=== PATIENT | female | born 1990 ===

== ENCOUNTER 2020-07-23 07:00 | Outpatient (RCR) | payer BC, MEDICAID, SELFPAY ==
--- NOTE | 2020-06-26 11:40 | MHC.PT.EP ---
[facility] [place] Office [place] Office [place] Office [address] Ramses Bowers [address] [phone] F: [phone] F: [phone] F: [phone] F: [phone] Physical Therapy Plan of Care Date of Evaluation: 06/26/20 Date of Surgery: Diagnosis: Lumbar degenerative disc disease and right hip pain Assessment: This is a 30 y/o female referred to skilled PT for lumbar degenerative disc disease and right hip pain. Examination reveals sacroiliac joint asymmetries, pain, tenderness to palpation along the right QL, TFL, piriformis, and glut complex, (+) squish and JENNA on right, painful and decreased lumbar AROM and right hip ROM, impaired muscle length (right hamstrings), decreased hip and knee strength (right side), RLE paresthesias, postural deficits, and gait deviations. A directional preference was not established today. However, she may prefer lumbar extension. This will be assessed in future visits depending on how the patient responds to treatment. Pt is a good candidate for skilled PT 2x/week for 5 weeks in order to reduce impairments and improve functional limitations. Today, I performed MET for: right on left backward sacral torsion and right posterior innominate rotation. *Pt was diagnosed with cervical cancer 3 months ago and will begin treatment this month* Frequency and Duration: The patient will be seen 2x/week for 5 weeks, minimum of 38 minutes Short Term Goals: -In 2 weeks, Pt will report less than 8/10 pain. - In 3 weeks, Pt to improve right hip rotator ROM by at least 10 degrees. -In 3 weeks, Pt to improve right HS length by at least 10 degrees. [facility] Goals: -In 5 weeks, Pt to demonstrate the ability to perform sit<>stand transitions w/o pain or altered body positioning. 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 In 5 weeks, Pt to improve LEFI by at least 9 points. Treatment Plan: Modalities to reduce pain, spasms and effusion. Manual therapy to restore motion and function. Therapeutic exercise to improve strength and flexibility. Neuromuscular re-education for posture and balance. Therapeutic activities to return to functional activities of daily living. Please sign and return to therapist. Thank you for your referral.
--- NOTE | 2020-08-18 11:37 | MHC.PT.DC ---
[facility] [place] Office [place] Office [place] Office [address] [phone] F: [phone] F: [phone] F: [phone] F: [phone] Physical Therapy Discharge Report Diagnosis: back pain Date of Surgery: Date of Evaluation: 06/26/20 Date of Discharge: 08/18/20 Treatments to Date: 5 Cancellations to Date: 0 No Shows to Date: 0 Discharge Status: Patient Elected to Stop Discharge Summary: Pt has not been seen since 07/23/20. She has not followed up to schedule additional visits. She will be discharged at this time. Assessment from last visit: REIL continues to make her feel better ( more central pain) The patient went through low to moderate intensity core training without exacerbation of her pain. When she left she felt more right knee pain in the knee joint. However I believe this is radicular pain rather than actual joint pain. Pt asked to continue with pain reducing exercises at home. Despite education she has continued to do child's pose which gives her tempoary relief. Electronically signed by: Hui Durham PT, DPT Please sign and return to therapist. Thank you for your referral.
== END 2020-08-18 11:39 | disposition other institution (70) ==
LOC: HO.PT 07:00
PROVIDERS: PCP Internal Medicine; Visit Provider Internal Medicine
DX: M51.36 Other intervertebral disc degeneration, lumbar region (principal); M25.551 Pain in right hip
CPT/HCPCS: 97110; 97112; 97140; 97162

== ENCOUNTER 2020-12-08 09:50 | Outpatient (REF) | payer BC, MEDICAID, SELFPAY ==
--- NOTE | ~2020-12-08 | XR_ITS ---
EXAMINATION: XR BILATERAL HIP EXAM CLINICAL INFORMATION: Osteomyelitis. COMPARISON: None. TECHNIQUE: 2 views of each hip. FINDINGS: Left hip: There is mild loss of left hip joint space. No bony erosive changes. No loose bodies. There is no joint effusion. No acute fracture or dislocation. Right hip: The right hip joint space is maintained normal. No visible acute fracture or dislocation. No bony erosive changes. The soft tissues are normal. There are Essure devices seen in the right and left adnexa. XR/XR hip RT w PEL1V IMPRESSION: Mild degenerative changes left hip joint. The right hip joint space is unremarkable. No visible acute fracture or dislocation in either hip.
--- NOTE | ~2020-12-08 | XR_ITS ---
EXAMINATION: XR BILATERAL HIP EXAM CLINICAL INFORMATION: Osteomyelitis. COMPARISON: None. TECHNIQUE: 2 views of each hip. FINDINGS: Left hip: There is mild loss of left hip joint space. No bony erosive changes. No loose bodies. There is no joint effusion. No acute fracture or dislocation. Right hip: The right hip joint space is maintained normal. No visible acute fracture or dislocation. No bony erosive changes. The soft tissues are normal. There are Essure devices seen in the right and left adnexa. XR/XR hip LT w PEL1V IMPRESSION: Mild degenerative changes left hip joint. The right hip joint space is unremarkable. No visible acute fracture or dislocation in either hip.
== END 2020-12-08 09:51 | disposition home or self-care (01) ==
LOC: HO.XRAY 09:50
PROVIDERS: PCP Internal Medicine; Visit Provider Anesthesiology
DX: M25.551 Pain in right hip (principal); M86.9 Osteomyelitis, unspecified; M46.1 Sacroiliitis, not elsewhere classified
CPT/HCPCS: 73502; 99212

== ENCOUNTER → 2021-01-29 16:20 | Outpatient (BNVA) | payer BC, MEDICAID, SELFPAY | PROVIDERS: PCP Internal Medicine; Visit Provider Anesthesiology ==

== ENCOUNTER → 2021-03-09 08:19 | Outpatient (BNVA) | payer BC, MEDICAID, SELFPAY | PROVIDERS: PCP Internal Medicine; Referring Provider Internal Medicine; Visit Provider Nurse Practitioner Family ==

== ENCOUNTER 2021-04-14 08:14 | Outpatient (REF) | payer MEDICAID, SELFPAY ==
[2021-04-14 11:28] LABS: Hematocrit 37.3 % (37-47); Hemoglobin 12.3 g/dl (12.0-16.0); Platelet Count 305 X10*3/uL (160-400); Red Blood Count 3.97 X10*6/uL (4.20-5.50); Red Cell Distribution Width 11.7 % (11.0-16.0); White Blood Count 6.6 X10*3/uL (4.8-10.8)
[2021-04-14 11:30] LABS: Alanine Aminotransferase 13 U/L (0-31); Albumin Level 4.3 g/dL (3.5-5.0); Alkaline Phosphatase 45 U/L (39-117); Anion Gap 10 (12-20); Aspartate Amino Transferase 14 U/L (5-31); Bilirubin Total 0.2 mg/dL (0.0-1.0); Blood Urea Nitrogen 9 mg/dL (9-16); Calcium 9.5 mg/dL (8.4-10.2); Carbon Dioxide 27 mmol/L (22-29); Chloride 106 mmol/L (96-108); Estimated Glomerular Filt Rate > 60; Glucose Random 89 mg/dL (60-115); Potassium 4.8 mmol/L (3.3-5.1); Sodium 138 mmol/L (135-145); Total Protein 7.6 g/dL (6.5-8.0)
[2021-04-14 11:54] LABS: TSH reflex Free T4 1.09 uIU/mL (0.32-4.0)
[2021-04-15 15:16] LABS: H Pylori Breath Test NOT DETECTED (NOT DETECTED)
[2021-04-17 20:21] LABS: Transglutaminase Ab IgG 5 U/mL; Transglutaminase IgA 1 U/mL
== END 2021-04-14 08:15 | disposition home or self-care (01) ==
LOC: HO.LAB 08:14
PROVIDERS: PCP Internal Medicine; Referring Provider Internal Medicine; Visit Provider Nurse Practitioner Family
DX: R10.9 Unspecified abdominal pain (principal); K59.04 Chronic idiopathic constipation; K21.9 Gastro-esophageal reflux disease without esophagitis; R14.0 Abdominal distension (gaseous)
CPT/HCPCS: 36415; 80053; 83013; 83516; 84443; 85027; 86140

== ENCOUNTER → 2021-05-19 08:03 | Outpatient (BNVA) | payer MEDICAID, SELFPAY | PROVIDERS: PCP Internal Medicine; Visit Provider Nurse Practitioner Family ==

== ENCOUNTER → 2021-06-19 08:24 | Outpatient (BNVA) | payer OTHER, SELFPAY | PROVIDERS: Visit Provider Nurse Practitioner Family ==

== ENCOUNTER 2021-07-01 09:38 | Outpatient (REF) | payer OTHER, SELFPAY ==
[2021-07-01 12:06] LABS: Rheumatoid Factor < 15.0 IU/mL (<15.0)
[2021-07-01 12:48] LABS: Erythrocyte Sedimentation Rate 25 MM/HR (0-20)
[2021-07-02 22:06] LABS: Cyclic Citrullinated Peptide <16 UNITS
[2021-07-02 22:52] LABS: Anti Nuclear Antibody Screen POSITIVE (NEGATIVE); Anti Nuclear Antibody Titer 1:40 titer
== END 2021-07-01 09:39 | disposition home or self-care (01) ==
LOC: HO.LAB 09:38
PROVIDERS: Absent Provider Internal Medicine; PCP Internal Medicine; Visit Provider Anesthesiology
DX: M47.816 Spondylosis without myelopathy or radiculopathy, lumbar region (principal); M51.36 Other intervertebral disc degeneration, lumbar region; M06.9 Rheumatoid arthritis, unspecified
CPT/HCPCS: 36415; 85652; 86038; 86039; 86200; 86431; 99212

== ENCOUNTER 2021-07-27 07:17 | Outpatient (REF) | payer OTHER, SELFPAY ==
--- NOTE | ~2021-07-27 | MR_ITS ---
EXAMINATION: MR LUMBAR SPINE WITHOUT CONTRAST CLINICAL INFORMATION: Right leg pain and low back pain. COMPARISON: None TECHNIQUE: MRI of the lumbar spine was obtained using routine sequences without contrast. FINDINGS: There is a mbkr-yk-[id number] loss of disc height with loss of normal intradiscal signal and chronic degenerative endplate changes at the L5-S1 level. Shallow, broad-based central disc protrusion evident at L5-S1 with compression of the right S1 nerve root. No central canal stenosis evident. Bulging disc and osseous spurring results in significant bilateral foraminal encroachment with mild distortion of the exiting L5 nerve roots. The remaining imaged lower thoracic and lumbar discs are well hydrated and normal in appearance. The distal cord, conus tip, and cauda equina nerve roots are normal. There are no compression fractures or subluxations. No marrow or soft tissue edema is seen. The visualized bony pelvis is normal. MR/MR lumbar spine wo con IMPRESSION: Disc degeneration and chronic endplate changes at the L5-S1 level with a central disc protrusion compressing the right S1 nerve root. Rysjxxlz-tv-ozjcay foraminal narrowing with mild distortion of the exiting L5 nerve roots. No central canal stenosis.
== END 2021-07-27 07:18 | disposition home or self-care (01) ==
LOC: HO.MRI 07:17
PROVIDERS: Visit Provider Anesthesiology
DX: M47.816 Spondylosis without myelopathy or radiculopathy, lumbar region (principal); M51.36 Other intervertebral disc degeneration, lumbar region
CPT/HCPCS: 72148

== ENCOUNTER → 2021-07-29 11:12 | Outpatient (BNVA) | payer OTHER, SELFPAY | PROVIDERS: PCP Internal Medicine; Visit Provider Anesthesiology | DX: M47.816 Spondylosis without myelopathy or radiculopathy, lumbar region (principal); M51.36 Other intervertebral disc degeneration, lumbar region; M47.27 Other spondylosis with radiculopathy, lumbosacral region; Z88.4 Allergy status to anesthetic agent; J30.2 Other seasonal allergic rhinitis; Z79.899 Other long term (current) drug therapy | CPT/HCPCS: 99212 ==

== ENCOUNTER 2021-08-11 06:33 | Outpatient (REF) | payer OTHER, SELFPAY ==
--- NOTE | ~2021-08-11 | FL_ITS ---
EXAMINATION: XR FLUOROSCOPY WITH IMAGES CLINICAL INFORMATION: M47.27 - Other spondylosis with radiculopathy, lumbosacral COMPARISON: MR lumbar spine 07/27/2021 TECHNIQUE: Fluoroscopy performed by pain management physician. Fluoroscopy time: 0.2 minutes DAP: 1.48 Gycm2 Images: 3 FINDINGS: There are spinal needles overlying the outer right L5 neural foramen. There is contrast seen in the respective nerve sheath. Some early transforaminal epidural extension is suggested. No visible vascular communication. FL/FL guidance in treatment room IMPRESSION: Fluoroscopy for pain management procedures.
== END 2021-08-11 06:34 | disposition home or self-care (01) ==
LOC: HO.RADIR 06:33
PROVIDERS: Visit Provider Anesthesiology
DX: M47.27 Other spondylosis with radiculopathy, lumbosacral region (principal); M47.816 Spondylosis without myelopathy or radiculopathy, lumbar region; M51.36 Other intervertebral disc degeneration, lumbar region
CPT/HCPCS: J3300; Q9967

== ENCOUNTER → 2021-09-09 13:27 | Outpatient (BNVA) | payer OTHER, SELFPAY | PROVIDERS: PCP Internal Medicine; Visit Provider Anesthesiology ==

== ENCOUNTER 2021-10-08 13:55 | Outpatient (REF) | payer OTHER, SELFPAY ==
[2021-10-08 15:29] LABS: Hematocrit 36.9 % (37.0-47.0); Mean Corpuscular HGB Conc 32.5 g/dl (31.0-35.0); Mean Corpuscular Volume 95.3 fL (80.0-98.0); Platelet Count 312 X10*3/uL (160-400); Red Blood Count 3.87 X10*6/uL (4.20-5.50); Red Cell Distribution Width 11.9 % (11.0-16.0); White Blood Count 8.5 X10*3/uL (4.8-10.8)
[2021-10-08 16:17] LABS: TSH reflex Free T4 1.05 uIU/mL (0.32-4.0)
[2021-10-08 16:28] LABS: Folate 14.9 ng/mL (> or = 4.0); Vitamin B12 773 pg/mL (200-900)
[2021-10-13 12:32] LABS: Vitamin D 25-OH, D2 <4 ng/mL; Vitamin D 25-OH, D3 25 ng/mL; Vitamin D 25-OH, Total 25 ng/mL (30-100)
== END 2021-10-08 13:56 | disposition home or self-care (01) ==
LOC: HO.LAB 13:55
PROVIDERS: PCP Internal Medicine; Referring Provider Internal Medicine; Visit Provider Nurse Practitioner Family
DX: R53.83 Other fatigue (principal); K59.01 Slow transit constipation; K59.04 Chronic idiopathic constipation; K21.9 Gastro-esophageal reflux disease without esophagitis; R19.7 Diarrhea, unspecified; E55.9 Vitamin D deficiency, unspecified; J30.2 Other seasonal allergic rhinitis
CPT/HCPCS: 36415; 82306; 82607; 82746; 84443; 85027; 99212

== ENCOUNTER 2021-11-13 09:29 | Day surgery (SDC) | payer OTHER, SELFPAY ==
--- NOTE | 2021-11-12 09:34 | P.CONAN_ITS ---
Documented by User: Mariah Gastelum NP 11/12/21 09:38 HPI - Anesthesia Eval Consult details Narrative: 31yo F for Right Sacroiliac Joint Innervation Injection PMFSH Active Problems Active Problems: All Active Problems (Updated 10/14/21 @ 20:15 by Mer Vincent, [facility]) Shoulder pain, left (Acute) Spondylosis of lumbosacral spine with radiculopathy (Acute) Disc degeneration, lumbar (Acute) Spondylosis of lumbar spine (Acute) Gastroesophageal reflux disease (Acute) Mild persistent asthma (Acute) Constipation by delayed colonic transit (Acute) Arthralgia (Acute) Rheumatoid arthritis (Acute) Traumatic ecchymosis of hip (Acute) Rash and nonspecific skin eruption (Acute) Sacroiliitis (Acute) Hip osteomyelitis, right (Acute) Sinusitis chronic, ethmoidal (Acute) Past Medical History Medical History Arthralgia Constipation by delayed colonic transit Disc degeneration, lumbar Gastroesophageal reflux disease Hip osteomyelitis, right Insertion of implantable subdermal contraceptive Mild persistent asthma Rheumatoid arthritis Sacroiliitis Spondylosis of lumbar spine Spondylosis of lumbosacral spine with radiculopathy Family History Family History Mother HTN (hypertension) Diabetes Arthritis Constipation Surgical History Surgical History (Updated 11/13/21 @ 10:21 by Leti Mcnair MD) History of (~2005) Social History Social History Household Members: None Housing: Apartment Alcohol intake: never Patient Tobacco Use Status: Never used Tobacco e-Cigarette/Vaping Use: Never Used Second Hand Smoke Exposure: No Use of substances other than those prescribed or required for medical reasons: No Are you DNR?: No Advance Directives: No Advance Directives Information Provided: Yes Recently lost weight without trying: No service: No Current occupational status: unemployed Meds Allergies Allergy/AdvReac Type Severity Reaction Status Date / Time seasonal Allergy Unknown unknown Uncoded 10/08/21 13:58 Home Medications Medication Instructions Recorded Confirmed Last Taken Type bupropion HCl 100 mg tablet 150 mg PO DAILY tab 08/06/20 07/29/21 Unknown History epinephrine 0.3 mg/0.3 mL 0.3 mg IM ONCE PRN ea 08/06/20 07/29/21 Unknown History injection, auto-injector hydroxyzine HCl 25 mg tablet 25 mg PO Q8H PRN tab 08/06/20 07/29/21 Unknown History ibuprofen 800 mg tablet 800 mg PO Q8H 08/06/20 07/29/21 Unknown History ondansetron HCl 4 mg tablet 4 mg PO BID PRN tab 08/06/20 07/29/21 Unknown History (Zokimberly) Exam Exam Date and Time: November 12, [id number] Pertinent Lab Results Pertinent Lab Results: Laboratory Tests 04/14/21 10/08/21 10:00 15:03 WBC 8.5 Hgb 12.0 Hct 36.9 L Plt Count 312 Sodium 138 Potassium 4.8 Chloride 106 Carbon Dioxide 27 BUN 9 Creatinine 0.79 Assessment and Plan Assessment Anesthesia Assessment: Chart Reviewed Documented by User: Leti Mcnair MD 11/13/21 11:07 [facility] Active Problems Active Problems: All Active Problems (Updated 10/14/21 @ 20:15 by Mer Vincent, [facility]) Shoulder pain, left (Acute) Spondylosis of lumbosacral spine with radiculopathy (Acute) Disc degeneration, lumbar (Acute) Spondylosis of lumbar spine (Acute) Gastroesophageal reflux disease (Acute) Mild persistent asthma (Acute)- Asthma well controlled. No inhaler for 8 months Constipation by delayed colonic transit (Acute) Arthralgia (Acute) Rheumatoid arthritis (Acute) Traumatic ecchymosis of hip (Acute) Rash and nonspecific skin eruption (Acute) Sacroiliitis (Acute) Hip osteomyelitis, right (Acute) Sinusitis chronic, ethmoidal (Acute) Epi-pen for seasonal allergies. Never needed. Was getting injections for allergies. Depression Past Medical History Medical History Arthralgia Constipation by delayed colonic transit Disc degeneration, lumbar Gastroesophageal reflux disease Hip osteomyelitis, right Insertion of implantable subdermal contraceptive Mild persistent asthma Rheumatoid arthritis Sacroiliitis Spondylosis of lumbar spine Spondylosis of lumbosacral spine with radiculopathy Family History Family History Mother HTN (hypertension) Diabetes Arthritis Constipation Family history of problems with anesthesia: No Surgical History Surgical History (Updated 11/13/21 @ 10:21 by Leti Mcnair MD) History of (~2005) History of Problems with Anesthesia: No Social History Social History Household Members: None Housing: Apartment Alcohol intake: never Patient Tobacco Use Status: Never used Tobacco e-Cigarette/Vaping Use: Never Used Second Hand Smoke Exposure: No Use of substances other than those prescribed or required for medical reasons: No Are you DNR?: No Advance Directives: No Advance Directives Information Provided: Yes Recently lost weight without trying: No service: No Current occupational status: unemployed Meds Allergies Allergy/AdvReac Type Severity Reaction Status Date / Time seasonal Allergy Unknown unknown Uncoded 10/08/21 13:58 Home Medications Medication Instructions Recorded Confirmed Last Taken Type bupropion HCl 100 mg tablet 150 mg PO DAILY tab 08/06/20 07/29/21 Unknown History epinephrine 0.3 mg/0.3 mL 0.3 mg IM ONCE PRN ea 08/06/20 07/29/21 Unknown History injection, auto-injector hydroxyzine HCl 25 mg tablet 25 mg PO Q8H PRN tab 08/06/20 07/29/21 Unknown History ibuprofen 800 mg tablet 800 mg PO Q8H 08/06/20 07/29/21 Unknown History ondansetron HCl 4 mg tablet 4 mg PO BID PRN tab 08/06/20 07/29/21 Unknown History (Zofran) Exam Height,Weight and Vital Signs: Height 5 ft 6 in Weight 74.843 kg Vital Signs Temp Pulse Resp BP Pulse Ox 11/13/21 09:44 99.3 F 80 18 138/61 97 Pertinent Lab Results Pertinent Lab Results: Laboratory Tests 04/14/21 10/08/21 10:00 15:03 WBC 8.5 Hgb 12.0 Hct 36.9 L Plt Count 312 Sodium 138 Potassium 4.8 Chloride 106 Carbon Dioxide 27 BUN 9 Creatinine 0.79 Lab Results 11/13/21 Range/Units 09:35 Urine Test NEGATIVE (NEGATIVE) Airway Mallampati Class: II (Tongue stud) TM Dist: >3cm Neck ROM: Full Loose/Missing/Broken Teeth: No Heart: RRR Lungs: CTAB Assessment and Plan Assessment Anesthesia Assessment: Anesthesia Plan Discussed Final Anesthetic Review Family History of Problems with Anesthesia: No History of Problems with Anesthesia: No NPO: Yes ASA Class: II Final Preanesthetic Review: No Changes in Pt Med Stat, Meds/Allgs Chart Reviewed, Consent Obtained/Reviewed and Anes Risks/Benef Reviewed Patient Risk: Low Procedure Risk: Low Assessment/Block/Sedation in SS: Assess/Block/Sedation-SS Anesthetic Plan Anesthetic Plan: MAC: Disposition: Standard PACU
--- NOTE | ~2021-11-13 | FL_ITS ---
EXAMINATION: XR FLUOROSCOPY WITH IMAGES CLINICAL INFORMATION: SI joint pain. COMPARISON: None. TECHNIQUE: Fluoroscopy performed by Dr. Franko Grider. Fluoroscopy time: 0.3 minutes DAP: 1.49 Gy-cm2 Images: 5 FINDINGS: There are several needles positioned along the right aspect of the L5 pedicle and facet joint and right SI joint with contrast opacifying the soft tissues. FL/FL guidance in OR IMPRESSION: Fluoroscopy was provided to the referring physician for right SI joint pain management.
[2021-11-13 09:44] VITALS: BP 138/61; PULSE 80; RESP 18; TEMP 37.4; O2SAT 97; BMI 26.6
[2021-11-13 09:45] LABS: UPreg QC Valid YES; Urine Pregnancy NEGATIVE (NEGATIVE)
[2021-11-13] MEDS: Lactated Ringers 1,000 ML 100 ML IVCONT (10:04)
[2021-11-13 10:12] VITALS: TEMP 36.7
[2021-11-13 11:22] VITALS: BP 114/68; PULSE 73; RESP 16; TEMP 36.2; O2SAT 100
--- NOTE | 2021-11-13 11:22 | W.PM.OPN ---
Operative Note Operative Note Date of Service: 11/13/21 Narrative: Olga is very pleasant 31 years old female who is suffering from lower back pain etiology of which could be right sacroiliitis. she went to the operating room to perform diagnostic right-sided sacroiliac joint innervation injection with bupivacaine. Informed consent was explained to the patient. The patient was taken to the operating room and she was positioned prone on the operating table. Time out was performed. , Name of the patient and nature/laterality of the procedure were explained on the timeout. The lower back and buttocks of the patient were prepped with chloroprep and draped with sterile utility towels. C arm was brought over the patients right side of the pelvis and the picture of the right SI joint was demonstrated on the screen. The poins of interest were determined as: #1: the connection of the superior articular process of S1 with sacral ala, #2 medial (sacral) side of the lowest point of the sacroiliac joint and also all points 6-7 mm apart in linear fashion between the point number one and point number two. The projection of the points of the interests to the skin was injected with mixture of lidocaine 2% and bupivacaim 0.5% 1:1. The 22g 3 and 1/2 inch spinal needle were driven to the points of the interests in tunnel vision fashion. When the needles gently contacted the bone injection of the contrast was performed delineating no intravascular and no intrathecal/foraminal/ epidural spread of the contrast. after that small amount of the bupivacain 0.5% was injected into each needle position. After that the needles were removed bandaid was applied, The patient was taken outside of the operating room to the recovery room where she recovered uneventfully. She was instructed to continue with pain diary postoperatively.
--- NOTE | 2021-11-13 11:23 | MHC.SHP ---
Pre-Procedural Eval Section A Date of Service: 11/13/21 The patient is an INPATIENT: No Changes since office visit: Yes Patient answered all questions The History & Physical has been completed within 30 days and I have reviewed it.: No Section B Chief Complaint: Sacroiliitis, Details of Present Illness: As above Relevant Family History (Specify if Yes): No Relevant Social History: None Present Medications: see Short Stay Collaborative assessment Medical History: No relevant PMH History of Previous Operations: No relevant previous surgery Allergies: Allergies Allergy/AdvReac Type Severity Reaction Status Date / Time seasonal Allergy Unknown unknown Uncoded 10/08/21 13:58 Review of Systems Sugical H&P ROS: Negative: Constitution, Cardiovascular, Respiratory, Neurological, Psychiatric, Hem-Onc, Allergic/Immunologic, Gastrointestinal, Genitourinary, Musculoskeletal, Integumentary, Endocrine and Eyes/Ears/Nose/Throat Exam Surgical H&P Exam: Normal: HEENT, Normal: Heart, Normal: Lungs, Normal: Extremities, Normal: Abdomen, Normal: Skin and Normal: Neurological Plan Diagnosis/Plan: Unchanged I have reviewed the history and physical and performed a pertinent physical examination on my patient. No changes have occurred unless specified.
--- NOTE | 2021-11-13 11:24 | PM.OP ---
Brief Operative Note Date of Service: 11/13/21 Pre-op diagnosis: sacroiliitis Post-op diagnosis: same Procedure: diagnostic right sacroiliac joint innervation injection with Marcaine Surgeon: Franko Grider MD Anesthesia: MAC Was an City Supervisor used for this Procedure?: No Estimated blood loss (mL): 1 Pathology: none sent Condition: stable Disposition: PACU
[2021-11-13 11:36] VITALS: BP 109/74; PULSE 64; RESP 16; O2SAT 100
[2021-11-13 12:10] VITALS: BP 116/77; PULSE 72; RESP 16; TEMP 36.2; O2SAT 98
[2021-11-13 12:45] VITALS: BP 125/70; PULSE 74; RESP 16; TEMP 36.2; O2SAT 98
== END 2021-11-13 13:20 | disposition home or self-care (01) ==
PROVIDERS: Nurse Practitioner; PCP Internal Medicine; Visit Provider Anesthesiology
PROC: (CPT 64451; principal; 2021-11-13 11:10)
DX: M86.9 Osteomyelitis, unspecified (principal); M46.1 Sacroiliitis, not elsewhere classified; M51.36 Other intervertebral disc degeneration, lumbar region; M47.816 Spondylosis without myelopathy or radiculopathy, lumbar region; M54.50 Low back pain, unspecified; M16.12 Unilateral primary osteoarthritis, left hip; M25.551 Pain in right hip; M25.561 Pain in right knee; M79.661 Pain in right lower leg; J45.30 Mild persistent asthma, uncomplicated; M06.9 Rheumatoid arthritis, unspecified; Z79.899 Other long term (current) drug therapy
CPT/HCPCS: 64451; 81025; J2250; Q9967

== ENCOUNTER → 2021-11-18 11:39 | Outpatient (BNVA) | payer OTHER, SELFPAY | PROVIDERS: PCP Internal Medicine; Visit Provider Anesthesiology ==

== ENCOUNTER 2021-12-18 12:47 | Day surgery (SDC) | payer OTHER, SELFPAY ==
--- NOTE | 2021-12-17 12:30 | P.CONAN_ITS ---
Documented by User: Mariah Gastelum NP 12/17/21 12:32 HPI - Anesthesia Eval Consult details Narrative: 31yo F for Right S.I. Joint Fusion s/p SI Joint Injection 10/2021 with TIVA PMFSH Active Problems Active Problems: All Active Problems (Updated 11/23/21 @ 09:48 by Ceci Bowen MD) Mild recurrent major depression (Acute) Sacroiliac joint dysfunction of right side (Acute) Shoulder pain, left (Acute) Spondylosis of lumbosacral spine with radiculopathy (Acute) Disc degeneration, lumbar (Acute) Spondylosis of lumbar spine (Acute) Gastroesophageal reflux disease (Acute) Mild persistent asthma (Acute) Constipation by delayed colonic transit (Acute) Arthralgia (Acute) Rheumatoid arthritis (Acute) Traumatic ecchymosis of hip (Acute) Rash and nonspecific skin eruption (Acute) Sacroiliitis (Acute) Hip osteomyelitis, right (Acute) Sinusitis chronic, ethmoidal (Acute) Past Medical History Medical History Arthralgia Constipation by delayed colonic transit Disc degeneration, lumbar Gastroesophageal reflux disease Hip osteomyelitis, right Insertion of implantable subdermal contraceptive Mild persistent asthma Mild recurrent major depression Rheumatoid arthritis Sacroiliac joint dysfunction of right side Sacroiliitis Spondylosis of lumbar spine Spondylosis of lumbosacral spine with radiculopathy Family History Family History Mother HTN (hypertension) Diabetes Arthritis Constipation Family history of problems with anesthesia: No Surgical History Surgical History History of (~2005) History of Problems with Anesthesia: No Social History Social History Household Members: None Housing: Homeless (living with friends) Alcohol intake: never Patient Tobacco Use Status: Never used Tobacco Smoked in Last 30 Days: No e-Cigarette/Vaping Use: Never Used Second Hand Smoke Exposure: No Use of substances other than those prescribed or required for medical reasons: No Are you DNR?: No Advance Directives: No Advance Directives Information Provided: Yes service: No Current occupational status: unemployed Meds Allergies Allergy/AdvReac Type Severity Reaction Status Date / Time seasonal Allergy Unknown unknown Uncoded 12/18/21 13:11 Home Medications Medication Instructions Recorded Confirmed Last Taken Type ibuprofen 800 mg tablet 800 mg PO Q8H 08/06/20 11/23/21 Unknown History ondansetron HCl 4 mg tablet 4 mg PO BID PRN tab 08/06/20 11/23/21 Unknown History (Burak) Exam Exam Date and Time: December 17, 2021 1230 Assessment and Plan Assessment Anesthesia Assessment: Chart Reviewed Final Anesthetic Review Family History of Problems with Anesthesia: No History of Problems with Anesthesia: No Documented by User: Sophie Montes MD 12/18/21 14:16 [facility] Past Medical History Medical History Arthralgia Constipation by delayed colonic transit Disc degeneration, lumbar Gastroesophageal reflux disease Hip osteomyelitis, right Insertion of implantable subdermal contraceptive Mild persistent asthma Mild recurrent major depression Rheumatoid arthritis Sacroiliac joint dysfunction of right side Sacroiliitis Spondylosis of lumbar spine Spondylosis of lumbosacral spine with radiculopathy Family History Family History Mother HTN (hypertension) Diabetes Arthritis Constipation Surgical History Surgical History History of (~2005) Social History Social History Household Members: None Housing: Homeless (living with friends) Alcohol intake: never Patient Tobacco Use Status: Never used Tobacco Smoked in Last 30 Days: No e-Cigarette/Vaping Use: Never Used Second Hand Smoke Exposure: No Use of substances other than those prescribed or required for medical reasons: No Are you DNR?: No Advance Directives: No Advance Directives Information Provided: Yes service: No Current occupational status: unemployed Meds Allergies Allergy/AdvReac Type Severity Reaction Status Date / Time seasonal Allergy Unknown unknown Uncoded 12/18/21 13:11 Home Medications Medication Instructions Recorded Confirmed Last Taken Type ibuprofen 800 mg tablet 800 mg PO Q8H 08/06/20 11/23/21 Unknown History ondansetron HCl 4 mg tablet 4 mg PO BID PRN tab 08/06/20 11/23/21 Unknown History (Burak) Assessment and Plan Assessment Anesthesia Assessment: Anesthesia Plan Discussed Final Anesthetic Review NPO: Yes ASA Class: II Final Preanesthetic Review: Meds/Allgs Chart Reviewed, Consent Obtained/Reviewed and Anes Risks/Benef Reviewed Patient Risk: Low Procedure Risk: Low Anesthetic Plan Anesthetic Plan: GA Disposition: Standard PACU
[2021-12-18] VITALS (16 sets, daily range): BP systolic 107–131; BP diastolic 60–83; PULSE 64–78; RESP 16–18; TEMP 36.2–36.5; O2SAT 98–100; BMI 31.9
--- NOTE | ~2021-12-18 | FL_ITS ---
EXAMINATION: XR FLUOROSCOPY WITH IMAGES CLINICAL INFORMATION: SI joint fusion, right COMPARISON: None. TECHNIQUE: Fluoroscopy performed by Dr. Franko Grider. Fluoroscopy time: 0.5 minutes DAP: 10.3 mGycm2 Images: 8 FINDINGS: Provided images show intervention at the right sacroiliac joint. FL/FL guidance in OR IMPRESSION: Fluoroscopic guidance for intervention at the right sacroiliac joint. Please refer to the procedural report for further information.
[2021-12-18 13:13] LABS: UPreg QC Valid YES; Urine Pregnancy NEGATIVE (NEGATIVE)
[2021-12-18] MEDS: Lactated Ringers 1,000 ML 100 ML IVCONT (13:37)
--- NOTE | 2021-12-18 16:17 | W.PM.OPN ---
Operative Note Operative Note Date of Service: 12/18/21 Narrative: ?Sacroiliac joint stabilisation procedure. posterior sacroiliac joint fusion using LINQ SI joint stabilization system with C-arm fluoroscopy for guidance.? Ms Jessika Schultz is very pleasant 31 years old female who is suffering right sacroiliac joint insufficiency and sacroiliitis on the right.??She failed conservative management of sacroiliitis.??She came today to receive the procedures as above.??The risks and benefits including bleeding, infection, peripheral nerve damage, failure to reduce the pain were explained to the patient.?The patient came to the operating room, she was positioned on the stretcher supine, [place] [employer] monitors were applied and patient was administered with general endotracheal anesthesia.??After that the patient was transferred on operating table and positioned prone with all pressure points protected. The patient was administered 2 grams cefazolin IV approximately 25 minutes before the start of the procedure.? Time-out was performed delineating correct site, side, and nature of the procedure, name and date of of the patient, risk of fire, need for DVT prophylaxis, need for antibiotics.? The patient was transferred?on?radiolucent table. All pressure points were protected again. Lower back and bilateral buttocks were prepped with ChloraPrep and draped with full body drape. 3. 5 cm posterior midline incision over the projection of the right S1 foramina was performed.? Soft tissue dissection done to sacroiliac joint and thorough blind dissection was made in the direction of the?sacroiliac joint.? K-wire pin was inserted into the sacroiliac joint and guiding instrument was inserted into the joint using the pin as a guide and advanced into the joint on the intermittent anterior posterior and lateral views.??? After that pin was removed and rasping device was inserted to broach and rasp sacroiliac joint.? Once joint was prepared and inserted the structural allograft implant was hammered into the joint . It was packed with ortho biologics in and around the implant to provide better opportunity? for bones fusion.? The position of the allograft was confirmed radiographically.? The wound was irrigated hemostasis was achieved wound was closed in 2 layers.? Surgery was concluded by performing standard suture closing technique:? 0 Polysorb suture was used to close the wound and Polisorb 2-0 suture was used to approximate the levels of the skin.Jeff were applied to the skin level..? Sterile?dressing was applied with bacitracin ointment .? The patient tolerated procedure well she was awaken and taken outside of the operating room to PACU where she recovered uneventfully. She went home without immediate complications. She will be wearing an SI joint fixation belt for the 8 weeks after the procedure.
--- NOTE | 2021-12-18 16:21 | P.BOP_ITS ---
Brief Operative Note Date of Service: 12/18/21 Pre-op diagnosis: sacroiliitis Post-op diagnosis: same Procedure: sacroiliac joint fusion Implants: lyophilized cadaver bone with biologics Surgeon: Franko Grider MD Anesthesia: GETA Was an Compliance Professional used for this Procedure?: No Estimated blood loss (mL): 15 Pathology: none sent Condition: stable Disposition: PACU
[2021-12-18] MEDS: oxyCODONE HCl Immed Release 5 MG TABLET 10 MG PO (17:00)
[2021-12-18] MEDS: Acetaminophen 325 MG TABLET 650 MG PO (17:01)
[2021-12-18] MEDS: fentaNYL citrate/PF 100 MCG/2 ML VIAL 50 MCG IVPUSH (17:03)
[2021-12-18] MEDS: fentaNYL citrate/PF 100 MCG/2 ML VIAL 25 MCG IVPUSH (17:50)
== END 2021-12-18 19:17 | disposition home health service (06) ==
LOC: HO.SSS 12:48
PROVIDERS: Nurse Practitioner; PCP Internal Medicine; Visit Provider Anesthesiology
PROC: (CPT 27279; principal; 2021-12-18 14:20)
DX: M53.3 Sacrococcygeal disorders, not elsewhere classified (principal); M46.1 Sacroiliitis, not elsewhere classified; M86.9 Osteomyelitis, unspecified; M51.36 Other intervertebral disc degeneration, lumbar region; M47.27 Other spondylosis with radiculopathy, lumbosacral region; J45.30 Mild persistent asthma, uncomplicated
CPT/HCPCS: 27279; 81025; C1713; J0690; J1100; J2250; J2370; J2405; J3010; J3370

== ENCOUNTER → 2021-12-28 10:33 | Outpatient (BNVA) | payer OTHER, SELFPAY | PROVIDERS: PCP Internal Medicine; Visit Provider Anesthesiology | DX: M86.9 Osteomyelitis, unspecified (principal); M46.1 Sacroiliitis, not elsewhere classified; M51.36 Other intervertebral disc degeneration, lumbar region; M47.816 Spondylosis without myelopathy or radiculopathy, lumbar region; M53.3 Sacrococcygeal disorders, not elsewhere classified | CPT/HCPCS: 99212 ==

== ENCOUNTER → 2022-01-07 09:05 | Outpatient (BNVA) | payer OTHER, SELFPAY | PROVIDERS: PCP Internal Medicine; Visit Provider Anesthesiology | DX: Z48.89 Encounter for other specified surgical aftercare (principal); Z48.02 Encounter for removal of sutures; M47.816 Spondylosis without myelopathy or radiculopathy, lumbar region; M53.3 Sacrococcygeal disorders, not elsewhere classified; M51.36 Other intervertebral disc degeneration, lumbar region; M46.1 Sacroiliitis, not elsewhere classified; M86.9 Osteomyelitis, unspecified | CPT/HCPCS: 99212 ==

== ENCOUNTER → 2022-01-11 13:04 | Outpatient (BNVA) | payer OTHER, SELFPAY | PROVIDERS: PCP Internal Medicine; Referring Provider Internal Medicine; Visit Provider Nurse Practitioner Family | DX: K59.01 Slow transit constipation (principal); K21.9 Gastro-esophageal reflux disease without esophagitis; K58.1 Irritable bowel syndrome with constipation; K64.9 Unspecified hemorrhoids | CPT/HCPCS: 99212 ==

== ENCOUNTER 2022-02-25 10:05 | Outpatient (REF) | payer OTHER, SELFPAY ==
--- NOTE | ~2022-02-25 | XR_ITS ---
EXAMINATION: XR KNEE, RIGHT CLINICAL INFORMATION: Pain in the right knee. COMPARISON: None TECHNIQUE: Four views of the right knee. FINDINGS: Bones and soft tissues are normal. No fracture or joint effusion. Alignment is anatomic. Joint spaces are well maintained. No abnormal soft tissue calcification. XR/XR knee RT 3V IMPRESSION: Normal right knee.
== END 2022-02-25 10:06 | disposition home or self-care (01) ==
LOC: HO.XRAY 10:05
PROVIDERS: PCP Internal Medicine; Visit Provider Internal Medicine
DX: M53.3 Sacrococcygeal disorders, not elsewhere classified (principal); M25.561 Pain in right knee
CPT/HCPCS: 73562; 99212

== ENCOUNTER 2022-04-12 09:39 | Outpatient (REF) | payer OTHER, SELFPAY ==
[2022-04-15 14:07] LABS: TS Negative Control Passed; TS Panel A 0; TS Panel B 2; TS Positive Control Passed; TSpotTB Negative (Negative)
== END 2022-04-12 09:40 | disposition home or self-care (01) ==
LOC: HO.LAB 09:39
PROVIDERS: PCP Internal Medicine; Visit Provider Internal Medicine
DX: Z11.1 Encounter for screening for respiratory tuberculosis (principal)
CPT/HCPCS: 36415; 86481

== ENCOUNTER → 2022-04-28 08:19 | Outpatient (BNVA) | payer OTHER, SELFPAY | PROVIDERS: PCP Internal Medicine; Visit Provider Anesthesiology | DX: M25.561 Pain in right knee (principal); M53.3 Sacrococcygeal disorders, not elsewhere classified | CPT/HCPCS: 20610; 99212 ==

== ENCOUNTER 2022-05-05 11:55 | Emergency (ER) | payer OTHER, SELFPAY ==
--- NOTE | ~2022-05-05 | CT_ITS ---
EXAMINATION: CT ABDOMEN AND PELVIS WITHOUT CONTRAST CLINICAL INFORMATION: Right lower quadrant pain, nausea and vomiting COMPARISON: None TECHNIQUE: Multidetector volumetric imaging was performed from the superior aspect of the liver through the pubic symphysis. Sagittal and coronal reformatted images were obtained on the technologist's workstation. This CT examination was performed using dose optimization techniques as appropriate, variously including the following: *Automated exposure control *Adjustment of mA and/or kV according to patient size (this includes techniques or standardized protocols for targeted exams where dose is matched to indication/reason for exam; i.e. extremities or head) *Use of iterative reconstruction technique DLP: 670 mGy-cm FINDINGS: LUNG BASES: The visualized lung bases are unremarkable. LIVER, GALLBLADDER, AND BILIARY TREE: The liver is normal in size, shape, and attenuation. No focal hepatic lesion or biliary ductal dilatation is present. The gallbladder is unremarkable with no evidence of radiopaque gallstones, gallbladder wall thickening, or obvious pericholecystic inflammatory changes. PANCREAS: Unremarkable. SPLEEN: Unremarkable. ADRENAL GLANDS: Unremarkable. KIDNEYS AND URETERS: The kidneys are normal in size, shape, and attenuation. No hydronephrosis, hydroureter, or calculi seen. No perinephric stranding. BLADDER: Unremarkable. GASTROINTESTINAL TRACT: The small and large bowel are unremarkable. The appendix is unremarkable. ABDOMINAL WALL: No significant hernia is appreciated. LYMPH NODES: Normal. VASCULAR: Unremarkable. PELVIC VISCERA: There is a small to moderate amount of free pelvic fluid. The left ovary is enlarged, measuring 5.3 x 2.9 cm, with underlying cystic lesion, perhaps physiologic. The uterus is somewhat lobulated and enlarged. There are radiopaque devices along the expected course of both fallopian tubes. OSSEOUS STRUCTURES: Unremarkable. CT/CT abdomen pelvis wo con IMPRESSION: 1. Enlarged left ovary with questionable cystic lesion, perhaps physiologic, but better assessed by pelvic ultrasound. 2. Heterogeneous, somewhat enlarged uterus, perhaps on the basis of fibroids. 3. Moderate amount of free pelvic fluid, somewhat greater than expected for physiologic. The uterus, free fluid, and prominent left ovary would better be better assessed by pelvic ultrasound as clinically warranted. Fleischner guidelines were followed.
--- NOTE | ~2022-05-05 | US_ITS ---
EXAMINATION: US PELVIS CLINICAL INFORMATION: Right lower quadrant pain COMPARISON: CT abdomen pelvis earlier today TECHNIQUE: Ultrasound of the pelvis is performed using both transabdominal and transvaginal transducers along with Doppler. Transvaginal imaging is performed due to inadequate visualization transabdominally. FINDINGS: Uterus: The uterus is retroverted and retroflexed and measures 7.3 x 5.9 x 6.9 cm. 2 fibroids are seen, one at the fundus on the right measuring 2.2 x 1.7 x 1.7 cm and another smaller fibroid which is submucosal just beneath this measuring 0.8 x 0.9 x 1.1 cm. The double wall endometrial thickness is 1.6 mm. Adnexa: Both ovaries are visualized. There is normal color flow to the adnexa. There is no ovarian torsion. There is moderate free fluid present in the cul-de-sac which is complex with some debris. Right ovary measures 2.6 x 0.9 x 1.1 cm. For a volume of 1.3 mL Left ovary measures 3.4 x 3.1 x 2.4 cm for a volume of 13.7 mL which includes a 1.7 x 1.8 x 1.7 cm hemorrhagic probable corpus luteum cyst. US/US pelvic ovarian doppler IMPRESSION: 1. A worrisome finding is not seen. 2. Fibroids are present in the uterus. 3. Complex small left ovarian cyst, probably a corpus luteal cyst, with moderate complex free fluid, similar to CT scan.
--- NOTE | ~2022-05-05 | US_ITS ---
EXAMINATION: US PELVIS CLINICAL INFORMATION: Right lower quadrant pain COMPARISON: CT abdomen pelvis earlier today TECHNIQUE: Ultrasound of the pelvis is performed using both transabdominal and transvaginal transducers along with Doppler. Transvaginal imaging is performed due to inadequate visualization transabdominally. FINDINGS: Uterus: The uterus is retroverted and retroflexed and measures 7.3 x 5.9 x 6.9 cm. 2 fibroids are seen, one at the fundus on the right measuring 2.2 x 1.7 x 1.7 cm and another smaller fibroid which is submucosal just beneath this measuring 0.8 x 0.9 x 1.1 cm. The double wall endometrial thickness is 1.6 mm. Adnexa: Both ovaries are visualized. There is normal color flow to the adnexa. There is no ovarian torsion. There is moderate free fluid present in the cul-de-sac which is complex with some debris. Right ovary measures 2.6 x 0.9 x 1.1 cm. For a volume of 1.3 mL Left ovary measures 3.4 x 3.1 x 2.4 cm for a volume of 13.7 mL which includes a 1.7 x 1.8 x 1.7 cm hemorrhagic probable corpus luteum cyst. US/US pelvic and transvaginal IMPRESSION: 1. A worrisome finding is not seen. 2. Fibroids are present in the uterus. 3. Complex small left ovarian cyst, probably a corpus luteal cyst, with moderate complex free fluid, similar to CT scan.
[2022-05-05 12:11] VITALS: BP 128/73; PULSE 90; RESP 16; TEMP 37.6; O2SAT 99; BMI 31.9
[2022-05-05 12:35] LABS: MANUAL DIFF FLAG NO
[2022-05-05 12:38] LABS: Appearance Urine Clear; Color Urine Yellow; Glucose Urine UA Negative (Negative); Leukocyte Esterase Urine Small (1+) (Negative); Nitrite Urine Negative (Negative); PH 5.5 (5.0-8.0); Specific Gravity - Urine >= 1.030 (1.005-1.025); Urine Blood Large (3+) (Negative); Urine Ketones Negative (Negative); Urine Protein Negative (Neg-Trace)
[2022-05-05 12:39] LABS: UPreg QC Valid YES; Urine Pregnancy NEGATIVE (NEGATIVE)
[2022-05-05 12:50] LABS: RBC Urine 0-2 /HPF (0-2); UACC Culture Trigger YES; WBC Urine 0-5 /HPF (0-5)
[2022-05-05 12:51] LABS: Bacteria Urine 1+ (None Seen); Hyaline Casts Urine 0-2 /LPF (0-2)
[2022-05-05 12:53] LABS: Basophils Absolute Auto 0.1 X10*3/uL (0.0-0.2); Basophils Percent Auto 0.4 % (0-2); Eosinophils Absolute Auto 0.1 X10*3/uL (0.0-0.4); Eosinophils Percent Auto 0.3 % (0-4); Hematocrit 34.7 % (37.0-47.0); Hemoglobin 11.5 g/dl (12.0-16.0); Imm Gran Abs Auto 0.07 X10*3/uL (0.00-0.03); Imm Gran Pct Auto 0.4 % (0.0-0.4); Lymphocytes Absolute Auto 2.6 X10*3/uL (1.2-4.9); Lymphocytes Percent Auto 15.5 % (20-40); Mean Corpuscular HGB Conc 33.1 g/dl (31.0-35.0); Mean Corpuscular Volume 90.6 fL (80.0-98.0); Mean Platelet Volume 9.6 fL (9.4-12.3); Monocytes Absolute Auto 1.2 X10*3/uL (0.1-1.2); Monocytes Percent Auto 7.4 % (2-11); Neutrophils Absolute Auto 12.6 x10*3/uL (2.0-8.3); Platelet Count 302 X10*3/uL (160-400); Red Blood Count 3.83 X10*6/uL (4.20-5.50); Red Cell Distribution Width 12.3 % (11.0-16.0); White Blood Count 16.6 X10*3/uL (4.8-10.8)
[2022-05-05 12:55] LABS: Anion Gap 12 (12-20); Blood Urea Nitrogen 12 mg/dL (9-16); Calcium 8.8 mg/dL (8.4-10.2); Carbon Dioxide 22 mmol/L (22-29); Chloride 107 mmol/L (96-108); Creatinine Clr Calc Pharmacy 117.7; Estimated Glomerular Filt Rate > 60; Glucose Random 110 mg/dL (60-115); Potassium 3.9 mmol/L (3.3-5.1); Sodium 137 mmol/L (135-145)
[2022-05-05] MEDS: Acetaminophen 325 MG TABLET 650 MG PO (15:24)
[2022-05-05] MEDS: Ondansetron ODT 4 MG TAB.RAPDIS TRANSLINGU (15:24)
[2022-05-05 18:14] VITALS: BP 125/72; PULSE 66; RESP 16; O2SAT 100
--- NOTE | 2022-05-05 18:19 | ED.ABDPAIN ---
HPI - Abdominal Pain General Chief Complaint: Abdominal Pain Stated Complaint: Pain in lower R side stomach,sob Time Seen by Provider: 05/05/22 17:57 Source: patient Mode of arrival: ambulatory Limitations: no limitations History of Present Illness HPI narrative: This is a 32-year-old female past medical history significant for rheumatoid arthritis, depression, degenerative disc disease, GERD, asthma presenting to the emergency department with sudden-onset right lower quadrant pain w/o radiation this afternoon that has been at 10/10 constant in nature. Patient tells me that this pain awoke her from her sleep, after she woke up she had an episode of diarrhea, has vomited twice his remain nauseous ever since the pain began. She tells me she has never had pain like this before. She tells me that the only thing that makes the pain better is lying in the position. Has vague complaints of anorexia. She reports her only abdominal surgery has been hysterectomy other than that no other abdominal surgeries. She reports slight relief after Tylenol which was given triage in after Zofran. Denies fevers, chills, chest pain, shortness of breath, pain with intercourse, vaginal bleeding, vaginal discharge, headache, dizziness. Denies concerns for STDs/STIs MD elicited complaint: abdominal pain Pertinent past history: none Onset (ago): hour(s) (6) Pain Consistency: constant Location: RLQ Severity: severe Pain scale (0-10): 10 Quality: stabbing and sharp Radiation: none Migration to: no migration Exacerbating factors: movement Relieving factors: other ( position) Associated symptoms: nausea, vomiting and diarrhea Related Data Home Medications Medication Instructions Recorded Confirmed ibuprofen 800 mg tablet 800 mg PO Q8H 08/06/20 01/08/22 ondansetron HCl 4 mg tablet 4 mg PO BID PRN nausea and vomiting 08/06/20 01/08/22 (Zofran) Previous Rx's Medication Instructions Recorded lidocaine 5 % topical ointment 1 appl topical QID PRN pain/itch 12/16/20 #50 grams tizanidine 4 mg tablet 4 mg PO TID PRN muscle spasticity 03/11/21 #90 tabs methylcellulose (laxative) 500 mg 500 mg PO DAILY #30 tabs 05/19/21 tablet (Citrucel) magnesium citrate (Citrate of 150 ml PO DAILY PRN constipation 10/08/21 Magnesia oral) #296 mL bupropion HCl 100 mg tablet 150 mg PO DAILY 90 days #135 tabs 11/23/21 cholecalciferol (vitamin D3) 25 25 mcg PO DAILY #90 tabs 11/23/21 mcg (1,000 unit) tablet epinephrine 0.3 mg/0.3 mL 0.3 mg (0.3 mL) IM ONCE PRN 11/23/21 injection, auto-injector anaphylaxis 30 days #2 ea sennosides 8.6 mg tablet (senna) 8.6 mg PO BEDTIME PRN constipation 12/23/21 30 days #30 tabs hydrocortisone 2.5 % topical cream 1 appl MT BID-QID PRN hemorrhoids 01/11/22 with perineal applicator #30 grams (Proctosol HC) lubiprostone 24 mcg capsule 24 mcg PO BID #60 caps 01/11/22 amoxicillin 500 mg tablet 500 mg PO BID 7 days #14 tabs 01/13/22 omeprazole 20 mg capsule,delayed 20 mg PO DAILY 30 days #30 caps 02/09/22 release albuterol sulfate 90 mcg/actuation 2 puff inhalation Q6H PRN 04/14/22 aerosol inhaler shortness of breath or wheezing 30 days #8.5 grams gabapentin 300 mg capsule 300 mg PO Q8H 30 days #90 caps 04/14/22 loratadine 10 mg tablet 10 mg PO DAILY PRN allergy 04/14/22 symptoms #30 tabs hydroxyzine HCl 25 mg tablet 25 mg PO Q8H PRN Rash/Itching 30 04/15/22 days #90 tabs morphine 15 mg immediate release 15 mg PO BID PRN pain #6 tabs 05/06/22 tablet ondansetron 4 mg disintegrating 4 mg PO Q6H PRN nausea and 05/06/22 tablet vomiting #14 tabs Allergies Allergy/AdvReac Type Severity Reaction Status Date / Time No Known Drug Allergies Allergy Unknown Unknown Verified 04/28/22 08:34 Review of Systems Review of Systems Constitutional : No Weight loss, No Fever, No Chills, No Fatigue, No Malaise ENT/Mouth : No sore throat, No Rhinorrhea Eyes: No Eye Pain, No Swelling, No Redness Cardiovascular : No Chest Pain, No SOB, No Dyspnea on Exertion, No Orthopnea, No Edema, No Palpitations Respiratory : No Cough, No Sputum, No Wheezing Gastrointestinal : + Nausea, + Vomiting, No Diarrhea, No Constipation, + abdominal Pain, No Hematochezia, No Melena Genitourinary : No Dysuria, No Urinary Frequency, No Hematuria, Musculoskeletal : No joint pain, No Myalgias, No Joint Swelling Skin : No Skin Lesions, No rash Neuro : No Weakness, No Numbness, No Dizziness, No Headache All other systems reviewed and are negative Yes all other systems are reviewed and are negative [facility] Past Medical History Attestation statement: The following information was validated with the patient. 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 Surgical History History of (~2005) History of hip surgery Family History Family History Mother HTN (hypertension) Diabetes Arthritis Constipation Social History Social History Household Members: None Housing: Homeless Alcohol intake: never Patient Tobacco Use Status: Never used Tobacco e-Cigarette/Vaping Use: Never Used Second Hand Smoke Exposure: No Advance Directives: No Advance Directives Information Provided: No service: No Current occupational status: unemployed Cognitive needs: No Hearing needs: No Vision needs: No Physical Exam ED Vital Signs: Vital Signs - 24 hr 05/05/22 12:11 05/05/22 18:14 05/05/22 20:10 Temperature 99.6 F Pulse Rate 90 66 71 Respiratory Rate 16 16 16 Blood Pressure 128/73 125/72 102/56 L Pulse Oximetry 99 100 100 Oxygen Delivery Method Room Air Room Air Room Air 05/05/22 20:31 05/05/22 22:36 05/05/22 23:21 Temperature Pulse Rate 72 Respiratory Rate 14 17 14 Blood Pressure 114/54 L Pulse Oximetry 100 Oxygen Delivery Method Room Air BMI result Body Mass Index 31.9 Vital signs stable, Appearance: Alert.? Oriented X3.? No acute distress.? Patient appears uncomfortable. Head: Normocephalic, atraumatic, no step-offs or deformities Eyes: Pupils equal, round and reactive to light.? CVS: Normal heart rate and rhythm.? Pulses normal.? Respiratory: No respiratory distress.? Breath sounds normal.? Abdomen: Soft and significant tenderness to the right lower quadrant and left lower quadrant, worse on the right lower quadrant. Positive McBurney's point and Rovsing. Negative Singer sign..? Skin: Skin warm and dry.? Normal skin color.? Normal skin turgor.? Extremities: No lower extremity edema.? No calf ttp. 5/5 strength to bilateral upper and lower extremities Neuro: Oriented X 3.? No motor deficit.? No sensory deficit. CN 2-12 intact Course Reevaluation(s) Reevaluation #1: Patient with leukocytosis likely secondary to nausea, vomiting and diarrhea. Chemistry with no acute electrolyte abnormalities requiring intervention. Lactic acid is negative. Lipase within normal limits. UA without infection. CT of the abdomen and pelvis with an enlarged left ovary with questionable cystic lesion, enlarged uterus is noted in a moderate amount of free pelvic fluid, recommend pelvic ultrasound. Pelvic ultrasound with fibroids within the uterus, a complex small left ovarian cyst probably a corpus luteal cyst with moderate complex free fluid noted. Patient is still very tender to palpation of abdomen, particularly with rebound tenderness, will give more morphine. No signs of torsion. Will reach out to surgery for imput Time: 23:03 Reevaluation #2: Spoke to surgery who tells me this is more likely a ruptured cyst, unlikely appendicitis based off of history and physical exam. She recommends that this patient be admitted for observation, repeat CBC, she does not recommend antibiotics at this time, tells me surgery can be consulted if necessary. She recommends that I reach out to OBGYN to also discuss this case with them. Time: 23:19 Reevaluation #3: Spoke to Dr. Mata likely ruptured ovarian cyst. If stable patient will likely require pain management. Time: 23:37 Additional Reevaluation(s): 0016 Dr. Mata evaluated patient at the bedside, normal pelvic exam, likely ruptured ovarian cyst. Recommends make a patient here until the morning for pain control, observation, also recommends 1 more H&H before patient be discharged. He recommends outpatient follow-up. If pain does not improve or gets much worse consider admission for pain control. 0159 Sign out will be given to Dr. Cueva pending repeat H&H and improvement. If patient doesn't improve may require admission for pain managment MDM - Abdominal Pain MDM Narrative Medical decision making narrative: 1800 32-year-old female presents with sudden onset right lower quadrant pain, nausea, vomiting and 1 episode of diarrhea. Physical examination with significant tenderness to the bilateral lower quadrants, worse on the right. Regular rate and rhythm. Lungs clear. Abdomen soft, nondistended with normoactive bowel sounds. Neuro exam nonfocal. Patient appears uncomfortable. Physical examination concerning for possible appendicitis, diverticulitis or ovarian torsion. Will obtain CT of the abdomen and pelvis, ultrasound, basic labs, blood cultures, lactic acid. Medical Records Attestation: I reviewed the patient's medical records. Lab Data Attestation: I reviewed the patient's lab results. Result diagrams: 05/05/22 23:38 05/05/22 12:25 Labs: Lab Results 05/05/22 05/05/22 05/05/22 Range/Units 12:25 12:25 12:25 WBC 16.6 H (4.8-10.8) X10*3/uL RBC 3.83 L (4.20-5.50) X10*6/uL Hgb 11.5 L (12.0-16.0) g/dl Hct 34.7 L (37.0-47.0) % MCV 90.6 (80.0-98.0) fL MCH 30.0 (27.0-33.0) pg MCHC 33.1 (31.0-35.0) g/dl RDW 12.3 (11.0-16.0) % Plt Count 302 (160-400) X10*3/uL MPV 9.6 (9.4-12.3) fL Immature Gran % (Auto) 0.4 (0.0-0.4) % Neut % (Auto) 76.0 H (45-73) % Lymph % (Auto) 15.5 L (20-40) % [place] % (Auto) 7.4 (2-11) % Eos % (Auto) 0.3 (0-4) % Baso % (Auto) 0.4 (0-2) % Lymph # (Auto) 2.6 (1.2-4.9) X10*3/uL [place] # (Auto) 1.2 (0.1-1.2) X10*3/uL Eos # (Auto) 0.1 (0.0-0.4) X10*3/uL Baso # (Auto) 0.1 (0.0-0.2) X10*3/uL Abs Immat Gran (auto) 0.07 H (0.00-0.03) X10*3/uL Absolute Neuts (auto) 12.6 H (2.0-8.3) x10*3/uL Absolute Nucleated RBC 0.000 (0.0-0.012) X10*3/uL Nucleated RBC % (auto) 0.0 (0.0-0.2) /100WBC ESR (0-20) MM/HR Sodium 137 (135-145) mmol/L Potassium 3.9 (3.3-5.1) mmol/L Chloride 107 (96-108) mmol/L Carbon Dioxide 22 (22-29) mmol/L Anion Gap 12 (12-20) BUN 12 (9-16) mg/dL Creatinine 0.76 (0.5-1.4) mg/dL Estim Creat Clear Calc 117.7 Estimated GFR > 60 Random Glucose 110 (60-115) mg/dL Lactic Acid (0.5-2.0) mmol/L Calcium 8.8 D (8.4-10.2) mg/dL Total Bilirubin 0.2 (0.0-1.0) mg/dL Direct Bilirubin < 0.2 (0.0-0.5) mg/dL AST 12 (5-31) U/L ALT 9 (0-31) U/L Alkaline Phosphatase 51 (39-117) U/L C-Reactive Protein 0.82 H (< or = 0.50) mg/dL Total Protein 7.2 (6.5-8.0) g/dL Albumin 4.0 (3.5-5.0) g/dL Lipase 80 H (8-78) U/L Beta HCG, Quant < 2 mIU/mL Urine Color Yellow Urine Appearance Clear Urine pH 5.5 (5.0-8.0) Ur Specific [place] >= 1.030 H (1.005-1.025) Urine Protein Negative (Neg-Trace) mg/dL Urine Glucose (UA) Negative (Negative) mg/dL Urine Ketones Negative (Negative) mg/dL Urine Blood Large (3+) H (Negative) Urine Nitrite Negative (Negative) Ur Leukocyte Esterase Small (1+) H (Negative) Urine RBC 0-2 (0-2) /HPF Urine WBC 0-5 (0-5) /HPF Ur Squamous Epith Cells 3-5 (0-2) /HPF Urine Bacteria 1+ (None Seen) Hyaline Casts 0-2 (0-2) /LPF Urine Test (NEGATIVE) 05/05/22 05/05/22 05/05/22 Range/Units 12:25 18:45 23:38 WBC 10.2 (4.8-10.8) X10*3/uL RBC 3.73 L (4.20-5.50) X10*6/uL Hgb 11.4 L (12.0-16.0) g/dl Hct 33.8 L (37.0-47.0) % MCV 90.6 (80.0-98.0) fL MCH 30.6 (27.0-33.0) pg MCHC 33.7 (31.0-35.0) g/dl RDW 12.2 (11.0-16.0) % Plt Count 277 (160-400) X10*3/uL MPV 9.6 (9.4-12.3) fL Immature Gran % (Auto) 0.3 (0.0-0.4) % Neut % (Auto) 57.1 (45-73) % Lymph % (Auto) 35.3 (20-40) % [place] % (Auto) 6.2 (2-11) % Eos % (Auto) 0.5 (0-4) % Baso % (Auto) 0.6 (0-2) % Lymph # (Auto) 3.6 (1.2-4.9) X10*3/uL [place] # (Auto) 0.6 (0.1-1.2) X10*3/uL Eos # (Auto) 0.1 (0.0-0.4) X10*3/uL Baso # (Auto) 0.1 (0.0-0.2) X10*3/uL Abs Immat Gran (auto) 0.03 (0.00-0.03) X10*3/uL Absolute Neuts (auto) 5.8 (2.0-8.3) x10*3/uL Absolute Nucleated RBC 0.000 (0.0-0.012) X10*3/uL Nucleated RBC % (auto) 0.0 (0.0-0.2) /100WBC ESR (0-20) MM/HR Sodium (135-145) mmol/L Potassium (3.3-5.1) mmol/L Chloride (96-108) mmol/L Carbon Dioxide (22-29) mmol/L Anion Gap (12-20) BUN (9-16) mg/dL Creatinine (0.5-1.4) mg/dL Estim Creat Clear Calc Estimated GFR Random Glucose (60-115) mg/dL Lactic Acid 0.7 (0.5-2.0) mmol/L Calcium (8.4-10.2) mg/dL Total Bilirubin (0.0-1.0) mg/dL Direct Bilirubin (0.0-0.5) mg/dL AST (5-31) U/L ALT (0-31) U/L Alkaline Phosphatase (39-117) U/L C-Reactive Protein (< or = 0.50) mg/dL Total Protein (6.5-8.0) g/dL Albumin (3.5-5.0) g/dL Lipase (8-78) U/L Beta HCG, Quant mIU/mL Urine Color Urine Appearance Urine pH (5.0-8.0) Ur Specific [place] (1.005-1.025) Urine Protein (Neg-Trace) mg/dL Urine Glucose (UA) (Negative) mg/dL Urine Ketones (Negative) mg/dL Urine Blood (Negative) Urine Nitrite (Negative) Ur Leukocyte Esterase (Negative) Urine RBC (0-2) /HPF Urine WBC (0-5) /HPF Ur Squamous Epith Cells (0-2) /HPF Urine Bacteria (None Seen) Hyaline Casts (0-2) /LPF Urine Test NEGATIVE (NEGATIVE) 08/17/22 Range/Units 23:38 WBC (4.8-10.8) X10*3/uL RBC (4.20-5.50) X10*6/uL Hgb (12.0-16.0) g/dl Hct (37.0-47.0) % MCV (80.0-98.0) fL MCH (27.0-33.0) pg MCHC (31.0-35.0) g/dl RDW (11.0-16.0) % Plt Count (160-400) X10*3/uL MPV (9.4-12.3) fL Immature Gran % (Auto) (0.0-0.4) % Neut % (Auto) (45-73) % Lymph % (Auto) (20-40) % [place] % (Auto) (2-11) % Eos % (Auto) (0-4) % Baso % (Auto) (0-2) % Lymph # (Auto) (1.2-4.9) X10*3/uL [place] # (Auto) (0.1-1.2) X10*3/uL Eos # (Auto) (0.0-0.4) X10*3/uL Baso # (Auto) (0.0-0.2) X10*3/uL Abs Immat Gran (auto) (0.00-0.03) X10*3/uL Absolute Neuts (auto) (2.0-8.3) x10*3/uL Absolute Nucleated RBC (0.0-0.012) X10*3/uL Nucleated RBC % (auto) (0.0-0.2) /100WBC ESR 25 H (0-20) MM/HR Sodium (135-145) mmol/L Potassium (3.3-5.1) mmol/L Chloride (96-108) mmol/L Carbon Dioxide (22-29) mmol/L Anion Gap (12-20) BUN (9-16) mg/dL Creatinine (0.5-1.4) mg/dL Estim Creat Clear Calc Estimated GFR Random Glucose (60-115) mg/dL Lactic Acid (0.5-2.0) mmol/L Calcium (8.4-10.2) mg/dL Total Bilirubin (0.0-1.0) mg/dL Direct Bilirubin (0.0-0.5) mg/dL AST (5-31) U/L ALT (0-31) U/L Alkaline Phosphatase (39-117) U/L C-Reactive Protein (< or = 0.50) mg/dL Total Protein (6.5-8.0) g/dL Albumin (3.5-5.0) g/dL Lipase (8-78) U/L Beta HCG, Quant mIU/mL Urine Color Urine Appearance Urine pH (5.0-8.0) Ur Specific [place] (1.005-1.025) Urine Protein (Neg-Trace) mg/dL Urine Glucose (UA) (Negative) mg/dL Urine Ketones (Negative) mg/dL Urine Blood (Negative) Urine Nitrite (Negative) Ur Leukocyte Esterase (Negative) Urine RBC (0-2) /HPF Urine WBC (0-5) /HPF Ur Squamous Epith Cells (0-2) /HPF Urine Bacteria (None Seen) Hyaline Casts (0-2) /LPF Urine Test (NEGATIVE) Critical Care Time Critical Care Time Critical Care Time: Yes Total Critical Care Time: 60 Attestation: I attest to this time spent taking care of the patient, obtaining history, physical, reviewing labs, imaging, speaking to my attending, speaking to specialist. Discharge Plan Discharge Clinical Impression: Ovarian cyst rupture, Abdominal pain, Nausea & vomiting Patient Disposition: Home, Self-Care Instructions: Ovarian Cyst (ED) Additional Instructions: Take your medications as prescribed. If you were prescribed antibiotics today, it is important that you take your medication to their entirety, do not skip any doses, do not finish them early. Follow-up with your primary care provider this week. Follow-up with OBGYN this week Return to the emergency department with new or worsening symptoms. Such as fevers, chills, chest pain, shortness of breath, nausea, vomiting, dizziness, headache, vision changes, lethargy In case of emergency call 911 Prescriptions: New morphine 15 mg tablet 15 mg PO BID PRN (Reason: pain) Qty: 6 0RF Rx Instructions: Partial Fill upon patient request. ondansetron 4 mg tablet,disintegrating 4 mg PO Q6H PRN (Reason: nausea and vomiting) Qty: 14 0RF No Action ibuprofen 800 mg tablet 800 mg PO Q8H ondansetron HCl [Zofran] 4 mg tablet 4 mg PO BID PRN (Reason: nausea and vomiting) tizanidine 4 mg tablet 4 mg PO TID PRN (Reason: muscle spasticity) Qty: 90 2RF sennosides [senna] 8.6 mg tablet 8.6 mg PO BEDTIME PRN (Reason: constipation) 30 Days Qty: 30 0RF amoxicillin 500 mg tablet 500 mg PO BID 7 Days Qty: 14 0RF omeprazole 20 mg capsule,delayed release(DR/EC) 20 mg PO DAILY 30 Days Qty: 30 3RF albuterol sulfate 90 mcg/actuation HFA aerosol inhaler 2 puff inhalation Q6H PRN (Reason: shortness of breath or wheezing) 30 Days Qty: 8.5 0RF loratadine 10 mg tablet 10 mg PO DAILY PRN (Reason: allergy symptoms) Qty: 30 1RF gabapentin 300 mg capsule 300 mg PO Q8H 30 Days Qty: 90 1RF hydroxyzine HCl 25 mg tablet 25 mg PO Q8H PRN (Reason: Rash/Itching) 30 Days Qty: 90 0RF lidocaine 5 % ointment 1 appl topical QID PRN (Reason: pain/itch) Qty: 50 0RF bupropion HCl 100 mg tablet 150 mg PO DAILY 90 Days Qty: 135 1RF cholecalciferol (vitamin D3) 25 mcg (1,000 unit) tablet 25 mcg PO DAILY Qty: 90 2RF epinephrine 0.3 mg/0.3 mL auto-injector 0.3 mg IM ONCE PRN (Reason: anaphylaxis) 30 Days Qty: 2 0RF Rx Instructions: do not exceed 12 doses per 24 hrs Citrucel 500 mg tablet 500 mg PO DAILY Qty: 30 2RF Rx Instructions: take it with full glass of water lubiprostone 24 mcg capsule 24 mcg PO BID Qty: 60 4RF hydrocortisone [Proctosol HC] 2.5 % cream with perineal applicator 1 appl MT BID-QID PRN (Reason: hemorrhoids) Qty: 30 2RF magnesium citrate [Citrate of Magnesia] Solution 150 ml PO DAILY PRN (Reason: constipation) Qty: 296 5RF Referrals: Ceci Christian MD [Primary Care Provider] - 2 days Dorian Mata MD [Physician] - 1 week Stand Alone Forms: Work/School Release
[2022-05-05 18:20] LABS: Alanine Aminotransferase 9 U/L (0-31); Alkaline Phosphatase 51 U/L (39-117); Aspartate Amino Transferase 12 U/L (5-31); Bilirubin Direct < 0.2 mg/dL (0.0-0.5); Bilirubin Total 0.2 mg/dL (0.0-1.0); Lipase 80 U/L (8-78); Total Protein 7.2 g/dL (6.5-8.0)
[2022-05-05] MEDS: 0.9 % Sodium Chloride 1,000 ML 999 ML IV (18:43)
[2022-05-05 19:02] LABS: Lactic Acid 0.7 mmol/L (0.5-2.0)
[2022-05-05 20:10] VITALS: BP 102/56; PULSE 71; RESP 16; O2SAT 100
[2022-05-05 20:31] VITALS: RESP 14
[2022-05-05] MEDS: Morphine Sulfate 4 MG/ML CARTRIDGE IVPUSH (20:31)
[2022-05-05 22:36] VITALS: BP 114/54; PULSE 72; RESP 17; O2SAT 100
[2022-05-05 23:21] VITALS: RESP 14
[2022-05-05] MEDS: Morphine Sulfate 2 MG/ML CARTRIDGE IVPUSH (23:21)
[2022-05-05 23:22] LABS: C Reactive Protein 0.82 mg/dL (< or = 0.50)
--- NOTE | 2022-05-05 23:39 | PM.GYNCN ---
PHARMACEUTICAL SCIENTIST - CN: HPI Data of Consult Consult date: 05/05/22 Primary Care Provider: Ceci Bowen MD Consult Narrative Narrative: I was consulted on Olga Schultz who is a 32 year old female?who presented to the emergency room with history of sudden-onset right lower quadrant pain?that started an hour prior to presentation, associated with nausea and vomiting no fever or chills, vaginal bleeding or vaginal discharge. In the emergency room the following workup was done: Urine test was negative, hCG less than 2. H&H at 12:25, on arrival was 11.5/34.7 , repeat H&H at 23:38 was 11.4/33.8. UA showed microscopic hematuria, urine culture sent. CT scan and pelvic ultrasound were done, see reports cc:: CC: [facility] Past Medical History Medical History Arthralgia Constipation by delayed colonic transit Disc degeneration, lumbar Gastroesophageal reflux disease Hip osteomyelitis, right Insertion of implantable subdermal contraceptive Mild persistent asthma Mild recurrent major depression Rheumatoid arthritis Rheumatoid arthritis Sacroiliac joint dysfunction of right side Sacroiliitis Spondylosis of lumbar spine Spondylosis of lumbosacral spine with radiculopathy Family History Family History Mother HTN (hypertension) Diabetes Arthritis Constipation Surgical History Surgical History History of (~2005) History of hip surgery Social History Social History Household Members: None Housing: Homeless Alcohol intake: never Patient Tobacco Use Status: Never used Tobacco e-Cigarette/Vaping Use: Never Used Second Hand Smoke Exposure: No Advance Directives: No Advance Directives Information Provided: No service: No Current occupational status: unemployed Cognitive needs: No Hearing needs: No Vision needs: No Meds Allergies Allergy/AdvReac Type Severity Reaction Status Date / Time No Known Drug Allergies Allergy Unknown Unknown Verified 04/28/22 08:34 Home Medications Medication Instructions Recorded Confirmed Last Taken Type ibuprofen 800 mg tablet 800 mg PO Q8H 08/06/20 01/08/22 Unknown History ondansetron HCl 4 mg tablet 4 mg PO BID PRN nausea and vomiting 08/06/20 01/08/22 Unknown History (Zofran) PHARMACEUTICAL SCIENTIST Physical Exam Vitals Vital signs: Temp Pulse Resp BP Pulse Ox O2 Del Method 99.6 F 72 14 114/54 L 100 05/05/22 12:11 05/05/22 22:36 05/05/22 23:21 05/05/22 22:36 05/05/22 22:36 05/05/22 22:36 BMI result Body Mass Index 31.9 Abdomen Auscultation/Inspection/Palpation: Soft, Non-distended and No tenderness Female Genitalia (Pelvic) Bladder/Urethra: Normal meatus Vulva: No lesions Vagina: Nontender Cervix: Grossly normal and No cervical motion tenderness Uterus: Normal size and Nontender Adnexa/Parametria: Adnexal Tenderness: None, Adnexal Mass: None, Parametrial Tenderness: None and Parametrial Mass: None PHARMACEUTICAL SCIENTIST - Results Labs CBC & Chem 7: 05/05/22 12:25 05/05/22 12:25 Labs: Short CBC 05/05/22 Range/Units 12:25 WBC 16.6 H (4.8-10.8) X10*3/uL Hgb 11.5 L (12.0-16.0) g/dl Hct 34.7 L (37.0-47.0) % Plt Count 302 (160-400) X10*3/uL BMP 05/05/22 12:25 Sodium 137 Potassium 3.9 Chloride 107 Carbon Dioxide 22 BUN 12 Creatinine 0.76 Calcium 8.8 D Liver Function 05/05/22 Range/Units 12:25 Total Bilirubin 0.2 (0.0-1.0) mg/dL Direct Bilirubin < 0.2 (0.0-0.5) mg/dL AST 12 (5-31) U/L ALT 9 (0-31) U/L Alkaline Phosphatase 51 (39-117) U/L Albumin 4.0 (3.5-5.0) g/dL Urine 05/05/22 05/05/22 Range/Units 12:25 12:25 Urine Color Yellow Urine Appearance Clear Urine pH 5.5 (5.0-8.0) Ur Specific [place] >= 1.030 H (1.005-1.025) Urine Protein Negative (Neg-Trace) mg/dL Urine Glucose (UA) Negative (Negative) mg/dL Urine Test NEGATIVE (NEGATIVE) Imaging CT scan - pelvis: Radiologist's impression: ITS Impressions Abdomen/Pelvis CT 05/05/22 18:13 IMPRESSION: 1. Enlarged left ovary with questionable cystic lesion, perhaps physiologic, but better assessed by pelvic ultrasound. 2. Heterogeneous, somewhat enlarged uterus, perhaps on the basis of fibroids. 3. Moderate amount of free pelvic fluid, somewhat greater than expected for physiologic. The uterus, free fluid, and prominent left ovary would better be better assessed by pelvic ultrasound as clinically warranted. Fleischner guidelines were followed. Doppler Study Ultrasound 05/05/22 19:22 IMPRESSION: 1. A worrisome finding is not seen. 2. Fibroids are present in the uterus. 3. Complex small left ovarian cyst, probably a corpus luteal cyst, with moderate complex free fluid, similar to CT scan. Pelvic/Transvag US 05/05/22 19:22 IMPRESSION: 1. A worrisome finding is not seen. 2. Fibroids are present in the uterus. 3. Complex small left ovarian cyst, probably a corpus luteal cyst, with moderate complex free fluid, similar to CT scan. US - abdomen: Radiologist's impression: ITS Impressions Abdomen/Pelvis CT 05/05/22 18:13 IMPRESSION: 1. Enlarged left ovary with questionable cystic lesion, perhaps physiologic, but better assessed by pelvic ultrasound. 2. Heterogeneous, somewhat enlarged uterus, perhaps on the basis of fibroids. 3. Moderate amount of free pelvic fluid, somewhat greater than expected for physiologic. The uterus, free fluid, and prominent left ovary would better be better assessed by pelvic ultrasound as clinically warranted. Fleischner guidelines were followed. Doppler Study Ultrasound 05/05/22 19:22 IMPRESSION: 1. A worrisome finding is not seen. 2. Fibroids are present in the uterus. 3. Complex small left ovarian cyst, probably a corpus luteal cyst, with moderate complex free fluid, similar to CT scan. Pelvic/Transvag US 05/05/22 19:22 IMPRESSION: 1. A worrisome finding is not seen. 2. Fibroids are present in the uterus. 3. Complex small left ovarian cyst, probably a corpus luteal cyst, with moderate complex free fluid, similar to CT scan. Assessment and Plan (1) Ruptured cyst of ovary: Status: Acute Plan GC and chlamydia with BV panel taken. Discussed with the patient the finding on CT scan and pelvic ultrasound pointing to hours diagnosis of ruptured ovarian cyst with moderate amount of complex fluid in the pelvis. Since over last 12 hours the patient vital signs been stable, H&H is stable and most recent abdominal/pelvic exam are benign, the patient clinical situation is reassuring. Recommended to BEATRIS White in the emergency room the following: Keep the patient in the emergency room for observation for 6 hours and pain management and repeat H&H, if pain resolves by then and H&H is stable, the patient is to be discharged home with close outpatient followup in the office . Instructions to be given to patient to call or come back to emergency room in case of recurrence of abdominal pain, nausea and vomiting, fever above 100.4 or heavy vaginal bleeding. This note was generated with a voice recognition program. Some errors may have been overlooked during the review of this note. Sometimes these errors may affect the content or meaning of a given sentence.
[2022-05-05 23:43] LABS: MANUAL DIFF FLAG NO
[2022-05-05 23:44] LABS: Basophils Absolute Auto 0.1 X10*3/uL (0.0-0.2); Basophils Percent Auto 0.6 % (0-2); Eosinophils Absolute Auto 0.1 X10*3/uL (0.0-0.4); Eosinophils Percent Auto 0.5 % (0-4); Hematocrit 33.8 % (37.0-47.0); Hemoglobin 11.4 g/dl (12.0-16.0); Imm Gran Abs Auto 0.03 X10*3/uL (0.00-0.03); Imm Gran Pct Auto 0.3 % (0.0-0.4); Lymphocytes Absolute Auto 3.6 X10*3/uL (1.2-4.9); Lymphocytes Percent Auto 35.3 % (20-40); Mean Corpuscular HGB Conc 33.7 g/dl (31.0-35.0); Mean Corpuscular Hemoglobin 30.6 pg (27.0-33.0); Mean Corpuscular Volume 90.6 fL (80.0-98.0); Mean Platelet Volume 9.6 fL (9.4-12.3); Monocytes Absolute Auto 0.6 X10*3/uL (0.1-1.2); Monocytes Percent Auto 6.2 % (2-11); Neutrophils Absolute Auto 5.8 x10*3/uL (2.0-8.3); Neutrophils Percent Auto 57.1 % (45-73); Platelet Count 277 X10*3/uL (160-400); Red Blood Count 3.73 X10*6/uL (4.20-5.50); Red Cell Distribution Width 12.2 % (11.0-16.0); White Blood Count 10.2 X10*3/uL (4.8-10.8)
[2022-05-05 23:54] LABS: HCG Quantitative < 2 mIU/mL
[2022-05-05] MEDS: HYDROmorphone HCl 0.5 MG/0.5 ML SYRINGE IVPUSH (23:55)
[2022-05-06 00:20] LABS: Erythrocyte Sedimentation Rate 25 MM/HR (0-20)
[2022-05-06 06:41] LABS: CT PCR NOT DETECTED (Not Detect.); NG PCR NOT DETECTED (Not Detect.)
[2022-05-06 08:19] LABS: MANUAL DIFF FLAG NO
[2022-05-06 08:21] LABS: Basophils Absolute Auto 0.1 X10*3/uL (0.0-0.2); Basophils Percent Auto 0.7 % (0-2); Eosinophils Absolute Auto 0.1 X10*3/uL (0.0-0.4); Eosinophils Percent Auto 0.7 % (0-4); Hematocrit 35.1 % (37.0-47.0); Hemoglobin 11.5 g/dl (12.0-16.0); Imm Gran Abs Auto 0.02 X10*3/uL (0.00-0.03); Imm Gran Pct Auto 0.3 % (0.0-0.4); Lymphocytes Absolute Auto 2.9 X10*3/uL (1.2-4.9); Lymphocytes Percent Auto 37.8 % (20-40); Mean Corpuscular HGB Conc 32.8 g/dl (31.0-35.0); Mean Corpuscular Hemoglobin 30.1 pg (27.0-33.0); Mean Corpuscular Volume 91.9 fL (80.0-98.0); Mean Platelet Volume 9.8 fL (9.4-12.3); Monocytes Absolute Auto 0.6 X10*3/uL (0.1-1.2); Monocytes Percent Auto 7.2 % (2-11); Neutrophils Absolute Auto 4.1 x10*3/uL (2.0-8.3); Neutrophils Percent Auto 53.3 % (45-73); Platelet Count 273 X10*3/uL (160-400); Red Blood Count 3.82 X10*6/uL (4.20-5.50); Red Cell Distribution Width 12.3 % (11.0-16.0); White Blood Count 7.6 X10*3/uL (4.8-10.8)
[2022-05-06 09:43] LABS: BV Int Neg Control Negative (Negative); BV Int Pos Control Positive (Positive)
--- NOTE | 2022-05-06 09:48 | PC.NURSE ---
Pt A&Ox4, no complaints of pain at this time. Denies any vaginal bleeding, call best within reach, awaiting dispo, will continue to monitor.
== END 2022-05-06 09:50 | disposition home or self-care (01) ==
PROVIDERS: Emergency Medicine; Physician Assistant; Emergency Provider Emergency Medicine Emergency Medical Services; PCP Internal Medicine
DX: R10.31 Right lower quadrant pain (principal); N83.292 Other ovarian cyst, left side; K66.1 Hemoperitoneum; D25.0 Submucous leiomyoma of uterus; D25.9 Leiomyoma of uterus, unspecified
CPT/HCPCS: 36415; 74176; 76830; 76856; 80048; 80076; 81001; 81025; 83605; 83690; 84702; 85025; 85652; 86140; 87040; 87086; 87480; 87491; 87510; 87591; 87660; 93975; 96361; 96374; 96375; 96376; 99284; J1170; J2270

== ENCOUNTER 2022-06-10 10:35 | Outpatient (REF) | payer OTHER, SELFPAY ==
[2022-06-10 12:13] LABS: Alanine Aminotransferase 15 U/L (0-31); Albumin Level 4.2 g/dL (3.5-5.0); Alkaline Phosphatase 54 U/L (39-117); Anion Gap 13 (12-20); Aspartate Amino Transferase 14 U/L (5-31); Bilirubin Total 0.3 mg/dL (0.0-1.0); Blood Urea Nitrogen 12 mg/dL (9-16); Calcium 9.5 mg/dL (8.4-10.2); Carbon Dioxide 25 mmol/L (22-29); Chloride 103 mmol/L (96-108); Cholesterol 176 mg/dL; Estimated Glomerular Filt Rate > 60; Glucose Fasting 94 mg/dL (60-99); HDL Cholesterol 39 mg/dL; LDL Cholesterol Calculated 116 mg/dl; Potassium 4.4 mmol/L (3.3-5.1); Sodium 137 mmol/L (135-145); Total Protein 7.5 g/dL (6.5-8.0); Triglycerides 106 mg/dL
[2022-06-10 12:37] LABS: Vitamin D 25-OH Total 28.4 ng/mL (>30)
[2022-06-11 22:03] LABS: Rubella IgG Antibody 4.66 Index
[2022-06-14 23:41] LABS: TS Negative Control Passed; TS Panel A 0; TS Panel B 0; TS Positive Control Passed; TSpotTB Negative (Negative)
== END 2022-06-10 10:36 | disposition home or self-care (01) ==
LOC: HO.LAB 10:35
PROVIDERS: PCP Internal Medicine; Visit Provider Internal Medicine
DX: Z00.00 Encounter for general adult medical examination without abnormal findings (principal); Z11.1 Encounter for screening for respiratory tuberculosis; E78.5 Hyperlipidemia, unspecified; E55.9 Vitamin D deficiency, unspecified
CPT/HCPCS: 36415; 80053; 80061; 82306; 86481; 86735; 86762; 86765

== ENCOUNTER → 2022-07-16 08:50 | Outpatient (BNVA) | payer OTHER, SELFPAY | PROVIDERS: PCP Internal Medicine; Visit Provider Nurse Practitioner Family | DX: K59.01 Slow transit constipation (principal); K21.9 Gastro-esophageal reflux disease without esophagitis; R14.0 Abdominal distension (gaseous) | CPT/HCPCS: 99212 ==

== ENCOUNTER 2022-07-30 09:35 | Outpatient (REF) | payer OTHER, SELFPAY ==
--- NOTE | ~2022-07-30 | XR_ITS ---
EXAMINATION: XR HAND, BILATERAL XR WRIST, BILATERAL CLINICAL INFORMATION: Rheumatoid arthritis. COMPARISON: None TECHNIQUE: 4 views each hand and wrist. FINDINGS: No bone, joint or soft tissue abnormality is seen. XR/XR hand wrist LT IMPRESSION: Normal hands and wrists.
--- NOTE | ~2022-07-30 | XR_ITS ---
EXAMINATION: XR HAND, BILATERAL XR WRIST, BILATERAL CLINICAL INFORMATION: Rheumatoid arthritis. COMPARISON: None TECHNIQUE: 4 views each hand and wrist. FINDINGS: No bone, joint or soft tissue abnormality is seen. XR/XR hand wrist RT IMPRESSION: Normal hands and wrists.
--- NOTE | ~2022-07-30 | XR_ITS ---
EXAMINATION: XR SACROILIAC JOINTS CLINICAL INFORMATION: Sacroiliitis. COMPARISON: Multiple prior SI joint injections and pelvic radiographs. TECHNIQUE: 3 views of the sacroiliac joints. FINDINGS: Bones and soft tissues are unremarkable aside from some equivocal minimal sclerotic change at the SI joints. No fracture. Alignment is anatomic. Fallopian tube occlusion devices are present. XR/XR sacroiliac joint min 3V IMPRESSION: Equivocal minimal sclerotic change at the SI joints.
[2022-07-30 09:52] LABS: MANUAL DIFF FLAG NO
[2022-07-30 10:30] LABS: Basophils Absolute Auto 0.1 X10*3/uL (0.0-0.2); Basophils Percent Auto 0.8 % (0-2); Eosinophils Absolute Auto 0.2 X10*3/uL (0.0-0.4); Eosinophils Percent Auto 2.6 % (0-4); Hematocrit 36.6 % (37.0-47.0); Hemoglobin 12.1 g/dl (12.0-16.0); Imm Gran Abs Auto 0.02 X10*3/uL (0.00-0.03); Imm Gran Pct Auto 0.3 % (0.0-0.4); Lymphocytes Absolute Auto 2.1 X10*3/uL (1.2-4.9); Lymphocytes Percent Auto 34.4 % (20-40); Mean Corpuscular HGB Conc 33.1 g/dl (31.0-35.0); Mean Corpuscular Hemoglobin 30.7 pg (27.0-33.0); Mean Corpuscular Volume 92.9 fL (80.0-98.0); Monocytes Absolute Auto 0.4 X10*3/uL (0.1-1.2); Monocytes Percent Auto 6.1 % (2-11); Neutrophils Absolute Auto 3.5 x10*3/uL (2.0-8.3); Neutrophils Percent Auto 55.8 % (45-73); Platelet Count 290 X10*3/uL (160-400); Red Blood Count 3.94 X10*6/uL (4.20-5.50); Red Cell Distribution Width 12.1 % (11.0-16.0); White Blood Count 6.2 X10*3/uL (4.8-10.8)
[2022-07-30 10:58] LABS: Appearance Urine Cloudy; Color Urine Yellow; Glucose Urine UA Negative (Negative); Leukocyte Esterase Urine Moderate (2+) (Negative); Nitrite Urine Negative (Negative); PH 5.5 (5.0-9.0); Specific Gravity - Urine >= 1.030 (1.005-1.025); UMIC TRIGGER UA YES; Urine Blood Moderate (2+) (Negative); Urine Ketones Negative (Negative); Urine Protein Negative (Neg-Trace)
[2022-07-30 11:11] LABS: HBS Num1 10.05 mIU/mL (0-7.99); HBc Num1 0.07 S/CO (0.00-0.79); HBsAGNum1 0.16 S/CO (0.00-0.99); Hepatitis A Antibody IgM 0.25 Index (0-0.79); Hepatitis B Core Antibody Nonreactive (Nonreactive); Hepatitis B Surface Antigen Negative (Negative); TSH reflex Free T4 0.87 uIU/mL (0.32-4.0); ~HepC Num1 0.12 S/CO (0.00-0.79); ~Hepatitis A Antibody IgM Nonreactive (Nonreactive); ~Hepatitis C Antibody Nonreactive (Nonreactive)
[2022-07-30 11:12] LABS: Creatinine Urine 260.18 mg/dL; Protein/Creatinine Ratio, Ur 0.06 (<0.2); Total Protein Urine Random 15 mg/dL (<12)
[2022-07-30 11:12] LABS: Alanine Aminotransferase 12 U/L (0-31); Albumin Level 4.2 g/dL (3.5-5.0); Alkaline Phosphatase 54 U/L (39-117); Anion Gap 13 (12-20); Aspartate Amino Transferase 14 U/L (5-31); Bilirubin Total 0.4 mg/dL (0.0-1.0); Blood Urea Nitrogen 13 mg/dL (9-16); C Reactive Protein 1.03 mg/dL (< or = 0.50); Calcium 9.2 mg/dL (8.4-10.2); Carbon Dioxide 25 mmol/L (22-29); Chloride 104 mmol/L (96-108); Estimated Glomerular Filt Rate > 60; Glucose Random 95 mg/dL (60-115); Potassium 4.2 mmol/L (3.3-5.1); Rheumatoid Factor < 15.0 IU/mL (<15.0); Sodium 138 mmol/L (135-145); Total Protein 7.4 g/dL (6.5-8.0)
[2022-07-30 11:21] LABS: Bacteria Urine 4+ (None Seen); Hyaline Casts Urine 0-2 /LPF (0-2); Squamous Epithelial Cell Urine >20 /HPF (0-2); WBC Urine 0-5 /HPF (0-5)
[2022-07-30 11:33] LABS: Erythrocyte Sedimentation Rate 23 MM/HR (0-20)
[2022-07-30 14:44] LABS: HBS Num3 8.89 mIU/mL (0-7.99); ~Hepatitis B Surface Antibody GRAYZONE (Nonreactive)
[2022-08-02 11:02] LABS: Complement C3 135 mg/dL (83-193)
[2022-08-03 14:32] LABS: Cyclic Citrullinated Peptide <16 UNITS
[2022-08-04 13:45] LABS: Anti Nuclear Antibody Pattern Nuclear, Speckled; Anti Nuclear Antibody Screen POSITIVE (NEGATIVE); Anti Nuclear Antibody Titer 1:40 titer
[2022-08-05 13:21] LABS: Anti DNA DS Antibody 2 IU/mL; Antibody to SS-A Antigen <1.0 NEG AI (<1.0 NEG); Antibody to SS-B Antigen 1.4 POS AI (<1.0 NEG); SM/Ribonucleoprotein Ab <1.0 NEG AI (<1.0 NEG); Smith Protein <1.0 NEG AI (<1.0 NEG)
[2022-08-05 20:56] LABS: HLA B27 Negative (Negative)
== END 2022-07-30 09:36 | disposition home or self-care (01) ==
LOC: HO.LAB 09:35
PROVIDERS: Visit Provider Student in an Organized Health Care Education/Training Program
DX: M06.9 Rheumatoid arthritis, unspecified (principal); M46.1 Sacroiliitis, not elsewhere classified; M25.551 Pain in right hip; G89.29 Other chronic pain; Z79.899 Other long term (current) drug therapy; Z11.3 Encounter for screening for infections with a predominantly sexual mode of transmission
CPT/HCPCS: 36415; 72202; 73110; 73130; 80053; 81001; 84156; 84443; 85025; 85652; 86038; 86039; 86140; 86160; 86200; 86225; 86235; 86431; 86704; 86706; 86709; 86803; 86812; 87340; 99202

== ENCOUNTER 2022-08-20 13:03 | Outpatient (REF) | payer OTHER, SELFPAY ==
--- NOTE | ~2022-08-20 | MR_ITS ---
EXAMINATION: MR HIP WITHOUT CONTRAST, RIGHT CLINICAL INFORMATION: Right hip pain COMPARISON: Radiographs 12/08/2020 TECHNIQUE: MRI of the right hip was obtained using routine sequences on a high-field strength magnet. FINDINGS: Focal near full-thickness cartilage loss of the superolateral acetabular rim with adjacent osteophyte. There is also cartilage thinning and irregularity with delamination of the anterior superior acetabulum with degenerative cysts and irregular degenerative tearing of the anterior superior labrum. There is cartilage thinning of the posterior femoral head. No significant joint effusion. No stress reaction, fracture, or evidence of avascular necrosis. No acute muscle strain or tear. No adenopathy. MR/MR hip RT wo con IMPRESSION: [id number] right hip osteoarthritis with degenerative tearing of the anterior superior labrum. No significant joint effusion. No acute osseous abnormality.
== END 2022-08-20 13:04 | disposition home or self-care (01) ==
LOC: HO.MRI 13:03
PROVIDERS: Visit Provider Student in an Organized Health Care Education/Training Program
DX: M25.551 Pain in right hip (principal); G89.29 Other chronic pain
CPT/HCPCS: 73721

== ENCOUNTER → 2022-09-29 08:49 | Outpatient (BNVA) | payer OTHER, SELFPAY | PROVIDERS: PCP Internal Medicine; Visit Provider Student in an Organized Health Care Education/Training Program | DX: M79.7 Fibromyalgia (principal); R76.8 Other specified abnormal immunological findings in serum; S73.191A Other sprain of right hip, initial encounter | CPT/HCPCS: 99212 ==

== ENCOUNTER → 2022-10-01 08:24 | Outpatient (BNVA) | payer OTHER, SELFPAY | PROVIDERS: PCP Internal Medicine; Visit Provider Nurse Practitioner Family | DX: K21.9 Gastro-esophageal reflux disease without esophagitis (principal); K59.01 Slow transit constipation; Z79.899 Other long term (current) drug therapy | CPT/HCPCS: 99212 ==

== ENCOUNTER 2022-10-11 11:58 | Outpatient (REF) | payer OTHER, SELFPAY ==
[2022-10-12 01:41] LABS: CT PCR NOT DETECTED (Not Detect.); NG PCR NOT DETECTED (Not Detect.)
== END 2022-10-11 11:59 | disposition home or self-care (01) ==
LOC: HO.LNP 11:58
PROVIDERS: PCP Internal Medicine; Visit Provider Obstetrics & Gynecology
DX: N83.209 Unspecified ovarian cyst, unspecified side (principal); R10.32 Left lower quadrant pain; R10.2 Pelvic and perineal pain; R31.29 Other microscopic hematuria; Z32.02 Encounter for pregnancy test, result negative
CPT/HCPCS: 0353U; 81025; 87086; 99212

== ENCOUNTER → 2022-10-12 08:14 | Outpatient (REF) | payer OTHER, SELFPAY ==
--- NOTE | ~2022-10-12 | NM_ITS ---
EXAMINATION: NM RADIONUCLIDE SOLID FOOD GASTRIC EMPTYING 4-HOUR STUDY CLINICAL INFORMATION: Epigastric pain. GERD. COMPARISON: None TECHNIQUE: A standard meal consisting of 4 oz of Egg Beaters brand tagged with 1000 microcuries Tc-99m Sulfur Colloid, 8 oz water and 2 slices of toast with jelly was administered orally to the patient. Images were obtained using a dual head gamma camera in the anterior and posterior projections over of the stomach immediately post ingestion and at hourly intervals up to 4 hours post ingestion. The anterior and posterior counts at each time interval were averaged using the geometric mean and expressed as percentage of the immediate post ingestion counts. FINDINGS: There is good visualization of activity in the stomach immediately post ingestion. As the study progresses, there is good clearance of activity from the stomach and visualization of progressively increasing small bowel activity. By the end of the study, there is almost no retention noted in the stomach. Retention in the stomach at each time interval was: 1 hour 76% (normal 37%-90%) 2 hours 8% (normal 30%-60%) 3 hours 1% 4 hours not performed since only one percent retention was noted at 3 hours. NM/[place] gastric emptying study IMPRESSION: Normal 4-hour solid food gastric emptying study. (For solid meal, rapid gastric emptying is less than 30% at 60 minutes. Delayed gastric emptying criteria is more than 60% remaining at 120 minutes or more than 10% at 240 minutes. The 4-hour value is the best discriminator of a normal or abnormal result).
--- NOTE | ~2022-10-12 | US_ITS ---
EXAMINATION: US PELVIS CLINICAL INFORMATION: Pelvic and perineal pain. COMPARISON: CT abdomen/pelvis 05/05/2022 and ultrasound pelvis 05/05/2022. TECHNIQUE: Ultrasound of the pelvis is performed using both transabdominal and transvaginal transducers along with Doppler. Transvaginal imaging is performed due to inadequate visualization transabdominally. FINDINGS: UTERUS: The uterus is retroverted and measures 7.1 x 5.3 x 5.6 cm for a volume of 112 mL. The double wall endometrial thickness is 7 mm. The uterus is smooth in contour and has normal myometrial echogenicity. Two uterine fibroids are seen on the right, one at the fundus measuring 1.9 x 1.8 x 1.8 cm (previously 2.2 x 1.7 x 1.7 cm) and another smaller just below this measuring 0.8 x 0.9 x 1.1 cm (previously 0.8 x 0.9 x 1.1 cm). ADNEXA: Both ovaries are visualized. There is normal color flow to the adnexa. There is no ovarian torsion. Small amount of free fluid is present in the cul-de-sac. Right ovary measures 1.6 x 1.0 x 1.0 cm. An Essure device is seen in the right fallopian tube Left ovary measures 3.5 x 2.7 x 3.0 cm which includes a 1.5 x 1.4 x 1.6 cm cyst. US/US pelvic and transvaginal IMPRESSION: 1. Two small uterine fibroids. 2. Small left ovarian cyst needs no follow-up. 3. Small amount of free fluid in the cul-de-sac. 4. An Essure device is seen in the right Fallopian tube.
== END ==
LOC: HO.NUCMED 08:14
PROVIDERS: PCP Internal Medicine; Visit Provider Nurse Practitioner Family
DX: R10.13 Epigastric pain (principal); R10.2 Pelvic and perineal pain
CPT/HCPCS: 76830; 76856; 78264; A9541

== ENCOUNTER → 2022-10-26 09:48 | Outpatient (BNVA) | payer OTHER, SELFPAY | PROVIDERS: PCP Internal Medicine; Visit Provider Obstetrics & Gynecology | DX: R31.29 Other microscopic hematuria (principal); D21.9 Benign neoplasm of connective and other soft tissue, unspecified; R10.2 Pelvic and perineal pain | CPT/HCPCS: 81003; 99212 ==

== ENCOUNTER 2022-10-29 08:08 | Outpatient (REF) | payer OTHER, SELFPAY ==
--- NOTE | ~2022-10-29 | XR_ITS ---
EXAMINATION: XR HIP, RIGHT CLINICAL INFORMATION: Pain COMPARISON: Radiographs of pelvis from 07/30/2022. Right hip MRI from 08/20/2022. TECHNIQUE: Two views of the right hip. FINDINGS: The femoral head is well-positioned within the intact acetabulum. No fracture or subluxation. Although there was articular cartilage loss of the superolateral acetabulum on MRI of 08/30/2022, the articular cartilage space of the hip is well-preserved on these radiographs. These radiographs show no significant degenerative changes at the hip. However, prior MRI was more sensitive for articular pathology. The visualized pelvic bones are intact and have normal alignment. Incidentally noted are metallic coils of the fallopian tubes. XR/XR hip RT w [id number] IMPRESSION: Note that there were joint degenerative changes as well as tear of the anterosuperior labrum on a prior MRI from 08/20/2022. The MRI findings of articular cartilage pathology and small subchondral cysts are not visible on these radiographs. There are no radiographic findings of any significant degenerative arthropathy.
== END 2022-10-29 08:09 | disposition home or self-care (01) ==
LOC: HO.HOSX 08:08
PROVIDERS: Visit Provider Physician Assistant
DX: M16.11 Unilateral primary osteoarthritis, right hip (principal); M76.891 Other specified enthesopathies of right lower limb, excluding foot; M25.851 Other specified joint disorders, right hip
CPT/HCPCS: 73502; 99202

== ENCOUNTER 2022-11-01 10:57 | Outpatient (REF) | payer OTHER, SELFPAY ==
[2022-11-01 16:02] LABS: Urine Cytology See Pathology rpt
== END 2022-11-01 10:58 | disposition home or self-care (01) ==
LOC: HO.LAB 10:57
PROVIDERS: PCP Internal Medicine; Visit Provider Urology
DX: R31.29 Other microscopic hematuria (principal); R32 Unspecified urinary incontinence; R39.15 Urgency of urination; N39.8 Other specified disorders of urinary system; M79.7 Fibromyalgia; K59.00 Constipation, unspecified; Z79.899 Other long term (current) drug therapy
CPT/HCPCS: 51798; 88112; 99202

== ENCOUNTER 2022-11-02 08:13 | Day surgery (SDC) | payer OTHER, SELFPAY ==
--- NOTE | 2022-11-01 18:27 | HO.ANESPROP2 ---
HPI - Anesthesia Eval Consult details Narrative: Cysto, stent PMFSH Active Problems Active Problems: All Active Problems (Updated 11/01/22 @ 12:13 by Niurka Torres MD) Voiding dysfunction (Acute) Urinary incontinence (Acute) Urinary urgency (Acute) Right hip impingement syndrome (Acute) Tendonitis of right hip flexor (Acute) Myoma (Acute) Chronic GERD (Acute) Fibromyalgia (Acute) Microscopic hematuria (Acute) Pelvic pain (Acute) Fibromyalgia, primary (Acute) ART positive (Acute) Labral tear of right hip joint (Acute) Chronic right hip pain (Acute) Immunization due (Acute) Physical exam (Acute) Ruptured cyst of ovary (Acute) Right knee pain (Acute) Rash (Acute) Rheumatoid arthritis (Acute) Mild recurrent major depression (Acute) Sacroiliac joint dysfunction of right side (Acute) Shoulder pain, left (Acute) Spondylosis of lumbosacral spine with radiculopathy (Acute) Disc degeneration, lumbar (Acute) Spondylosis of lumbar spine (Acute) Gastroesophageal reflux disease (Acute) Mild persistent asthma (Acute) Constipation by delayed colonic transit (Acute) Arthralgia (Acute) Traumatic ecchymosis of hip (Acute) Rash and nonspecific skin eruption (Acute) Sacroiliitis (Acute) Hip osteomyelitis, right (Acute) Sinusitis chronic, ethmoidal (Acute) Past Medical History Medical History Arthralgia Constipation by delayed colonic transit Disc degeneration, lumbar Gastroesophageal reflux disease Hip osteomyelitis, right Insertion of implantable subdermal contraceptive Mild persistent asthma Mild recurrent major depression Rheumatoid arthritis Sacroiliac joint dysfunction of right side Sacroiliitis Spondylosis of lumbar spine Spondylosis of lumbosacral spine with radiculopathy Family History Family History Mother HTN (hypertension) Diabetes Arthritis Constipation Father No problems noted. Family history of problems with anesthesia: No Surgical History Surgical History History of (~2005) History of hip surgery History of sacroiliac joint dysfunction History of Problems with Anesthesia: No Social History Social History Household Members: None Housing: Homeless Alcohol intake: never Patient Tobacco Use Status: Never used Tobacco e-Cigarette/Vaping Use: Never Used Second Hand Smoke Exposure: No service: No Current occupational status: unemployed Cognitive needs: No Hearing needs: No Vision needs: Yes Meds Allergies Allergy/AdvReac Type Severity Reaction Status Date / Time No Known Drug Allergies Allergy Unknown Unknown Verified 11/01/22 11:25 gabapentin AdvReac Intermediate constipatio Verified 11/01/22 11:25 n Home Medications Medication Instructions Recorded Confirmed Last Taken Type ibuprofen 800 mg tablet 800 mg PO Q8H 08/06/20 11/01/22 Unknown History bupropion HCl 100 mg tablet 150 mg PO DAILY 11/01/22 11/01/22 Unknown History magnesium oxide 400 mg (241.3 mg 400 mg PO DAILY 11/01/22 11/01/22 Unknown History magnesium) tablet Exam Exam Date and Time: November 01, 2022 182 Airway Mallampati Class: II TM Dist: >3cm Neck ROM: Full Heart: rrr Lungs: cta Assessment and Plan Final Anesthetic Review Family History of Problems with Anesthesia: No History of Problems with Anesthesia: No ASA Class: III Final Preanesthetic Review: No Changes in Pt Med Stat, Meds/Allgs Chart Reviewed, Consent Obtained/Reviewed and Anes Risks/Benef Reviewed Patient Risk: Intermediate Procedure Risk: Low Anesthetic Plan Anesthetic Plan: GA Disposition: Standard PACU
[2022-11-02 08:29] VITALS: BMI 34.8
[2022-11-02 08:37] VITALS: BP 139/76; PULSE 80; RESP 16; TEMP 36.6; O2SAT 99
[2022-11-02 08:47] LABS: UPreg QC Valid YES; Urine Pregnancy NEGATIVE (NEGATIVE)
[2022-11-02] MEDS: Lactated Ringers 1,000 ML 50 ML IVCONT (08:50)
--- NOTE | 2022-11-02 09:00 | MHC.SHP ---
Pre-Procedural Eval Section A Date of Service: 11/02/22 The History & Physical has been completed within 30 days and I have reviewed it.: No Section B Chief Complaint: Urgency of urination Allergies: Allergies Allergy/AdvReac Type Severity Reaction Status Date / Time No Known Drug Allergies Allergy Unknown Unknown Verified 11/01/22 11:25 gabapentin AdvReac Intermediate constipatio Verified 11/01/22 11:25 n Plan Diagnosis/Plan: Unchanged I have reviewed the history and physical and performed a pertinent physical examination on my patient. No changes have occurred unless specified. Cystoscopy Hydrodistension. Discussed risks to include but not limited to, blood in the urine, burning with urination, urgency. Time Spent With Patient Time: Total time managing care of this patient today ____ minutes.
--- NOTE | 2022-11-02 09:49 | W.PM.OPN ---
Operative Note Operative Note Date of Service: 11/02/22 Narrative: PREOP DIAGNOSIS: Urinary urgency, microscopic hematuria POSTOP DIAGNOSIS: Urinary urgency, microscopic hematuria, INTERSTITIAL CYSTITIS PROCEDURE: CYSTOSCOPY HYDRODISTENTION Anethesia: General Surgeon: Dr. Niurka Torres Indications: Olga is being evaluated for microscopic hematuria, LUTS urgency, incontinence. Details of procedure: The patient was brought into the operating room placed on the OR table in supine position. 2 g of Ancef IV. General anesthesia was administered. The patient was repositioned into lithotomy position, prepped and draped in the usual sterile fashion. Time-out was done per protocol. A 22 fr cystoscope was placed transurethrally into the bladder. Urine was drained from the bladder measuring 15 mL.The right and left ureteral orifices were visualized. The entire bladder was visualized. There were no suspicious bladder lesions seen. The bladder was filled with sterile water at 80 cm of water pressure under gravity. The bladder was distended for 2 minutes. Bladder capacity measured 550 mL. Revisualization of the bladder, noted mild glomerulations on several quadrants of the bladder. No Ricardo ulcerations. The bladder was refilled with sterile water again at 80 cm of water pressure under gravity. The bladder was distended for 3 minutes. The fluid was drained from the bladder and measured 650 mL. The cystoscope was removed. 2% lidocaine urojet was passed transurethrally, Solution of (1% lidocaine plain, 15 mL, 0.5 % Marcaine 15 mL mixed with 30, 000 units of heparin concentration 5000 units per mL total of 6 mL hepaine) instilled transurethrally into the bladder. The patient was brought out of anesthesia and taken to recovery in stable condition. Complications: None Drains: none
[2022-11-02 09:55] VITALS: BP 115/66; PULSE 77; RESP 16; TEMP 36.6; O2SAT 96
[2022-11-02 10:00] VITALS: BP 114/66; PULSE 72; RESP 16; O2SAT 99
[2022-11-02 10:05] VITALS: BP 112/72; PULSE 76; RESP 16; O2SAT 99
[2022-11-02 10:11] VITALS: BP 116/72; PULSE 82; RESP 16; O2SAT 99
[2022-11-02 10:26] VITALS: BP 119/83; PULSE 72; RESP 18; TEMP 36.6; O2SAT 99
== END 2022-11-02 11:36 ==
LOC: HO.SSS 08:14
PROVIDERS: Anesthesiology; PCP Internal Medicine; Visit Provider Urology
PROC: 0T7B7ZZ Dilation of Bladder, Via Natural or Artificial Opening (ICD-10-PCS; CPT 52260; principal; 2022-11-02 09:50)
DX: N30.11 Interstitial cystitis (chronic) with hematuria (principal); R31.29 Other microscopic hematuria; R39.15 Urgency of urination; R32 Unspecified urinary incontinence; M79.7 Fibromyalgia; M06.9 Rheumatoid arthritis, unspecified; J45.20 Mild intermittent asthma, uncomplicated; F33.0 Major depressive disorder, recurrent, mild; Z79.1 Long term (current) use of non-steroidal anti-inflammatories (NSAID); Z79.899 Other long term (current) drug therapy; Z88.8 Allergy status to other drugs, medicaments and biological substances; Z98.890 Other specified postprocedural states
CPT/HCPCS: 52260; 81025; J0690; J1100; J1643; J1885; J2405; J2795; J3010

== ENCOUNTER 2022-11-11 08:32 | Outpatient (REF) | payer OTHER, SELFPAY ==
--- NOTE | ~2022-11-11 | US_ITS ---
EXAMINATION: US RETROPERITONEAL LIMITED (RENAL ONLY) CLINICAL INFORMATION: Other microscopic hematuria. COMPARISON: CT abdomen and pelvis without contrast 05/05/2022. TECHNIQUE: Real-time imaging of the kidneys. FINDINGS: RIGHT KIDNEY: 10.8 x 4.6 x 6.1 cm (SAG x AP x TRV). The kidney is normal in size, contour, and echogenicity. Renal cortical thickness is normal. No calculi or focal parenchymal lesions. No hydronephrosis. LEFT KIDNEY: 10.9 x 5.8 x 4.5 cm (SAG x AP x TRV). The kidney is normal in size, contour, and echogenicity. Wedge-shaped hyperechoic area in the peripheral mid to lower pole suggestive of a junctional parenchymal defect. Renal cortical thickness is otherwise normal. No calculi or focal parenchymal lesions. No hydronephrosis. US/US renal BI IMPRESSION: No cause of hematuria seen.
== END 2022-11-11 08:33 | disposition home or self-care (01) ==
LOC: HO.HMGCX 08:32
PROVIDERS: PCP Internal Medicine; Visit Provider Urology
DX: R31.29 Other microscopic hematuria (principal)
CPT/HCPCS: 76775

== ENCOUNTER → 2022-11-12 11:23 | Outpatient (BNVA) | payer OTHER, SELFPAY | PROVIDERS: PCP Internal Medicine; Referring Provider Internal Medicine; Visit Provider Nurse Practitioner Family | DX: K59.01 Slow transit constipation (principal); K21.9 Gastro-esophageal reflux disease without esophagitis | CPT/HCPCS: 99212 ==

== ENCOUNTER 2022-11-16 07:45 | Outpatient (REF) | payer OTHER, SELFPAY ==
--- NOTE | ~2022-11-16 | CT_ITS ---
EXAMINATION: CT ABDOMEN AND PELVIS WITHOUT AND WITH CONTRAST CLINICAL INFORMATION: Pelvic and perineal pain. COMPARISON: CT of the abdomen and pelvis 05/05/2022. TECHNIQUE: Multidetector volumetric imaging was performed of the abdomen and pelvis before and after the IV administration of 85 mL of Omnipaque 350 intravenous contrast. Sagittal and coronal reformatted images were obtained on the technologist's workstation. This CT examination was performed using dose optimization techniques as appropriate, variously including the following: *Automated exposure control *Adjustment of mA and/or kV according to patient size (this includes techniques or standardized protocols for targeted exams where dose is matched to indication/reason for exam; i.e. extremities or head) *Use of iterative reconstruction technique DLP: 951.00 mGy-cm FINDINGS: LUNG BASES: The visualized lung bases are unremarkable. LIVER, GALLBLADDER, AND BILIARY TREE: The liver is normal in size, shape, and attenuation. No focal hepatic lesion or biliary ductal dilatation is present. The gallbladder is contracted but otherwise unremarkable with no evidence of radiopaque gallstones, gallbladder wall thickening, or obvious pericholecystic inflammatory changes. PANCREAS: Unremarkable. SPLEEN: Unremarkable. ADRENAL GLANDS: Unremarkable. KIDNEYS AND URETERS: The kidneys are normal in size, shape, and attenuation. No hydronephrosis, hydroureter, or calculi seen. No perinephric stranding. BLADDER: Unremarkable. GASTROINTESTINAL TRACT: The small and large bowel are unremarkable. The appendix is unremarkable. ABDOMINAL WALL: No significant hernia is appreciated. LYMPH NODES: No retroperitoneal lymphadenopathy. VASCULAR: Ovarian veins are mildly dilated at 0.9 cm on the left and 0.6 cm on the right. Some pelvic varices are present an unusual amount is not detected. PELVIC VISCERA: A retroverted uterus is present which appears unremarkable. Short tubal occlusion devices are again noted, Essure. A 2.8 cm simple right ovarian cyst is present. An abnormal adnexal mass is not seen. Previously noted left adnexal cyst has resolved and the free fluid that had been present is no longer seen. OSSEOUS STRUCTURES: Unremarkable. CT/CT abdomen pelvis wo/w IV con IMPRESSION: A cause for the patient's pelvic and perineal pain has not been found. Incidental note is made of a 2.8 cm simple right ovarian cyst. Fleischner guidelines were followed.
[2022-11-16] MEDS: iohexoL 350 MG/ML 100 ML INFUS..BTL IV (08:51)
== END 2022-11-16 07:46 | disposition home or self-care (01) ==
LOC: HO.CT 07:45
PROVIDERS: PCP Internal Medicine; Visit Provider Obstetrics & Gynecology
DX: R10.2 Pelvic and perineal pain (principal); R31.29 Other microscopic hematuria
CPT/HCPCS: 74178; Q9967

== ENCOUNTER 2022-11-22 13:29 | Outpatient (REF) | payer OTHER, SELFPAY ==
--- NOTE | ~2022-11-22 | FL_ITS ---
PROCEDURE: XR ARTHROGRAM HIP, RIGHT CLINICAL INFORMATION: Primary osteoarthritis right hip. COMPARISON: None TECHNIQUE: Following explaining fluoroscopy-guided right hip steroid injection procedure, benefits and risk, a written consent was obtained. Patient was placed supine on fluoroscopy table and anterior aspect of right hip joint space was cleaned and draped in usual sterile manner. 1% local Xylocaine was inserted at puncture site. A 20-gauge spinal needle was then inserted from the skin to the lateral border of femoral head and neck junction and 2 mL of nonionic contrast was injected and single image obtained. Subsequently 80 mg of Depo-Medrol and 1% lidocaine was injected and needle withdrawn. Complete hemostasis was achieved at puncture site. Patient tolerated procedure extremely well. FINDINGS: There are no fractures or dislocations. No joint effusion is identified. No bone, joint or soft tissue abnormality. FLUOROSCOPY TIME: 0.7 minutes DOSE AREA PRODUCT: 5.084 uGy-m2 (microgray-meter squared) FL/FL arthrogram hip RT IMPRESSION: Successful fluoroscopically-guided right hip steroid injection.
== END 2022-11-22 13:30 | disposition home or self-care (01) ==
LOC: HO.XRAY 13:29
PROVIDERS: Visit Provider Physician Assistant
DX: M16.11 Unilateral primary osteoarthritis, right hip (principal)
CPT/HCPCS: 27093; 73525

== ENCOUNTER → 2022-11-25 11:29 | Outpatient (BNVA) | payer OTHER, SELFPAY | PROVIDERS: PCP Internal Medicine; Visit Provider Urology | DX: R31.29 Other microscopic hematuria (principal); N30.10 Interstitial cystitis (chronic) without hematuria; R39.15 Urgency of urination; R32 Unspecified urinary incontinence | CPT/HCPCS: 51798; 99212 ==

== ENCOUNTER → 2022-12-01 09:07 | Outpatient (BNVA) | payer OTHER, SELFPAY | PROVIDERS: PCP Internal Medicine; Visit Provider Obstetrics & Gynecology | DX: N83.209 Unspecified ovarian cyst, unspecified side (principal); R31.29 Other microscopic hematuria | CPT/HCPCS: 99212 ==

== ENCOUNTER 2022-12-10 07:20 | Outpatient (REF) | payer OTHER, SELFPAY ==
[2022-12-10 07:59] LABS: Appearance Urine Clear; Color Urine Yellow; Glucose Urine UA Negative (Negative); Leukocyte Esterase Urine Negative (Negative); Nitrite Urine Negative (Negative); PH 6.5 (5.0-9.0); UMIC TRIGGER UACC YES; Urine Blood Moderate (2+) (Negative); Urine Ketones Negative (Negative); Urine Protein Negative (Neg-Trace)
[2022-12-10 08:05] LABS: Bacteria Urine None Seen (None Seen); Hyaline Casts Urine 0-2 /LPF (0-2); Squamous Epithelial Cell Urine 0-2 /HPF (0-2); WBC Urine 0-5 /HPF (0-5)
[2022-12-10 08:31] LABS: Alanine Aminotransferase 14 U/L (0-31); Alkaline Phosphatase 62 U/L (39-117); Anion Gap 10 (12-20); Aspartate Amino Transferase 14 U/L (5-31); Bilirubin Total 0.3 mg/dL (0.0-1.0); Blood Urea Nitrogen 14 mg/dL (9-16); Calcium 9.2 mg/dL (8.4-10.2); Carbon Dioxide 29 mmol/L (22-29); Chloride 105 mmol/L (96-108); Estimated Glomerular Filt Rate > 60; Glucose Fasting 101 mg/dL (60-99); Potassium 4.1 mmol/L (3.3-5.1); Sodium 140 mmol/L (135-145)
== END 2022-12-10 07:21 | disposition home or self-care (01) ==
LOC: HO.LAB 07:20
PROVIDERS: PCP Internal Medicine; Visit Provider Internal Medicine
DX: R32 Unspecified urinary incontinence (principal)
CPT/HCPCS: 36415; 80053; 81001; 81003

== ENCOUNTER 2022-12-27 11:00 | Outpatient (RCR) | payer OTHER, SELFPAY ==
--- NOTE | 2022-11-24 09:50 | MHC.PT.EP ---
[facility] [place] Office [place] Office [place] Office [address] Ramses Bowers [address] [phone] F: [phone] F: [phone] F: [phone] F: [phone] Physical Therapy Plan of Care Date of Evaluation: Date of Surgery: Diagnosis: RIGHT HIP IMPINGEMENT SYNDROME Assessment: 32 YO FEMALE REF TO PT FOR A RIGHT HIP IMPINGEMENT, (+) ANTEROSUP LABRAL TEAR(Pt NOT PURSUING SURG CORRECTION)- OF SIGNIFICANCE, Pt HAD A Rt HIP INJECTION 11/22/22, A RECENT CYSTOSCOPY TO ASSESS HER URINARY INCONTINENCE, AND H/O Rt SI Jt FUSION IN 12/2021. EVAL WAS INITIATED TODAY, BUT THERE WERE LIMITATIONS DUE TO ACUTE DISCOMFORT FROM RECENT HIP INJECTION PROCEDURE. OBJECTIVELY: DECR TRUNK AND Rt HIP ROM DEFICITS, DECR STRENGTH AND STAB IN LUMBOPELVIC AND Rt LE, (+) TTP Rt HIP GIRDLE-> ESPEC ANTERIORLY, (+) MELBA, (+) LUMBAR PS TISSUE TENSION, AND DECR POSTURAL AWARENESS. FUNCTIONALLY, Pt HAS DIFFIC SLEEPING, ALTERED GAIT MECHANICS, LIFTING (LAUNDRY), SHE AVOIDS USING HER Rt LE TO BEND/ TRANSFERS, AVOIDS ANY FORM OF SQUATTING, LIMITED AMB TO <15 MIN, AND CURRENTLY LEADING A MORE SEDENTARY LIFESTYLE POST-OP Rt SI Jt FUSION. Pt WOULD BENEFIT FROM PT TO CAUTIOUSLY ADDRESS THE ABOVE FINDINGS, DEV A HEP, PAIN MGMT, AND IMPROVE FUNCT MOB AYAAN. Frequency and Duration: The patient will be seen 2 x WK x 8 WKS Short Term Goals: *Pt INDEP SELF-CORRECT POSTURE *Pt'S Rt HIP COMPLEX PAIN DECR TO 4-5/10 *IMPROVE TRUNK AROM REDUCE TISSUE TENSION IN HER LS AND HIP GIRDLE Upper Cutter Out Goals: *Pt INDEP W HEP AND SELF-SX MGMT TECHN *Pt DEMON DECENT TECHN W A 1/4 RANGE SQUAT AND DISPLAYA MORE EFFICIENT GAIT AND MOB ON LEVEL AND STAIRS *IMPROVED LEFI SCORE (AT EVAL 11/24/22 27/80) *IMPROVED LUMBOPELVIC/ Rt LE STRENGTH BY 1/2 TO 1 GRADE Treatment Plan: Modalities to reduce pain, spasms and effusion. Manual therapy to restore motion and function. Therapeutic exercise to improve strength and flexibility. Neuromuscular re-education for posture and balance. Therapeutic activities to return to functional activities of daily living. Electronically signed by: DIANA SANTIAGO PT Please sign and return to therapist. Thank you for your referral.
--- NOTE | 2023-02-03 15:18 | MHC.PT.DC ---
[facility] [place] Office [place] Office [place] Office [address] Ramses Bowers 140 [facility] [phone] F: [phone] F: [phone] F: [phone] F: [phone] Physical Therapy Discharge Report Diagnosis: RIGHT HIP IMPINGEMENT SYNDROME Date of Surgery: Date of Evaluation: 11/24/22 Date of Discharge: 02/03/23 Treatments to Date: 6 Cancellations to Date: 2 No Shows to Date: 1 Discharge Status: Improved Function Independent with HEP Patient Elected to Stop Discharge Summary: Pt DEMON PROGRESS IN PT, ADDRESSING PAIN/SX MGMT TECHN, ROM, POSTURE, AND DEV OF A CUSTOM HEP TO ADDRESS STRENGTH AND LUMBOPELVIC STAB. THE Pt HAD IMPROVED FUNCT MOB AND REDUCED PAIN. THE Pt DID NOT SHOW FOR HER LAST FEW SCHED PT APPTS, AND , THEREFORE, A FORMAL REASSESSMENT WAS NOT PERFORMED. Electronically signed by: DIANA SANTIAGO,PT Please sign and return to therapist. Thank you for your referral.
== END 2023-02-03 15:19 | disposition home or self-care (01) ==
LOC: HO.PT 11:00
PROVIDERS: PCP Internal Medicine; Visit Provider Physician Assistant
DX: M76.891 Other specified enthesopathies of right lower limb, excluding foot (principal); M25.851 Other specified joint disorders, right hip
CPT/HCPCS: 97110; 97112; 97140; 97162; 97530

== ENCOUNTER → 2022-12-28 15:23 | Outpatient (BNVA) | payer OTHER, SELFPAY | PROVIDERS: PCP Internal Medicine; Visit Provider Nurse Practitioner Family | DX: K59.01 Slow transit constipation (principal); K21.9 Gastro-esophageal reflux disease without esophagitis | CPT/HCPCS: 99212 ==

== ENCOUNTER → 2023-02-28 09:04 | Outpatient (BNVA) | payer OTHER, SELFPAY | PROVIDERS: PCP Internal Medicine; Visit Provider Urology | DX: R31.29 Other microscopic hematuria (principal); R39.15 Urgency of urination; R32 Unspecified urinary incontinence; N30.10 Interstitial cystitis (chronic) without hematuria; N39.3 Stress incontinence (female) (male) | CPT/HCPCS: 51798; 99212 ==

== ENCOUNTER 2023-04-27 07:47 | Outpatient (AMB) | payer OTHER, SELFPAY ==
[2023-04-27 08:05] VITALS: BP 109/61; PULSE 81; BMI 32.4
--- NOTE | 2023-04-27 08:05 | MHC.OFFVIS ---
Intake Vital Signs 04/27/23 08:05 Height 5 ft 6 in Weight 200 lb 9.93 oz BMI 32.4 BP 109/61 Blood Pressure Location Lt brachial Position Sitting Pulse 81 Intake Visit Reasons: 2month f/u Intake Note: Olga presents in office as a est.patient for a 2month f/u for CIC. 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 Patient can occasionally take milk of magnesia if she will feel like she is unable to move her bowels. Patient was encouraged to increase fluid intake and activity to promote better bowel motility Gastroesophageal reflux disease Continue current treatment with pantoprazole. Discussed with patient the importance of avoiding dietary triggers in late night snacking. Staying upright for minimal 3 hours after meals discussed with patient. I will see her in 1 month, sooner on as needed basis. We will discuss possibly going for upper endoscopy. Patient is agreeable this plan and verbalizes understanding of instructions. She was given the opportunity to ask questions and all questions answered. ? Thank you for allowing me to participate in her care Plan Medications New magnesium hydroxide (Milk Of Magnesia Concentrated) 10 mL PO BEDTIME PRN 1,000 mL 2RF constipation TODAY'S VISIT Patient is here today for follow-up. Patient states that since she started Motegrity she has been moving her bowels better. There is time that she will have no bowel movement for day or 2, however she usually goes almost every day. Patient states that she also is able to pass gas which makes her feel better. Patient is taking magnesium and at bedtime. Patient is taking pantoprazole in the morning and her symptoms of acid reflux are suppressed. Patient also is trying to avoid dietary triggers. Patient is avoiding late at night. Denies any nausea or vomiting. Patient denies any other GI concerning symptoms. 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 Social History Household Members: None Housing: Homeless Alcohol intake: never Patient Tobacco Use Status: Never used Tobacco e-Cigarette/Vaping Use: Never Used Second Hand Smoke Exposure: No service: No Current occupational status: unemployed Cognitive needs: No Hearing needs: No Vision needs: Yes Female Reproductive History Menstrual Age of Menarche: 12 Review of Systems Const Denies weight gain and Denies weight loss ENT Reports no additional complaints, Denies dysphagia and Denies odynophagia Card Reports no additional complaints Resp Reports no additional complaints GI Denies abdominal pain, Denies belching, Denies melena, Reports bloating, Denies change in bowel habits, Reports constipation (Occasional), Denies dysphagia, Denies excessive flatus, Denies dyspepsia, Denies heartburn, Denies diarrhea, Denies loose stools, Denies nausea, Denies odynophagia and Denies vomiting Reports no additional complaints Musc Reports no additional complaints Neuro Reports no additional complaints Psych Reports no additional complaints Endo Reports no additional complaints Physical Exam Vital Signs: Last Vital Signs Pulse 81 04/27/23 08:05 BP 109/61 04/27/23 08:05 BMI result Body Mass Index 32.4 Const General: healthy appearing, no acute distress and well developed Nutritional Appearance: obese Orientation/consciousness: patient oriented x3 HEENT Head: Yes normal to inspection, Yes normocephalic and Yes atraumatic Face and sinus: Yes normal facial exam Mouth: Normal oral and palatal mucosa present Throat: Yes posterior oropharynx normal, Yes tonsils normal and Yes uvula midline Eyes General: appearance normal, both eyes and all related structures Neck Neck: Yes normal visual inspection, Yes full ROM and Yes trachea midline Thyroid: Thyroid normal Resp Effort & Inspection: normal respiratory effort, able to speak in complete sentences, no tracheal deviation and symmetric chest movement Auscultation: clear to auscultation bilaterally Cardio Rate: regular rate Heart sounds: S1 normal heart sound present and S2 normal heart sound present GI Inspection: Yes normal to inspection, No distended and Yes obesity Palpation (GI): Soft to palpation, not firm, nontender and No hepatosplenomegaly present Auscultation: normal bowel sounds General: Yes no CVA tenderness Back/Spine/Pelvis Back: no CVA tenderness Skin General skin exam: elasticity normal, turgor normal and dry skin Neuro General: patient oriented x3 Psych Appearance: grossly normal Mental Status: mental status grossly normal Speech and movement: Normal speech and movement present Affect: normal affect Assessment & Plan Assessment & Plan (1) Constipation by delayed colonic transit: Code(s): K59.01 - Slow transit constipation Plan: Patient can continue Motegrity and magnesium. Patient can use Dulcolax tablets on as needed basis in the evening if she will have no bowel movement for more than 2 days. If patient will continue to have constipation/diarrhea we will send patient for diagnostic colonoscopy. Patient however denies melena, unintentional weight loss or ribbon like stools. (2) Gastroesophageal reflux disease: Code(s): K21.9 - Gastro-esophageal reflux disease without esophagitis Qualifiers: Esophagitis presence: esophagitis presence not specified Qualified Code(s): K21.9 - Gastro-esophageal reflux disease without esophagitis Plan: Continue current treatment with pantoprazole. Patient was encouraged to avoid dietary triggers and late night snacking. Staying upright for minimum 3 hours after meals discussed with patient. Patient will be back in 4 months, sooner on as needed basis. Patient is agreeable to this plan and verbalizes understanding of instructions. She was given the opportunity to ask questions and all questions answered. Thank you for allowing me to participate in her care Medications: New magnesium oxide 400 mg PO DAILY 30 tabs 5RF Refilled bisacodyl (Dulcolax (bisacodyl)) 10 mg (2 x 5 mg) PO BEDTIME 180 tabs 1RF pantoprazole take one tablet half an hour before breakfast 40 mg PO DAILY 90 tabs 2RF K21.9 - Gastro-esophageal reflux disease without esophagitis Discontinued hydromorphone (Dilaudid) Partial Fill upon patient request. Discontinued Reason: Patient Completed Course 2 mg PO Q6H PRN 6 tabs 0RF pain phenazopyridine (Pyridium) Discontinued Reason: Patient Completed Course 200 mg PO TID 20 tabs 1RF Coding Level of Care Code Est Pt Level 4 (08722) Diagnoses Constipation by delayed colonic transit K59.01 Gastroesophageal reflux disease K21.9 Esophagitis presence: esophagitis presence not specified Time Spent (min) 35 Comment 20 minutes spent with patient and additional 15 minutes spent reviewing her records
== END 2023-04-27 08:27 | disposition home or self-care (01) ==
PROVIDERS: PCP Internal Medicine; Visit Provider Nurse Practitioner Family
DX: K59.01 Slow transit constipation (principal); K21.9 Gastro-esophageal reflux disease without esophagitis
CPT/HCPCS: 99214

== ENCOUNTER → 2023-04-27 07:47 | Outpatient (BNVA) | payer OTHER, SELFPAY | PROVIDERS: PCP Internal Medicine; Visit Provider Nurse Practitioner Family | DX: K59.01 Slow transit constipation (principal); K21.9 Gastro-esophageal reflux disease without esophagitis | CPT/HCPCS: 99212 ==

== ENCOUNTER 2023-05-06 12:54 | Outpatient (REF) | payer OTHER, SELFPAY ==
[2023-05-10 21:49] LABS: HPV mRNA E6/E7 rflx Not Detected (Not Detected)
== END 2023-05-06 12:55 | disposition home or self-care (01) ==
LOC: HO.LNP 12:54
PROVIDERS: PCP Internal Medicine; Visit Provider Advanced Practice Midwife
DX: Z01.419 Encounter for gynecological examination (general) (routine) without abnormal findings (principal); Z11.51 Encounter for screening for human papillomavirus (HPV); N93.9 Abnormal uterine and vaginal bleeding, unspecified; R10.2 Pelvic and perineal pain
CPT/HCPCS: 81002; 87624; 88142

== ENCOUNTER 2023-05-06 12:54 | Outpatient (AMB) | payer OTHER, SELFPAY ==
[2023-05-06 13:04] VITALS: BP 110/64; BMI 32.0
--- NOTE | 2023-05-06 13:04 | A.OFFVIS_ITS ---
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 The patient agreed to use of a medical detail representative during this encounter. Scribed for LUZ MARINA Boo by Vangie Mendez, medical detail representative, on 05/06/2023 at 1:18 pm EST. Marine Extension Agent Required: No Information Interpreted: non-clinical & clinical Poultryman: Poultryman Present (Aidyn) Allergies No Known Drug Allergies Allergy (Unknown, Verified 05/06/23 13:09) Unknown gabapentin Adverse Reaction (Intermediate, Verified 05/06/23 13:09) constipation Is last menstrual period known: Yes Last menstrual period: 04/27/23 Post menopausal: No HPI HPI Comments History of Present Illness Details She is a premenopausal woman presenting for annual exam. Complains of pelvic pain and is worried its due to H/O ruptured cysts. H/o [place] 06/2020-LGSIL Reports blood in urine when she sees Urologist and urine leakage when she sneezes; follow up in 3 months. She admits she tries to eat healthy but has GI issues to to a lot of Rx leading her to be constipated. Currently not sexually active. Essure for BC. Reports painful menses lasting 4 days that comes every 2 weeks. Denies vaginal itching and irritation. STD testing offered; she accepts. Denies family hx of breast, colon and ovarian cancer. Last pap smear 05/17/19. 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 Social History (Updated 05/06/23 @ 13:31 by Amaya Garay CNM) Household Members: Children Household Members Other:: lives with teenage son Housing: Apartment Alcohol intake: never Patient Tobacco Use Status: Never used Tobacco e-Cigarette/Vaping Use: Never Used Second Hand Smoke Exposure: No service: No Current occupational status: disabled Sexual orientation: Straight/Heterosexual Cognitive needs: No Hearing needs: No Vision needs: Yes Female Reproductive History Menstrual Age of Menarche: 12 Duration of menses: 3-5 days Date of last menstrual period: 04/27/23 control method: permanent sterilization Permanent Sterilization: Essure Total pregnancies: 2 Full term: 1 Number of Living Children: 1 Ab spontaneous: 1 Date of last pap smear: 05/17/19 (+HPV) History of abnormal pap smear: Yes Physical Exam Vital Signs: Last Vital Signs BP 110/64 05/06/23 13:04 BMI result Body Mass Index 32.0 Const General: cooperative, healthy appearing, no acute distress, well developed and alert Orientation/consciousness: patient oriented x3 HEENT Head: Yes normal to inspection Eyes General: appearance normal, both eyes and all related structures Neck Neck: Yes normal visual inspection Thyroid: Thyroid normal Chest Chest palpation & inspection: normal inspection of the chest Breast/axilla inspection: normal inspection of the breasts (no puckering, dimpling, peau de orange, retraction, discharge, masses) Breast/axilla palpation: normal palpation of the breasts Resp Effort & Inspection: normal respiratory effort GI Inspection: Yes normal to inspection Palpation (GI): Soft to palpation (to palpation) Rectal Exam - Female: deferred General: Yes bladder normal to inspection External Female Exam: normal external appearance and normal appearance of the urethra Speculum Exam - Vagina: normal appearance of the vagina, normal palpation and normal vaginal discharge Speculum Exam - Cervix: normal appearance of the cervix, normal palpation and Other cervical findings present (bled slightly with pap) Bimanual exam- vagina & uterus: normal palpation and normal palpation Bimanual Exam- Adnexa, other: normal adnexae and no masses Skin General skin exam: no rashes or lesions noted Neuro General: patient oriented x3 Cognition (Neuro): normal cognition Extrem General: Yes normal to inspection Psych Attitude: cooperative Thought process: Normal thought process present Results AMB Urinalysis Dipstick UR Leukocytes Negative Last Edit by Noemy Heard CMA on 05/06/23 13:53 UR Nitrite Negative Last Edit by Noemy Heard, RESTROOMS OR LOUNGES MAID on 05/06/23 13:53 UR Urobilinogen Normal Last Edit by Noemy Heard, RESTROOMS OR LOUNGES MAID on 05/06/23 13:53 UR Protein Negative Last Edit by Noemy Heard, RESTROOMS OR LOUNGES MAID on 05/06/23 13:53 UR Ph 6.0 Last Edit by Noemy Heard, RESTROOMS OR LOUNGES MAID on 05/06/23 13:53 UR Blood Moderate Last Edit by Noemy Heard, RESTROOMS OR LOUNGES MAID on 05/06/23 13:53 UR Specific [place] 1.020 Last Edit by Noemy Heard, CRAIG on 05/06/23 13:53 UR Ketone Negative Last Edit by Noemy Heard, CRAIG on 05/06/23 13:53 UR Bilirubin Negative Last Edit by Noemy Heard, CRAIG on 05/06/23 13:53 UR Glucose Negative Last Edit by Noemy Heard, RESTROOMS OR LOUNGES MAID on 05/06/23 13:53 Results Reviewed Results Reviewed: Laboratory Last Values Urine pH (Clinic) 6.0 05/06/23 13:51 Specific [place] (Clinic) 1.020 05/06/23 13:51 Ur Protein (Clinic) Negative 05/06/23 13:51 Ur Ketones (Clinic) Negative 05/06/23 13:51 Urine Blood (Clinic) Moderate 05/06/23 13:51 Urine Nitrite Negative 05/06/23 13:51 Urine Bilirubin (Clinic) Negative 05/06/23 13:51 Urobilinogen (Clinic) Normal 05/06/23 13:51 Leukocyte Esterase (Clinic) Negative 05/06/23 13:51 Urine Glucose (Clinic) Negative 05/06/23 13:51 Medical records from 10/18/22 from [facility]. Assessment & Plan Assessment & Plan (1) Encounter for well woman exam: Code(s): Z01.419 - Encounter for gynecological examination (general) (routine) without abnormal findings Plan: Discussed: Current recommendations for pap smears per ASCCP guidelines Breast awareness and periodic self breast exams. Maintaining a healthy lifestyle including a well balanced diet and routine exercise. All of her questions and concerns were addressed to the best of my ability. RTO in one year for AG. (2) Abnormal uterine bleeding (AUB): Code(s): N93.9 - Abnormal uterine and vaginal bleeding, unspecified Plan: Discussed work up including labs, pelvic US and possible EMB depending on US results. The EMB purpose was explained to rule out atypia, hyperplasia and uterine cancer. All of her questions and concerns were addressed to the best of my ability and shared decision making: for EMBx. She is agreeable to plan of care. (3) LGSIL on Pap smear of cervix: Comment: [id number] Code(s): R87.612 - Low grade squamous intraepithelial lesion on cytologic smear of cervix (LGSIL) (4) Pelvic pain: Comment: One Essure device seen by ultrasound Code(s): R10.2 - Pelvic and perineal pain Plan: BV testing and GC/CT panel done today. Await results and treat accordingly. If experience pelvic pain, report to ED. Recommend if pelvic pain is chronic, report to [facility] consult. Orders: Orders US pelvic and transvaginal Today N93.9 - Abnormal uterine and vaginal bleeding, unspecified, R10.2 - Pelvic and perineal pain Bacterial Vaginosis Panel Today R87.612 - Low grade squamous intraepithelial lesion on cytologic smear of cervix (LGSIL), Z01.419 - Encounter for gynecological examination (general) (routine) without abnormal findings CT NG by PCR Today R87.612 - Low grade squamous intraepithelial lesion on cytologic smear of cervix (LGSIL), Z01.419 - Encounter for gynecological examination (general) (routine) without abnormal findings Thyroid Stimulating Hormone Today N92.1 - Excessive and frequent menstruation with irregular cycle, N93.9 - Abnormal uterine and vaginal bleeding, unspecified Complete Blood Count no Diff Today N93.9 - Abnormal uterine and vaginal bleeding, unspecified Urine Culture Today R10.2 - Pelvic and perineal pain Pap Smear Today R87.612 - Low grade squamous intraepithelial lesion on cytologic smear of cervix (LGSIL), Z01.419 - Encounter for gynecological examination (general) (routine) without abnormal findings AMB Urinalysis Dipstick Today R39.15 - Urgency of urination Coding Level of Care Code Est Pt Prev Care 18-39y(88865) Diagnoses Encounter for well woman exam Z01.419 Abnormal uterine bleeding (AUB) N93.9 LGSIL on Pap smear of cervix R87.612 Pelvic pain R10.2
== END 2023-05-06 13:54 | disposition home or self-care (01) ==
LOC: HO.HWS 12:54
PROVIDERS: PCP Internal Medicine; Visit Provider Advanced Practice Midwife
DX: Z01.419 Encounter for gynecological examination (general) (routine) without abnormal findings (principal); N93.9 Abnormal uterine and vaginal bleeding, unspecified; R87.612 Low grade squamous intraepithelial lesion on cytologic smear of cervix (LGSIL); R10.2 Pelvic and perineal pain; R39.15 Urgency of urination
CPT/HCPCS: 99395

== ENCOUNTER 2023-05-06 14:02 | Outpatient (REF) | payer OTHER, SELFPAY ==
[2023-05-06 15:24] LABS: Hematocrit 38.1 % (37.0-47.0); Hemoglobin 12.6 g/dl (12.0-16.0); Mean Corpuscular HGB Conc 33.1 g/dl (31.0-35.0); Mean Corpuscular Volume 90.7 fL (80.0-98.0); Mean Platelet Volume 9.8 fL (9.4-12.3); Platelet Count 318 X10*3/uL (160-400); Red Cell Distribution Width 12.1 % (11.0-16.0); White Blood Count 6.9 X10*3/uL (4.8-10.8)
[2023-05-06 16:47] LABS: Thyroid Stimulating Hormone 0.72 uIU/mL (0.32-4.0)
[2023-05-07 04:03] LABS: CT PCR NOT DETECTED (Not Detect.); NG PCR NOT DETECTED (Not Detect.)
[2023-05-07 11:48] LABS: BV Int Neg Control Negative (Negative); BV Int Pos Control Positive (Positive)
== END 2023-05-06 14:03 | disposition home or self-care (01) ==
LOC: HO.LAB 14:02
PROVIDERS: PCP Internal Medicine; Visit Provider Advanced Practice Midwife
DX: Z11.3 Encounter for screening for infections with a predominantly sexual mode of transmission (principal); R10.2 Pelvic and perineal pain; R87.612 Low grade squamous intraepithelial lesion on cytologic smear of cervix (LGSIL); N92.1 Excessive and frequent menstruation with irregular cycle
CPT/HCPCS: 0353U; 84443; 85027; 87086; 87147; 87480; 87510; 87660

== ENCOUNTER 2023-05-09 09:34 | Outpatient (REF) | payer OTHER, SELFPAY ==
--- NOTE | ~2023-05-09 | US_ITS ---
EXAMINATION: US PELVIS CLINICAL INFORMATION: Abnormal uterine bleeding. Last menstrual period 04/27/2023. Essure device in place. COMPARISON: Pelvic ultrasound 10/12/2022. CT abdomen and pelvis 11/16/2022. TECHNIQUE: Ultrasound of the pelvis is performed using both transabdominal and transvaginal transducers along with Doppler. Transvaginal imaging is performed due to inadequate visualization transabdominally. FINDINGS: The uterus is heterogeneous, retroverted and measures 8.5 x 4.9 x 6.8 cm. A 2.1 x 2.0 x 2.2 cm fundal fibroid previously measured 1.9 x 1.8 x 1.8 cm. Adjacent 1.0 x 1.0 x 1.1 cm fibroid previously measured 0.8 x 0.9 x 1.1 cm. Endometrial thickness is 0.6 cm. Small amount of free fluid in the pelvis. Small amount of free fluid in the cervix. Echogenic foci characteristic of Essure devices are seen bilaterally. Right ovary measures 2.6 x 2.0 x 2.4 cm, volume 6.5 mL. Left ovary measures 3.5 x 2.4 x 3.8 cm. Volume 16.3 mL. Left ovarian 1.0 x 1.0 x 1.0 cm cyst with septation. Previous exam demonstrated a 1.5 x 1.4 x 1.6 cm left ovarian cyst. Right ovarian 1.9 x 1.3 x 1.7 cm cyst. US/US pelvic and transvaginal IMPRESSION: 1. Fibroid uterus. 2. Endometrial thickness is 0.6 cm. 3. Small amount of free fluid. 4. Bilateral Essure devices present. 5. Right ovarian 1.[address] scan of 11/16/2022 demonstrated a 2.8 cm simple right ovarian cyst. Left ovarian 1.0 cm cyst with thin septation versus 2 adjacent cysts. There is no indication for follow up imaging at this time.
== END 2023-05-09 09:35 | disposition home or self-care (01) ==
LOC: HO.HMGCX 09:34
PROVIDERS: PCP Internal Medicine; Visit Provider Advanced Practice Midwife
DX: R10.2 Pelvic and perineal pain (principal); N93.9 Abnormal uterine and vaginal bleeding, unspecified
CPT/HCPCS: 76830; 76856

== ENCOUNTER 2023-06-03 11:18 | Outpatient (AMB) | payer OTHER, SELFPAY ==
--- NOTE | 2023-06-03 11:18 | MHC.OFFVIS ---
Intake Intake Visit Reasons: Ultrasound Follow up/ call at 1pm Intake Note: The patient agreed to use of a medical physics professor during this encounter. Scribed for LUZ MARINA Boo by Adeline Mederos medical physics professor, on 06/03/2023 at 11:30 am EST Property Damage Claims Adjustor Required: No Information Interpreted: non-clinical & clinical Allergies No Known Drug Allergies Allergy (Unknown, Verified 06/03/23 11:19) Unknown gabapentin Adverse Reaction (Intermediate, Verified 06/03/23 11:19) constipation HPI HPI Comments History of Present Illness Details Doximity live video 11:35 -?11:47. Video was not utilized due to technical difficulties. She presents via phone/live video to discuss?test results secondary to pelvic pain and AUB. Reports light spotting in between menses with pain. She typically has light menses, the past couple menses she reports heavy bleeding with clots and pelvic pain. Hx of Essure for BC. [facility] Medical History Uterine fibroid (Unknown) LGSIL on Pap smear of cervix Abnormal uterine bleeding (AUB) Rheumatoid arthritis Mild recurrent major depression Sacroiliac joint dysfunction of right side Spondylosis of lumbosacral spine with radiculopathy Disc degeneration, lumbar Spondylosis of lumbar spine Gastroesophageal reflux disease Mild persistent asthma Constipation by delayed colonic transit Arthralgia Insertion of implantable subdermal contraceptive Sacroiliitis Hip osteomyelitis, right Surgical History History of sacroiliac joint dysfunction History of hip surgery History of (~2005) Family History Mother HTN (hypertension) Diabetes Arthritis Constipation Father No problems noted. Social History Household Members: Children Household Members Other:: lives with teenage son Housing: Apartment Alcohol intake: never Patient Tobacco Use Status: Never used Tobacco e-Cigarette/Vaping Use: Never Used Second Hand Smoke Exposure: No service: No Current occupational status: disabled Sexual orientation: Straight/Heterosexual Cognitive needs: No Hearing needs: No Vision needs: Yes Female Reproductive History Menstrual Age of Menarche: 12 Duration of menses: 3-5 days Date of last menstrual period: 05/21/23 Review of Systems Const All systems reviewed & are unremarkable except as noted in HPI and below Reports abnormal vaginal bleeding and Reports pelvic pain Results Reviewed Results Reviewed: 05/09/23 US FINDINGS: The uterus is heterogeneous, retroverted and measures 8.5 x 4.9 x 6.8 cm. A 2.1 x 2.0 x 2.2 cm fundal fibroid previously measured 1.9 x 1.8 x 1.8 cm. Adjacent 1.0 x 1.0 x 1.1 cm fibroid previously measured 0.8 x 0.9 x 1.1 cm. Endometrial thickness is 0.6 cm. Small amount of free fluid in the pelvis. Small amount of free fluid in the cervix. Echogenic foci characteristic of Essure devices are seen bilaterally. Right ovary measures 2.6 x 2.0 x 2.4 cm, volume 6.5 mL. Left ovary measures 3.5 x 2.4 x 3.8 cm. Volume 16.3 mL. Left ovarian 1.0 x 1.0 x 1.0 cm cyst with septation. Previous exam demonstrated a 1.5 x 1.4 x 1.6 cm left ovarian cyst. Right ovarian 1.9 x 1.3 x 1.7 cm cyst. IMPRESSION: 1. Fibroid uterus. 2. Endometrial thickness is 0.6 cm. 3. Small amount of free fluid. 4. Bilateral Essure devices present. 5. Right ovarian 1.[address] scan of 11/16/2022 demonstrated a 2.8 cm simple right ovarian cyst. Left ovarian 1.0 cm cyst with thin septation versus 2 adjacent cysts. There is no indication for follow up imaging at this time. Laboratory Tests 05/06/23 14:26 Hgb 12.6 Hct 38.1 TSH 0.72 Assessment & Plan Assessment & Plan (1) Encounter to discuss test results: Code(s): Z71.2 - Person consulting for explanation of examination or test findings Plan: Reviewed test results with patient. I spent 11 minutes speaking with the patient on the phone plus an additional 2 minutes reviewing and updating records for a total of 13 minutes ? (2) Abnormal uterine bleeding (AUB): Code(s): N93.9 - Abnormal uterine and vaginal bleeding, unspecified Plan: Recommended The EMBx purpose was explained to rule out atypia, hyperplasia and uterine cancer. Reviewed procedure and instructed to take ibuprofen with food 1 hour prior to procedure. Pending results, consider referral to [facility] for further evaluation and treatment including consult, options possible hysterectomy due to Essure-chronic pelvic pain and AUB. Offered referral today; she prefers to wait until after EMB results. RTO for EMB. (3) Pelvic pain: Comment: One Essure device seen by ultrasound Code(s): R10.2 - Pelvic and perineal pain Plan: Recommended taking ibuprofen with food when pain and bleeding first starts. (4) Uterine fibroid: Onset Date: Unknown Code(s): D25.9 - Leiomyoma of uterus, unspecified Plan: Counseled on fibroids. Leiomyoma: common pelvic neoplasm. Differential diagnosis-may include leiomyosarcoma which is a rare uterine sarcoma 3-7/100,000, difficult to distinguish from fibroids on ultrasound from uterine sarcoma's. Unlikely any single test will have a highly positive predictive value. Hysterectomy is not recommended for sole purpose of excluding malignant neoplasm. Report any PMB/AUB. Pelvic pressure, bloating, or pain. (5) Ovarian cyst: Code(s): N83.209 - Unspecified ovarian cyst, unspecified side Telehealth Telehealth Location of provider rendering services: practice address Location of patient: address on file Patient Identification confirmed using: Name, : Yes Telehealth method: video Patient verbally consented to treatment: Yes Patient verbally consented to billing insurance company: Yes Patient informed of any privacy concerns related to visit: Yes Coding Level of Care Code Tele Est Pt Level 3 (11735) Diagnoses Encounter to discuss test results Z71.2 Abnormal uterine bleeding (AUB) N93.9 Pelvic pain R10.2 Uterine fibroid D25.9 Ovarian cyst N83.209
== END 2023-06-03 14:39 | disposition home or self-care (01) ==
LOC: HO.HWS 11:18
PROVIDERS: PCP Internal Medicine; Visit Provider Advanced Practice Midwife
DX: Z71.2 Person consulting for explanation of examination or test findings (principal); N93.9 Abnormal uterine and vaginal bleeding, unspecified; R10.2 Pelvic and perineal pain; D25.9 Leiomyoma of uterus, unspecified; N83.209 Unspecified ovarian cyst, unspecified side
CPT/HCPCS: 99213

== ENCOUNTER → 2023-06-03 11:18 | Outpatient (BNVA) | payer OTHER, SELFPAY | PROVIDERS: PCP Internal Medicine; Visit Provider Advanced Practice Midwife ==

== ENCOUNTER 2023-06-14 12:29 | Outpatient (AMB) | payer OTHER, SELFPAY ==
--- NOTE | 2023-06-14 12:36 | MHC.PC.OV ---
Vital Signs 06/14/23 12:40 Height 5 ft 6 in Weight 203 lb BMI 32.8 BP 130/82 Blood Pressure Location Lt brachial Position Sitting Intake Visit Reasons: Annual Exam Intake Note: Patient here for an annual physical exam Activities Officer Required: No Accompanied by: Self / Same As Patient Allergies gabapentin Adverse Reaction (Intermediate, Verified 06/14/23 12:48) constipation Medication List - Last Reconciled 06/14/23 by Ceci Bowen MD albuterol sulfate 90 mcg/actuation 2 puffs inhalation Q6H PRN 30 days amoxicillin 500 mg PO Q8H bisacodyl (Dulcolax (bisacodyl)) 10 mg (2 x 5 mg) PO BEDTIME bupropion HCl 150 mg (1.5 x 100 mg) PO DAILY 90 days cholecalciferol (vitamin D3) 25 mcg PO DAILY docusate sodium 200 mg (2 x 100 mg) PO BEDTIME duloxetine 60 mg PO DAILY 30 days epinephrine 0.3 mg (0.3 mL) IM ONCE PRN 30 days hydrocortisone 2.5% (Proctosol HC) 1 appl MN BID-QID PRN ibuprofen 800 mg PO Q8H [incontinence liners As directed] lidocaine 5% 1 appl topical QID PRN loratadine 10 mg PO DAILY PRN magnesium hydroxide (Milk Of Magnesia Concentrated) 10 mL PO BEDTIME PRN magnesium oxide 400 mg PO DAILY nystatin 1 appl topical DAILY 30 days pantoprazole 40 mg PO DAILY [personal wipes As directed] prucalopride (Motegrity) 2 mg PO DAILY Shower Chair As directed underpads (Bed Underpads) As directed Tobacco use date assessed: 10/14/22 Dental Screening Dental Screen Date: 06/14/23 Did you have a dental visit in the last 12 months?: Yes Did you have a dental problem in the last 6 months where you did not have access to dental care?: No Was dental information given to patient?: Patient has dentist HPI HPI Comments History of Present Illness Details This is a 33-year-old female that comes for her physical exam. Last Pap smear was 2022 with HPV negative. No chest pain or shortness of breath. [facility] Medical History Uterine fibroid (Unknown) LGSIL on Pap smear of cervix Abnormal uterine bleeding (AUB) Rheumatoid arthritis Mild recurrent major depression Sacroiliac joint dysfunction of right side Spondylosis of lumbosacral spine with radiculopathy Disc degeneration, lumbar Spondylosis of lumbar spine Gastroesophageal reflux disease Mild persistent asthma Constipation by delayed colonic transit Arthralgia Insertion of implantable subdermal contraceptive Sacroiliitis Hip osteomyelitis, right Surgical History History of sacroiliac joint dysfunction History of hip surgery History of (~2005) Family History Mother HTN (hypertension) Diabetes Arthritis Constipation Father No problems noted. Social History Household Members: Children Household Members Other:: lives with teenage son Housing: Apartment Alcohol intake: never Patient Tobacco Use Status: Never used Tobacco e-Cigarette/Vaping Use: Never Used Second Hand Smoke Exposure: No service: No Current occupational status: disabled Sexual orientation: Straight/Heterosexual Cognitive needs: No Hearing needs: No Vision needs: Yes Female Reproductive History Menstrual Age of Menarche: 12 Questionnaire Thrive Questionnaire Date Thrive assessed: 10/14/22 MARY-7 AMB Questionnaire MARY-7 Date MARY - 7 assessed: 10/14/22 Source: Developed by Drs. Lencho Veliz, Lizbeth Ennis, Mike Lowe and colleagues, with an educational andrés from [employer]. Review of Systems Const All systems reviewed & are unremarkable except as noted in HPI and below Eyes Reports no additional complaints, Denies change in vision and Denies other visual disturbances Card Denies chest pain at rest, Denies chest pain with activity, Denies edema, Denies irregular heart rhythm, Denies claudication, Denies dyspnea, Denies dyspnea on exertion, Denies orthopnea, Denies paroxysmal nocturnal dyspnea and Denies slow heart rate Resp Denies cough, Denies dyspnea and Denies dyspnea on exertion GI Denies abdominal pain, Denies change in bowel habits, Denies excessive flatus, Denies nausea and Denies vomiting Denies urinary incontinence, Denies urinary hesitancy and Denies urinary urgency Musc Denies abnormal gait, Denies atrophy, Denies deformity and Denies limited range of motion Skin/Breast Denies bleeding lesions, Denies changing lesions and Denies rash Neuro Denies abnormal gait and Denies lack of coordination Physical exam (Primary Care) Vital Signs: Last Vital Signs BP 130/82 06/14/23 12:40 BMI result Body Mass Index 32.8 Tobacco/Smoking Status: Tobacco use Status Tobacco use date assessed 10/14/22 06/14/23 12:43 Patient Tobacco Use Status Never used Tobacco 06/14/23 12:43 e-Cigarette/Vaping Use Never Used 06/14/23 12:43 Thrive Assessment: Date of Thrive Assessment Date Thrive assessed 10/14/22 06/14/23 12:43 Const Orientation/consciousness: patient oriented x3 HENMT Head: Yes normal to inspection, Yes normocephalic and Yes atraumatic Ears: external ears normal Eyes General: appearance normal, both eyes and all related structures Eyelids: Yes eyelids normal Conjunctivae: conjunctivae normal Neck Neck: Yes normal visual inspection and Yes supple Resp Effort & Inspection: normal respiratory effort Auscultation: clear to auscultation bilaterally Cardio Jugular venous distension: no JVD Rate: regular rate Rhythm: regular rhythm Heart sounds: S1 normal heart sound present and S2 normal heart sound present GI Inspection: Yes normal to inspection Palpation (GI): Soft to palpation and nontender Auscultation: normal bowel sounds Skin General skin exam: no rashes or lesions noted Neuro General: patient oriented x3 and no focal motor deficits Extrem General: Yes full ROM Psych Appearance: grossly normal Assessment and Plan Assessment & Plan (1) Physical exam: Code(s): Z00.00 - Encounter for general adult medical examination without abnormal findings Plan: Repeat in a year Coding Level of Care Code Est Pt Prev Care 18-39y(73179) Diagnoses Physical exam Z00.00 Time Spent (min) 33
[2023-06-14 12:40] VITALS: BP 130/82; BMI 32.8
== END 2023-06-14 12:56 | disposition home or self-care (01) ==
PROVIDERS: Visit Provider Internal Medicine
DX: Z00.00 Encounter for general adult medical examination without abnormal findings (principal)
CPT/HCPCS: 99395

== ENCOUNTER 2023-06-15 11:00 | Outpatient (REF) | payer OTHER, SELFPAY ==
[2023-06-15 13:18] LABS: Alanine Aminotransferase 9 U/L (0-31); Albumin Level 4.1 g/dL (3.5-5.0); Alkaline Phosphatase 54 U/L (39-117); Anion Gap 12 (12-20); Aspartate Amino Transferase 12 U/L (5-31); Bilirubin Total 0.4 mg/dL (0.0-1.0); Blood Urea Nitrogen 13 mg/dL (9-16); Calcium 9.2 mg/dL (8.4-10.2); Carbon Dioxide 25 mmol/L (22-29); Chloride 107 mmol/L (96-108); Cholesterol 179 mg/dL (<200); Estimated Glomerular Filt Rate > 60; Glucose Fasting 92 mg/dL (60-99); HDL Cholesterol 47 mg/dL (>40); LDL Cholesterol Calculated 119 mg/dL (<100); Potassium 4.2 mmol/L (3.3-5.1); Sodium 140 mmol/L (135-145); Total Protein 7.6 g/dL (6.5-8.0); Triglycerides 68 mg/dL (<150)
== END 2023-06-15 11:01 | disposition home or self-care (01) ==
LOC: HO.LAB 11:00
PROVIDERS: PCP Internal Medicine; Visit Provider Internal Medicine
DX: Z00.00 Encounter for general adult medical examination without abnormal findings (principal)
CPT/HCPCS: 36415; 80053; 80061

== ENCOUNTER 2023-06-17 08:26 | Outpatient (AMB) | payer OTHER, SELFPAY ==
[2023-06-17 08:32] VITALS: BP 140/90; BMI 32.6
--- NOTE | 2023-06-17 08:32 | MHC.OFFVIS ---
Intake Vital Signs 06/17/23 08:32 Height 5 ft 6 in Weight 202 lb BMI 32.6 BP 140/90 H Intake Visit Reasons: EMB Intake Note: The patient agreed to use of a medical language specialist during this encounter. Scribed for LUZ MARINA Boo by Adeline Mederos medical language specialist, on 06/17/2023 at 9:15 am EST Sheriffs Officer Required: No Information Interpreted: non-clinical & clinical Corrections Sergeant: Corrections Sergeant Present (Noemy) Allergies gabapentin Adverse Reaction (Intermediate, Verified 06/17/23 08:35) constipation Is last menstrual period known: Yes Last menstrual period: 05/24/23 Post menopausal: No HPI HPI Comments History of Present Illness Details The patient is here today for an endometrial biopsy for AUB to rule out any pathology including atypical, hyperplasia or cancer cells of the uterus. She reports heavy bleeding with clots every 15 days for the past 2-3 months. Hx. of chronic pelvic pain. Hx of Essure for BC, in [place]. Has seen a provider at [facility] in the past for irregular bleeding. Reports pelvic cramping. Also reports occasional vaginal itching. Does not wear pads, uses a menstrual cup. She was consented for the procedure, and the consent forms were signed. She is agreeable to have the procedure today. All questions were answered. A urine test was obtained and was negative. She denies any risks to . Hx of frequent UTI, see urology. [facility] Medical History Uterine fibroid (Unknown) LGSIL on Pap smear of cervix Abnormal uterine bleeding (AUB) Rheumatoid arthritis Mild recurrent major depression Sacroiliac joint dysfunction of right side Spondylosis of lumbosacral spine with radiculopathy Disc degeneration, lumbar Spondylosis of lumbar spine Gastroesophageal reflux disease Mild persistent asthma Constipation by delayed colonic transit Arthralgia Insertion of implantable subdermal contraceptive Sacroiliitis Hip osteomyelitis, right Surgical History History of sacroiliac joint dysfunction History of hip surgery History of (~2005) Family History Mother HTN (hypertension) Diabetes Arthritis Constipation Father No problems noted. Social History Household Members: Children Household Members Other:: lives with teenage son Housing: Apartment Alcohol intake: never Patient Tobacco Use Status: Never used Tobacco e-Cigarette/Vaping Use: Never Used Second Hand Smoke Exposure: No service: No Current occupational status: disabled Sexual orientation: Straight/Heterosexual Cognitive needs: No Hearing needs: No Vision needs: Yes Female Reproductive History Menstrual Age of Menarche: 12 Duration of menses: 3-5 days Date of last menstrual period: 05/24/23 control method: permanent sterilization Permanent Sterilization: Essure Total pregnancies: 2 Full term: 1 Number of Living Children: 1 Ab spontaneous: 1 Date of last pap smear: 05/09/23 (negative) Review of Systems Const All systems reviewed & are unremarkable except as noted in HPI and below Reports abnormal vaginal bleeding Physical Exam Vital Signs: Last Vital Signs BP 140/90 H 06/17/23 08:32 BMI result Body Mass Index 32.6 External Female Exam: normal external appearance Speculum Exam - Vagina: normal appearance of the vagina and normal vaginal discharge Speculum Exam - Cervix: normal appearance of the cervix Bimanual exam- vagina & uterus: normal bimanual exam, uterine size normal, uterine shape normal and non-tender Bimanual Exam- Adnexa, other: normal adnexae, no masses and No adnexal tenderness Office Procedures Endometrial Biopsy Details: She was counseled regarding anticipatory guidance for the procedure including the risks for pain, infection, bleeding, perforation, potential injury to the tissues may include the cervix, uterus, tubes, bladder and bowels. These injuries may include further treatment and evaluation including surgery, blood transfusions, antibiotics, hospitalizations and anesthesia. Permanent injury and scarring can occur. The patient was placed in the dorsal lithotomy position and a sterile speculum inserted. Using aseptic technique for the procedure. The cervix was cleansed with Betadine x 3 swabs. A single toothed tenaculum was placed on the cervix for stabilization and the uterus was sounded to 9 cm with a 4mm pipelle for 3 passes. Minimal bleeding was observed. The patient tolerated the procedure well and was in good condition when leaving the department. The tissue sample was placed in formalin in a patient labeled container by staff assisting and sent to the pathology department for processing and interpretation. The patient tolerated the procedure well. Warnings reviewed with patient. Instructions given to call if temp >100.4, flu like sx, SOB, fatigue, lightheadedness/dizziness, abd pain (worse than cramping), bloating or abd distention, foul odor or abnormal discharge or heavy vaginal bleeding. [id number] Biopsy Results AMB Test Urine AMB Test Urine Negative Last Edit by TRACEY Matute on 06/17/23 08:42 Results Reviewed Results Reviewed: Laboratory Last Values [facility]st Clinic Negative 06/17/23 08:42 Assessment & Plan Assessment & Plan (1) Abnormal uterine bleeding (AUB): Code(s): N93.9 - Abnormal uterine and vaginal bleeding, unspecified Plan: EMBx done today, see procedure note. Instructed patient nothing in the vagina including: tampons, douching or sex for 3 days. She may take an over the counter mild analgesic such as Tylenol or Advil (if no allergies) per the advertising agent?s recommendation on dosing, frequency, and follow the directions completely. She will try to find her previous provider at [facility] for records for follow up, consider consult for management of bleeding/pain, possible hysterectomy, following biopsy results. RTO for test results. Orders: Orders AMB HCG Urine Test Today Z32.02 - Encounter for test, result negative Urine Culture Today R39.15 - Urgency of urination Coding Level of Care Code Procedure Only Diagnoses Abnormal uterine bleeding (AUB) N93.9 CPT Codes Endometrial Biopsy - CPT: 49474-[id number] Biopsy ([id number])
== END 2023-06-17 09:20 | disposition home or self-care (01) ==
PROVIDERS: PCP Internal Medicine; Visit Provider Advanced Practice Midwife
DX: N93.9 Abnormal uterine and vaginal bleeding, unspecified (principal); Z32.02 Encounter for pregnancy test, result negative
CPT/HCPCS: 58100

== ENCOUNTER 2023-06-17 08:26 | Outpatient (REF) | payer OTHER, SELFPAY | END 2023-06-17 08:27 | disposition home or self-care (01) | LOC: HO.LNP 08:26 | PROVIDERS: PCP Internal Medicine; Visit Provider Advanced Practice Midwife | DX: R39.15 Urgency of urination (principal); N93.9 Abnormal uterine and vaginal bleeding, unspecified | CPT/HCPCS: 58100; 81025; 87086; 88305 ==

== ENCOUNTER 2023-06-23 12:39 | Outpatient (REF) | payer OTHER, SELFPAY | END 2023-06-23 12:40 | disposition home or self-care (01) | LOC: HO.LNP 12:39 | PROVIDERS: PCP Internal Medicine; Visit Provider Advanced Practice Midwife | DX: N89.8 Other specified noninflammatory disorders of vagina (principal); N93.9 Abnormal uterine and vaginal bleeding, unspecified; N73.4 Female chronic pelvic peritonitis | CPT/HCPCS: 0353U; 81003; 87086; 87480; 87510; 87660; 99212 ==

== ENCOUNTER 2023-06-23 12:39 | Outpatient (AMB) | payer OTHER, SELFPAY ==
[2023-06-23 13:26] VITALS: BP 112/68; BMI 32.6
--- NOTE | 2023-06-23 13:26 | MHC.OFFVIS ---
Intake Vital Signs 06/23/23 13:26 Height 5 ft 6 in Weight 202 lb BMI 32.6 BP 112/68 Intake Visit Reasons: ? BV Intake Note: itching and smell when urinating Nutrition Professor Required: No Information Interpreted: non-clinical & clinical Filter Tank Tender: Filter Tank Tender Present (Aidyn) Allergies gabapentin Adverse Reaction (Intermediate, Verified 06/23/23 13:30) constipation Is last menstrual period known: Yes Last menstrual period: 06/18/23 Post menopausal: No HPI HPI Comments History of Present Illness Details She is here today to discuss EMB results and has complaints of fishy vaginal odor, itching and slight brown discharge. Reports she treated with OTC but still have symptoms. Hx of BV. [facility] Medical History Chronic pelvic peritonitis, female Uterine fibroid (Unknown) LGSIL on Pap smear of cervix Abnormal uterine bleeding (AUB) Rheumatoid arthritis Mild recurrent major depression Sacroiliac joint dysfunction of right side Spondylosis of lumbosacral spine with radiculopathy Disc degeneration, lumbar Spondylosis of lumbar spine Gastroesophageal reflux disease Mild persistent asthma Constipation by delayed colonic transit Arthralgia Insertion of implantable subdermal contraceptive Sacroiliitis Hip osteomyelitis, right Surgical History History of sacroiliac joint dysfunction History of hip surgery History of (~2005) Family History Mother HTN (hypertension) Diabetes Arthritis Constipation Father No problems noted. Social History Household Members: Children Household Members Other:: lives with teenage son Housing: Apartment Alcohol intake: never Patient Tobacco Use Status: Never used Tobacco e-Cigarette/Vaping Use: Never Used Second Hand Smoke Exposure: No service: No Current occupational status: disabled Sexual orientation: Straight/Heterosexual Cognitive needs: No Hearing needs: No Vision needs: Yes Female Reproductive History Menstrual Age of Menarche: 12 Date of last menstrual period: 06/18/23 Date of last pap smear: 05/09/23 (negative) Physical Exam Vital Signs: Last Vital Signs BP 112/68 06/23/23 13:26 BMI result Body Mass Index 32.6 Const General: cooperative, healthy appearing, comfortable, no acute distress, well developed, alert and awake Other: General: Yes bladder normal to palpation External Female Exam: normal external appearance and normal appearance of the urethra Speculum Exam - Vagina: normal appearance of the vagina, normal palpation, normal vaginal discharge and other (metro-gel present ) Speculum Exam - Cervix: normal appearance of the cervix and normal palpation Bimanual exam- vagina & uterus: normal bimanual exam, normal palpation, bladder normal to palpation and normal palpation Bimanual Exam- Adnexa, other: normal adnexae and no masses Results AMB Urinalysis, Automated UA Leukoctes 0 Cheyenne/uL Last Edit by TRACEY Matute on 06/23/23 14:08 UA Nitrite Negative Last Edit by TRACEY Matute on 06/23/23 14:08 UA Urobilinogen 0 mg/dL Last Edit by TRACEY Matute on 06/23/23 14:08 UA Protein 0.5 mg/dL Last Edit by TRACEY Matute on 06/23/23 14:08 UA pH 6 Last Edit by TRACEY Matute on 06/23/23 14:08 UA Blood 2 Carrillo/uL Last Edit by TRACEY Matute on 06/23/23 14:08 UA Specific Evans 1.015 Last Edit by TRACEY Matute on 06/23/23 14:08 UA Ketone Positive Last Edit by TRACEY Matute on 06/23/23 14:08 .5 Kris Arrington 06/23/23 14:08 UA Bilirubin 0 mg/dL Last Edit by TRACEY Matute on 06/23/23 14:08 UA Glucose 0 mg/dL Last Edit by TRACEY Matute on 06/23/23 14:08 Results Reviewed Results Reviewed: Laboratory Last Values Urine pH (Auto) 6 06/23/23 14:00 Specific Evans (Auto) 1.015 06/23/23 14:00 Urine Protein (Auto) 0.5 mg/dL 06/23/23 14:00 Glucose (UA)(Auto) 0 mg/dL 06/23/23 14:00 Urine Ketones (Auto) Positive 06/23/23 14:00 Urine Blood (Auto) 2 Carrillo/uL 06/23/23 14:00 Urine Nitrite (Auto) Negative 06/23/23 14:00 Urine Bilirubin (Auto) 0 mg/dL 06/23/23 14:00 Urine Urobilinogen (Auto) 0 mg/dL 06/23/23 14:00 Leukocyte Esterase (Auto) 0 Cheyenne/uL 06/23/23 14:00 Collected: 06/17/23 Location: [facility] Received: 06/20/23 Diagnosis Endometrium, biopsy: Mid-secretory endometrium with stromal breakdown; negative for atypia, hyperplasia or malignancy. Clinical History AUB Microscopic Description Microscopic sections reviewed. Material Received EMB Gross Description Received in formalin is a 2.5 x 2.0 x 0.4 cm aggregate of lagos-red soft tissue admixed with blood clot, totally submitted in A1. (KARL) Assessment & Plan Assessment & Plan (1) Vaginal odor: Code(s): N89.8 - Other specified noninflammatory disorders of vagina Plan: Discussed: BV testing and GC/CT panel done today. Await results and treat accordingly. All of her questions and concerns were addressed to the best of my ability and shared decision making. She is agreeable to plan of care. (2) Vaginal itching: Code(s): N89.8 - Other specified noninflammatory disorders of vagina (3) Vaginal discharge: Code(s): N89.8 - Other specified noninflammatory disorders of vagina (4) Encounter to discuss test results: Code(s): Z71.2 - Person consulting for explanation of examination or test findings Plan: Discussed: EMB results: Mid-secretory endometrium with stromal breakdown; negative for atypia, hyperplasia or malignancy. All of her questions and concerns were addressed to the best of my ability and shared decision making. She is agreeable to plan of care. (5) Abnormal uterine bleeding (AUB): Code(s): N93.9 - Abnormal uterine and vaginal bleeding, unspecified Plan: Referral for consult for plan of care to [facility] due to chronic pain and bleeding with Essure coils. (6) Chronic pelvic peritonitis, female: Code(s): N73.4 - Female chronic pelvic peritonitis Orders: Orders Bacterial Vaginosis Panel Today N89.8 - Other specified noninflammatory disorders of vagina Urine Culture Today N89.8 - Other specified noninflammatory disorders of vagina AMB Urinalysis Automated Today N89.8 - Other specified noninflammatory disorders of vagina CT NG by PCR Today N89.8 - Other specified noninflammatory disorders of vagina Referrals PILOT CONTROL OPERATOR HELPER Referral D25.9 - Leiomyoma of uterus, unspecified, G89.29 - Other chronic pain, N93.9 - Abnormal uterine and vaginal bleeding, unspecified, R10.2 - Pelvic and perineal pain Coding Level of Care Code Est Pt Level 3 (83759) Diagnoses Vaginal odor N89.8 Vaginal itching N89.8 Vaginal discharge N89.8 Encounter to discuss test results Z71.2 Abnormal uterine bleeding (AUB) N93.9 Chronic pelvic peritonitis, female N73.4
== END 2023-06-23 13:48 | disposition home or self-care (01) ==
PROVIDERS: PCP Internal Medicine; Visit Provider Advanced Practice Midwife
DX: N89.8 Other specified noninflammatory disorders of vagina (principal); Z71.2 Person consulting for explanation of examination or test findings; N93.9 Abnormal uterine and vaginal bleeding, unspecified; N73.4 Female chronic pelvic peritonitis
CPT/HCPCS: 99213

== ENCOUNTER 2023-09-28 10:35 | Outpatient (AMB) | payer OTHER, SELFPAY ==
--- NOTE | 2023-09-28 10:46 | A.OFFVIS_ITS ---
Intake Vital Signs 09/28/23 10:49 Height 5 ft 6 in Weight 205 lb 0.478 oz BMI 33.1 BP 134/77 Blood Pressure Location Lt brachial Position Sitting Pulse 80 Intake Visit Reasons: follow up Intake Note: Olga presents in the office as a follow up. CC: She states that she is not having any concerns at this time. Allergies gabapentin Adverse Reaction (Intermediate, Verified 09/28/23 10:49) constipation HPI follow up HPI Details LAST VISIT Constipation by delayed colonic transit Patient can continue Motegrity and magnesium. Patient can use Dulcolax tablets on as needed basis in the evening if she will have no bowel movement for more than 2 days. If patient will continue to have constipation/diarrhea we will send patient for diagnostic colonoscopy. Patient however denies melena, unintentional weight loss or ribbon like stools. Gastroesophageal reflux disease Continue current treatment with pantoprazole. Patient was encouraged to avoid dietary triggers and late night snacking. Staying upright for minimum 3 hours after meals discussed with patient. Patient will be back in 4 months, sooner on as needed basis. Patient is agreeable to this plan and verbalizes understanding of instructions. She was given the opportunity to ask questions and all questions answered. ? Thank you for allowing me to participate in her care Plan Medications New magnesium oxide 400 mg PO DAILY 30 tabs 5RF Refilled bisacodyl (Dulcolax (bisacodyl)) 10 mg (2 x 5 mg) PO BEDTIME 180 tabs 1RF pantoprazole take one tablet half an hour before breakfast 40 mg PO DAILY 90 tabs 2RF K21.9 - Gastro-esophageal reflux disease without esophagitis Discontinued hydromorphone (Dilaudid) Partial Fill upon patient request. Discontinued Reason: Patient Completed Course 2 mg PO Q6H PRN 6 tabs 0RF pain phenazopyridine (Pyridium) Discontinued Reason: Patient Completed Course 200 mg PO TID 20 tabs 1RF TODAY'S VISIT: Patient is here today for follow-up. Patient reports that she has been doing better. Is able to move her bowels well on Motegrity. Patient also is taking Colace at night time. Patient was hoping that she was going to start losing weight when she is moving her bowels better. Patient feels frustrated. Tried so many different diets, patient even goes to the gym to try to lose weight. Patient is starting to feel very discouraged. Would like to be referred to a italian teacher to help her with losing weight. Patient reports that pantoprazole has been working for her and she no longer has experiencing acid reflux. Patient denies dyspepsia, dysphagia or odynophagia. Patient denies any melena, hematochezia. Patient denies any GI concerning symptoms. [facility] Medical History Chronic pelvic peritonitis, female Uterine fibroid (Unknown) LGSIL on Pap smear of cervix Abnormal uterine bleeding (AUB) Rheumatoid arthritis Mild recurrent major depression Sacroiliac joint dysfunction of right side Spondylosis of lumbosacral spine with radiculopathy Disc degeneration, lumbar Spondylosis of lumbar spine Gastroesophageal reflux disease Mild persistent asthma Constipation by delayed colonic transit Arthralgia Insertion of implantable subdermal contraceptive Sacroiliitis Hip osteomyelitis, right Surgical History History of sacroiliac joint dysfunction History of hip surgery History of (~2005) Family History Mother HTN (hypertension) Diabetes Arthritis Constipation Father No problems noted. Social History Household Members: Children Household Members Other:: lives with teenage son Housing: Apartment Alcohol intake: never Patient Tobacco Use Status: Never used Tobacco e-Cigarette/Vaping Use: Never Used Second Hand Smoke Exposure: No service: No Current occupational status: disabled Sexual orientation: Straight/Heterosexual Cognitive needs: No Hearing needs: No Vision needs: Yes Female Reproductive History Menstrual Age of Menarche: 12 Review of Systems Const Denies weight gain and Denies weight loss ENT Reports no additional complaints, Denies dysphagia and Denies odynophagia Card Reports no additional complaints Resp Reports no additional complaints GI Denies abdominal pain, Denies belching, Denies melena, Denies bloating, Denies change in bowel habits, Denies dysphagia, Denies excessive flatus, Denies dyspepsia, Denies heartburn, Denies diarrhea, Denies loose stools, Denies maya sea, Denies odynophagia and Denies vomiting Musc Reports no additional complaints Neuro Reports no additional complaints Psych Reports no additional complaints Endo Reports no additional complaints Physical Exam Vital Signs: Last Vital Signs Pulse 80 09/28/23 10:49 BP 134/77 09/28/23 10:49 BMI result Body Mass Index 33.1 Const General: healthy appearing, no acute distress and well developed Nutritional Appearance: well nourished Orientation/consciousness: patient oriented x3 Resp Effort & Inspection: normal respiratory effort, able to speak in complete sentences, no tracheal deviation and symmetric chest movement Auscultation: clear to auscultation bilaterally Cardio Rate: regular rate GI Inspection: Yes normal to inspection and No distended Palpation (GI): Soft to palpation, not firm, nontender and No hepatosplenomegaly present Auscultation: normal bowel sounds General: Yes no CVA tenderness Back/Spine/Pelvis Back: no CVA tenderness Skin General skin exam: elasticity normal, turgor normal and dry skin Neuro General: patient oriented x3 Psych Appearance: grossly normal Mental Status: mental status grossly normal Assessment & Plan Assessment & Plan (1) Constipation by delayed colonic transit: Code(s): K59.01 - Slow transit constipation (2) Gastroesophageal reflux disease: Code(s): K21.9 - Gastro-esophageal reflux disease without esophagitis Qualifiers: Esophagitis presence: esophagitis presence not specified Qualified Code(s): K21.9 - Gastro-esophageal reflux disease without esophagitis Plan Patient will continue Motegrity. Increase fluid intake and activity to promote better bowel motility. Patient will try to avoid carbs. Eat more vegetables, low fat diet. Calorie count. Patient will be sent to italian teacher to help with weight loss. Continue taking pantoprazole. Avoid dietary triggers and late night snacking. Staying upright for minimum 3 hours after meals discussed with patient. Patient will return to the office in 6 months, sooner on as needed basis. Patient is agreeable to this plan and verbalizes understanding of instructions. She was given the opportunity to ask questions and all questions answered. Thank you for allowing me to participate in her care Orders: Referrals Automotive Technician Instructor Nutrition Referral E66.9 - Obesity, unspecified Medications: Refilled prucalopride (Motegrity) 2 mg PO DAILY 90 tabs 2RF K59.04 - Chronic idiopathic constipation Coding Level of Care Code Est Pt Level 3 (47628) Diagnoses Constipation by delayed colonic transit K59.01 Gastroesophageal reflux disease, unspecified whether esophagitis present K21.9 Esophagitis presence: esophagitis presence not specified Time Spent (min) 30 Comment 20 minutes spent with patient and additional 10 minutes spent reviewing her records
[2023-09-28 10:49] VITALS: BP 134/77; PULSE 80; BMI 33.1
== END 2023-09-28 11:46 | disposition home or self-care (01) ==
PROVIDERS: PCP Internal Medicine; Visit Provider Nurse Practitioner Family
DX: K59.01 Slow transit constipation (principal); K21.9 Gastro-esophageal reflux disease without esophagitis
CPT/HCPCS: 99213

== ENCOUNTER → 2023-09-28 10:35 | Outpatient (BNVA) | payer OTHER, SELFPAY | PROVIDERS: PCP Internal Medicine; Visit Provider Nurse Practitioner Family | DX: K59.01 Slow transit constipation (principal); K21.9 Gastro-esophageal reflux disease without esophagitis | CPT/HCPCS: 99212 ==

== ENCOUNTER 2023-09-29 07:44 | Outpatient (AMB) | payer OTHER, SELFPAY ==
--- NOTE | 2023-09-29 07:45 | MHC.OFFVIS ---
Intake Vital Signs 09/29/23 07:46 Height 5 ft 6 in Weight 205 lb BMI 33.1 BP 111/79 Blood Pressure Location Rt brachial Position Sitting Pulse 76 Pulse Source Palpation Temp 97.6 F Intake Visit Reasons: FMS Allergies gabapentin Adverse Reaction (Intermediate, Verified 09/28/23 10:49) constipation Medication List - Last Reconciled 09/29/23 by Veronica Rangel MD albuterol sulfate 90 mcg/actuation 2 puffs inhalation Q6H PRN 30 days bisacodyl (Dulcolax (bisacodyl)) 10 mg (2 x 5 mg) PO BEDTIME bupropion HCl 150 mg (1.5 x 100 mg) PO DAILY 90 days cholecalciferol (vitamin D3) (Vitamin D3) 25 mcg PO DAILY docusate sodium 200 mg (2 x 100 mg) PO BEDTIME duloxetine 60 mg PO DAILY 30 days epinephrine 0.3 mg (0.3 mL) IM ONCE PRN 30 days hydrocortisone 2.5% (Proctosol HC) 1 appl ME BID-QID PRN ibuprofen 800 mg PO Q8H [incontinence liners As directed] ketoconazole 2% 1 appl topical 2XW loratadine 10 mg PO DAILY PRN magnesium hydroxide (Milk Of Magnesia Concentrated) 10 mL PO BEDTIME PRN magnesium oxide 400 mg PO DAILY pantoprazole 40 mg PO DAILY [personal wipes As directed] prucalopride (Motegrity) 2 mg PO DAILY Shower Chair As directed underpads (Bed Underpads) As directed HPI HPI Comments History of Present Illness Details 33-year-old female with fibromyalgia and positive ART returns for follow-up. She was referred for right hip steroid injection by Orthopedics 11/2022, patient does not recall the procedure and does not recall whether it was helpful. She states that she continues to have diffuse body pain. She was started on duloxetine by her PCP which was increased to 60 mg, she does not feel any improvement. She tries to exercise every day. She does yoga and stretches and has a stationary bike. Over the last 8 months or so she has been having rashes on her back, abdomen, the external aspect of her thighs, they are not itchy, burning or painful. She use nystatin powder and it was not helpful. So she stopped. 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 Patient has been having right-sided lower back and hip pain for about 3 years. She had right SI joint fusion by pain management earlier this year with significant improvement of her symptoms. Over the last year she has been having multiple joint pains including her hands, shoulders and knees. She states that the pain in her hands is worse when she tries to open jars. She has morning stiffness lasting about 40 minutes. Heat and using is quite small helps. Tylenol and ibuprofen also provide some relief. She was evaluated by pain management for her knee pain and she received an anesthetic injection trial which only helped a few hours. She was on gabapentin for diffuse joint pain but she stopped it as it made her constipation worse. She has been having skin rashes, was diagnosed with rosacea and eczema. She is on topical steroid creams for those. There is no history suggestive of uveitis or inflammatory bowel disease. Denies any blood or froth in urine. No history of DVT/PE [facility] Medical History Chronic pelvic peritonitis, female Uterine fibroid (Unknown) LGSIL on Pap smear of cervix Abnormal uterine bleeding (AUB) Rheumatoid arthritis Mild recurrent major depression Sacroiliac joint dysfunction of right side Spondylosis of lumbosacral spine with radiculopathy Disc degeneration, lumbar Spondylosis of lumbar spine Gastroesophageal reflux disease Mild persistent asthma Constipation by delayed colonic transit Arthralgia Insertion of implantable subdermal contraceptive Sacroiliitis Hip osteomyelitis, right Surgical History History of sacroiliac joint dysfunction History of hip surgery History of (~2005) Family History Mother HTN (hypertension) Diabetes Arthritis Constipation Father No problems noted. Social History Household Members: Children Household Members Other:: lives with teenage son Housing: Apartment Alcohol intake: never Patient Tobacco Use Status: Never used Tobacco e-Cigarette/Vaping Use: Never Used Second Hand Smoke Exposure: No service: No Current occupational status: disabled Sexual orientation: Straight/Heterosexual Cognitive needs: No Hearing needs: No Vision needs: Yes Female Reproductive History Menstrual Age of Menarche: 12 Review of Systems Const Reports fatigue Musc Reports myalgias and Reports arthralgias Skin/Breast Denies pruritus and Reports rash Endo Reports fatigue Physical Exam Const General: cooperative, healthy appearing, comfortable and no acute distress Nutritional Appearance: obese Orientation/consciousness: patient oriented x3 Limitations: no limitations HEENT Head: Yes normocephalic and Yes atraumatic Mouth: Normal oral and palatal mucosa present Resp Effort & Inspection: normal respiratory effort and able to speak in complete sentences Auscultation: clear to auscultation bilaterally Cardio Rate: regular rate Rhythm: regular rhythm Heart sounds: S1 normal heart sound present and S2 normal heart sound present GI Inspection: No distended Palpation (GI): Soft to palpation and nontender Skin Other: Few circular minimally hyperpigmented and mildly dry/scaly rashes on abdomen, back and lateral aspect of thighs Neuro General: patient oriented x3 Extrem Other: Multiple fibromyalgia tender points Assessment & Plan Assessment & Plan (1) ART positive: Code(s): R76.8 - Other specified abnormal immunological findings in serum Plan: This is a 33-year-old female presented for evaluation of diffuse pain. Labs showed a positive ART 1-40. Borderline positive anti SSb. Unclear significance. Upon evaluation she has diffuse widespread pains with no inflammatory arthritis. Advised patient to call the clinic if she develops any new or worsening symptoms. Follow-up as needed (2) Fibromyalgia, primary: Code(s): M79.7 - Fibromyalgia Plan: Discuss fibromyalgia with patient I suggested a referral for a sleep study by her PCP. Continue exercise routine (3) Rash: Code(s): R21 - Rash and other nonspecific skin eruption Plan: Rash did not respond to nystatin powder. Topical triamcinolone cream prescribed Plan I spent 22 minutes reviewing patient's chart, evaluating patient, placing orders, counseling patient and documenting in the chart Medications: New triamcinolone acetonide 0.1% apply on affected skin areas, do not use on face or intertriginous areas 1 appl topical BID 30 grams 0RF Coding Level of Care Code Est Pt Level 4 (20175) Diagnoses ART positive R76.8 Fibromyalgia, primary M79.7 Rash R21
[2023-09-29 07:46] VITALS: BP 111/79; PULSE 76; TEMP 36.4; BMI 33.1
== END 2023-09-29 08:03 | disposition home or self-care (01) ==
PROVIDERS: PCP Internal Medicine; Visit Provider Student in an Organized Health Care Education/Training Program
DX: R76.8 Other specified abnormal immunological findings in serum (principal); M79.7 Fibromyalgia; R21 Rash and other nonspecific skin eruption
CPT/HCPCS: 99214

== ENCOUNTER → 2023-09-29 07:44 | Outpatient (BNVA) | payer OTHER, SELFPAY | PROVIDERS: Visit Provider Student in an Organized Health Care Education/Training Program | DX: M79.7 Fibromyalgia (principal); R76.8 Other specified abnormal immunological findings in serum; R21 Rash and other nonspecific skin eruption | CPT/HCPCS: 99212 ==

== ENCOUNTER 2023-10-25 13:06 | Outpatient (REF) | payer OTHER, SELFPAY ==
[2023-10-25 14:02] LABS: Influenza A PCR NEGATIVE (Negative); Influenza B PCR NEGATIVE (Negative); Resp Syncy Virus RNA Qual PCR NEGATIVE (Negative); SARS COV2 PCR INHOUSE POSITIVE (Negative)
== END 2023-10-25 13:07 | disposition home or self-care (01) ==
LOC: HO.LAB 13:06
PROVIDERS: PCP Internal Medicine; Visit Provider Internal Medicine
DX: R09.89 Other specified symptoms and signs involving the circulatory and respiratory systems (principal); Z11.52 Encounter for screening for COVID-19; Z20.828 Contact with and (suspected) exposure to other viral communicable diseases
CPT/HCPCS: 0241U

== ENCOUNTER 2023-11-16 09:31 | Outpatient (AMB) | payer OTHER, SELFPAY ==
--- NOTE | 2023-11-16 09:55 | MHC.OFFVIS ---
Intake Vital Signs 11/16/23 09:57 Height 5 ft 6 in Weight 203 lb BMI 32.8 BP 110/74 Intake Visit Reasons: discuss pcos labs Intake Note: pt c/o pelvic pain like when ovarian cyst ruptured GI doctor suggested patient talk to OB about PCOS labs Allergies gabapentin Adverse Reaction (Intermediate, Verified 11/16/23 09:56) constipation Is last menstrual period known: Yes Last menstrual period: 11/11/23 HPI HPI Comments History of Present Illness Details History of AUB, with negative EMB last May. Had a referral to [facility] to see the specialist and discuss her Essure removal and surgical approach to treatment for her persistent AUB, pelvic pain over the last 6 years. She was not able to make a connection and get an appointment yet. She reports pelvic pressure occasionally no significant pain presently. AUB persist with cycling every 15 days, last CBC was April 2023 which was stable. [facility] Medical History Chronic pelvic peritonitis, female Uterine fibroid (Unknown) LGSIL on Pap smear of cervix Abnormal uterine bleeding (AUB) Rheumatoid arthritis Mild recurrent major depression Sacroiliac joint dysfunction of right side Spondylosis of lumbosacral spine with radiculopathy Disc degeneration, lumbar Spondylosis of lumbar spine Gastroesophageal reflux disease Mild persistent asthma Constipation by delayed colonic transit Arthralgia Insertion of implantable subdermal contraceptive Sacroiliitis Hip osteomyelitis, right Surgical History History of sacroiliac joint dysfunction History of hip surgery History of (~2005) Family History Mother HTN (hypertension) Diabetes Arthritis Constipation Father No problems noted. Social History Household Members: Children Household Members Other:: lives with teenage son Housing: Apartment Alcohol intake: never Patient Tobacco Use Status: Never used Tobacco e-Cigarette/Vaping Use: Never Used Second Hand Smoke Exposure: No service: No Current occupational status: disabled Sexual orientation: Straight/Heterosexual Cognitive needs: No Hearing needs: No Vision needs: Yes Female Reproductive History Menstrual Age of Menarche: 12 Date of last menstrual period: 11/11/23 Review of Systems Const All systems reviewed & are unremarkable except as noted in HPI and below Physical Exam Vital Signs: Last Vital Signs BP 110/74 11/16/23 09:57 BMI result Body Mass Index 32.8 Const General: cooperative, healthy appearing and no acute distress Orientation/consciousness: patient oriented x3 GI Inspection: Yes normal to inspection Palpation (GI): Soft to palpation and Other GI palpation findings present (Nontender) Rectal Exam - Female: visual inspection normal General: Yes bladder normal to palpation External Female Exam: normal appearance of the urethra Speculum Exam - Vagina: normal appearance of the vagina, normal palpation and normal vaginal discharge Speculum Exam - Cervix: normal appearance of the cervix and normal palpation Bimanual exam- vagina & uterus: normal bimanual exam, normal palpation, uterine size normal, bladder normal to palpation, normal palpation, uterine shape normal and non-tender Bimanual Exam- Adnexa, other: normal adnexae Neuro General: patient oriented x3 Results AMB Urinalysis, Automated UA Leukoctes 0 [place]/uL Last Edit by TRACEY Oh on 11/16/23 10:05 UA Nitrite Negative Last Edit by TRACEY Oh on 11/16/23 10:05 UA Urobilinogen 0 mg/dL Last Edit by TRACEY Oh on 11/16/23 10:05 UA Protein 1 mg/dL Last Edit by TRACEY Oh on 11/16/23 10:05 UA pH 8.0 Last Edit by TRACEY Oh on 11/16/23 10:05 UA Blood 0.5 Carrillo/uL Last Edit by TRACEY Oh on 11/16/23 10:05 UA Specific [place] 1.010 Last Edit by TRACEY Oh on 11/16/23 10:05 UA Ketone Negative Last Edit by TRACEY Oh on 11/16/23 10:05 UA Bilirubin 0 mg/dL Last Edit by TRACEY Oh on 11/16/23 10:05 UA Glucose 0 mg/dL Last Edit by TRACEY Oh on 11/16/23 10:05 AMB Test Urine AMB Test Urine Negative Last Edit by TRACEY Oh on 11/16/23 10:05 Results Reviewed Results Reviewed: Laboratory Last Values Urine pH (Auto) 8.0 11/16/23 10:01 Specific [place] (Auto) 1.010 11/16/23 10:01 Urine Protein (Auto) 1 mg/dL 11/16/23 10:01 Glucose (UA)(Auto) 0 mg/dL 11/16/23 10:01 Urine Ketones (Auto) Negative 11/16/23 10:01 Urine Blood (Auto) 0.5 [place]/uL 11/16/23 10:01 Urine Nitrite (Auto) Negative 11/16/23 10:01 Urine Bilirubin (Auto) 0 mg/dL 11/16/23 10:01 Urine Urobilinogen (Auto) 0 mg/dL 11/16/23 10:01 Leukocyte Esterase (Auto) 0 [place]/uL 11/16/23 10:01 Tst Clinic Negative 11/16/23 10:01 Assessment & Plan Assessment & Plan (1) Abnormal uterine bleeding (AUB): Code(s): N93.9 - Abnormal uterine and vaginal bleeding, unspecified (2) Chronic pelvic pain in female: Code(s): R10.2 - Pelvic and perineal pain; G89.29 - Other chronic pain Plan Discussed: The plan of care is to see [facility] provider for consult due to the persistent pelvic pain and abnormal uterine bleeding secondary to Essure coils in place. Staff will again assist her to get her referral completed. Patient had not responded previously to [facility] out reach for an appointment and was told to reach out to them herself after multiple attempts of [facility] trying to reach her per notes reviewed today. Repeat CBC today. Ultrasound ordered to assess pelvic pain. Patient advised to return to the office in person per results. And to reach out to the office at any time for assistance or concerns. All of her questions and concerns were addressed to the best of my ability and shared decision making. She is agreeable to the plan of care. This note is constructed using voice recognition software. While every effort has been made to ensure accuracy, deck engineer errors may have been included. Orders: Orders AMB Urinalysis Automated Today R10.2 - Pelvic and perineal pain US pelvic and transvaginal Today R10.2 - Pelvic and perineal pain AMB HCG Urine Test Today R10.2 - Pelvic and perineal pain Bacterial Vaginosis Panel Today R10.2 - Pelvic and perineal pain CT NG by PCR Today R10.2 - Pelvic and perineal pain Complete Blood Count no Diff Today N93.9 - Abnormal uterine and vaginal bleeding, unspecified Coding Level of Care Code Est Pt Level 3 (17579) Diagnoses Abnormal uterine bleeding (AUB) N93.9 Chronic pelvic pain in female R10.2; G89.29
[2023-11-16 09:57] VITALS: BP 110/74; BMI 32.8
== END 2023-11-16 10:49 | disposition home or self-care (01) ==
PROVIDERS: PCP Internal Medicine; Visit Provider Advanced Practice Midwife
DX: N93.9 Abnormal uterine and vaginal bleeding, unspecified (principal); R10.2 Pelvic and perineal pain; G89.29 Other chronic pain
CPT/HCPCS: 99213

== ENCOUNTER 2023-11-16 09:31 | Outpatient (REF) | payer OTHER, SELFPAY ==
[2023-11-16 17:52] LABS: CT PCR NOT DETECTED (Not Detect.); NG PCR NOT DETECTED (Not Detect.)
[2023-11-17 15:42] LABS: BV Int Neg Control Negative (Negative); BV Int Pos Control Positive (Positive)
== END 2023-11-16 09:32 | disposition home or self-care (01) ==
LOC: HO.LAB 09:31
PROVIDERS: PCP Internal Medicine; Visit Provider Advanced Practice Midwife
DX: R10.2 Pelvic and perineal pain (principal); N93.9 Abnormal uterine and vaginal bleeding, unspecified; G89.29 Other chronic pain; Z71.2 Person consulting for explanation of examination or test findings
CPT/HCPCS: 0353U; 81003; 81025; 87480; 87510; 87660; 99212

== ENCOUNTER 2023-11-16 10:36 | Outpatient (REF) | payer OTHER, SELFPAY | END 2023-11-16 10:37 | disposition home or self-care (01) | LOC: HO.LNP 10:36 | PROVIDERS: Visit Provider Advanced Practice Midwife | DX: Z13.89 Encounter for screening for other disorder (principal) ==

== ENCOUNTER 2023-11-18 08:54 | Outpatient (REF) | payer OTHER, SELFPAY ==
[2023-11-18 09:27] LABS: Hematocrit 36.8 % (37.0-47.0); Hemoglobin 12.3 g/dl (12.0-16.0); Mean Corpuscular HGB Conc 33.4 g/dl (31.0-35.0); Mean Corpuscular Hemoglobin 30.2 pg (27.0-33.0); Mean Corpuscular Volume 90.4 fL (80.0-98.0); Mean Platelet Volume 9.4 fL (9.4-12.3); Platelet Count 284 X10*3/uL (160-400); Red Blood Count 4.07 X10*6/uL (4.20-5.50); Red Cell Distribution Width 12.3 % (11.0-16.0); White Blood Count 7.4 X10*3/uL (4.8-10.8)
== END 2023-11-18 08:55 | disposition home or self-care (01) ==
LOC: HO.LAB 08:54
PROVIDERS: PCP Internal Medicine; Visit Provider Advanced Practice Midwife
DX: N93.9 Abnormal uterine and vaginal bleeding, unspecified (principal)
CPT/HCPCS: 36415; 85027

== ENCOUNTER 2023-11-28 08:55 | Outpatient (AMB) | payer OTHER, SELFPAY ==
--- NOTE | 2023-11-28 09:03 | A.OFFVIS_ITS ---
Intake Intake Visit Reasons: 9m/I.C./AYANNA mild Intake Note: Patient presents today for a follow-up on I.C. 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 Accompanied by: Self / Same As Patient Allergies gabapentin Adverse Reaction (Intermediate, Verified 11/28/23 09:07) constipation Medication List - Last Reconciled 11/28/23 by Niurka Torres MD albuterol sulfate 90 mcg/actuation 2 puffs inhalation Q6H PRN 30 days bisacodyl (Dulcolax (bisacodyl)) 10 mg (2 x 5 mg) PO BEDTIME cholecalciferol (vitamin D3) (Vitamin D3) 25 mcg PO DAILY docusate sodium 200 mg (2 x 100 mg) PO BEDTIME duloxetine 60 mg PO DAILY 30 days epinephrine 0.3 mg (0.3 mL) IM ONCE PRN 30 days hydrocortisone 2.5% (Proctosol HC) 1 appl AL BID-QID PRN ibuprofen 800 mg PO Q8H [incontinence liners As directed] ketoconazole 2% 1 appl topical 2XW loratadine 10 mg PO DAILY PRN magnesium hydroxide (Milk Of Magnesia Concentrated) 10 mL PO BEDTIME PRN magnesium oxide 400 mg PO DAILY pantoprazole 40 mg PO DAILY [personal wipes As directed] prucalopride (Motegrity) 2 mg PO DAILY Shower Chair As directed solifenacin (Vesicare) 10 mg PO DAILY triamcinolone acetonide 0.1% 1 appl topical BID underpads (Bed Underpads) As directed HPI HPI Comments History of Present Illness Details 11/28/2023--Olga is followed for diagn osis of interstitial cystitis. Past medical history--fibromyalgia, arthritis constipation and mild depression. 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 She states that recently she had severe right lower quadrant pain. She states she was told there was an ovarian cyst. I have reviewed chart--she had a pelvic ultrasound April 2023 noting bilateral ovarian simple cysts R>L. CT imaging -11/16/22--KIDNEYS AND URETERS: The kidneys are normal in size, shape, and attenuation. No hydronephrosis, hydroureter, or calculi seen. The patient states that she goes frequently to the bathroom. She states she does drink a lot of water. She will occasionally have urine leakage with coughing or sneezing. Evaluation: Urinalysis--2+ blood, leukocytes negative, bladder scan PVR 0 mL I have discussed a trial of an anticholinergic, VESIcare 10 mg daily. Will have her follow-up in 3 months to review symptoms. She is to call regarding any issues she has with either obtaining the medication or side effects. Review of chart: 02/28/23--Olga is a 33-year-old female who presents to the office for 3 month follow-up of interstitial cystitis. The patient was last seen in the office on 11/25/22. She was initially evaluated for microscopic hematuria and pelvic pain The patient mentions improvement in pain due to IC. The patient states having urinary leakage with sneezing. The patient is following-up with her HRIS ANALYST for fibroids. Evaluation today-- Blood: 200, leukocytes: negative. Bladder scan PVR: 0 mL. Discussed that bladder inflammation may cause blood in the urine. Follow-up in 9 months. 11/25/22--FU-Cystoscpy hydrodistention on 11/02/2022-- findings positive kevin merulations, moderate, bladder capacity post distention 650 mL. I have discussed IC dxn-pamphlet given, treatment options to include IC diet, pamphlet given, antihistamines and bladder installations. Imaging--CT KUB--05/08/2022-kidneys no stones, no hydronephrosis, Pelvic ultrasound ? 10/11/22. The patient states that urinary symptoms and pelvic pain has improved during her last visit. The plan was behavioral modifications and focus on IC diet. She has complained LUTS symptoms including stress urinary incontinence and states wearing pads daily. She is being followed by HRIS ANALYST for fibroids. Past medical history--fibromyalgia, arthritis constipation and mild depression. 11/28/2023--PLAN: VESIcare 10 mg daily. Follow-up in 3 months [facility] Medical History Chronic pelvic peritonitis, female Uterine fibroid (Unknown) LGSIL on Pap smear of cervix Abnormal uterine bleeding (AUB) Rheumatoid arthritis Mild recurrent major depression Sacroiliac joint dysfunction of right side Spondylosis of lumbosacral spine with radiculopathy Disc degeneration, lumbar Spondylosis of lumbar spine Gastroesophageal reflux disease Mild persistent asthma Constipation by delayed colonic transit Arthralgia Insertion of implantable subdermal contraceptive Sacroiliitis Hip osteomyelitis, right Surgical History History of sacroiliac joint dysfunction History of hip surgery History of (~2005) Family History Mother HTN (hypertension) Diabetes Arthritis Constipation Father No problems noted. Social History Household Members: Children Household Members Other:: lives with teenage son Housing: Apartment Alcohol intake: never Patient Tobacco Use Status: Never used Tobacco e-Cigarette/Vaping Use: Never Used Second Hand Smoke Exposure: No service: No Current occupational status: disabled Sexual orientation: Straight/Heterosexual Cognitive needs: No Hearing needs: No Vision needs: Yes Female Reproductive History Menstrual Age of Menarche: 12 Review of Systems Const All systems reviewed & are unremarkable except as noted in HPI and below Reports no additional complaints Eyes Reports no additional complaints ENT Reports no additional complaints Card Denies dyspnea Resp Denies cough and Denies dyspnea GI Reports no additional complaints Reports no additional complaints Musc Reports no additional complaints Skin/Breast Denies rash and Denies unusual bruising Neuro Reports no additional complaints Psych Reports no additional complaints Endo Reports no additional complaints Markos/Lymph Reports no additional complaints Aller/Immun Reports no additional complaints Office Procedures Post Void Residual Post Residual Void Post Void Residual (PVR): 0 [id number] Void Residual by ultrasound Results AMB Urinalysis, Automated UA Leukoctes 0 [place]/uL Last Edit by Megan Dee CMA on 11/28/23 09 :17 UA Nitrite Negative Last Edit by Megan Dee CMA on 11/28/23 09: 17 UA Urobilinogen 0.2 mg/dL Last Edit by Megan Dee CMA on 4 09:17 UA Protein 0 mg/dL Last Edit by Megan Dee CMA on 11/28/23 09:17 UA pH 6.0 Last Edit by Megan Dee [facility] on 11/28/23 09:17 UA Blood 80 Carrillo/uL Last Edit by Megan Dee [facility] on 11/28/23 09:17 UA Specific [place] 1.020 Last Edit by Megan Dee, [facility] on 09:17 UA Ketone Negative Last Edit by Megan Dee [facility] on 11/28/23 09:1 7 UA Bilirubin 0 mg/dL Last Edit by Megan Dee [facility] on 11/28/23 09: 17 UA Glucose 0 mg/dL Last Edit by Megan Dee [facility] on 11/28/23 09:17 Results Reviewed Results Reviewed: Laboratory Last Values Urine pH (Auto) 6.0 11/28/23 09:06 Specific [place] (Auto) 1.020 11/28/23 09:06 Urine Protein (Auto) 0 mg/dL 11/28/23 09:06 Glucose (UA)(Auto) 0 mg/dL 11/28/23 09:06 Urine Ketones (Auto) Negative 11/28/23 09:06 Urine Blood (Auto) 80 Carrillo/uL 11/28/23 09:06 Urine Nitrite (Auto) Negative 11/28/23 09:06 Urine Bilirubin (Auto) 0 mg/dL 11/28/23 09:06 Urine Urobilinogen (Auto) 0.2 mg/dL 11/28/23 09:06 Leukocyte Esterase (Auto) 0 [place]/uL 11/28/23 09:06 Date of Service: 05/09/23 EXAMINATION: US PELVIS CLINICAL INFORMATION: Abnormal uterine bleeding. Last menstrual period 04/27/2023. Essure device in place. COMPARISON: Pelvic ultrasound 10/12/2022. CT abdomen and pelvis 11/16/2022. TECHNIQUE: Ultrasound of the pelvis is performed using both transabdominal and transvaginal transducers along with Doppler. Transvaginal imaging is performed due to inadequate visualization transabdominally. FINDINGS: The uterus is heterogeneous, retroverted and measures 8.5 x 4.9 x 6.8 cm. A 2.1 x 2.0 x 2.2 cm fundal fibroid previously measured 1.9 x 1.8 x 1.8 cm. Adjacent 1.0 x 1.0 x 1.1 cm fibroid previously measured 0.8 x 0.9 x 1.1 cm. Endometrial thickness is 0.6 cm. Small amount of free fluid in the pelvis. Small amount of free fluid in the cervix. Echogenic foci characteristic of Essure devices are seen bilaterally. Right ovary measures 2.6 x 2.0 x 2.4 cm, volume 6.5 mL. Left ovary measures 3.5 x 2.4 x 3.8 cm. Volume 16.3 mL. Left ovarian 1.0 x 1.0 x 1.0 cm cyst with septation. Previous exam demonstrated a 1.5 x 1.4 x 1.6 cm left ovarian cyst. Right ovarian 1.9 x 1.3 x 1.7 cm cyst. IMPRESSION: 1. Fibroid uterus. 2. Endometrial thickness is 0.6 cm. 3. Small amount of free fluid. 4. Bilateral Essure devices present. 5. Right ovarian 1.[address] scan of 11/16/2022 demonstrated a 2.8 cm simple right ovarian cyst. Left ovarian 1.0 cm cyst with thin septation versus 2 adjacent cysts. There is no indication for follow up imaging at this time. Date of Service: 11/16/22 EXAMINATION: CT ABDOMEN AND PELVIS WITHOUT AND WITH CONTRAST CLINICAL INFORMATION: Pelvic and perineal pain. COMPARISON: CT of the abdomen and pelvis 05/05/2022. TECHNIQUE: Multidetector volumetric imaging was performed of the abdomen and pelvis before and after the IV administration of 85 mL of Omnipaque 350 intravenous contrast. Sagittal and coronal reformatted images were obtained on the technologist's workstation. This CT examination was performed using dose optimization techniques as appropriate, variously including the following: *Automated exposure control *Adjustment of mA and/or kV according to patient size (this includes techniques or standardized protocols for targeted exams where dose is matched to indication/reason for exam; i.e. extremities or head) *Use of iterative reconstruction technique DLP: 951.00 mGy-cm FINDINGS: LUNG BASES: The visualized lung bases are unremarkable. LIVER, GALLBLADDER, AND BILIARY TREE: The liver is normal in size, shape, and attenuation. No focal hepatic lesion or biliary ductal dilatation is present. The gallbladder is contracted but otherwise unremarkable with no evidence of radiopaque gallstones, gallbladder wall thickening, or obvious pericholecystic inflammatory changes. PANCREAS: Unremarkable. SPLEEN: Unremarkable. ADRENAL GLANDS: Unremarkable. KIDNEYS AND URETERS: The kidneys are normal in size, shape, and attenuation. No hydronephrosis, hydroureter, or calculi seen. No perinephric stranding. BLADDER: Unremarkable. GASTROINTESTINAL TRACT: The small and large bowel are unremarkable. The appendix is unremarkable. ABDOMINAL WALL: No significant hernia is appreciated. LYMPH NODES: No retroperitoneal lymphadenopathy. VASCULAR: Ovarian veins are mildly dilated at 0.9 cm on the left and 0.6 cm on the right. Some pelvic varices are present an unusual amount is not detected. PELVIC VISCERA: A retroverted uterus is present which appears unremarkable. Short tubal occlusion devices are again noted, Essure. A 2.8 cm simple right ovarian cyst is present. An abnormal adnexal mass is not seen. Previously noted left adnexal cyst has resolved and the free fluid that had been present is no longer seen. OSSEOUS STRUCTURES: Unremarkable. IMPRESSION: A cause for the patient's pelvic and perineal pain has not been found. Incidental note is made of a 2.8 cm simple right ovarian cyst. Assessment & Plan Assessment & Plan (1) Microscopic hematuria: Comment: Interstitial cystitis Code(s): R31.29 - Other microscopic hematuria (2) Urinary urgency: Code(s): R39.15 - Urgency of urination (3) Interstitial cystitis: Code(s): N30.10 - Interstitial cystitis (chronic) without hematuria (4) Stress incontinence: Code(s): N39.3 - Stress incontinence (female) (male) Plan VESIcare 10 mg daily Follow-up in 3 months Orders: Orders AMB Post Void Residual by ultrasound Today R33.9 - Retention of urine, unspecified AMB Urinalysis Automated Today R33.9 - Retention of urine, unspecified Medications: New solifenacin (Vesicare) 10 mg PO DAILY 90 tabs 1RF Patient Instructions: The patient had an opportunity to ask questions regarding treatment plan. All questions were answered. Imaging, Laboratory studies and physical exam results were discussed and reviewed in detail. No major barriers to understanding were identified. The patient expressed understanding and agreement with the above treatment plan. The patient is aware they should contact our office by phone for worsening of their current condition or the appearance of new symptoms. Compliance is encouraged with any medications and followup testing that is ordered. It is a privilege to be allowed the opportunity to participate in the urologic care of your patient. If you have any questions or concerns regarding treatment for the above conditions please do not hesitate to contact me. The office telephone contact is [phone]. This note is constructed in part using voice recognition software. While every effort has been made to ensure accuracy tie cutter errors may have been included. Yours sincerely, Niurka Torres MD Coding Level of Care Code Est Pt Level 4 (45202) Diagnoses Microscopic hematuria R31.29 Urinary urgency R39.15 Interstitial cystitis N30.10 Stress incontinence N39.3 CPT Codes Post Residual Void - PVR CPT Code: 12039-Kxwe Void Residual by ultrasound ([id number])
== END 2023-11-28 09:53 | disposition home or self-care (01) ==
PROVIDERS: PCP Internal Medicine; Visit Provider Urology
DX: R31.29 Other microscopic hematuria (principal); R39.15 Urgency of urination; N30.10 Interstitial cystitis (chronic) without hematuria; N39.3 Stress incontinence (female) (male); R33.9 Retention of urine, unspecified
CPT/HCPCS: 99214

== ENCOUNTER → 2023-11-28 08:55 | Outpatient (BNVA) | payer OTHER, SELFPAY | PROVIDERS: PCP Internal Medicine; Visit Provider Urology | DX: R31.29 Other microscopic hematuria (principal); R39.15 Urgency of urination; N30.10 Interstitial cystitis (chronic) without hematuria; N39.3 Stress incontinence (female) (male) | CPT/HCPCS: 51798; 81003; 99212 ==

== ENCOUNTER 2023-12-01 10:48 | Outpatient (REF) | payer OTHER, SELFPAY ==
--- NOTE | ~2023-12-01 | US_ITS ---
EXAMINATION: US PELVIC AND TRANSVAGINAL CLINICAL INFORMATION: Pelvic and perineal pain, last menstrual period 11/16/2023. COMPARISON: Pelvic ultrasound of 05/09/2023. TECHNIQUE: Ultrasound of the pelvis is performed using both transabdominal and transvaginal transducers along with Doppler. Transvaginal imaging is performed due to inadequate visualization transabdominally. FINDINGS: The uterus is heterogeneous and measures 9.8 x 5.4 x 5.9 cm, volume 143.3 mL. 2.1 x 1.9 x 2.2 cm right fundal fibroid, previously 2.1 x 2.0 x 2.2 cm. 1.4 x 1.4 x 0.9 cm adjacent right fibroid, previously 1.0 x 1.0 x 1.1 cm. Small amount of free fluid. Complex-appearing endometrium with thickness of 12 mm, previously 6 mm. Right ovary measures 1.6 x 0.9 x 0.7 cm, volume 0.5 mL. Visualization of the right ovary is limited due to bowel gas. Left ovary measures 4.4 x 2.9 x 3.1 cm, volume 21.2 mL. Left ovary 1.5 x 1.6 x 1.6 cm hypoechoic lesion with peripheral vascularity and possible internal vascularity may represent a complex cyst versus solid mass. Previous exam demonstrated a 1.0 x 1.0 x 1.0 cm cyst with septation. US/US pelvic and transvaginal IMPRESSION: 1. Fibroid uterus. 2. Complex appearing endometrium with thickness of 12 mm, previously 6 mm. 3. Left ovary 1.6 cm hypoechoic lesion with peripheral vascularity and possible internal vascularity may represent a complex cyst versus solid mass. Previous exam demonstrated a 1.0 x 1.0 x 1.0 cm cyst with septation. Recommend follow-up ultrasound in 6-8 weeks. 4. Gynecologic consultation and correlation with clinical exam recommended to determine further management.
== END 2023-12-01 10:49 | disposition home or self-care (01) ==
LOC: HO.US 10:48
PROVIDERS: PCP Internal Medicine; Visit Provider Advanced Practice Midwife
DX: R10.2 Pelvic and perineal pain (principal)
CPT/HCPCS: 76830; 76856

== ENCOUNTER 2023-12-09 07:00 | Outpatient (RCR) | payer OTHER, SELFPAY ==
--- NOTE | 2023-11-17 16:09 | MHC.PT.EP ---
[facility] [place] Office [place] Office [place] Office [address] Ramses Bowres [address] [phone] F: [phone] F: [phone] F: [phone] F: [phone] Physical Therapy Plan of Care Date of Evaluation: 11/15/23 Date of Surgery: Diagnosis: LOW BACK AND HIP PAIN (KP) Assessment: KAIN IS A PLEASANT 33 YO FEMALE WITH INCREASED HIP AND LOW BACK PAIN. SHE HAS A H/O STREOID INJECTIONS WHICH WERE NO LONGER HELPING AND UNDERWENT RIGHT SACRAL FUSION. PT AT THAT TIME WITH GOOD IMPROVEMENT BUT OVER THE LAST FEW MONTHS LOW BACK AND LEG PAIN HAVE INCREASED. SHE REPORTS STIFFNESS IN THE MORNING FOR ABOUT 30 MINS WHICH IMPROVES WITH ACTIVITY, HEAT AND STRETCHING. 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 SHE DENIES NUMBNESS OR CHANGE IN SENSATION. UPON EXAM IMPAIRENTS INCLUDE DECREASED LE AND LUMBAR ROM, DECREASED CORE, HIP AND LE STRENGTH, ALTERED GAIT, ALTERED SOFT TISSUE MOBILITY, INCREASED PAIN. FUNCTIONAL LIMITATIONS INCLUDE DECREASED TOLERANCE TO HIGHER DEMAND HOMEMAKING TASKS, DECREASED TOLERANCE TO PUSHING, PULLING AND LIFTING, SHE REPORTS DECREASED PARTICIPATION IN RECREATIONAL AND FITNESS ACTIVITIES AND DISRUPTED SLEEP. Frequency and Duration: The patient will be seen 2 X WEEK FOR 4 WEEKS Short Term Goals: INITIATE HEP AND PROMOTE SELF MANAGEMENT OF SYMPTOMS Group Home Goals: FULL PAIN FREE LE ROM FULL PAIN FREE LE STRENGTH, EQUAL TRACY INDEPENDENT HEP Treatment Plan: Modalities to reduce pain, spasms and effusion. Manual therapy to restore motion and function. Therapeutic exercise to improve strength and flexibility. Neuromuscular re-education for posture and balance. Therapeutic activities to return to functional activities of daily living. Electronically signed by: ERICA SIMMONS PT DPT Please sign and return to therapist. Thank you for your referral.
== END 2024-02-07 09:16 | disposition home or self-care (01) ==
LOC: HO.PT 07:00
PROVIDERS: PCP Internal Medicine; Visit Provider Internal Medicine
DX: M54.9 Dorsalgia, unspecified (principal)
CPT/HCPCS: 97110; 97140; 97162

== ENCOUNTER 2023-12-13 11:03 | Outpatient (AMB) | payer OTHER, SELFPAY ==
[2023-12-13 11:08] VITALS: BMI 33.0
--- NOTE | 2023-12-13 11:08 | A.OFFVIS_ITS ---
Intake VS Expanded 12/13/23 11:08 12/19/23 14:19 Height 5 ft 6 in 5 ft 6 in Weight 204 lb 9.423 oz 205 lb BMI 33.0 33.1 Intake Visit Reasons: Obesity/LVM Allergies gabapentin Adverse Reaction (Intermediate, Verified 11/28/23 09:07) constipation HPI Nutrition Presentation Details Pt presents for MNT for obesity . The Pt was referred by Mer Vincent, typical meal intake 7-9 am pancake with coffee or 1 boiled e gg and green juice ( spinach, kiwi, apple 40 g carb, no fiber) 12: oatmeal /milk almond or lactose rocío e, peanut butter, , eggs 4pm rice/sausage and pork chops , water ( always water reducing on coffee food frequency fruits : 0-1/d vegetables: 2-4 x/wk fish: 2x/wk juices/sodas : 1/d physical therapy twice a week - + stretches 170 lbs was 2014 and after that [facility]up[facility] Equation Height 5 ft 6 in Weight 205 lb Resting Metabolic Rate 1643.48 Calculated Activity Level Sedentary Calories Needed to Maintain Weight 1972.18 Diagnosis Nutrition problem #1 food nutri know defi As related to (etiology) #1 diagnosis As evidenced by (sign/symptom) #1 high BMI (33.0 on 12/13/23) and knowledge deficit of diet Most Recent Diabetes Results: No Data to Display [facility] Medical History Chronic pelvic peritonitis, female Uterine fibroid (Unknown) LGSIL on Pap smear of cervix Abnormal uterine bleeding (AUB) Rheumatoid arthritis Mild recurrent major depression Sacroiliac joint dysfunction of right side Spondylosis of lumbosacral spine with radiculopathy Disc degeneration, lumbar Spondylosis of lumbar spine Gastroesophageal reflux disease Mild persistent asthma Constipation by delayed colonic transit Arthralgia Insertion of implantable subdermal contraceptive Sacroiliitis Hip osteomyelitis, right Surgical History History of sacroiliac joint dysfunction History of hip surgery History of (~2005) Family History Mother HTN (hypertension) Diabetes Arthritis Constipation Father No problems noted. Social History Household Members: Children Household Members Other:: lives with teenage son Housing: Apartment Alcohol intake: never Patient Tobacco Use Status: Never used Tobacco e-Cigarette/Vaping Use: Never Used Second Hand Smoke Exposure: No service: No Current occupational status: disabled Sexual orientation: Straight/Heterosexual Cognitive needs: No Hearing needs: No Vision needs: Yes Female Reproductive History Menstrual Age of Menarche: 12 Assessment & Plan Assessment & Plan (1) Obesity (BMI 30.0-34.9): Code(s): E66.9 - Obesity, unspecified Plan: Wt: 93 Kg ( 11/2023 ) Est kcal needs as per MSJ: 1800- 2000 (40% carb, 30% prote in/fat) Est fluid needs as per 25-30 ml/d: 2300 Est prot per day as per 1 g/kg bw: 93 Recommend fiber intake : 8-10 g per day and gradually increase to 25-28 g per day for women and 35-38 g for men or as tolerated Recommend sodium intake per day : less than 2000 mg Educated patient on: ( R = reviewed V = verbalizes understanding N/R = needs review N/A = not applicable * Food sources of carbohydrate, adequate serving sizes and its role in various health conditions: R * Differences between complex carbohydrates a simple carbohydrates, role of fiber in diet: N/R * Lean protein sources of foods: R * Differences between types of fats and role in diet (mono on saturated fat fatty acids, saturated fatty acids, trans fats): R * Food sources of sodium in salt and healthy modifications for heart health in kidney health: NR * Vitamins and minerals: N/R * Healthy plate method concept: R * Physical activity: Benefits a precaution: N/R * Patient Instructions: Work on having 3 meals per day , reducing on snacks Choose lean protein foods, reducing on fat in the diet see 1800 dory meal plan Coding Level of Care Code Nutr Indiv Intake (27500) Diagnoses Obesity (BMI 30.0-34.9) E66.9 Time Spent (min) 30
[2023-12-19 14:19] VITALS: BMI 33.1
== END 2023-12-13 11:45 | disposition home or self-care (01) ==
PROVIDERS: PCP Internal Medicine; Visit Provider Dietitian, Registered
DX: E66.9 Obesity, unspecified (principal)

== ENCOUNTER → 2023-12-13 11:03 | Outpatient (BNVA) | payer OTHER, SELFPAY | PROVIDERS: PCP Internal Medicine; Visit Provider Dietitian, Registered | DX: E66.9 Obesity, unspecified (principal); Z68.33 Body mass index [BMI] 33.0-33.9, adult | CPT/HCPCS: 97802 ==

== ENCOUNTER 2024-01-24 12:17 | Outpatient (AMB) | payer OTHER, SELFPAY ==
--- NOTE | 2024-01-24 12:31 | A.OFFVIS_ITS ---
VS Expanded 01/24/24 12:32 Height 5 ft 6 in Weight 206 lb 2.115 oz BMI 33.3 Intake Visit Reasons: obesity/CONFIRMED Allergies gabapentin Adverse Reaction (Intermediate, Verified 11/28/23 09:07) constipation Nutrition Presentation Details: Pt presents for MNT for Obesity Reports working on diet modifications Pt reports feeling bloated due to menstrual cycle Reports physically active 30 min aerobic 3-4 times a day Pt reports choosing a variety of foods , diff recipes B: tea or oatmeal made with lactose free milk L: plant based burger and salad, water or cranberry juice D: meals consist of rice/salmon/no veg, may add potatoes with skin steammed, cranberry juice snack: fruits or omits BS Monitoring Most Recent Diabetes Results: No Data to Display [facility] Medical History Chronic pelvic peritonitis, female Uterine fibroid (Unknown) LGSIL on Pap smear of cervix Abnormal uterine bleeding (AUB) Rheumatoid arthritis Mild recurrent major depression Sacroiliac joint dysfunction of right side Spondylosis of lumbosacral spine with radiculopathy Disc degeneration, lumbar Spondylosis of lumbar spine Gastroesophageal reflux disease Mild persistent asthma Constipation by delayed colonic transit Arthralgia Insertion of implantable subdermal contraceptive Sacroiliitis Hip osteomyelitis, right Surgical History History of sacroiliac joint dysfunction History of hip surgery History of (~2005) Family History Mother HTN (hypertension) Diabetes Arthritis Constipation Father No problems noted. Social History Household Members: Children Household Members Other:: lives with teenage son Housing: Apartment Alcohol intake: never Patient Tobacco Use Status: Never used Tobacco e-Cigarette/Vaping Use: Never Used Second Hand Smoke Exposure: No service: No Current occupational status: disabled Sexual orientation: Straight/Heterosexual Cognitive needs: No Hearing needs: No Vision needs: Yes Female Reproductive History Menstrual Age of Menarche: 12 Assessment & Plan Assessment & Plan (1) Obesity (BMI 30.0-34.9): Code(s): E66.9 - Obesity, unspecified Category: Medical Plan: Wt: 93 Kg ( 11/2023 ), 94 kg (01/2024) Est kcal needs as per MSJ: 1800- 2000 (40% carb, 30% protein/fat) Est fluid needs as per 25-30 ml/d: 2300 Est prot per day as per 1 g/kg bw: 93 Recommend fiber intake : 8-10 g per day and gradually increase to 25-28 g per day for women and 35-38 g for men or as tolerated Recommend sodium intake per day : less than 2000 mg Educated patient on: ( R = reviewed V = verbalizes understanding N/R = needs review N/A = not applicable * Food sources of carbohydrate, adequate serving sizes and its role in various health conditions: R * Differences between complex carbohydrates a simple carbohydrates, role of fiber in diet: R * Lean protein sources of foods: R * Differences between types of fats and role in diet (mono on saturated fat fatty acids, saturated fatty acids, trans fats): R * Food sources of sodium in salt and healthy modifications for heart health in kidney health: NR * Vitamins and minerals: N/R * Healthy plate method concept: R * Physical activity: Benefits a precaution: R * Patient Instructions: follow healthy plate method at dinner, reducing portion of starch and including non starchy vegetable Continue physical activity, golal 150 minutes per day keep hydrated by having water with meals Coding Level of Care Code Nutr Indiv Subseq (86183) Diagnoses Obesity (BMI 30.0-34.9) E66.9 Time Spent (min) 30
[2024-01-24 12:32] VITALS: BMI 33.3
== END 2024-01-24 13:02 | disposition home or self-care (01) ==
PROVIDERS: PCP Internal Medicine; Visit Provider Dietitian, Registered
DX: E66.9 Obesity, unspecified (principal)

== ENCOUNTER → 2024-01-24 12:17 | Outpatient (BNVA) | payer OTHER, SELFPAY | PROVIDERS: PCP Internal Medicine; Visit Provider Dietitian, Registered | DX: E66.9 Obesity, unspecified (principal); Z68.33 Body mass index [BMI] 33.0-33.9, adult; Z71.3 Dietary counseling and surveillance | CPT/HCPCS: 97803 ==

== ENCOUNTER 2024-02-03 12:09 | Outpatient (REF) | payer OTHER, SELFPAY ==
[2024-02-03 13:06] LABS: Appearance Urine Clear; Color Urine Yellow; Glucose Urine UA Negative (Negative); Leukocyte Esterase Urine Negative (Negative); Nitrite Urine Negative (Negative); PH 5.5 (5.0-9.0); UMIC TRIGGER UA YES; Urine Blood Small (1+) (Negative); Urine Ketones Negative (Negative); Urine Protein Negative (Neg-Trace)
[2024-02-03 13:09] LABS: Bacteria Urine None Seen (None Seen); Hyaline Casts Urine 0-2 /LPF (0-2); Squamous Epithelial Cell Urine 0-2 /HPF (0-2); WBC Urine 0-5 /HPF (0-5)
== END 2024-02-03 12:10 | disposition home or self-care (01) ==
LOC: HO.HMGCLDS 12:09
PROVIDERS: PCP Internal Medicine; Visit Provider Urology
DX: N39.3 Stress incontinence (female) (male) (principal); N30.10 Interstitial cystitis (chronic) without hematuria; R39.15 Urgency of urination; N39.8 Other specified disorders of urinary system
CPT/HCPCS: 81001; 87086

== ENCOUNTER 2024-02-20 08:00 | Outpatient (AMB) | payer OTHER, SELFPAY ==
--- NOTE | 2024-02-20 08:06 | MHC.OFFVIS ---
Vital Signs 02/20/24 08:09 Height 5 ft 6 in Weight 208 lb 8.917 oz BMI 33.7 BP 114/70 Blood Pressure Location Lt brachial Position Sitting Pulse 74 Pulse Source Pulse Oximeter Pulse Oximetry (%) 99 Oxygen Delivery Method Room Air Intake Visit Reasons: 6 mos f/u (pt requested sooner) Intake Note: Olga presents in office today for a FUV, CC; Pt denies any sx or major concerns pertaining to today's visit. Paper Hanger Required: No Allergies gabapentin Adverse Reaction (Intermediate, Verified 02/20/24 08:10) constipation HPI HPI 6 mos f/u (pt requested sooner): Details: LAST VISIT: Constipation by delayed colonic transit Gastroesophageal reflux disease Plan Patient will continue Motegrity. Increase fluid intake and activity to promote better bowel motility. Patient will try to avoid carbs. Eat more vegetables, low fat diet. Calorie count. Patient will be sent to project manager interior design to help with weight loss. Continue taking pantoprazole. Avoid dietary triggers and late night snacking. Staying upright for minimum 3 hours after meals discussed with patient. Patient will return to the office in 6 months, sooner on as needed basis. Patient is agreeable to this plan and verbalizes understanding of instructions. She was given the opportunity to ask questions and all questions answered. ? Thank you for allowing me to participate in her care Orders Referrals Enterostomal Nurse Nutrition Referral E66.9 Medications Refilled prucalopride (Motegrity) 2 mg PO DAILY 90 tabs 2RF K59.04 TODAY'S VISIT: Patient is here today for follow-up. Patient requests earlier appointment as she continues to be constipated. Patient is following with project manager interior design and is eating healthier meals and smaller portions. Patient reports that she is drinking plenty fluids and she continues to sometimes has no bowel movements for 2-3 days. Patient is taking Motegrity in the morning and Dulcolax at night time. Patient denies any melena, hematochezia. Patient reports that occasionally she will have acid reflux and she will take pantoprazole. Patient is not taking pantoprazole every day. Patient denies any other GI concerning symptoms. Denies dyspepsia, dysphagia or odynophagia [facility] Medical History Chronic pelvic peritonitis, female Uterine fibroid (Unknown) LGSIL on Pap smear of cervix Abnormal uterine bleeding (AUB) Rheumatoid arthritis Mild recurrent major depression Sacroiliac joint dysfunction of right side Spondylosis of lumbosacral spine with radiculopathy Disc degeneration, lumbar Spondylosis of lumbar spine Gastroesophageal reflux disease Mild persistent asthma Constipation by delayed colonic transit Arthralgia Insertion of implantable subdermal contraceptive Sacroiliitis Hip osteomyelitis, right Surgical History History of sacroiliac joint dysfunction History of hip surgery History of (~2005) Family History Mother HTN (hypertension) Diabetes Arthritis Constipation Father No problems noted. Social History Household Members: Children Household Members Other:: lives with teenage son Housing: Apartment Alcohol intake: never Patient Tobacco Use Status: Never used Tobacco e-Cigarette/Vaping Use: Never Used Second Hand Smoke Exposure: No service: No Current occupational status: disabled Sexual orientation: Straight/Heterosexual Cognitive needs: No Hearing needs: No Vision needs: Yes Female Reproductive History Menstrual Age of Menarche: 12 Review of Systems Const Denies weight gain and Denies weight loss ENT Reports no additional complaints, Denies dysphagia and Denies odynophagia Card Reports no additional complaints Resp Reports no additional complaints GI Denies abdominal pain, Denies belching, Denies melena, Reports bloating, Denies change in bowel habits, Reports constipation, Denies dysphagia, Denies excessive flatus, Denies dyspepsia, Reports heartburn (occasional), Denies diarrhea, Denies loose stools, Denies nausea, Denies odynophagia and Denies vomiting Reports no additional complaints Musc Reports no additional complaints Neuro Reports no additional complaints Psych Reports no additional complaints Endo Reports no additional complaints Physical Exam Vital Signs: Last Vital Signs Pulse 74 02/20/24 08:09 BP 114/70 02/20/24 08:09 Pulse Ox 99 02/20/24 08:09 Oxygen Delivery Method Room Air 02/20/24 08:09 BMI result Body Mass Index 33.7 Const General: cooperative, healthy appearing and no acute distress Nutritional Appearance: well nourished Orientation/consciousness: patient oriented x3 Resp Effort & Inspection: normal respiratory effort, able to speak in complete sentences, no tracheal deviation and symmetric chest movement Auscultation: clear to auscultation bilaterally Cardio Rate: regular rate GI Inspection: Yes normal to inspection Palpation (GI): Soft to palpation and Other GI palpation findings present (Nontender) Auscultation: normal bowel sounds Rectal Exam - Female: visual inspection normal General: Yes bladder normal to palpation and Yes no CVA tenderness External Female Exam: normal appearance of the urethra Speculum Exam - Vagina: normal appearance of the vagina, normal palpation and normal vaginal discharge Speculum Exam - Cervix: normal appearance of the cervix and normal palpation Bimanual exam- vagina & uterus: normal bimanual exam, normal palpation, uterine size normal, bladder normal to palpation, normal palpation, uterine shape normal and non-tender Bimanual Exam- Adnexa, other: normal adnexae Back/Spine/Pelvis Back: no CVA tenderness Skin General skin exam: elasticity normal, turgor normal and dry skin Neuro General: patient oriented x3 Psych Appearance: grossly normal Mental Status: mental status grossly normal Assessment & Plan Assessment & Plan (1) Constipation by delayed colonic transit: Code(s): K59.01 - Slow transit constipation Category: Medical (2) Gastroesophageal reflux disease: Code(s): K21.9 - Gastro-esophageal reflux disease without esophagitis Category: Medical Qualifiers: Esophagitis presence: esophagitis presence not specified Qualified Code(s): K21.9 - Gastro-esophageal reflux disease without esophagitis (3) Postprandial abdominal bloating: Code(s): R14.0 - Abdominal distension (gaseous) Plan Continue Motegrity and Dulcolax. Patient will increase fluid intake and activity to promote better bowel motility. Patient was a fiber supplement like Metamucil daily. Patient can take milk of magnesia if no bowel movement in 2-3 days. Continue avoiding dietary triggers and late night snacking. Staying upright for minimum 3 hours after meals discussed with patient. I will see patient in 6 months, sooner on as needed basis. Patient is agreeable to this plan and verbalizes understanding of instructions. She was given the opportunity to ask questions and all questions answered. Thank you for allowing me to participate in her care Medications: New magnesium hydroxide (Milk of Magnesia) 10 mL PO DAILY PRN 355 mL 1RF constipation Refilled bisacodyl (Dulcolax (bisacodyl)) 10 mg (2 x 5 mg) PO BEDTIME 180 tabs 1RF prucalopride (Motegrity) 2 mg PO DAILY 90 tabs 2RF K59.04 - Chronic idiopathic constipation Coding Level of Care Code Est Pt Level 3 (19382) Diagnoses Constipation by delayed colonic transit K59.01 Gastroesophageal reflux disease, unspecified whether esophagitis present K21.9 Esophagitis presence: esophagitis presence not specified Postprandial abdominal bloating R14.0 Time Spent (min) 30 Comment 20 minutes spent with patient and additional 10 minutes spent reviewing her records
[2024-02-20 08:09] VITALS: BP 114/70; PULSE 74; O2SAT 99; BMI 33.7
== END 2024-02-20 08:34 | disposition home or self-care (01) ==
PROVIDERS: PCP Internal Medicine; Visit Provider Nurse Practitioner Family
DX: K59.01 Slow transit constipation (principal); K21.9 Gastro-esophageal reflux disease without esophagitis; R14.0 Abdominal distension (gaseous)
CPT/HCPCS: 99213

== ENCOUNTER → 2024-02-20 08:00 | Outpatient (BNVA) | payer OTHER, SELFPAY | PROVIDERS: PCP Internal Medicine; Visit Provider Nurse Practitioner Family | DX: K59.01 Slow transit constipation (principal); K21.9 Gastro-esophageal reflux disease without esophagitis; R14.0 Abdominal distension (gaseous) | CPT/HCPCS: 99212 ==

== ENCOUNTER 2024-02-23 09:05 | Outpatient (AMB) | payer OTHER, SELFPAY ==
--- NOTE | 2024-02-23 09:09 | A.OFFVIS_ITS ---
Vital Signs 02/23/24 09:16 Height 5 ft 6 in Weight 207 lb 3.752 oz BMI 33.4 BP 114/68 Intake Visit Reasons: Rash follow-up Cell Reliner Required: No Information Interpreted: non-clinical & clinical Clinical Lab Assistant: Clinical Lab Assistant Present (Noemy WEBB) Accompanied by: Self / Same As Patient Allergies gabapentin Adverse Reaction (Intermediate, Verified 02/23/24 09:17) constipation HPI Comments Details: Presenting complaining of a onset of a right buttock lesions and started 2 days ago and is tender [facility] Medical History Chronic pelvic peritonitis, female Uterine fibroid (Unknown) LGSIL on Pap smear of cervix Abnormal uterine bleeding (AUB) Rheumatoid arthritis Mild recurrent major depression Sacroiliac joint dysfunction of right side Spondylosis of lumbosacral spine with radiculopathy Disc degeneration, lumbar Spondylosis of lumbar spine Gastroesophageal reflux disease Mild persistent asthma Constipation by delayed colonic transit Arthralgia Insertion of implantable subdermal contraceptive Sacroiliitis Hip osteomyelitis, right Surgical History History of sacroiliac joint dysfunction History of hip surgery History of (~2005) Family History Mother HTN (hypertension) Diabetes Arthritis Constipation Father No problems noted. Social History Household Members: Children Household Members Other:: lives with teenage son Housing: Apartment Alcohol intake: never Patient Tobacco Use Status: Never used Tobacco e-Cigarette/Vaping Use: Never Used Second Hand Smoke Exposure: No service: No Current occupational status: disabled Sexual orientation: Straight/Heterosexual Cognitive needs: No Hearing needs: No Vision needs: Yes Female Reproductive History Menstrual Age of Menarche: 12 Review of Systems Const All systems reviewed & are unremarkable except as noted in HPI and below Reports as per HPI and Reports no additional complaints GI Reports no additional complaints Reports no additional complaints Physical Exam Vital Signs: Last Vital Signs BP 114/68 02/23/24 09:16 BMI result Body Mass Index 33.4 Skin Other: Right buttock multiple erythematous vesicular rash suspicious of herpes zoster Assessment & Plan Assessment & Plan (1) Rash: Comment: Right buttock suspicious of herpes zoster Code(s): R21 - Rash and other nonspecific skin eruption Category: Medical Plan: Discussed with the patient the rash on her right buttock , erythematous vesicular papules suspicious of herpes zoster. Recommended the patient to go to [facility] for further management. All questions answered, the patient verbalized understanding and agreed with the plan Coding Level of Care Code Est Pt Level 3 (88080) Diagnoses Rash R21
[2024-02-23 09:16] VITALS: BP 114/68; BMI 33.4
== END 2024-02-23 10:41 | disposition home or self-care (01) ==
LOC: HO.HWS 09:05
PROVIDERS: PCP Internal Medicine; Visit Provider Obstetrics & Gynecology
DX: R21 Rash and other nonspecific skin eruption (principal)
CPT/HCPCS: 99213

== ENCOUNTER → 2024-02-23 09:05 | Outpatient (BNVA) | payer OTHER, SELFPAY | PROVIDERS: PCP Internal Medicine; Visit Provider Obstetrics & Gynecology | DX: R21 Rash and other nonspecific skin eruption (principal) | CPT/HCPCS: 99212 ==

== ENCOUNTER 2024-03-01 08:48 | Outpatient (AMB) | payer OTHER, SELFPAY ==
--- NOTE | 2024-03-01 09:01 | A.OFFVIS_ITS ---
Intake Visit Reasons: 3m follow up Intake Note: Patient presents today for a follow-up -Chronic IC, microscopic hematuria, Urinary Incontinence: Meds- Solifenacin Allergies to Antibiotic- No Known Allergies Blood Thinner- None Post Void Residual: 0mL Drapery Maker Required: No Accompanied by: Self / Same As Patient Allergies gabapentin Adverse Reaction (Intermediate, Verified 03/01/24 09:08) constipation Medication List - Last Reconciled 03/01/24 by Niurka Torres MD albuterol sulfate 90 mcg/actuation 2 puffs inhalation Q6H PRN 30 days bisacodyl (Dulcolax (bisacodyl)) 10 mg (2 x 5 mg) PO BEDTIME cholecalciferol (vitamin D3) (Vitamin D3) 25 mcg PO DAILY docusate sodium 200 mg (2 x 100 mg) PO BEDTIME duloxetine 60 mg PO DAILY 30 days epinephrine 0.3 mg (0.3 mL) IM ONCE PRN 30 days hydrocortisone 2.5% (Proctosol HC) 1 appl VA BID-QID PRN ibuprofen 800 mg PO Q8H [incontinence liners As directed] ketoconazole 2% 1 appl topical 2XW loratadine 10 mg PO DAILY PRN magnesium hydroxide (Milk of Magnesia) 10 mL PO DAILY PRN magnesium hydroxide (Milk Of Magnesia Concentrated) 10 mL PO BEDTIME PRN magnesium oxide 400 mg PO DAILY pantoprazole 40 mg PO DAILY [personal wipes As directed] prucalopride (Motegrity) 2 mg PO DAILY Shower Chair As directed solifenacin (Vesicare) 10 mg PO DAILY triamcinolone acetonide 0.1% 1 appl topical BID underpads (Bed Underpads) As directed HPI Comments Details: 03/01/2024--the patient is followed for chronic interstitial cystitis with hematuria and lower urinary tract symptoms of urgency and urinary incontinence. History of fibromyalgia, with chronic pain,She was last seen on 11/28/2023 and is prescribed VESIcare 10 mg daily. She states the medication is working well she does not need to use as many pads as she has better bladder control and minimal leakage accidents. She denies irritative voiding symptoms. Plan to continue VESIcare 10 mg daily follow-up in 9 months Review of chart: 11/28/2023--Olga is followed for diagnosis of interstitial cystitis. Past medical history--fibromyalgia, arthritis constipation and mild depression. She is also followed by compounding assistant for abnormal uterine bleeding. She states that recently she had severe right lower quadrant pain. She states she was told there was an ovarian cyst. I have reviewed chart--she had a pelvic ultrasound April 2023 noting bilateral ovarian simple cysts R>L. CT imaging -11/16/22--KIDNEYS AND URETERS: The kidneys are normal in size, shape, and attenuation. No hydronephrosis, hydroureter, or calculi seen. The patient states that she goes frequently to the bathroom. She states she does drink a lot of water. She will occasionally have urine leakage with coughing or sneezing. Evaluation: Urinalysis--2+ blood, leukocytes negative, bladder scan PVR 0 mL. I have discussed a trial of an anticholinergic, VESIcare 10 mg daily. Will have her follow-up in 3 months to review symptoms. She is to call regarding any issues she has with either obtaining the medication or side effects. 02/28/23--Olga is a 33-year-old female who presents to the office for 3 month follow-up of interstitial cystitis. The patient was last seen in the office on 11/25/22. She was initially evaluated for microscopic hematuria and pelvic pain The patient mentions improvement in pain due to IC. The patient states having urinary leakage with sneezing. The patient is following-up with her PACKAGE CHECKER for fibroids. Evaluation today-- Blood: 200, leukocytes: negative. Bladder scan PVR: 0 mL. Discussed that bladder inflammation may cause blood in the urine. Follow-up in 9 months. 11/25/22--FU-Cystoscpy hydrodistention on 11/02/2022-- findings positive glomerulations, moderate, bladder capacity post distention 650 mL. I have discussed IC dxn-pamphlet given, treatment options to include IC diet, pamphlet given, antihistamines and bladder installations. Imaging--CT KUB--05/08/2022-kidneys no stones, no hydronephrosis, Pelvic ultrasound ? 10/11/22. The patient states that urinary symptoms and pelvic pain has improved during her last visit. The plan was behavioral modifications and focus on IC diet. She has complained LUTS symptoms including stress urinary incontinence and states wearing pads daily. She is being followed by PACKAGE CHECKER for fibroids. [facility] Medical History Chronic pelvic peritonitis, female Uterine fibroid (Unknown) LGSIL on Pap smear of cervix Abnormal uterine bleeding (AUB) Rheumatoid arthritis Mild recurrent major depression Sacroiliac joint dysfunction of right side Spondylosis of lumbosacral spine with radiculopathy Disc degeneration, lumbar Spondylosis of lumbar spine Gastroesophageal reflux disease Mild persistent asthma Constipation by delayed colonic transit Arthralgia Insertion of implantable subdermal contraceptive Sacroiliitis Hip osteomyelitis, right Surgical History History of sacroiliac joint dysfunction History of hip surgery History of (~2005) Family History Mother HTN (hypertension) Diabetes Arthritis Constipation Father No problems noted. Social History Household Members: Children Household Members Other:: lives with teenage son Housing: Apartment Alcohol intake: never Patient Tobacco Use Status: Never used Tobacco e-Cigarette/Vaping Use: Never Used Second Hand Smoke Exposure: No service: No Current occupational status: disabled Sexual orientation: Straight/Heterosexual Cognitive needs: No Hearing needs: No Vision needs: Yes Female Reproductive History Menstrual Age of Menarche: 12 Review of Systems Const All systems reviewed & are unremarkable except as noted in HPI and below Reports no additional complaints Eyes Reports no additional complaints ENT Reports no additional complaints Card Reports no additional complaints Resp Reports no additional complaints GI Reports no additional complaints Reports as per HPI Musc Reports no additional complaints Skin/Breast Reports system reviewed and no additional complaints, except as documented Neuro Reports no additional complaints Psych Reports no additional complaints Endo Reports no additional complaints Markos/Lymph Reports no additional complaints Aller/Immun Reports no additional complaints Office Procedures Post Void Residual Post Residual Void Post Void Residual (PVR): 0 [id number] Void Residual by ultrasound Results AMB Urinalysis, Automated UA Leukoctes 0 [place]/uL Last Edit by TRACEY Richard on 03/01/24 09:27 UA Nitrite Negative Last Edit by Lakisha [facility] on 03/01/24 09:27 UA Urobilinogen 0.2 mg/dL Last Edit by Lakisha Conn Sharan on 03/01/24 09:2 7 UA Protein 0 mg/dL Last Edit by Lakisha [facility] on 03/01/24 09:27 UA pH 6.0 Last Edit by Lakisha Conn Sharan on 03/01/24 09:27 UA Blood 80 [place]/uL Last Edit by Lakisha Conn Sharan on 03/01/24 09:27 2+ Lakisha Conn 03/01/24 09:27 UA Specific [place] 1.015 Last Edit by TRACEY Rcihard on 03/01/24 09: 27 UA Ketone Negative Last Edit by Lakisha [facility] on 03/01/24 09:27 UA Bilirubin 0 mg/dL Last Edit by Lakisha Conn Sharan on 03/01/24 09:27 UA Glucose 0 mg/dL Last Edit by Lakisha Conn [facility] on 03/01/24 09:27 Results Reviewed Results Reviewed: Laboratory Last Values Urine pH (Auto) 6.0 03/01/24 09:19 Specific [place] (Auto) 1.015 03/01/24 09:19 Urine Protein (Auto) 0 mg/dL 03/01/24 09:19 Glucose (UA)(Auto) 0 mg/dL 03/01/24 09:19 Urine Ketones (Auto) Negative 03/01/24 09:19 Urine Blood (Auto) 80 [place]/uL 03/01/24 09:19 Urine Nitrite (Auto) Negative 03/01/24 09:19 Urine Bilirubin (Auto) 0 mg/dL 03/01/24 09:19 Urine Urobilinogen (Auto) 0.2 mg/dL 03/01/24 09:19 Leukocyte Esterase (Auto) 0 [place]/uL 03/01/24 09:19 Date of Service: 05/09/23 EXAMINATION: US PELVIS CLINICAL INFORMATION: Abnormal uterine bleeding. Last menstrual period 04/27/2023. Essure device in place. COMPARISON: Pelvic ultrasound 10/12/2022. CT abdomen and pelvis 11/16/2022. TECHNIQUE: Ultrasound of the pelvis is performed using both transabdominal and transvaginal transducers along with Doppler. Transvaginal imaging is performed due to inadequate visualization transabdominally. FINDINGS: The uterus is heterogeneous, retroverted and measures 8.5 x 4.9 x 6.8 cm. A 2.1 x 2.0 x 2.2 cm fundal fibroid previously measured 1.9 x 1.8 x 1.8 cm. Adjacent 1.0 x 1.0 x 1.1 cm fibroid previously measured 0.8 x 0.9 x 1.1 cm. Endometrial thickness is 0.6 cm. Small amount of free fluid in the pelvis. Small amount of free fluid in the cervix. Echogenic foci characteristic of Essure devices are seen bilaterally. Right ovary measures 2.6 x 2.0 x 2.4 cm, volume 6.5 mL. Left ovary measures 3.5 x 2.4 x 3.8 cm. Volume 16.3 mL. Left ovarian 1.0 x 1.0 x 1.0 cm cyst with septation. Previous exam demonstrated a 1.5 x 1.4 x 1.6 cm left ovarian cyst. Right ovarian 1.9 x 1.3 x 1.7 cm cyst. IMPRESSION: 1. Fibroid uterus. 2. Endometrial thickness is 0.6 cm. 3. Small amount of free fluid. 4. Bilateral Essure devices present. 5. Right ovarian 1.[address] scan of 11/16/2022 demonstrated a 2.8 cm simple right ovarian cyst. Left ovarian 1.0 cm cyst with thin septation versus 2 adjacent cysts. There is no indication for follow up imaging at this time. Date of Service: 11/16/22 EXAMINATION: CT ABDOMEN AND PELVIS WITHOUT AND WITH CONTRAST CLINICAL INFORMATION: Pelvic and perineal pain. COMPARISON: CT of the abdomen and pelvis 05/05/2022. FINDINGS: LUNG BASES: The visualized lung bases are unremarkable. LIVER, GALLBLADDER, AND BILIARY TREE: The liver is normal in size, shape, and attenuation. No focal hepatic lesion or biliary ductal dilatation is present. The gallbladder is contracted but otherwise unremarkable with no evidence of radiopaque gallstones, gallbladder wall thickening, or obvious pericholecystic inflammatory changes. PANCREAS: Unremarkable. SPLEEN: Unremarkable. ADRENAL GLANDS: Unremarkable. KIDNEYS AND URETERS: The kidneys are normal in size, shape, and attenuation. No hydronephrosis, hydroureter, or calculi seen. No perinephric stranding. BLADDER: Unremarkable. GASTROINTESTINAL TRACT: The small and large bowel are unremarkable. The appendix is unremarkable. ABDOMINAL WALL: No significant hernia is appreciated. LYMPH NODES: No retroperitoneal lymphadenopathy. VASCULAR: Ovarian veins are mildly dilated at 0.9 cm on the left and 0.6 cm on the right. Some pelvic varices are present an unusual amount is not detected. PELVIC VISCERA: A retroverted uterus is present which appears unremarkable. Short tubal occlusion devices are again noted, Essure. A 2.8 cm simple right ovarian cyst is present. An abnormal adnexal mass is not seen. Previously noted left adnexal cyst has resolved and the free fluid that had been present is no longer seen. OSSEOUS STRUCTURES: Unremarkable. IMPRESSION: A cause for the patient's pelvic and perineal pain has not been found. Incidental note is made of a 2.8 cm simple right ovarian cyst. Assessment & Plan Assessment & Plan (1) Microscopic hematuria: Comment: Interstitial cystitis Code(s): R31.29 - Other microscopic hematuria Category: Medical (2) Urinary urgency: Code(s): R39.15 - Urgency of urination Category: Medical (3) Interstitial cystitis: Code(s): N30.10 - Interstitial cystitis (chronic) without hematuria Category: Medical (4) Stress incontinence: Code(s): N39.3 - Stress incontinence (female) (male) Category: Medical Plan Continue VESIcare 10 mg daily follow-up in 9 months Orders: Orders AMB Urinalysis Automated Today Z13.9 - Encounter for screening, unspecified AMB Post Void Residual by ultrasound Today N39.8 - Other specified disorders of urinary system Medications: Refilled solifenacin (Vesicare) 10 mg PO DAILY 90 tabs 3RF Patient Instructions: The patient had an opportunity to ask questions regarding treatment plan. The patient expressed understanding and agreement with the above treatment plan. The patient is aware they should contact our office by phone for worsening of their current condition or the appearance of new symptoms. Compliance is encouraged with any medications and followup testing that is ordered. It is a privilege to be allowed the opportunity to participate in the urologic care of your patient. If you have any questions or concerns regarding treatment for the above conditions please do not hesitate to contact me. The office telephone contact is [phone]. This note is constructed in part using voice recognition software. While every effort has been made to ensure accuracy shoe singer errors may have been included. Yours sincerely, Niurka Torres MD Coding Level of Care Code Est Pt Level 4 (41379) Diagnoses Microscopic hematuria R31.29 Urinary urgency R39.15 Interstitial cystitis N30.10 Stress incontinence N39.3 CPT Codes Post Residual Void - PVR CPT Code: 14548-Absc Void Residual by ultrasound ([id number])
== END 2024-03-01 09:51 | disposition home or self-care (01) ==
PROVIDERS: PCP Internal Medicine; Visit Provider Urology
DX: R31.29 Other microscopic hematuria (principal); R39.15 Urgency of urination; N30.10 Interstitial cystitis (chronic) without hematuria; N39.3 Stress incontinence (female) (male); Z13.9 Encounter for screening, unspecified
CPT/HCPCS: 99214

== ENCOUNTER → 2024-03-01 08:48 | Outpatient (BNVA) | payer OTHER, SELFPAY | PROVIDERS: PCP Internal Medicine; Visit Provider Urology | DX: N30.10 Interstitial cystitis (chronic) without hematuria (principal); N39.46 Mixed incontinence; R31.29 Other microscopic hematuria | CPT/HCPCS: 51798; 81003; 99212 ==

== ENCOUNTER 2024-06-25 13:49 | Outpatient (REF) | payer OTHER, SELFPAY ==
[2024-06-26 05:35] LABS: Bacterial Vaginosis PCR NEGATIVE (Negative); Candida Group PCR NOT DETECTED (Not Detect); Candida glab krusei PCR NOT DETECTED (Not Detect); Trichomonas vaginalis PCR NOT DETECTED (Not Detect)
[2024-06-26 06:03] LABS: CT PCR NOT DETECTED (Not Detect.); NG PCR NOT DETECTED (Not Detect.)
== END 2024-06-25 13:50 | disposition home or self-care (01) ==
LOC: HO.LAB 13:49
PROVIDERS: PCP Internal Medicine; Visit Provider Advanced Practice Midwife
DX: N89.8 Other specified noninflammatory disorders of vagina (principal); Z20.2 Contact with and (suspected) exposure to infections with a predominantly sexual mode of transmission; R21 Rash and other nonspecific skin eruption; R87.612 Low grade squamous intraepithelial lesion on cytologic smear of cervix (LGSIL); Z11.3 Encounter for screening for infections with a predominantly sexual mode of transmission
CPT/HCPCS: 0352U; 87491; 87591; 99212

== ENCOUNTER 2024-06-25 13:49 | Outpatient (AMB) | payer OTHER, SELFPAY ==
[2024-06-25 14:20] VITALS: BP 122/70; BMI 33.4
--- NOTE | 2024-06-25 14:20 | A.OFFVIS_ITS ---
Vital Signs 06/25/24 14:20 Height 5 ft 6 in Weight 207 lb BMI 33.4 BP 122/70 Intake Visit Reasons: STD Testing Commercial Manager Services: Commercial Manager Present Information Interpreted: clinical only Sde: Sde Present Allergies gabapentin Adverse Reaction (Intermediate, Verified 06/25/24 14:22) constipation Medication List - Last Reconciled 06/25/24 by Joselyn Camarillo CNM albuterol sulfate 90 mcg/actuation 2 puffs inhalation Q6H PRN 30 days bisacodyl (Dulcolax (bisacodyl)) 10 mg (2 x 5 mg) PO BEDTIME cholecalciferol (vitamin D3) (Vitamin D3) 25 mcg PO DAILY duloxetine 60 mg PO DAILY 30 days epinephrine 0.3 mg (0.3 mL) IM ONCE PRN 30 days hydrocortisone 2.5% (Proctosol HC) 1 appl NC BID-QID PRN ibuprofen 800 mg PO Q8H [incontinence liners As directed] ketoconazole 2% 1 appl topical 2XW loratadine 10 mg PO DAILY PRN magnesium hydroxide (Milk Of Magnesia Concentrated) 10 mL PO BEDTIME PRN magnesium oxide 400 mg PO DAILY pantoprazole 40 mg PO DAILY [personal wipes As directed] prucalopride (Motegrity) 2 mg PO DAILY Shower Chair As directed solifenacin (Vesicare) 10 mg PO DAILY triamcinolone acetonide 0.1% 1 appl topical BID underpads (Bed Underpads) As directed Is last menstrual period known: Yes Last menstrual period: 05/16/24 HPI HPI STD Testing: Details: Patient is here for full STI testing she is with the current partner for about a year and a half. She was looking through some of is paperwork and saw indications of previous STIs or exposure to same from her partner's previous partner so she wants to get checked. She says that he said that he had HPV. She herself has had it is with her abnormal Pap smears though her last Pap smear 2022 was negative with negative H PV.. She had spinal/hip surgery and 5 days afterwards had an eruption of painful lesions underneath the bandage at her coccyx but just to the left of the coccyx that she says was seen by the surgeon and was considered to be a possible shingles outbreak. She says that periodically it does erupt out again and is painful. she covers it over [facility] Medical History (Updated 06/25/24 @ 15:07 by Joselyn Camarillo CNM) LGSIL on Pap smear of cervix Chronic pelvic peritonitis, female Uterine fibroid (Unknown) Abnormal uterine bleeding (AUB) Rheumatoid arthritis Mild recurrent major depression Sacroiliac joint dysfunction of right side Spondylosis of lumbosacral spine with radiculopathy Disc degeneration, lumbar Spondylosis of lumbar spine Gastroesophageal reflux disease Mild persistent asthma Constipation by delayed colonic transit Arthralgia Insertion of implantable subdermal contraceptive Sacroiliitis Hip osteomyelitis, right Surgical History History of sacroiliac joint dysfunction History of hip surgery History of (~2005) Family History Mother HTN (hypertension) Diabetes Arthritis Constipation Father No problems noted. Social History Household Members: Children Household Members Other:: lives with teenage son Housing: Apartment Alcohol intake: never Patient Tobacco Use Status: Never used Tobacco e-Cigarette/Vaping Use: Never Used Second Hand Smoke Exposure: No service: No Current occupational status: disabled Sexual orientation: Straight/Heterosexual Cognitive needs: No Hearing needs: No Vision needs: Yes Female Reproductive History Menstrual Age of Menarche: 12 Duration of menses: 3-5 days Date of last menstrual period: 05/16/24 control method: progestin IUCD Total pregnancies: 1 Full term: 1 Date of last pap smear: 05/09/23 (negative) Physical Exam Vital Signs: Last Vital Signs BP 122/70 06/25/24 14:20 BMI result Body Mass Index 33.4 Other: Vaginal exam cervix nulliparous tightly closed with clear fertile type mucus slightly reddened from placement of Q-tips for STI tests. Patient showed sánchez from previous suspected shingles outbreak to left of her coccyx she had a fusion involving her hip and the surgery was made through this small incision over her coccyx. External Female Exam: normal external appearance and normal appearance of the urethra Speculum Exam - Vagina: normal appearance of the vagina and normal vaginal discharge Speculum Exam - Cervix: normal appearance of the cervix and Cervical os closed Assessment & Plan Assessment & Plan (1) Rash: Comment: Right buttock suspicious of herpes zoster Code(s): R21 - Rash and other nonspecific skin eruption Category: Medical (2) Encounter for screening examination for sexually transmitted disease: Code(s): Z11.3 - Encounter for screening for infections with a predominantly sexual mode of transmission Category: Medical (3) LGSIL on Pap smear of cervix: Comment: [id number] Code(s): R87.612 - Low grade squamous intraepithelial lesion on cytologic smear of cervix (LGSIL) Category: Medical Plan Testing done for gonorrhea chlamydia trichomoniasis Gardnerella and Yumiko. Discussed that the patient that she is approaching ovulation she has a new Essure so she is not worried about . Discussed her past history of positive HPV though her has Pap was negative with negative HPV. Also discussed possible concern of what her lesions were that are on her buttock that erupt out every now and then discussed the natural history of herpes viruses and that they live in light drawn and within the none ganglia and erupt out according to their own particular patterns and when the body's stressed under various circumstances. Discussed that the fact that it clusters all to 1 side of the spine argues in favor that it shingles however the fact that it erupt out periodically are use more for a possible herpes type 1 or 2 outbreak. Discussed that the only way to tell for sure is to culture lesions when they are in fact present and she should seek a visit with her primary or with somebody in roustabout crew pusher office when that happens so that the appropriate culture can be done it could be done in primary care. Discussed that as she is not due for Pap with HPV code testing today do not and because there were no open lesions I can not test her herpes. Orders: Orders HIV Ab/Ag Today R87.612 - Low grade squamous intraepithelial lesion on cytologic smear of cervix (LGSIL), Z11.3 - Encounter for screening for infections with a predominantly sexual mode of transmission CT NG by PCR Today N89.8 - Other specified noninflammatory disorders of vagina, Z20.2 - Contact with and (suspected) exposure to infections with a predominantly sexual mode of transmission Hepatitis B Surface Antigen Today R87.612 - Low grade squamous intraepithelial lesion on cytologic smear of cervix (LGSIL), Z11.3 - Encounter for screening for infections with a predominantly sexual mode of transmission Hepatitis C Antibody Today R87.612 - Low grade squamous intraepithelial lesion on cytologic smear of cervix (LGSIL), Z11.3 - Encounter for screening for infections with a predominantly sexual mode of transmission Syphilis Screen Today R87.612 - Low grade squamous intraepithelial lesion on cytologic smear of cervix (LGSIL), Z11.3 - Encounter for screening for infections with a predominantly sexual mode of transmission Bacterial Vaginosis Panel Today N89.8 - Other specified noninflammatory disorders of vagina Coding Level of Care Code Est Pt Level 3 (30822) Diagnoses Rash R21 Encounter for screening examination for sexually transmitted disease Z11.3 LGSIL on Pap smear of cervix R87.612
== END 2024-06-25 15:31 | disposition home or self-care (01) ==
LOC: HO.HWSM 13:49
PROVIDERS: PCP Internal Medicine; Visit Provider Advanced Practice Midwife
DX: R21 Rash and other nonspecific skin eruption (principal); Z11.3 Encounter for screening for infections with a predominantly sexual mode of transmission; R87.612 Low grade squamous intraepithelial lesion on cytologic smear of cervix (LGSIL)
CPT/HCPCS: 99213

== ENCOUNTER 2024-06-25 15:10 | Outpatient (REF) | payer OTHER, SELFPAY ==
[2024-06-26 04:12] LABS: Syphilis Screen Nonreactive (Nonreactive)
[2024-06-26 04:57] LABS: HBsAGNum1 0.49 S/CO (0.00-0.99); HIV AB/AG Nonreactive (Nonreactive); HIV Num 1 0.09 S/CO (0.00-0.99); Hepatitis B Surface Antigen Negative (Negative); ~HepC Num1 0.24 S/CO (0.00-0.79); ~Hepatitis C Antibody Nonreactive (Nonreactive)
[2024-06-26 08:08] LABS: CT PCR NOT DETECTED (Not Detect.); NG PCR NOT DETECTED (Not Detect.)
== END 2024-06-25 15:11 | disposition home or self-care (01) ==
LOC: HO.HHCL 15:10
PROVIDERS: Visit Provider Advanced Practice Midwife
DX: R87.612 Low grade squamous intraepithelial lesion on cytologic smear of cervix (LGSIL) (principal); Z11.3 Encounter for screening for infections with a predominantly sexual mode of transmission; R21 Rash and other nonspecific skin eruption; N89.8 Other specified noninflammatory disorders of vagina; Z20.2 Contact with and (suspected) exposure to infections with a predominantly sexual mode of transmission
CPT/HCPCS: 36415; 86780; 86803; 87340; 87389; 87491; 87591

== ENCOUNTER 2024-06-26 12:38 | Outpatient (AMB) | payer OTHER, SELFPAY ==
--- NOTE | 2024-06-26 12:47 | MHC.OFFVIS ---
Vital Signs 06/26/24 12:48 Height 5 ft 6 in Weight 213 lb 13.574 oz BMI 34.5 BP 137/56 L Blood Pressure Location Lt brachial Position Sitting Pulse 75 Intake Visit Reasons: Discuss ongoing sx and alt med options Intake Note: Olga presents in the office as a follow up to discuss ongoing symptoms and alternative medication options. CC: Hurt her coccyx had a recent fall. She states she has been dealing with constipation. She has pains all over - she states that her stomach gurgles at times. She wants to look into having a colonoscopy. Outside Plant Supervisor Required: No Allergies gabapentin Adverse Reaction (Intermediate, Verified 06/26/24 12:54) constipation HPI HPI Discuss ongoing sx and alt med options: Details: LAST VISIT: Constipation by delayed colonic transit Gastroesophageal reflux disease Postprandial abdominal bloating Plan Continue Motegrity and Dulcolax. Patient will increase fluid intake and activity to promote better bowel motility. Patient was a fiber supplement like Metamucil daily. Patient can take milk of magnesia if no bowel movement in 2-3 days. Continue avoiding dietary triggers and late night snacking. Staying upright for minimum 3 hours after meals discussed with patient. I will see patient in 6 months, sooner on as needed basis. Patient is agreeable to this plan and verbalizes understanding of instructions. She was given the opportunity to ask questions and all questions answered. ? Thank you for allowing me to participate in her care Medications New magnesium hydroxide (Milk of Magnesia) 10 mL PO DAILY PRN 355 mL 1RF constipation Refilled bisacodyl (Dulcolax (bisacodyl)) 10 mg (2 x 5 mg) PO BEDTIME 180 tabs 1RF prucalopride (Motegrity) 2 mg PO DAILY 90 tabs 2RF K59.04 TODAY'S VISIT Patient is here today for follow-up. Patient reports that she was doing well in the very beginning and in May and beginning of this month she started to having constipation. Patient states that she started taking multivitamin with iron this might be causing that patient reports. Patient reports that she is taking Motegrity in the morning and Dulcolax at night time. Patient states that she is drinking fluids. Patient reports occasional rectal bleed specially when she is constipated. Patient denies dyspepsia, dysphagia or odynophagia. Reports occasional nausea specially in the morning. Patient denies eating late at night. Patient is taking pantoprazole in the morning, for the most part her symptoms are suppressed throughout the day. Patient is following FODMAP diet and is following with strategic debriefing specialist [facility] Medical History LGSIL on Pap smear of cervix Chronic pelvic peritonitis, female Uterine fibroid (Unknown) Abnormal uterine bleeding (AUB) Rheumatoid arthritis Mild recurrent major depression Sacroiliac joint dysfunction of right side Spondylosis of lumbosacral spine with radiculopathy Disc degeneration, lumbar Spondylosis of lumbar spine Gastroesophageal reflux disease Mild persistent asthma Constipation by delayed colonic transit Arthralgia Insertion of implantable subdermal contraceptive Sacroiliitis Hip osteomyelitis, right Surgical History History of sacroiliac joint dysfunction History of hip surgery History of (~2005) Family History Mother HTN (hypertension) Diabetes Arthritis Constipation Father No problems noted. Social History Household Members: Children Household Members Other:: lives with teenage son Housing: Apartment Alcohol intake: never Patient Tobacco Use Status: Never used Tobacco e-Cigarette/Vaping Use: Never Used Second Hand Smoke Exposure: No service: No Current occupational status: disabled Sexual orientation: Straight/Heterosexual Cognitive needs: No Hearing needs: No Vision needs: Yes Female Reproductive History Menstrual Age of Menarche: 12 Review of Systems Const Denies weight gain and Denies weight loss ENT Reports no additional complaints, Denies dysphagia and Denies odynophagia Card Reports no additional complaints Resp Reports no additional complaints GI Denies abdominal pain, Denies belching, Denies melena, Reports bloating, Denies change in bowel habits, Reports constipation, Denies dysphagia, Denies excessive flatus, Denies dyspepsia, Reports heartburn (occasional), Denies diarrhea, Denies loose stools, Denies nausea, Denies odynophagia and Denies vomiting Reports no additional complaints Musc Reports no additional complaints Neuro Reports no additional complaints Psych Reports no additional complaints Endo Reports no additional complaints Physical Exam Vital Signs: Last Vital Signs Pulse 75 06/26/24 12:48 BP 137/56 L 06/26/24 12:48 BMI result Body Mass Index 34.5 Const General: cooperative, healthy appearing and no acute distress Nutritional Appearance: well nourished Orientation/consciousness: patient oriented x3 Resp Effort & Inspection: normal respiratory effort, able to speak in complete sentences, no tracheal deviation and symmetric chest movement Auscultation: clear to auscultation bilaterally Cardio Rate: regular rate GI Inspection: Yes normal to inspection Palpation (GI): Soft to palpation and Other GI palpation findings present (Nontender) Auscultation: normal bowel sounds Rectal Exam - Female: visual inspection normal General: Yes bladder normal to palpation and Yes no CVA tenderness External Female Exam: normal appearance of the urethra Speculum Exam - Vagina: normal appearance of the vagina, normal palpation and normal vaginal discharge Speculum Exam - Cervix: normal appearance of the cervix and normal palpation Bimanual exam- vagina & uterus: normal bimanual exam, normal palpation, uterine size normal, bladder normal to palpation, normal palpation, uterine shape normal and non-tender Bimanual Exam- Adnexa, other: normal adnexae Back/Spine/Pelvis Back: no CVA tenderness Skin General skin exam: elasticity normal, turgor normal and dry skin Neuro General: patient oriented x3 Psych Appearance: grossly normal Mental Status: mental status grossly normal Assessment & Plan Assessment & Plan (1) Constipation by delayed colonic transit: Code(s): K59.01 - Slow transit constipation Category: Medical (2) Gastroesophageal reflux disease: Code(s): K21.9 - Gastro-esophageal reflux disease without esophagitis Category: Medical Qualifiers: Esophagitis presence: esophagitis presence not specified Qualified Code(s): K21.9 - Gastro-esophageal reflux disease without esophagitis (3) Postprandial abdominal bloating: Code(s): R14.0 - Abdominal distension (gaseous) (4) Anemia: Code(s): D64.9 - Anemia, unspecified Qualifiers: Anemia type: unspecified type Qualified Code(s): D64.9 - Anemia, unspecified (5) Rectal bleed: Code(s): K62.5 - Hemorrhage of anus and rectum Plan Patient will try to take Colace 2 capsules daily. Increase fluid intake and activity to promote better bowel motility. I will send patient for colonoscopy and upper endoscopy. Message sent to surgical schedulers to book the procedures. Patient continues to have nausea and acid reflux in the morning. Will add famotidine at bedtime. Patient will avoid dietary triggers and late night snacking. Staying upright for minimum 3 hours after meals discussed with patient. Will send her script for Mag citrate if no BM in 2-3 days patient can take Mag citrate. Follow-up in the office in 3 months so we can discuss going for colonoscopy and go over prep. Continue meetings with strategic debriefing specialist. Patient is agreeable to current plan of care and verbalizes understanding of instructions. She was given the opportunity to ask questions and all questions answered. Thank you for allowing me to participate in her care Medications: New docusate sodium 200 mg (2 x 100 mg) PO BEDTIME 180 caps 3RF K59.00 - Constipation, unspecified famotidine (Pepcid) 20 mg PO BEDTIME 30 tabs 3RF K21.9 - Gastro-esophageal reflux disease without esophagitis ondansetron 4 mg PO Q8H PRN 30 tabs 0RF nausea and vomiting magnesium citrate (Citrate of Magnesia oral) 150 mL PO DAILY PRN 296 mL 5RF constipation K59.00 - Constipation, unspecified Coding Level of Care Code Est Pt Level 3 (79628) Diagnoses Constipation by delayed colonic transit K59.01 Gastroesophageal reflux disease, unspecified whether esophagitis present K21.9 Esophagitis presence: esophagitis presence not specified Postprandial abdominal bloating R14.0 Anemia, unspecified type D64.9 Anemia type: unspecified type Rectal bleed K62.5 Time Spent (min) 30 Comment 20 minutes spent with patient and additional 10 minutes spent reviewing her records
[2024-06-26 12:48] VITALS: BP 137/56; PULSE 75; BMI 34.5
== END 2024-06-26 13:25 | disposition home or self-care (01) ==
PROVIDERS: PCP Internal Medicine; Visit Provider Nurse Practitioner Family
DX: K59.01 Slow transit constipation (principal); K21.9 Gastro-esophageal reflux disease without esophagitis; R14.0 Abdominal distension (gaseous); D64.9 Anemia, unspecified; K62.5 Hemorrhage of anus and rectum
CPT/HCPCS: 99213

== ENCOUNTER → 2024-06-26 12:38 | Outpatient (BNVA) | payer OTHER, SELFPAY | PROVIDERS: PCP Internal Medicine; Visit Provider Nurse Practitioner Family | DX: K59.01 Slow transit constipation (principal); K21.9 Gastro-esophageal reflux disease without esophagitis; K62.5 Hemorrhage of anus and rectum; D64.9 Anemia, unspecified; R14.0 Abdominal distension (gaseous) | CPT/HCPCS: 99212 ==

== ENCOUNTER 2024-06-29 11:32 | Outpatient (REF) | payer OTHER, SELFPAY ==
[2024-06-29 12:36] LABS: Appearance Urine Clear; Color Urine Yellow; Glucose Urine UA 100 mg/dL (Negative); Leukocyte Esterase Urine Negative (Negative); Nitrite Urine Negative (Negative); PH 5.5 (5.0-9.0); Specific Gravity - Urine 1.025 (1.005-1.025); UMIC TRIGGER UA YES; Urine Blood Small (1+) (Negative); Urine Ketones Negative (Negative); Urine Protein Negative (Neg-Trace)
[2024-06-29 12:39] LABS: Bacteria Urine 2+ (None Seen); Hyaline Casts Urine 0-2 /LPF (0-2); WBC Urine 0-5 /HPF (0-5)
== END 2024-06-29 11:33 | disposition home or self-care (01) ==
LOC: HO.LAB 11:32
PROVIDERS: Visit Provider Urology
DX: N30.10 Interstitial cystitis (chronic) without hematuria (principal); N39.8 Other specified disorders of urinary system; R32 Unspecified urinary incontinence; R39.15 Urgency of urination
CPT/HCPCS: 81001; 87086

== ENCOUNTER 2024-07-02 14:11 | Outpatient (AMB) | payer OTHER, SELFPAY ==
--- NOTE | 2024-07-02 14:12 | MHC.PC.OV ---
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 Accompanied by: Self / Same As Patient Allergies gabapentin Adverse Reaction (Intermediate, Verified 07/02/24 14:21) constipation Medication List - Last Reconciled 07/02/24 by Ceci Bowen MD albuterol sulfate 90 mcg/actuation 2 puffs inhalation Q6H PRN 30 days bisacodyl (Dulcolax (bisacodyl)) 10 mg (2 x 5 mg) PO BEDTIME cholecalciferol (vitamin D3) (Vitamin D3) 25 mcg PO DAILY docusate sodium 200 mg (2 x 100 mg) PO BEDTIME duloxetine 60 mg PO DAILY 30 days epinephrine 0.3 mg (0.3 mL) IM ONCE PRN 30 days famotidine (Pepcid) 20 mg PO BEDTIME hydrocortisone 2.5% (Proctosol HC) 1 appl ME BID-QID PRN ibuprofen 800 mg PO Q8H [incontinence liners As directed] ketoconazole 2% 1 appl topical 2XW loratadine 10 mg PO DAILY PRN magnesium citrate (Citrate of Magnesia oral) 150 mL PO DAILY PRN magnesium hydroxide (Milk Of Magnesia Concentrated) 10 mL PO BEDTIME PRN magnesium oxide 400 mg PO DAILY ondansetron 4 mg PO Q8H PRN pantoprazole 40 mg PO DAILY [personal wipes As directed] prucalopride (Motegrity) 2 mg PO DAILY Shower Chair As directed solifenacin (Vesicare) 10 mg PO DAILY triamcinolone acetonide 0.1% 1 appl topical BID underpads (Bed Underpads) As directed Tobacco use date assessed: 07/02/24 Dental Screening Dental Screen Date: 07/02/24 Did you have a dental visit in the last 12 months?: Yes Did you have a dental problem in the last 6 months where you did not have access to dental care?: No Was dental information given to patient?: Patient has dentist HPI HPI Comments History of Present Illness Details This is 34-year-old female with moderate recurrent major depression, sacroiliitis and neck spasm that comes for her physical exam. Depression still present with duloxetine. No suicidal thoughts. Pap smears are up-to-date. Had a hip surgery 2 years ago and since then right foot gets numb and she frequently falls due to that matter. She has not been able to work since then. She also has a neck spasm and muscle relaxer will be ordered. She follows with [facility] for her hip and sacroiliitis. [facility] Medical History (Updated 07/02/24 @ 15:13 by Ceci Bowen MD) LGSIL on Pap smear of cervix Chronic pelvic peritonitis, female Uterine fibroid (Unknown) Abnormal uterine bleeding (AUB) Rheumatoid arthritis Mild recurrent major depression Sacroiliac joint dysfunction of right side Spondylosis of lumbosacral spine with radiculopathy Disc degeneration, lumbar Spondylosis of lumbar spine Gastroesophageal reflux disease Mild persistent asthma Constipation by delayed colonic transit Arthralgia Insertion of implantable subdermal contraceptive Sacroiliitis Hip osteomyelitis, right Surgical History History of sacroiliac joint dysfunction History of hip surgery History of (~2005) Family History Mother HTN (hypertension) Diabetes Arthritis Constipation Father No problems noted. Social History Household Members: Children Household Members Other:: lives with teenage son Housing: Apartment Alcohol intake: never Patient Tobacco Use Status: Never used Tobacco e-Cigarette/Vaping Use: Never Used Second Hand Smoke Exposure: No service: No Current occupational status: disabled Sexual orientation: Straight/Heterosexual Cognitive needs: No Hearing needs: No Vision needs: Yes Female Reproductive History Menstrual Age of Menarche: 12 Questionnaire PHQ-9 Over the last 2 weeks, how often have you been bothered by any of the following problems? 1. Little interest or pleasure in doing things: nearly every day 2. Feeling down, depressed, or hopeless: several days 3. Trouble falling or staying asleep, or sleeping too much: nearly every day 4. Feeling tired or having little energy: nearly every day 5. Poor appetite or overeating: nearly every day 6. Feeling bad about yourself - or that you are a failure or have let yourself or your family down: several days 7. Trouble concentrating on things, such as reading the newspaper or watching television: nearly every day 8. Moving or speaking so slowly that other people could have noticed. Or the opposite - being so fidgety or restless that you have been moving around a lot more than usual: several days 9. Thoughts that you would be better off or of hurting yourself in some way: not at all Total score: 18 Depression Screening Interpretation: Positive (no suicidal thoughts) Depression Screening Follow-up: Existing condition, In treatment and Follow-up Visit Requested Depression Screening Done: Yes [id number] - PHQ-9 Billing: Yes Source: Developed by Drs. Lencho Veliz, Lizbeth Ennis, Mike Lowe and colleagues, with an educational andrés from [employer]. Thrive Questionnaire Date Thrive assessed: 07/02/24 I am a: Patient What is your living situation today?: I have a steady place to live Within the past 12 months, did the food you bought not last and you didn't have the money to get more?: Never true Within the past 12 months, did you worry whether your food would run out before you got money to buy more?: Never true Do you have trouble paying for medicines?: No Do you have trouble getting transportation to medical appointments?: No Do you have trouble paying your heating and electricity bill?: I choose not to answer this question Do you have trouble taking care of your child, family member or friend?: No Do you have trouble with day-to-day activities such as bathing, preparing meals, shopping, managing finances, etc.?: No Are you currently unemployed and looking for a job?: Yes Are you interested in more education?: No Please select the resources that you would like help with: Transportation and Daily support Currently or been in a relationship where the following occur: No concerns reported THRIVE Score: 0 AUDIT C Alcohol Use Questionnaire (AUDIT-C) 1. How often do you have a drink containing alcohol?: Never Total Score: 0 Score Reviewed/Action Taken: No MARY-7 AMB Questionnaire MARY-7 Date MARY - 7 assessed: 07/02/24 Feeling nervous, anxious, or on edge: 3 = Nearly every day Not being able to stop or control worryin = Nearly every day Worrying too much about different things: 3 = Nearly every day Trouble relaxin = Nearly every day Being so restless that it is hard to sit still: 1 = Several days Becoming easily annoyed or irritable: 3 = Nearly every day Feeling afraid as if something awful might happen: 1 = Several days Total MARY-7 score (0-4 normal; 5-9 mild; 10-14 moderate; 15-21 severe): 17 Source: Developed by Drs. Lencho Veliz, Lizbeth Ennis, Mike Lowe and colleagues, with an educational andrés from [employer]. MARY-7 Assessment Billing MARY-7 Assessment Tool: MARY-7 Assessment 05193 Review of Systems Const All systems reviewed & are unremarkable except as noted in HPI and below ENT Reports neck pain Card Denies chest pain at rest, Denies chest pain with activity, Denies edema, Denies irregular heart rhythm, Denies claudication, Denies dyspnea, Denies dyspnea on exertion, Denies orthopnea, Denies paroxysmal nocturnal dyspnea and Denies slow heart rate Resp Denies cough, Denies dyspnea and Denies dyspnea on exertion GI Denies abdominal pain, Denies change in bowel habits, Denies excessive flatus, Denies nausea and Denies vomiting Denies urinary incontinence, Denies urinary hesitancy and Denies urinary urgency Musc Denies abnormal gait, Reports back pain, Denies atrophy, Denies deformity, Reports arthralgias, Reports limited range of motion, Reports neck pain, Reports numbness, Reports stiffness and Reports tingling Skin/Breast Denies bleeding lesions, Denies changing lesions and Denies rash Neuro Denies abnormal gait, Denies behavioral changes, Denies lack of coordination, Reports numbness and Reports tingling Psych Denies behavioral changes Physical exam (Primary Care) Vital Signs: Last Vital Signs BP 118/70 07/02/24 14:14 BMI result Body Mass Index 34.2 BMI Assessment/Plan discussion: High BMI High, discussed plan: lifestyle, weight reduction, dietary and physical activity Tobacco/Smoking Status: Tobacco use Status Tobacco use date assessed 07/02/24 07/02/24 14:19 Patient Tobacco Use Status Never used Tobacco 07/02/24 14:15 e-Cigarette/Vaping Use Never Used 07/02/24 14:15 PHQ-9: PHQ-9 Score PHQ-9: Total score 18 07/02/24 15:08 Depression Screening Interpretation: Positive (no suicidal thoughts) Depression Screening Follow-up: Existing condition, In treatment and Follow-up Visit Requested Thrive Assessment: Date of Thrive Assessment Date Thrive assessed 07/02/24 07/02/24 14:15 Currently or been in a relationship where the following occur: No concerns reported HENMT Head: Yes normal to inspection, Yes normocephalic and Yes atraumatic Ears: external ears normal Eyes General: appearance normal, both eyes and all related structures Eyelids: Yes eyelids normal Conjunctivae: conjunctivae normal Neck Other: Limited lateral neck movements and limited flexion/extension Neck: Yes tender Resp Effort & Inspection: normal respiratory effort Auscultation: clear to auscultation bilaterally Cardio Jugular venous distension: no JVD Rate: regular rate Rhythm: regular rhythm Heart sounds: S1 normal heart sound present and S2 normal heart sound present GI Inspection: Yes normal to inspection Palpation (GI): Soft to palpation and nontender Auscultation: normal bowel sounds Skin General skin exam: no rashes or lesions noted Neuro General: no focal motor deficits Extrem General: Yes full ROM Psych Appearance: grossly normal Office Procedures Flu Questionnaire Does the patient have a severe egg allergy?: No Immunizations Fluarix Triv [id number] (PF) 45 mcg (15 mcg x 3)/0.5 mL IM syringe Performing Provider: Ceci Bowen MD [facility] Documented (not given) by: TRACEY La on 07/02/24 14:15 Reason Not Given: Patient Refused Coding Level of Care Code Est Pt Level 3 (77686) Est Pt Prev Care 18-39y(69938) Diagnoses Physical exam Z00.00 Neck muscle spasm M62.838 Sacroiliitis M46.1 Moderate recurrent major depression F33.1 Additional Codes MARY-7 Assessment Billing - MARY-7 Assessment Tool: MARY-7 Assessment 64987 ([id number]) Time Spent (min) 32 Assessment & Plan Assessment & Plan (1) Physical exam: Code(s): Z00.00 - Encounter for general adult medical examination without abnormal findings Category: Medical Plan: Repeat in a year. (2) Neck muscle spasm: Code(s): M62.838 - Other muscle spasm Category: Medical Plan: Start methocarbamol as needed. (3) Sacroiliitis: Code(s): M46.1 - Sacroiliitis, not elsewhere classified Category: Medical Plan: Follow-up with [facility]. (4) Moderate recurrent major depression: Code(s): F33.1 - Major depressive disorder, recurrent, moderate Category: Medical Plan: Continue duloxetine. Orders: Orders Influenza [id number] Immunization Today Z23 - Encounter for immunization Comprehensive [place]. Panel Fast Today Z00.00 - Encounter for general adult medical examination without abnormal findings Lipid Panel Today E78.5 - Hyperlipidemia, unspecified Medications: New methocarbamol 750 mg PO Q8H 21 tabs 0RF 7 days M62.838 - Other muscle spasm
[2024-07-02 14:14] VITALS: BP 118/70; BMI 34.2
== END 2024-07-02 14:39 | disposition home or self-care (01) ==
PROVIDERS: PCP Internal Medicine; Visit Provider Internal Medicine
DX: Z00.00 Encounter for general adult medical examination without abnormal findings (principal); M62.838 Other muscle spasm; M46.1 Sacroiliitis, not elsewhere classified; F33.1 Major depressive disorder, recurrent, moderate

== ENCOUNTER → 2024-07-02 14:11 | Outpatient (BNVA) | payer OTHER, SELFPAY | PROVIDERS: PCP Internal Medicine; Visit Provider Internal Medicine | DX: Z00.00 Encounter for general adult medical examination without abnormal findings (principal); M62.838 Other muscle spasm; M46.1 Sacroiliitis, not elsewhere classified; F33.1 Major depressive disorder, recurrent, moderate | CPT/HCPCS: 90471; 96127; 99212; 99395 ==

== ENCOUNTER 2024-07-03 10:50 | Outpatient (AMB) | payer OTHER, SELFPAY ==
--- NOTE | 2024-07-03 10:56 | A.OFFVIS_ITS ---
VS Expanded 07/03/24 10:57 Height 5 ft 6 in Weight 212 lb 1.355 oz BMI 34.2 Intake Visit Reasons: Obesity/CONFIRMED Allergies gabapentin Adverse Reaction (Intermediate, Verified 07/02/24 14:21) constipation Nutrition Presentation Details: Pt presents for MNT for obesity. Pt reports frustration regarding lack of weight loss. Pt reports getting into a walking routine for 3 months , for 30 minutes each day Pt reports having 2 meals/day 10 am : scrambled eggs and vegetable, fruit bowl, water 4 pm meal rice/beans/eggs and ground turkey, water 2 bottles water fried foods- 0-1/m pastries 2x/d BS Monitoring Most Recent Diabetes Results: Cholesterol 193 mg/dL (<200) 07/03/24 HDL Cholesterol 39 mg/dL (>40) L 07/03/24 Triglycerides 148 mg/dL (<150) 07/03/24 Creatinine 0.87 mg/dL (0.5-1.4) 07/03/24 Blood Urea Nitrogen 8 mg/dL (9-16) L 07/03/24 Sodium 139 mmol/L (135-145) 07/03/24 Potassium 4.4 mmol/L (3.3-5.1) 07/03/24 Chloride 104 mmol/L (96-108) 07/03/24 Carbon Dioxide 30 mmol/L (22-29) H 07/03/24 Calcium 9.6 mg/dL (8.4-10.2) 07/03/24 AST 19 U/L (5-31) 07/03/24 ALT 27 U/L (0-31) 07/03/24 Total Protein 7.8 g/dL (6.5-8.0) 07/03/24 Albumin 4.1 g/dL (3.5-5.0) 07/03/24 [facility] Medical History (Updated 07/02/24 @ 15:13 by Ceci Bowen MD) LGSIL on Pap smear of cervix Chronic pelvic peritonitis, female Uterine fibroid (Unknown) Abnormal uterine bleeding (AUB) Rheumatoid arthritis Mild recurrent major depression Sacroiliac joint dysfunction of right side Spondylosis of lumbosacral spine with radiculopathy Disc degeneration, lumbar Spondylosis of lumbar spine Gastroesophageal reflux disease Mild persistent asthma Constipation by delayed colonic transit Arthralgia Insertion of implantable subdermal contraceptive Sacroiliitis Hip osteomyelitis, right Surgical History History of sacroiliac joint dysfunction History of hip surgery History of (~2005) Family History Mother HTN (hypertension) Diabetes Arthritis Constipation Father No problems noted. Social History Household Members: Children Household Members Other:: lives with teenage son Housing: Apartment Alcohol intake: never Patient Tobacco Use Status: Never used Tobacco e-Cigarette/Vaping Use: Never Used Second Hand Smoke Exposure: No service: No Current occupational status: disabled Sexual orientation: Straight/Heterosexual Cognitive needs: No Hearing needs: No Vision needs: Yes Female Reproductive History Menstrual Age of Menarche: 12 Assessment & Plan Assessment & Plan (1) Obesity (BMI 30.0-34.9): Code(s): E66.9 - Obesity, unspecified Category: Medical Plan: Wt: 93 Kg ( 11/2023 ), 94 kg (01/2024), 96 kg (07/12) Est kcal needs as per MSJ: 1800- 2000 (40% carb, 30% protein/fat) Est fluid needs as per 25-30 ml/d: 2300 Est prot per day as per 1 g/kg bw: 93 Recommend fiber intake : 8-10 g per day and gradually increase to 25-28 g per day for women and 35-38 g for men or as tolerated Recommend sodium intake per day : less than 2000 mg Educated patient on: ( R = reviewed V = verbalizes understanding N/R = needs review N/A = not applicable * Food sources of carbohydrate, adequate serving sizes and its role in various health conditions: R * Differences between complex carbohydrates a simple carbohydrates, role of fiber in diet: R * Lean protein sources of foods: R * Differences between types of fats and role in diet (mono on saturated fat fatty acids, saturated fatty acids, trans fats): R * Food sources of sodium in salt and healthy modifications for heart health in kidney health: NR * Vitamins and minerals: N/R * Healthy plate method concept: R * Physical activity: Benefits a precaution: R * Patient Instructions: * Keep a food record for self assessment of foods/beverages/snacks/ mood at time of meal/snack * Work on having 3 small meals per day, following healthy plate method * Include water with each meal Coding Level of Care Code Nutr Indiv Subseq (99027) Diagnoses Obesity (BMI 30.0-34.9) E66.9 Time Spent (min) 30
[2024-07-03 10:57] VITALS: BMI 34.2
== END 2024-07-03 11:46 | disposition home or self-care (01) ==
PROVIDERS: PCP Internal Medicine; Visit Provider Dietitian, Registered
DX: E66.9 Obesity, unspecified (principal)

== ENCOUNTER 2024-08-13 11:21 | Outpatient (AMB) | payer OTHER, SELFPAY ==
--- NOTE | 2024-08-13 11:26 | MHC.OFFVIS ---
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 Does have small leakage with sneezing and coughing wears a pad daily. Will continue VESIcare 10 mg daily follow-up in 1 year Review of chart: 03/01/2024--the patient is followed for chronic interstitial cystitis with hematuria and lower urinary tract symptoms of urgency and urinary incontinence. History of fibromyalgia, with chronic pain,She was last seen on 11/28/2023 and is prescribed VESIcare 10 mg daily. She states the medication is working well she does not need to use as many pads as she has better bladder control and minimal leakage accidents. She denies irritative voiding symptoms. Plan to continue VESIcare 10 mg daily follow-up in 9 months 11/28/2023--Olga is followed for diagnosis of interstitial cystitis. Past medical history--fibromyalgia, arthritis constipation and mild depression. She is also followed by screen maker for abnormal uterine bleeding. She states that recently she had severe right lower quadrant pain. She states she was told there was an ovarian cyst. I have reviewed chart--she had a pelvic ultrasound April 2023 noting bilateral ovarian simple cysts R>L. CT imaging -11/16/22--KIDNEYS AND URETERS: The kidneys are normal in size, shape, and attenuation. No hydronephrosis, hydroureter, or calculi seen. The patient states that she goes frequently to the bathroom. She states she does drink a lot of water. She will occasionally have urine leakage with coughing or sneezing. Evaluation: Urinalysis--2+ blood, leukocytes negative, bladder scan PVR 0 mL. I have discussed a trial of an anticholinergic, VESIcare 10 mg daily. Will have her follow-up in 3 months to review symptoms. She is to call regarding any issues she has with either obtaining the medication or side effects. 02/28/23--Olga is a 33-year-old female who presents to the office for 3 month follow-up of interstitial cystitis. The patient was last seen in the office on 11/25/22. She was initially evaluated for microscopic hematuria and pelvic pain The patient mentions improvement in pain due to IC. The patient states having urinary leakage with sneezing. 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 Evaluation today-- Blood: 200, leukocytes: negative. Bladder scan PVR: 0 mL. Discussed that bladder inflammation may cause blood in the urine. Follow-up in 9 months. 11/25/22--FU-Cystoscpy hydrodistention on 11/02/2022-- findings positive glomerulations, moderate, bladder capacity post distention 650 mL. I have discussed IC dxn-pamphlet given, treatment options to include IC diet, pamphlet given, antihistamines and bladder installations. Imaging--CT KUB--05/08/2022-kidneys no stones, no hydronephrosis, Pelvic ultrasound ? 10/11/22. The patient states that urinary symptoms and pelvic pain has improved during her last visit. The plan was behavioral modifications and focus on IC diet. She has complained LUTS symptoms including stress urinary incontinence and states wearing pads daily. She is being followed by TEACHERS' ASSISTANT for fibroids. [facility] Medical History LGSIL on Pap smear of cervix Chronic pelvic peritonitis, female Uterine fibroid (Unknown) Abnormal uterine bleeding (AUB) Rheumatoid arthritis Mild recurrent major depression Sacroiliac joint dysfunction of right side Spondylosis of lumbosacral spine with radiculopathy Disc degeneration, lumbar Spondylosis of lumbar spine Gastroesophageal reflux disease Mild persistent asthma Constipation by delayed colonic transit Arthralgia Insertion of implantable subdermal contraceptive Sacroiliitis Hip osteomyelitis, right Surgical History History of sacroiliac joint dysfunction History of hip surgery History of (~2005) Family History Mother HTN (hypertension) Diabetes Arthritis Constipation Father No problems noted. Social History Household Members: Children Household Members Other:: lives with teenage son Housing: Apartment Alcohol intake: never Patient Tobacco Use Status: Never used Tobacco e-Cigarette/Vaping Use: Never Used Second Hand Smoke Exposure: No service: No Current occupational status: disabled Sexual orientation: Straight/Heterosexual Cognitive needs: No Hearing needs: No Vision needs: Yes Female Reproductive History Menstrual Age of Menarche: 12 Review of Systems Const All systems reviewed & are unremarkable except as noted in HPI and below Reports no additional complaints Eyes Reports no additional complaints ENT Reports no additional complaints Card Reports no additional complaints Resp Reports no additional complaints GI Reports no additional complaints Reports as per HPI Musc Reports no additional complaints Skin/Breast Reports system reviewed and no additional complaints, except as documented Neuro Reports no additional complaints Psych Reports no additional complaints Endo Reports no additional complaints Markos/Lymph Reports no additional complaints Aller/Immun Reports no additional complaints Results AMB Urinalysis, Automated UA Leukoctes 0 [place]/uL Last Edit by SUBHA Fernandez on 08/13/24 11:45 UA Nitrite Negative Last Edit by SUBHA Fernandez on 08/13/24 11:45 UA Urobilinogen 0.2 mg/dL Last Edit by SUBHA Fernandez on 08/13/24 11:45 UA Protein 15 mg/dL Last Edit by Ashley Genao CCM on 08/13/24 11:45 UA pH 5.5 Last Edit by SUBHA Fernandez on 08/13/24 11:45 UA Blood 200 [place]/uL Last Edit by SUBHA Fernandez on 08/13/24 11:45 UA Specific [place] 1.030 Last Edit by SUBHA Fernandez on 08/13/24 11:45 UA Ketone Negative Last Edit by SUBHA Fernandez on 08/13/24 11:45 UA Bilirubin 0 mg/dL Last Edit by SUBHA Fernandez on 08/13/24 11:45 UA Glucose 0 mg/dL Last Edit by SUBHA Fernandez on 08/13/24 11:45 Results Reviewed Results Reviewed: Laboratory Last Values Urine pH (Auto) 5.5 08/13/24 11:44 Specific [place] (Auto) 1.030 08/13/24 11:44 Urine Protein (Auto) 15 mg/dL 08/13/24 11:44 Glucose (UA)(Auto) 0 mg/dL 08/13/24 11:44 Urine Ketones (Auto) Negative 08/13/24 11:44 Urine Blood (Auto) 200 [place]/uL 08/13/24 11:44 Urine Nitrite (Auto) Negative 08/13/24 11:44 Urine Bilirubin (Auto) 0 mg/dL 08/13/24 11:44 Urine Urobilinogen (Auto) 0.2 mg/dL 08/13/24 11:44 Leukocyte Esterase (Auto) 0 [place]/uL 08/13/24 11:44 Assessment & Plan Assessment & Plan (1) Microscopic hematuria: Comment: Interstitial cystitis Code(s): R31.29 - Other microscopic hematuria Category: Medical (2) Urinary urgency: Code(s): R39.15 - Urgency of urination Category: Medical (3) Interstitial cystitis: Code(s): N30.10 - Interstitial cystitis (chronic) without hematuria Category: Medical (4) Stress incontinence: Code(s): N39.3 - Stress incontinence (female) (male) Category: Medical Plan continue VESIcare 10 mg daily follow-up in 1 year Orders: Orders AMB Urinalysis Automated 08/13/24 Z13.9 - Encounter for screening, unspecified Medications: Refilled solifenacin (Vesicare) 10 mg PO DAILY 90 tabs 3RF Patient Instructions: The patient had an opportunity to ask questions regarding treatment plan. The patient expressed understanding and agreement with the above treatment plan. The patient is aware they should contact our office by phone for worsening of their current condition or the appearance of new symptoms. Compliance is encouraged with any medications and followup testing that is ordered. It is a privilege to be allowed the opportunity to participate in the urologic care of your patient. If you have any questions or concerns regarding treatment for the above conditions please do not hesitate to contact me. The office telephone contact is [phone]. This note is constructed in part using voice recognition software. While every effort has been made to ensure accuracy client service manager errors may have been included. Yours sincerely, Niurka Torres MD Coding Level of Care Code Est Pt Level 4 (24442) Diagnoses Microscopic hematuria R31.29 Urinary urgency R39.15 Interstitial cystitis N30.10 Stress incontinence N39.3
== END 2024-08-13 12:15 | disposition home or self-care (01) ==
PROVIDERS: PCP Internal Medicine; Visit Provider Urology
DX: R31.29 Other microscopic hematuria (principal); R39.15 Urgency of urination; N30.10 Interstitial cystitis (chronic) without hematuria; N39.3 Stress incontinence (female) (male)
CPT/HCPCS: 99214

== ENCOUNTER → 2024-08-13 11:21 | Outpatient (BNVA) | payer OTHER, SELFPAY | PROVIDERS: PCP Internal Medicine; Visit Provider Urology | DX: R31.29 Other microscopic hematuria (principal); R39.15 Urgency of urination; N30.10 Interstitial cystitis (chronic) without hematuria; N39.3 Stress incontinence (female) (male) | CPT/HCPCS: 81003; 99212 ==

== ENCOUNTER 2024-08-14 14:09 | Outpatient (REF) | payer OTHER, SELFPAY ==
[2024-08-15 11:00] LABS: HPV 16,18/45 See PAP report
== END 2024-08-14 14:10 | disposition home or self-care (01) ==
LOC: HO.LNP 14:09
PROVIDERS: PCP Internal Medicine; Visit Provider Advanced Practice Midwife
DX: Z01.419 Encounter for gynecological examination (general) (routine) without abnormal findings (principal)
CPT/HCPCS: 87624; 88175; 99395

== ENCOUNTER 2024-08-14 14:09 | Outpatient (AMB) | payer OTHER, SELFPAY ==
[2024-08-14 14:15] VITALS: BP 122/24; BMI 33.9
--- NOTE | 2024-08-14 14:15 | A.OFFVIS_ITS ---
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 Baller Tender Required: No Allergies gabapentin Adverse Reaction (Intermediate, Verified 08/13/24 11:27) constipation Is last menstrual period known: Yes Last menstrual period: 08/06/24 Post menopausal: No Patient : No HPI Comments Details: She is a premenopausal woman presenting for annual examination. Doing well with concerns: Has painful menses x 4d, clots for 2d last cycle. Ibuprofen or Tylenol not helping. History of fibroids, complex ovarian cyst, Essure coil in place, and chronic pelvic pain. Referred to [facility] this year for consult re: Essure coils, (2014) and other concern, had labs and not call back, no records available. Currently is sexually active. She denies vaginal itching and irritation. STI screening offered; she accepts. She tries to eat healthy and stays active with exercise. Denies family history of breast, ovarian or colon cancer. Last pap smear 2022, negative. Prior EMILY 1. [facility] Medical History LGSIL on Pap smear of cervix Chronic pelvic peritonitis, female Uterine fibroid (Unknown) Abnormal uterine bleeding (AUB) Rheumatoid arthritis Mild recurrent major depression Sacroiliac joint dysfunction of right side Spondylosis of lumbosacral spine with radiculopathy Disc degeneration, lumbar Spondylosis of lumbar spine Gastroesophageal reflux disease Mild persistent asthma Constipation by delayed colonic transit Arthralgia Insertion of implantable subdermal contraceptive Sacroiliitis Hip osteomyelitis, right Surgical History History of sacroiliac joint dysfunction History of hip surgery History of (~2005) Family History Mother HTN (hypertension) Diabetes Arthritis Constipation Father No problems noted. Social History Household Members: Children Household Members Other:: lives with teenage son Housing: Apartment Alcohol intake: never Patient Tobacco Use Status: Never used Tobacco e-Cigarette/Vaping Use: Never Used Second Hand Smoke Exposure: No service: No Current occupational status: disabled Sexual orientation: Straight/Heterosexual Cognitive needs: No Hearing needs: No Vision needs: Yes Female Reproductive History Menstrual Age of Menarche: 12 Date of last menstrual period: 08/06/24 control method: progestin IUCD Total pregnancies: 1 Full term: 1 Number of Living Children: 1 History of abnormal pap smear: Yes (2018 pap ASCUS/HPV positive, 2022 Neg) History of STI: No Review of Systems Const All systems reviewed & are unremarkable except as noted in HPI and below Reports as per HPI Eyes Reports no additional complaints ENT Reports no additional complaints Card Reports no additional complaints Resp Reports no additional complaints GI Reports as per HPI and Reports no additional complaints Reports as per HPI Musc Reports no additional complaints Skin/Breast Reports as per HPI Neuro Reports no additional complaints Psych Reports no additional complaints Endo Reports no additional complaints Markos/Lymph Reports no additional complaints Aller/Immun Reports no additional complaints Physical Exam Vital Signs: Last Vital Signs BP 122/24 L 08/14/24 14:15 BMI result Body Mass Index 33.9 Const General: cooperative, healthy appearing, no acute distress, well developed and alert Orientation/consciousness: patient oriented x3 HEENT Head: Yes normal to inspection Eyes General: appearance normal, both eyes and all related structures Neck Neck: Yes normal visual inspection Thyroid: Thyroid normal Chest Chest palpation & inspection: normal inspection of the chest and other (no puckering, dimpling, peau de orange, retraction, discharge, masses) Breast/axilla inspection: normal inspection of the breasts Breast/axilla palpation: normal palpation of the breasts Resp Effort & Inspection: normal respiratory effort GI Inspection: Yes normal to inspection Palpation (GI): Soft to palpation Rectal Exam - Female: deferred General: Yes bladder normal to palpation External Female Exam: normal external appearance and normal appearance of the urethra Speculum Exam - Vagina: normal appearance of the vagina, normal palpation and normal vaginal discharge Speculum Exam - Cervix: normal appearance of the cervix, normal palpation and Other cervical findings present (Bled briskly with Pap) Bimanual exam- vagina & uterus: normal bimanual exam, normal palpation, uterine size normal, bladder normal to palpation, normal palpation and non-tender Bimanual Exam- Adnexa, other: no masses and tender (Slight tenderness to the left more so on the right) on the right Skin General skin exam: no rashes or lesions noted Rashes: no rashes Neuro General: patient oriented x3 Cognition (Neuro): normal cognition Extrem General: Yes normal to inspection Psych Attitude: cooperative Thought process: Normal thought process present Assessment & Plan Assessment & Plan (1) Encounter for well woman exam with routine gynecological exam: Code(s): Z01.419 - Encounter for gynecological examination (general) (routine) without abnormal findings Category: Medical (2) Pelvic pain: Comment: One Essure device seen by ultrasound Code(s): R10.2 - Pelvic and perineal pain Category: Medical Plan Discussed: Current recommendations for pap smears per ASCCP guidelines. Pap smear obtained today. Breast awareness and periodic breast exams. Maintain a healthy lifestyle including a well balanced diet and routine exercise. Pelvic ultrasound ordered, plan follow up in person to review, comfort measures, warnings. Recent STD screenings were negative including BV panel. Obtain results of consult notes at [facility]. Use condoms for STI and prevention. Patient verbalizes understanding and agrees to the plan of care. She was given opportunity to ask questions and all questions were answered to the best of my ability. RTO in one year for annual director packaging examination. This note is constructed using voice recognition software. While every effort has been made to ensure accuracy, field sales associate errors may have been included. Orders: Orders Pap Smear Today Z01.419 - Encounter for gynecological examination (general) (routine) without abnormal findings US pelvic and transvaginal Today N83.299 - Other ovarian cyst, unspecified side, R10.2 - Pelvic and perineal pain Coding Level of Care Code Est Pt Prev Care 18-39y(71352) Diagnoses Encounter for well woman exam with routine gynecological exam Z01.419 Pelvic pain R10.2
== END 2024-08-14 14:54 | disposition home or self-care (01) ==
LOC: HO.HWS 14:09
PROVIDERS: PCP Internal Medicine; Visit Provider Advanced Practice Midwife
DX: Z01.419 Encounter for gynecological examination (general) (routine) without abnormal findings (principal); R10.2 Pelvic and perineal pain
CPT/HCPCS: 99395

== ENCOUNTER 2024-08-27 07:57 | Outpatient (REF) | payer OTHER, SELFPAY | END 2024-08-27 07:58 | disposition home or self-care (01) | LOC: HO.US 07:57 | PROVIDERS: PCP Internal Medicine; Visit Provider Advanced Practice Midwife | DX: N83.299 Other ovarian cyst, unspecified side (principal); R10.2 Pelvic and perineal pain | CPT/HCPCS: 76830; 76856 ==

== ENCOUNTER → 2024-08-27 07:58 | Outpatient (BNV) | payer OTHER, SELFPAY | PROVIDERS: PCP Internal Medicine; Visit Provider Radiology Diagnostic Radiology | DX: D25.9 Leiomyoma of uterus, unspecified (principal) | CPT/HCPCS: 76830; 76856 ==

== ENCOUNTER 2024-08-29 08:00 | Outpatient (AMB) | payer OTHER, SELFPAY ==
--- NOTE | 2024-08-29 08:20 | AM.OFFVISNUR ---
Intake Visit Reasons: 1st Gardasil Allergies gabapentin Adverse Reaction (Intermediate, Verified 08/13/24 11:27) constipation Nursing Note Olga came in today for her 1st guardasil inj. LMP110/04/23. Pt tolerated well was advised to wait x 15 min in waiting room post injection. Follow up appt scheduled for 2 mos. Immunizations Gardasil 9 (PF) 0.5 mL intramuscular suspension Performing Provider: Amaya Garay CNM Performing Location: [facility] Administered by: Allyssa Esquivel LPN on 08/29/24 08:20 Dose Route Admin Location Dispensed Lot Number Expiration Date NDC Hand Rigger 0.5 mL IM Left Deltoid 0.5 mL [id number] 10/07/25 7994-8570-65 [employer] D VIS Given Date VIS Provided VIS Publication Date 08/29/24 Single Vaccine 21 Eligibility Eligibility Date Funding Source Not [facility] Eligible 08/29/24 Private Assessment & Plan Assessment & Plan Orders: Orders Human Papillomavirus Immunization Today Z23 - Encounter for immunization Medications: New Gardasil 9 (PF) (human papillomav vac,9-sunshine(PF)) 0.5 mL IM ONCE 0.5 mL 0RF NS Z23 - Encounter for immunization
== END 2024-08-29 08:16 | disposition home or self-care (01) ==
PROVIDERS: PCP Internal Medicine; Visit Provider Advanced Practice Midwife
DX: Z23 Encounter for immunization (principal)

== ENCOUNTER → 2024-08-29 08:00 | Outpatient (BNVA) | payer OTHER, SELFPAY | PROVIDERS: PCP Internal Medicine; Visit Provider Advanced Practice Midwife | DX: Z23 Encounter for immunization (principal) | CPT/HCPCS: 90471; 90651; 99211 ==

== ENCOUNTER 2024-10-02 13:20 | Outpatient (AMB) | payer OTHER, SELFPAY ==
[2024-10-02 13:22] VITALS: BP 134/68; PULSE 82; O2SAT 97; BMI 33.6
--- NOTE | 2024-10-02 13:22 | MHC.OFFVIS ---
Vital Signs 10/02/24 13:22 Height 5 ft 6 in Weight 208 lb 1.862 oz BMI 33.6 BP 134/68 Blood Pressure Location Rt brachial Position Sitting Pulse 82 Pulse Source Pulse Oximeter Pulse Oximetry (%) 97 Oxygen Delivery Method Room Air Intake Visit Reasons: 3 month follow up Intake Note: ESTABLISHED PATIENT Reason; 3 mos. Discuss colo. Changes/concerns? Worsening reflux despite taking pantoprazole and famotidine. Allergies gabapentin Adverse Reaction (Intermediate, Verified 10/02/24 13:22) constipation HPI HPI 3 month follow up: Details: LAST VISIT: Constipation by delayed colonic transit Gastroesophageal reflux disease Postprandial abdominal bloating Anemia Rectal bleed Plan Patient will try to take Colace 2 capsules daily. Increase fluid intake and activity to promote better bowel motility. I will send patient for colonoscopy and upper endoscopy. Message sent to surgical schedulers to book the procedures. Patient continues to have nausea and acid reflux in the morning. Will add famotidine at bedtime. Patient will avoid dietary triggers and late night snacking. Staying upright for minimum 3 hours after meals discussed with patient. Will send her script for Mag citrate if no BM in 2-3 days patient can take Mag citrate. Follow-up in the office in 3 months so we can discuss going for colonoscopy and go over prep. Continue meetings with housing specialist. Patient is agreeable to current plan of care and verbalizes understanding of instructions. She was given the opportunity to ask questions and all questions answered. ? Thank you for allowing me to participate in her care Medications New docusate sodium 200 mg (2 x 100 mg) PO BEDTIME 180 caps 3RF K59.00 famotidine (Pepcid) 20 mg PO BEDTIME 30 tabs 3RF K21.9 ondansetron 4 mg PO Q8H PRN 30 tabs 0RF nausea and vomiting magnesium citrate (Citrate of Magnesia oral) 150 mL PO DAILY PRN 296 mL 5RF constipation K59.00 TODAY'S VISIT Patient is here today for follow-up and to discuss prep before going for procedure. Patient has upper endoscopy and colonoscopy scheduled in October. Patient reports that she continues to have acid reflux. Episode as long as 5 days with no bowel movement and epigastric pain and reflux. Patient reports that her symptoms were worse at night time. Patient had to take extra Mag citrate in order to have a bowel movement. Patient denies melena, hematochezia, unintentional weight loss or ribbon like stools. Patient reports dyspepsia with dysphagia without odynophagia. Patient reports eating small meals. In the past we have done gastric emptying study that came back normal. Patient denies any nausea or vomiting. Reports that pantoprazole works throughout the day. Patient is not on any anticoagulation medication. No history of sleep apnea. No issues with anesthesia in the past. Patient's brother was just diagnosed with Crohn's disease. [facility] Medical History Need for HPV vaccination LGSIL on Pap smear of cervix Chronic pelvic peritonitis, female Uterine fibroid (Unknown) Abnormal uterine bleeding (AUB) Rheumatoid arthritis Mild recurrent major depression Sacroiliac joint dysfunction of right side Spondylosis of lumbosacral spine with radiculopathy Disc degeneration, lumbar Spondylosis of lumbar spine Gastroesophageal reflux disease Mild persistent asthma Constipation by delayed colonic transit Arthralgia Insertion of implantable subdermal contraceptive Sacroiliitis Hip osteomyelitis, right Surgical History History of sacroiliac joint dysfunction History of hip surgery History of (~2005) Family History (Updated 10/02/24 @ 13:28 by SUBHA Perez) Mother HTN (hypertension) Diabetes Arthritis Constipation Father No problems noted. Brother Crohn's disease Social History Household Members: Children Household Members Other:: lives with teenage son Housing: Apartment Alcohol intake: never Patient Tobacco Use Status: Never used Tobacco e-Cigarette/Vaping Use: Never Used Second Hand Smoke Exposure: No service: No Current occupational status: disabled Sexual orientation: Straight/Heterosexual Cognitive needs: No Hearing needs: No Vision needs: Yes Female Reproductive History Menstrual Age of Menarche: 12 Review of Systems Const Denies weight gain and Denies weight loss ENT Reports no additional complaints, Denies dysphagia and Denies odynophagia Card Reports no additional complaints Resp Reports no additional complaints GI Denies abdominal pain, Denies belching, Denies melena, Reports bloating, Denies change in bowel habits, Reports constipation, Denies dysphagia, Denies excessive flatus, Denies dyspepsia, Reports heartburn (occasional), Denies diarrhea, Denies loose stools, Denies nausea, Denies odynophagia and Denies vomiting Reports no additional complaints Musc Reports no additional complaints Neuro Reports no additional complaints Psych Reports no additional complaints Endo Reports no additional complaints Physical Exam Vital Signs: Last Vital Signs Pulse 82 10/02/24 13:22 BP 134/68 10/02/24 13:22 Pulse Ox 97 10/02/24 13:22 Oxygen Delivery Method Room Air 10/02/24 13:22 BMI result Body Mass Index 33.6 Const General: cooperative, healthy appearing and no acute distress Nutritional Appearance: obese Orientation/consciousness: patient oriented x3 Resp Effort & Inspection: normal respiratory effort, able to speak in complete sentences, no tracheal deviation and symmetric chest movement Auscultation: clear to auscultation bilaterally Cardio Rate: regular rate GI Inspection: Yes normal to inspection and Yes obesity Palpation (GI): Soft to palpation and Other GI palpation findings present (Nontender) Auscultation: normal bowel sounds Rectal Exam - Female: visual inspection normal General: Yes bladder normal to palpation and Yes no CVA tenderness External Female Exam: normal appearance of the urethra Speculum Exam - Vagina: normal appearance of the vagina, normal palpation and normal vaginal discharge Speculum Exam - Cervix: normal appearance of the cervix and normal palpation Bimanual exam- vagina & uterus: normal bimanual exam, normal palpation, uterine size normal, bladder normal to palpation, normal palpation, uterine shape normal and non-tender Bimanual Exam- Adnexa, other: normal adnexae Back/Spine/Pelvis Back: no CVA tenderness Skin General skin exam: elasticity normal, turgor normal and dry skin Neuro General: patient oriented x3 Psych Appearance: grossly normal Mental Status: mental status grossly normal Assessment & Plan Assessment & Plan (1) Constipation by delayed colonic transit: Code(s): K59.01 - Slow transit constipation Category: Medical (2) Gastroesophageal reflux disease: Code(s): K21.9 - Gastro-esophageal reflux disease without esophagitis Category: Medical Qualifiers: Esophagitis presence: esophagitis presence not specified Qualified Code(s): K21.9 - Gastro-esophageal reflux disease without esophagitis (3) Postprandial abdominal bloating: Code(s): R14.0 - Abdominal distension (gaseous) (4) Anemia: Code(s): D64.9 - Anemia, unspecified Qualifiers: Anemia type: unspecified type Qualified Code(s): D64.9 - Anemia, unspecified (5) Rectal bleed: Code(s): K62.5 - Hemorrhage of anus and rectum Plan Patient has procedure scheduled in October and follow-up appointment after procedure. Patient continues to have epigastric pain postprandially, worse at night time. Will send her script for sucralfate and stop famotidine. Patient will be sent for upper endoscopy to rule out gastritis, duodenitis, esophagitis, gastric or peptic ulcers. Patient will continue to take Motegrity daily. Patient may take Dulcolax as needed. Patient was also encouraged to increase fluid intake and activity to promote better bowel motility. Patient will be sent for colonoscopy. History of anemia as well as change in bowel pattern, worsening constipation. What to expect before during and after procedure discussed with patient. Stressed the importance of good bowel prep day before procedure. Patient is agreeable to current plan of care and verbalizes understanding of instructions. She was given the opportunity to ask questions and all questions answered. Thank you for allowing me to participate in her care Medications: New polyethylene glycol 3350 (Miralax) As directed by gastroenterology department at [facility] 238 grams PO ONCE 238 grams 0RF Z12.11 - Encounter for screening for malignant neoplasm of colon sucralfate 10 mL PO BEDTIME 400 mL 3RF K21.9 - Gastro-esophageal reflux disease without esophagitis Discontinued famotidine (Pepcid) Discontinued Reason: Doctor's Order 20 mg PO BEDTIME 30 tabs 3RF K21.9 - Gastro-esophageal reflux disease without esophagitis Coding Level of Care Code Est Pt Level 3 (54945) Diagnoses Constipation by delayed colonic transit K59.01 Gastroesophageal reflux disease, unspecified whether esophagitis present K21.9 Esophagitis presence: esophagitis presence not specified Postprandial abdominal bloating R14.0 Anemia, unspecified type D64.9 Anemia type: unspecified type Rectal bleed K62.5 Time Spent (min) 30 Comment 20 minutes spent with patient and additional 10 minutes spent reviewing her records
== END 2024-10-02 14:59 | disposition home or self-care (01) ==
PROVIDERS: PCP Internal Medicine; Visit Provider Nurse Practitioner Family
DX: K59.01 Slow transit constipation (principal); K21.9 Gastro-esophageal reflux disease without esophagitis; R14.0 Abdominal distension (gaseous); D64.9 Anemia, unspecified; K62.5 Hemorrhage of anus and rectum
CPT/HCPCS: 99213

== ENCOUNTER → 2024-10-02 13:20 | Outpatient (BNVA) | payer OTHER, SELFPAY | PROVIDERS: PCP Internal Medicine; Visit Provider Nurse Practitioner Family | DX: K21.9 Gastro-esophageal reflux disease without esophagitis (principal); R11.0 Nausea; K59.01 Slow transit constipation; K62.5 Hemorrhage of anus and rectum; D64.9 Anemia, unspecified; R14.0 Abdominal distension (gaseous) | CPT/HCPCS: 99212 ==

== ENCOUNTER → 2024-10-30 09:03 | Outpatient (AMB) | payer OTHER, SELFPAY ==
--- NOTE | 2024-10-30 09:06 | AM.OFFVISNUR ---
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 She denies any problems/reactions from her first injection on 08/29/24. LMP 10/07/24. Pt tolerated injection well. She will wait 15 minutes in the waiting room and monitor for any reactions. Pt will schedule her last injection in 4 months. Pt verbalizes understanding and agrees with plan. No further questions. Immunizations Gardasil 9 (PF) 0.5 mL intramuscular suspension Performing Provider: Amaya Garay CNM Performing Location: [facility] Administered by: Dianna Hickey on 10/30/24 09:15 Dose Route Admin Location Dispensed Lot Number Expiration Date NDC Scarifier Operator 0.5 mL IM Left Deltoid 0.5 mL [id number] 10/07/25 5972-9515-50 [employer] D VIS Given Date VIS Provided VIS Publication Date 10/30/24 Single Vaccine 21 Eligibility Eligibility Date Funding Source Not [facility] Eligible 10/30/24 Private Assessment & Plan Assessment & Plan (1) Need for HPV vaccination: Code(s): Z23 - Encounter for immunization Category: Medical Orders: Orders Human Papillomavirus Immunization Today Z23 - Encounter for immunization Medications: New Gardasil 9 (PF) (human papillomav vac,9-sunshine(PF)) 0.5 mL IM ONCE 0.5 mL 0RF NS Z23 - Encounter for immunization Patient Instructions: Pt will schedule her last Gardasil injection in 4 months. Pt verbalizes understanding and agrees with plan. No further questions. Coding Level of Care Code Established Pt Est Pt Level 1 (15706) Patient Type Established History Problem Focused Medical Decision Making Straight Forward Diagnoses Need for HPV vaccination Z23 Time Spent (min) 15
== END | disposition home or self-care (01) ==
PROVIDERS: PCP Internal Medicine; Visit Provider Advanced Practice Midwife
DX: Z23 Encounter for immunization (principal)

== ENCOUNTER 2024-10-30 09:04 | Day surgery (SDC) | payer OTHER, SELFPAY ==
--- NOTE | 2024-10-29 10:04 | P.CONAN_ITS ---
HPI - Anesthesia Eval Consult details Narrative: 34yo F for Upper Endoscopy and Colonoscopy PMFSH Active Problems Active Problems: All Active Problems Encounter for well woman exam with routine gynecological exam (Acute) Moderate recurrent major depression (Acute) Neck muscle spasm (Acute) Physical exam (Acute) LGSIL on Pap smear of cervix (Acute) Encounter for screening examination for sexually transmitted disease (Acute) Foot pain (Acute) Obesity (BMI 30.0-34.9) (Acute) Back pain (Acute) Chronic pelvic peritonitis, female (Acute) Uterine fibroid (Acute Unknown) Abnormal uterine bleeding (AUB) (Acute) Stress incontinence (Acute) Ovarian cyst (Acute) Interstitial cystitis (Acute) Voiding dysfunction (Acute) Urinary incontinence (Acute) Urinary urgency (Acute) Right hip impingement syndrome (Acute) Tendonitis of right hip flexor (Acute) Myoma (Acute) Chronic GERD (Acute) Fibromyalgia (Acute) Microscopic hematuria (Acute) Pelvic pain (Acute) Fibromyalgia, primary (Acute) ART positive (Acute) Labral tear of right hip joint (Acute) Chronic right hip pain (Acute) Immunization due (Acute) Physical exam (Acute) Ruptured cyst of ovary (Acute) Right knee pain (Acute) Rash (Acute) Sacroiliac joint dysfunction of right side (Acute) Shoulder pain, left (Acute) Spondylosis of lumbosacral spine with radiculopathy (Acute) Disc degeneration, lumbar (Acute) Spondylosis of lumbar spine (Acute) Gastroesophageal reflux disease (Acute) Mild persistent asthma (Acute) Constipation by delayed colonic transit (Acute) Arthralgia (Acute) Traumatic ecchymosis of hip (Acute) Rash and nonspecific skin eruption (Acute) Sacroiliitis (Acute) Hip osteomyelitis, right (Acute) Sinusitis chronic, ethmoidal (Acute) Past Medical History Medical History (Updated 10/30/24 @ 09:04 by Dianna Hickey) Need for HPV vaccination LGSIL on Pap smear of cervix Chronic pelvic peritonitis, female Uterine fibroid (Unknown) Abnormal uterine bleeding (AUB) Rheumatoid arthritis Mild recurrent major depression Sacroiliac joint dysfunction of right side Spondylosis of lumbosacral spine with radiculopathy Disc degeneration, lumbar Spondylosis of lumbar spine Gastroesophageal reflux disease Mild persistent asthma Constipation by delayed colonic transit Arthralgia Insertion of implantable subdermal contraceptive Sacroiliitis Hip osteomyelitis, right Family History Family History Mother HTN (hypertension) Diabetes Arthritis Constipation Father No problems noted. Brother Crohn's disease Family history of problems with anesthesia: No Surgical History Surgical History History of sacroiliac joint dysfunction History of hip surgery History of (~2005) History of Problems with Anesthesia: No Social History Social History Household Members: Children Household Members Other:: lives with teenage son Housing: Apartment Are you a primary critical care nurse practitioner to a significant other at home: No Do you presently have visiting nurse or other home services: No Alcohol intake: never Patient Tobacco Use Status: Never used Tobacco e-Cigarette/Vaping Use: Never Used Second Hand Smoke Exposure: No service: No Current occupational status: disabled Sexual orientation: Straight/Heterosexual Cognitive needs: No Hearing needs: No Vision needs: Yes Meds Allergies Allergy/AdvReac Type Severity Reaction Status Date / Time gabapentin AdvReac Intermediate constipatio Verified 10/30/24 11:04 n Home Medications ?Medication ?Instructions ?Recorded ?Confirmed ?Last Taken ?Type cholecalciferol (vitamin D3) 25 25 mcg PO DAILY 09/28/23 10/30/24 Unknown History mcg (1,000 unit) capsule (Vitamin D3) ketoconazole 2 % shampoo 1 appl topical 2XW 09/28/23 10/30/24 Unknown History Assessment and Plan Assessment Anesthesia Assessment: Chart Reviewed Final Anesthetic Review Family History of Problems with Anesthesia: No History of Problems with Anesthesia: No
--- OUTSIDE RECORDS SUMMARY | 2024-10-30 09:58 | XMS_ITS | Clinical Summary ---
Author Organization [facility] Address [address] [place] [address] Phone Care Team Providers Care Acreage Reporter Name Role Phone Ceci Bowen MD Primary Care Provider [phone] Allergies Active Allergy Reactions Criticality Noted Date Comments Gabapentin 09/20/2024 Medications albuterol HFA (PROAIR HFA ; PROVENTIL HFA ; VENTOLIN HFA) 90 mcg/actuation inhaler Inhale 2 puffs by mouth every 6 (six) hours if needed for wheezing. Active DULoxetine (CYMBALTA) [address] capsule Take 1 capsule (60 mg total) by mouth 1 (one) time each day. Do not crush or chew. Active ketoconazole (NIZORAL) 2 % cream Apply topically 1 (one) time each day. Active magnesium citrate solution Take 148 mL by mouth 1 (one) time. Active loratadine (CLARITIN) 10 mg tablet Take 1 tablet (10 mg total) by mouth 1 (one) time each day. Active EPINEPHrine (ADRENALIN) 1 mg/mL nasal solution 0.3 mL (0.3 mg total) if needed. Active terbinafine (LamISIL) 250 mg tablet Take 1 tablet (250 mg total) by mouth 1 (one) time each day. 90 each 5 12/20/19 25 Active Active Problems Problem Noted Date Diagnosed Date Rheumatoid arthritis 09/20/2024 Mild recurrent major depression 09/20/2024 GERD (gastroesophageal reflux disease) 5 Arthralgia 09/20/2024 Encounters Date Type Department Care Team Description 09/20/2024 8:45 AM EST Consult Orthopedic Surgery [facility] [address] [place] [address] José Manuel Castillo, DPM Dermatophytosis of nail (Primary Dx); Tinea pedis of right foot from Last 3 Months Social History Tobacco Use Types Packs/Day Years Used Date Smoking Tobacco: Never Assessed Comments Unknown Sex and Gender Information Value Date Recorded Sex Assigned at Not on file Legal Sex Female 1:35 AM EST Gender Identity Not on file Sexual Orientation Not on file Last Filed Vital Signs Vital Sign Reading Time Taken Comments Blood Pressure - - Pulse - - Temperature - - Respiratory Rate - - Oxygen Saturation - - Inhaled Oxygen Concentration - - Weight 95 kg (209 lb 6.4 oz) 09/20/2024 8:25 AM EST Height 167.6 cm (5' 6 ) 09/20/2024 8:25 AM EST Body Mass Index 33.8 09/20/2024 8:25 AM EST Plan of Treatment Health Maintenance Due Date Last Done Comments Hepatitis B Vaccines (1 of 3 - 19+ 3-dose series) 01/21/2007 Cervical Cancer Screening: P ap Smear 01/21/2009 DTaP,Tdap,and Td Vaccines (2 - Td or Tdap) 01/20/2016 12/23/2015 COVID-19 Vaccine (2023-2 5 season) 2024 Influenza Vaccine (#1) 2024 Cholesterol Screening (Lipid Panel) 07/06/2024 Depression Screening 07/06/2024 HIV Screening 07/06/2024 Hepatitis C Screening 07/06/2024 Social Influencers of Health Screening 07/06/2024 HPV Vaccines (2 - 3-dose SCD M series) 09/26/2024 08/29/2024 HIB Vaccines Aged Out No longer eligi ble based on patient's age to complete this topic Hepatitis A Vaccines Aged Out No long er eligible based on patient's age to complete this topic IPV Vaccines Aged Out No longer eligi ble based on patient's age to complete this topic MMR Vaccines Aged Out No longer eligi ble based on patient's age to complete this topic Meningococcal ACWY Vaccine Aged Out N o longer eligible based on patient's age to complete this topic Meningococcal B Vacine Aged Out No lo nger eligible based on patient's age to complete this topic Pneumococcal Vaccine: Pediat rics (0 to 5 Years) and At-Risk Patients (6 to 64 Years) Aged Out No longer eligi ble based on patient's age to complete this topic RSV Immunization Patients Un stuart 20 months Aged Out No longer eligible b ased on patient's age to complete this topic Varicella Vaccines Aged Out No longer eligible based on patient's age to complete this topic [place] [address] [place] [address] PLAN Care Teams Acreage Reporter Relationship Specialty Start Date End Date Ceci Bowen MD [address] [place] [address] , [address] [facility] [place], [place] PCP - General 06/20/24
--- NOTE | 2024-10-30 10:33 | MHC.SHP ---
Pre-Procedural Eval Section A - 24 Hr Update-Section A only Date of Service: 10/30/24 The patient has been examined within 24 hours of the surgical procedure. The History & Physical has been completed within 30 days and I have reviewed it.: Yes Section B - Complete if H&P > 30 days Chief Complaint: abd pain, change in bowel habits Present Medications: see Short Stay Collaborative assessment Allergies: Allergies Allergy/AdvReac Type Severity Reaction Status Date / Time gabapentin AdvReac Intermediate constipatio Verified 10/02/24 13:22 n Review of Systems Review of Systems Comment: 10 point ROS negative Exam Exam Comment: Gen appear: No acute distress HEENT: no icterus Chest: No overt resp distress Abd: soft, nontender, nondistended Psych: Stable affect, answering questions appropriately Neuro: A/Ox3 noted to move all extremities spontaneously Ext: no peripheral edema Plan Diagnosis/Plan: Unchanged I have reviewed the history and physical and performed a pertinent physical examination on my patient. No changes have occurred unless specified. Time Spent With Patient Time: Total time managing care of this patient today ____ minutes.
[2024-10-30 10:41] LABS: UPreg QC Valid YES; Urine Pregnancy NEGATIVE (NEGATIVE)
[2024-10-30] MEDS: Lactated Ringers 1,000 ML 100 ML IVCONT (10:46)
[2024-10-30 10:47] VITALS: BP 138/86; PULSE 76; RESP 14; TEMP 36.7; O2SAT 100; BMI 32.3
--- NOTE | 2024-10-30 11:55 | HO.ANESPROP2 ---
[facility] Active Problems Active Problems: All Active Problems (Updated 10/30/24 @ 09:04 by Dianna Hickey) Need for HPV vaccination (Acute) Encounter for well woman exam with routine gynecological exam (Acute) Moderate recurrent major depression (Acute) Neck muscle spasm (Acute) Physical exam (Acute) LGSIL on Pap smear of cervix (Acute) Encounter for screening examination for sexually transmitted disease (Acute) Foot pain (Acute) Obesity (BMI 30.0-34.9) (Acute) Back pain (Acute) Chronic pelvic peritonitis, female (Acute) Uterine fibroid (Acute Unknown) Abnormal uterine bleeding (AUB) (Acute) Stress incontinence (Acute) Ovarian cyst (Acute) Interstitial cystitis (Acute) Voiding dysfunction (Acute) Urinary incontinence (Acute) Urinary urgency (Acute) Right hip impingement syndrome (Acute) Tendonitis of right hip flexor (Acute) Myoma (Acute) Chronic GERD (Acute) Fibromyalgia (Acute) Microscopic hematuria (Acute) Pelvic pain (Acute) Fibromyalgia, primary (Acute) RAT positive (Acute) Labral tear of right hip joint (Acute) Chronic right hip pain (Acute) Immunization due (Acute) Physical exam (Acute) Ruptured cyst of ovary (Acute) Right knee pain (Acute) Rash (Acute) Sacroiliac joint dysfunction of right side (Acute) Shoulder pain, left (Acute) Spondylosis of lumbosacral spine with radiculopathy (Acute) Disc degeneration, lumbar (Acute) Spondylosis of lumbar spine (Acute) Gastroesophageal reflux disease (Acute) Mild persistent asthma (Acute) Constipation by delayed colonic transit (Acute) Arthralgia (Acute) Traumatic ecchymosis of hip (Acute) Rash and nonspecific skin eruption (Acute) Sacroiliitis (Acute) Hip osteomyelitis, right (Acute) Sinusitis chronic, ethmoidal (Acute) Past Medical History Medical History (Updated 10/30/24 @ 09:04 by Dianna Hickey) Need for HPV vaccination LGSIL on Pap smear of cervix Chronic pelvic peritonitis, female Uterine fibroid (Unknown) Abnormal uterine bleeding (AUB) Rheumatoid arthritis Mild recurrent major depression Sacroiliac joint dysfunction of right side Spondylosis of lumbosacral spine with radiculopathy Disc degeneration, lumbar Spondylosis of lumbar spine Gastroesophageal reflux disease Mild persistent asthma Constipation by delayed colonic transit Arthralgia Insertion of implantable subdermal contraceptive Sacroiliitis Hip osteomyelitis, right Family History Family History Mother HTN (hypertension) Diabetes Arthritis Constipation Father No problems noted. Brother Crohn's disease Family history of problems with anesthesia: No Surgical History Surgical History History of sacroiliac joint dysfunction History of hip surgery History of (~2005) History of Problems with Anesthesia: No Social History Social History Household Members: Children Household Members Other:: lives with teenage son Housing: Apartment Are you a primary primary care physician to a significant other at home: No Do you presently have visiting nurse or other home services: No Alcohol intake: never Patient Tobacco Use Status: Never used Tobacco e-Cigarette/Vaping Use: Never Used Second Hand Smoke Exposure: No Use of substances other than those prescribed or required for medical reasons: No Have you been hit, kicked, punched, or otherwise hurt by someone within the past year? If so, by whom?: No Are you DNR?: No Advance Directives: No Advance Directives Information Provided: Yes Advance Directives on File: No Recently lost weight without trying: No Nutrition Risks: No Nutritional Risk Patient : No FDLMP: 10/18/2024 service: No Current occupational status: disabled Sexual orientation: Straight/Heterosexual Cognitive needs: No Hearing needs: No Vision needs: Yes Meds Allergies Allergy/AdvReac Type Severity Reaction Status Date / Time gabapentin AdvReac Intermediate constipatio Verified 10/30/24 11:04 n Active Medications: Current Medications Albuterol Sulfate (Albuterol Sulfate (0.083%) 2.5 Mg/3 Ml Vial.Neb) 2.5 mg INHALE ONCE PRN PRN Reason: Shortness of Breath/Wheezing Lactated Ringer's (Lr) 1,000 mls @ 100 mls/hr IVCONT .Q10H ANGELICA Last Admin: 10/30/24 10:46 Dose: 100 mls/hr Home Medications ?Medication ?Instructions ?Recorded ?Confirmed ?Last Taken ?Type ibuprofen 800 mg tablet 800 mg PO Q8H 08/06/20 10/30/24 Unknown History cholecalciferol (vitamin D3) 25 25 mcg PO DAILY 09/28/23 10/30/24 Unknown History mcg (1,000 unit) capsule (Vitamin D3) ketoconazole 2 % shampoo 1 appl topical 2XW 09/28/23 10/30/24 Unknown History Exam Height,Weight and Vital Signs: Height 5 ft 6 in Weight 90.718 kg Last Vital Signs Temp 98.1 F 10/30/24 10:47 Pulse 76 10/30/24 10:47 Resp 14 10/30/24 10:47 BP 138/86 10/30/24 10:47 Pulse Ox 100 10/30/24 10:47 O2 Del Method Room Air 10/30/24 10:47 Pertinent Lab Results Pertinent Lab Results: Laboratory Tests 10/30/24 10:30 Urine Test NEGATIVE Airway Mallampati Class: II TM Dist: >3cm Neck ROM: Full Heart: RRR Lungs: CTA Assessment and Plan Assessment Anesthesia Assessment: Anesthesia Plan Discussed and Chart Reviewed Final Anesthetic Review Family History of Problems with Anesthesia: No History of Problems with Anesthesia: No NPO: Yes ASA Class: II Patient Risk: Low Procedure Risk: Low Anesthetic Plan Anesthetic Plan: MAC: Disposition: Standard PACU
--- NOTE | 2024-10-30 12:33 | P.CONAN_ITS ---
[facility] Active Problems Active Problems: All Active Problems (Updated 10/30/24 @ 09:04 by Dianna Hickey) Need for HPV vaccination (Acute) Encounter for well woman exam with routine gynecological exam (Acute) Moderate recurrent major depression (Acute) Neck muscle spasm (Acute) Physical exam (Acute) LGSIL on Pap smear of cervix (Acute) Encounter for screening examination for sexually transmitted disease (Acute) Foot pain (Acute) Obesity (BMI 30.0-34.9) (Acute) Back pain (Acute) Chronic pelvic peritonitis, female (Acute) Uterine fibroid (Acute Unknown) Abnormal uterine bleeding (AUB) (Acute) Stress incontinence (Acute) Ovarian cyst (Acute) Interstitial cystitis (Acute) Voiding dysfunction (Acute) Urinary incontinence (Acute) Urinary urgency (Acute) Right hip impingement syndrome (Acute) Tendonitis of right hip flexor (Acute) Myoma (Acute) Chronic GERD (Acute) Fibromyalgia (Acute) Microscopic hematuria (Acute) Pelvic pain (Acute) Fibromyalgia, primary (Acute) ART positive (Acute) Labral tear of right hip joint (Acute) Chronic right hip pain (Acute) Immunization due (Acute) Physical exam (Acute) Ruptured cyst of ovary (Acute) Right knee pain (Acute) Rash (Acute) Sacroiliac joint dysfunction of right side (Acute) Shoulder pain, left (Acute) Spondylosis of lumbosacral spine with radiculopathy (Acute) Disc degeneration, lumbar (Acute) Spondylosis of lumbar spine (Acute) Gastroesophageal reflux disease (Acute) Mild persistent asthma (Acute) Constipation by delayed colonic transit (Acute) Arthralgia (Acute) Traumatic ecchymosis of hip (Acute) Rash and nonspecific skin eruption (Acute) Sacroiliitis (Acute) Hip osteomyelitis, right (Acute) Sinusitis chronic, ethmoidal (Acute) Past Medical History Medical History (Updated 10/30/24 @ 09:04 by Dianna Hickey) Need for HPV vaccination LGSIL on Pap smear of cervix Chronic pelvic peritonitis, female Uterine fibroid (Unknown) Abnormal uterine bleeding (AUB) Rheumatoid arthritis Mild recurrent major depression Sacroiliac joint dysfunction of right side Spondylosis of lumbosacral spine with radiculopathy Disc degeneration, lumbar Spondylosis of lumbar spine Gastroesophageal reflux disease Mild persistent asthma Constipation by delayed colonic transit Arthralgia Insertion of implantable subdermal contraceptive Sacroiliitis Hip osteomyelitis, right Family History Family History Mother HTN (hypertension) Diabetes Arthritis Constipation Father No problems noted. Brother Crohn's disease Family history of problems with anesthesia: No Surgical History Surgical History History of sacroiliac joint dysfunction History of hip surgery History of (~2005) History of Problems with Anesthesia: No Social History Social History Household Members: Children Household Members Other:: lives with teenage son Housing: Apartment Are you a primary physician primary care sports medicine to a significant other at home: No Do you presently have visiting nurse or other home services: No Alcohol intake: never Patient Tobacco Use Status: Never used Tobacco e-Cigarette/Vaping Use: Never Used Second Hand Smoke Exposure: No Use of substances other than those prescribed or required for medical reasons: No Have you been hit, kicked, punched, or otherwise hurt by someone within the past year? If so, by whom?: No Are you DNR?: No Advance Directives: No Advance Directives Information Provided: Yes Advance Directives on File: No Recently lost weight without trying: No Nutrition Risks: No Nutritional Risk Patient : No FDLMP: 10/18/2024 service: No Current occupational status: disabled Sexual orientation: Straight/Heterosexual Cognitive needs: No Hearing needs: No Vision needs: Yes Meds Allergies Allergy/AdvReac Type Severity Reaction Status Date / Time gabapentin AdvReac Intermediate constipatio Verified 10/30/24 11:04 n Active Medications: Current Medications Albuterol Sulfate (Albuterol Sulfate (0.083%) 2.5 Mg/3 Ml Vial.Neb) 2.5 mg IN [place] ONCE PRN PRN Reason: Shortness of Breath/Wheezing Lactated Ringer's (Lr) 1,000 mls @ 100 mls/hr IVCONT .Q10H ANGELICA Last Admin: 10/30/24 10:46 Dose: 100 mls/hr Naloxone HCl (Naloxone Hcl 0.4 Mg/Ml Vial) 0.04 mg IVPUSH Q5M PRN PRN Reason: Excessive sedation or RR < 8 Home Medications ?Medication ?Instructions ?Recorded ?Confirmed ?Last Taken ?Type ibuprofen 800 mg tablet 800 mg PO Q8H 08/06/20 10/30/24 Unknown History cholecalciferol (vitamin D3) 25 25 mcg PO DAILY 09/28/23 10/30/24 Unknown History mcg (1,000 unit) capsule (Vitamin D3) ketoconazole 2 % shampoo 1 appl topical 2XW 09/28/23 10/30/24 Unknown History Exam Height,Weight and Vital Signs: Height 5 ft 6 in Weight 90.718 kg Last Vital Signs Temp 98.1 F 10/30/24 10:47 Pulse 76 10/30/24 10:47 Resp 14 10/30/24 10:47 BP 138/86 10/30/24 10:47 Pulse Ox 100 10/30/24 10:47 O2 Del Method Room Air 10/30/24 10:47 Pertinent Lab Results Pertinent Lab Results: Laboratory Tests 10/30/24 10:30 Urine Test NEGATIVE Airway Mallampati Class: II TM Dist: >3cm Neck ROM: Full Heart: RRR Lungs: CTA Assessment and Plan Assessment Anesthesia Assessment: Anesthesia Plan Discussed and Chart Reviewed Final Anesthetic Review Family History of Problems with Anesthesia: No History of Problems with Anesthesia: No NPO: Yes Final Preanesthetic Review: Meds/Allgs Chart Reviewed, Consent Obtained/Reviewed and Anes Risks/Benef Reviewed Patient Risk: Low Procedure Risk: Low Anesthetic Plan Anesthetic Plan: MAC: Disposition: Standard PACU
[2024-10-30 12:40] VITALS: BP 145/89; PULSE 84; RESP 16; TEMP 36.9; O2SAT 100
--- NOTE | 2024-10-30 12:47 | P.OPN-COLO_ITS ---
Colonoscopy Operative Note Operative Note Date of Service: 10/30/24 Narrative: Procedure: Upper endoscopy and colonoscopy Indication: Epigastric pain, change in bowel habits Endoscopist: Johana Vuong MD Anesthesia Provider: Dr Tosin Iraheta Anesthesia type: MAC Instrument: [id number] and [id number] EGD Procedure:?? The procedure, indications, preparation and potential complications were reviewed with the patient, who indicated understanding and gave written informed consent to proceed. The endoscope was introduced through the mouth, and advanced to the 2nd part of the duodenum. The mucosa was carefully examined on slow withdrawal of the endoscope. The patient tolerated the procedure well. There were no immediate complications.? EGD Findings:? * Esophagus:? Normal esophageal mucosa was noted. The Z-line was at 38 cm. * Stomach:? Erythema and erosions in the body and antrum. Retroflexion was performed in the cardia. Random cold forceps biopsies were taken from the stomach. * Duodenum:? Edema erythema and erosions in the duodenal bulb. Cold forceps bi opsies were taken from the duodenal bulb and 2nd portion of the duodenum to rule out celiac sprue. Colonoscopy Procedure:? The patient was then turned for the colonoscopy. A digital rectal exam was performed which was normal.? A distal attachment cap was affixed to the tip of the scope and the colonoscope was then inserted through the anus and advanced through the colon and advanced to the cecum at 70 cm and terminal ileum.? Appendiceal orifice and ileocecal valve were identified. Mucosa was carefully examined under high definition white light as the instrument was slowly withdrawn in a retrograde panoramic fashion. Retroflexion was performed in rectum. The procedure was not difficult. The quality of the prep was BBPS: 2+3+2 = adequate Withdrawal time 9 minutes Limitations: No limitations Findings: Mucosa: Normal colon and terminal ileum mucosa. Protruding lesions: * 1 sessile polyp of size 5 mm in the descending colon. Cold snare polypectomy was performed. The polyp was completely removed and retrieved. * Small internal hemorrhoids without stigmata of recent bleeding. Impression: 1. Normal esophagus 2. Gastritis (biopsy) 3. Duodenitis (biopsy) 4. Normal colon and terminal ileum mucosa 5. 1 polyp removed 6. Internal hemorrhoids Recommendations:?? * Follow-up path results * Avoid NSAIDs * Continue PPI * H Pylori treatment if biopsies + * Repeat colonoscopy for CRC screening in 7-10 years depending on results of the polyp.
[2024-10-30 12:56] VITALS: BP 123/65; PULSE 80; RESP 18; TEMP 36.6; O2SAT 100
== END 2024-10-30 14:47 | disposition home or self-care (01) ==
PROVIDERS: Nurse Practitioner; PCP Internal Medicine; Visit Provider Internal Medicine
PROC: (CPT 43239; principal; 2024-10-30 11:50)
DX: D12.4 Benign neoplasm of descending colon (principal); K64.8 Other hemorrhoids; K59.01 Slow transit constipation; K29.70 Gastritis, unspecified, without bleeding; K29.80 Duodenitis without bleeding; K21.9 Gastro-esophageal reflux disease without esophagitis; D64.9 Anemia, unspecified; J45.30 Mild persistent asthma, uncomplicated; Z23 Encounter for immunization; Z79.899 Other long term (current) drug therapy
CPT/HCPCS: 43239; 45385; 81025; 88305; 88313; 88342; 90471; 90651; 99211; J2003; J2704

== ENCOUNTER → 2024-10-30 09:04 | Outpatient (BNV) | payer OTHER, SELFPAY | PROVIDERS: PCP Internal Medicine; Visit Provider Internal Medicine | DX: R19.4 Change in bowel habit (principal); D12.4 Benign neoplasm of descending colon; K64.8 Other hemorrhoids; K29.80 Duodenitis without bleeding; K29.70 Gastritis, unspecified, without bleeding | CPT/HCPCS: 43239; 45385 ==

== ENCOUNTER 2024-11-21 09:37 | Outpatient (REF) | payer OTHER, SELFPAY ==
[2024-11-21 11:50] LABS: Hematocrit 39.3 % (37.0-47.0); Hemoglobin 13.1 g/dl (12.0-16.0); Mean Corpuscular HGB Conc 33.3 g/dl (31.0-35.0); Mean Corpuscular Hemoglobin 30.8 pg (27.0-33.0); Mean Corpuscular Volume 92.5 fL (80.0-98.0); Platelet Count 324 X10*3/uL (160-400); Red Blood Count 4.25 X10*6/uL (4.20-5.50); Red Cell Distribution Width 11.8 % (11.0-16.0); White Blood Count 5.8 X10*3/uL (4.8-10.8)
--- OUTSIDE RECORDS SUMMARY | 2024-11-21 12:08 | XMS_ITS | Clinical Summary ---
Author Organization 175 [facility] Address 175 [place] [address] Phone Care Team Providers Care Photo Cartographer Name Role Phone Ceci Bowen MD Primary Care Provider [phone] Allergies Active Allergy Reactions Criticality Noted Date [...] 09/20/2024 8:45 AM EST Consult Orthopedic Surgery [facility] [address] [place] [address] José Manuel Castillo, DPM Dermatophytosis [...] Upcoming Encounters Date Type Department Care Team ([facility] st Contact Info) Description 12/04/2024 1:30 PM EDT Office Visit Orthopedic Surgery - [place] [address] [address] José Manuel Castillo, KELLE [address] [address] Health Maintenance Due Date Last Done Comments [...] complete this topic Insurance PLAN Care Teams Photo Cartographer Relationship Specialty Start Date End Date Ceci Bowen MD [address] [place] [address] , [address] [facility] D/B/A: [facility] [place], [place] PCP - General 06/20/24
== END 2024-11-21 09:38 | disposition home or self-care (01) ==
LOC: HO.LAB 09:37
PROVIDERS: PCP Internal Medicine; Visit Provider Advanced Practice Midwife
DX: N93.9 Abnormal uterine and vaginal bleeding, unspecified (principal); N92.1 Excessive and frequent menstruation with irregular cycle; D21.9 Benign neoplasm of connective and other soft tissue, unspecified; R10.2 Pelvic and perineal pain; G89.29 Other chronic pain
CPT/HCPCS: 36415; 84443; 85027; 99212

== ENCOUNTER 2024-11-21 09:37 | Outpatient (AMB) | payer OTHER, SELFPAY ==
--- NOTE | 2024-11-21 09:46 | MHC.OFFVIS ---
Vital Signs 11/21/24 09:51 Height 5 ft 6 in Weight 203 lb BMI 32.8 BP 102/66 Intake Visit Reasons: U/S follow up/JAC[facility] for [facility] Consult needed Lubricator Granulator: Lubricator Granulator Present Allergies gabapentin Adverse Reaction (Intermediate, Verified 11/21/24 09:47) constipation Is last menstrual period known: Yes Last menstrual period: 11/11/24 HPI Comments Details: Patient is here today for a follow up pelvic ultrasound, history of abnormal uterine bleeding, fibroids, Essure coil and chronic pelvic pain. She reports she has been attempting to get an appointment at [facility] since 2022. Currently cycling every 20 days, heavy w/ cramping/clots 2/4 days of the bleeding. Appears uncomfortable today as she has a an injury to her coccyx and has difficulty sitting. [facility] Medical History Chronic pelvic pain in female Fibroid Need for HPV vaccination LGSIL on Pap smear of cervix Chronic pelvic peritonitis, female Uterine fibroid (Unknown) Abnormal uterine bleeding (AUB) Rheumatoid arthritis Mild recurrent major depression Sacroiliac joint dysfunction of right side Spondylosis of lumbosacral spine with radiculopathy Disc degeneration, lumbar Spondylosis of lumbar spine Gastroesophageal reflux disease Mild persistent asthma Constipation by delayed colonic transit Arthralgia Insertion of implantable subdermal contraceptive Sacroiliitis Hip osteomyelitis, right Surgical History History of sacroiliac joint dysfunction History of hip surgery History of (~2005) Family History Mother HTN (hypertension) Diabetes Arthritis Constipation Father No problems noted. Brother Crohn's disease Social History Household Members: Children Household Members Other:: lives with teenage son Housing: Apartment Are you a primary small animal caretaker to a significant other at home: No Do you presently have visiting nurse or other home services: No Alcohol intake: never Patient Tobacco Use Status: Never used Tobacco e-Cigarette/Vaping Use: Never Used Second Hand Smoke Exposure: No service: No Current occupational status: disabled Sexual orientation: Straight/Heterosexual Cognitive needs: No Hearing needs: No Vision needs: Yes Female Reproductive History Menstrual Age of Menarche: 12 Date of last menstrual period: 11/11/24 Review of Systems Const All systems reviewed & are unremarkable except as noted in HPI and below Endo Reports no additional complaints Physical Exam Vital Signs: Last Vital Signs BP 102/66 11/21/24 09:51 BMI result Body Mass Index 32.8 Const General: cooperative, healthy appearing and no acute distress Psych Appearance: well kempt Attitude: cooperative Thought process: Normal thought process present Assessment & Plan Assessment & Plan (1) Abnormal uterine bleeding (AUB): Code(s): N93.9 - Abnormal uterine and vaginal bleeding, unspecified Category: Medical Plan: Update lab work for CBC and TSH today. Follow up pending results. Call if excessive prolonged bleeding or any other concerns. (2) Fibroid: Code(s): D21.9 - Benign neoplasm of connective and other soft tissue, unspecified Category: Medical Plan: Discussed ultrasound results fibroids increased in size. Plan referral to [facility] for further evaluation and treatment, referral placed today. (3) Chronic pelvic pain in female: Code(s): R10.2 - Pelvic and perineal pain; G89.29 - Other chronic pain Category: Medical Plan: Plan of care is the referral to [facility] for evaluation and treatment. Plan The patient expressed understanding and agreement with the plan of care. All of her questions and concerns were addressed to the best of my ability. This note is constructed using voice recognition software. While every effort has been made to ensure accuracy, fiberglass roller errors may have been included. Orders: Orders Complete Blood Count no Diff Today N93.9 - Abnormal uterine and vaginal bleeding, unspecified Thyroid Stimulating Hormone Today N92.1 - Excessive and frequent menstruation with irregular cycle Coding Level of Care Code Est Pt Level 3 (17637) Diagnoses Abnormal uterine bleeding (AUB) N93.9 Fibroid D21.9 Chronic pelvic pain in female R10.2; G89.29
[2024-11-21 09:51] VITALS: BP 102/66; BMI 32.8
--- OUTSIDE RECORDS SUMMARY | 2024-11-21 10:55 | XMS_ITS | Clinical Summary ---
Author Organization 175 [facility] Address 175 [place] [address] Phone Care Team Providers Care Hardwood Floor Finisher Name Role Phone Ceci Bowen MD Primary Care Provider [phone] Allergies Active Allergy Reactions Criticality Noted Date [...] 09/20/2024 8:45 AM EST Consult Orthopedic Surgery [facility] [address] [place] [address] José Manuel Castillo, DPM Dermatophytosis [...] 09/20/2024 8:25 AM EST Plan of Treatment Upcoming Encounters Date Type Department Care Team ([facility] st Contact Info) Description 12/04/2024 1:30 PM EDT Office Visit Orthopedic Surgery - [place] [address] [address] José Manuel Castillo, KELLE [address] [address] Health Maintenance Due Date Last Done Comments Hepatitis B Vaccines (1 of 3 - 19+ 3-dose series) 01/21/2007 Cervical Cancer Screening: P ap Smear 01/21/2009 COVID-19 Vaccine (2023-2 5 season) 2024 Influenza Vaccine (#1) 2024 Cholesterol Screening (Lipid Panel) 07/06/2024 Depression Screening 07/06/2024 HIV Screening 07/06/2024 Hepatitis C Screening 07/06/2024 Social Influencers of Health Screening 07/06/2024 HPV Vaccines (2 - 3-dose SCD M series) 09/26/2024 08/29/2024 DTaP,Tdap,and Td Vaccines (2 - Td or Tdap) 12/22/2025 12/23/2015 HIB Vaccines Aged Out No longer eligi [...] patient's age to complete this topic Insurance PLAN Care Teams Hardwood Floor Finisher Relationship Specialty Start Date End Date Ceci Bowen MD [address] [place] [address] , [address] [facility] D/B/A: [facility] [place], [place] PCP - General 06/20/24
== END 2024-11-21 10:09 | disposition home or self-care (01) ==
LOC: HO.HWS 09:37
PROVIDERS: PCP Internal Medicine; Visit Provider Advanced Practice Midwife
DX: N93.9 Abnormal uterine and vaginal bleeding, unspecified (principal); D21.9 Benign neoplasm of connective and other soft tissue, unspecified; R10.2 Pelvic and perineal pain; G89.29 Other chronic pain
CPT/HCPCS: 99213

== ENCOUNTER 2024-11-22 13:44 | Outpatient (REF) | payer OTHER, SELFPAY ==
[2024-11-22 14:54] LABS: Appearance Urine Clear; Color Urine Dark Yellow; Glucose Urine UA Negative (Negative); Leukocyte Esterase Urine Negative (Negative); Nitrite Urine Negative (Negative); PH 5.5 (5.0-9.0); Specific Gravity - Urine 1.025 (1.005-1.025); UMIC TRIGGER UACC YES; Urine Blood Moderate (2+) (Negative); Urine Ketones Negative (Negative); Urine Protein Trace mg/dL (Neg-Trace)
[2024-11-22 14:57] LABS: Bacteria Urine 2+ (None Seen); UACC Culture Trigger YES
--- OUTSIDE RECORDS SUMMARY | 2024-11-22 16:42 | XMS_ITS | Clinical Summary ---
Author Organization 175 [facility] Address 175 [place] [address] Phone Care Team Providers Care Tent Finisher Name Role Phone Ceci Bowen MD Primary Care Provider [phone] Allergies Active Allergy Reactions Criticality Noted Date [...] 09/20/2024 8:45 AM EST Consult Orthopedic Surgery [facility] [address] [place] [address] José Manuel Castillo, DPM Dermatophytosis [...] Upcoming Encounters Date Type Department Care Team ([facility] st Contact Info) Description 12/04/2024 1:30 PM EDT Office Visit Orthopedic Surgery - [place] [address] [address] José Manuel Castillo, KELLE [address] [address] Health Maintenance Due Date Last Done Comments [...] complete this topic Insurance PLAN Care Teams Tent Finisher Relationship Specialty Start Date End Date Ceci Bowen MD [address] [place] [address] , [address] [facility] D/B/A: [facility] [place], [place] PCP - General 06/20/24
== END 2024-11-22 13:45 | disposition home or self-care (01) ==
LOC: HO.LAB 13:44
PROVIDERS: PCP Internal Medicine; Visit Provider Internal Medicine
DX: R30.0 Dysuria (principal)
CPT/HCPCS: 81001; 87086

== ENCOUNTER 2024-12-07 16:31 | Outpatient (AMB) | payer OTHER, SELFPAY ==
--- NOTE | 2024-12-07 16:32 | A.OFFVIS_ITS ---
Vital Signs 12/07/24 16:38 Height 5 ft 6 in BP 138/80 Blood Pressure Location Rt brachial Position Sitting Pulse 84 Pulse Source Pulse Oximeter Pulse Oximetry (%) 100 Oxygen Delivery Method Room Air Intake Visit Reasons: FUV + s/p duo Intake Note: ESTABLISHED PATIENT s/p duo w/ BZ Changes/concerns? C/O generalized abd pain intermittently, seemingly dependent on certain foods. Pt reports the pain has a burning type quality to it. No additional concerns at this time. Senior Software Tester Required: No Accompanied by: Self / Same As Patient Allergies gabapentin Adverse Reaction (Intermediate, Verified 12/07/24 16:33) constipation HPI HPI FUV + s/p duo: Details: LAST VISIT: Constipation by delayed colonic transit Gastroesophageal reflux disease Postprandial abdominal bloating Anemia Rectal bleed Plan Patient has procedure scheduled in October and follow-up appointment after procedure. Patient continues to have epigastric pain postprandially, worse at night time. Will send her script for sucralfate and stop famotidine. Patient will be sent for upper endoscopy to rule out gastritis, duodenitis, esophagitis, gastric or peptic ulcers. Patient will continue to take Motegrity daily. Patient may take Dulcolax as needed. Patient was also encouraged to increase fluid intake and activity to promote better bowel motility. Patient will be sent for colonoscopy. History of anemia as well as change in bowel pattern, worsening constipation. What to expect before during and after procedure discussed with patient. Stressed the importance of good bowel prep day before procedure. Patient is agreeable to current plan of care and verbalizes understanding of instructions. She was given the opportunity to ask questions and all questions answered. ? Thank you for allowing me to participate in her care Medications New polyethylene glycol 3350 (Miralax) As directed by gastroenterology department at [facility] 238 grams PO ONCE 238 grams 0RF Z12.11 sucralfate 10 mL PO BEDTIME 400 mL 3RF K21.9 Discontinued famotidine (Pepcid) Discontinued Reason: Doctor's Order 20 mg PO BEDTIME 30 tabs 3RF K21.9 ENDOSCOPY AND COLONOSCOPY EGD Findings:? * Esophagus:? Normal esophageal mucosa was noted. The Z-line was at 38 cm. * Stomach:? Erythema and erosions in the body and antrum. Retroflexion was performed in the cardia. Random cold forceps biopsies were taken from the stomach. * Duodenum:? Edema erythema and erosions in the duodenal bulb. Cold forceps biopsies were taken from the duodenal bulb and 2nd portion of the duodenum to rule out celiac sprue. Colonoscopy Procedure:? The patient was then turned for the colonoscopy. A digital rectal exam was performed which was normal.? A distal attachment cap was affixed to the tip of the scope and the colonoscope was then inserted through the anus and advanced through the colon and advanced to the cecum at 70 cm and terminal ileum.? Appendiceal orifice and ileocecal valve were identified. Mucosa was carefully examined under high definition white light as the instrument was slowly withdrawn in a retrograde panoramic fashion. Retroflexion was performed in rectum. The procedure was not difficult. The quality of the prep was BBPS: 2+3+2 = adequate Withdrawal time 9 minutes Limitations: No limitations Findings: Mucosa: Normal colon and terminal ileum mucosa. Protruding lesions: * 1 sessile polyp of size 5 mm in the descending colon. Cold snare polypectomy was performed. The polyp was completely removed and retrieved. * Small internal hemorrhoids without stigmata of recent bleeding. Impression: 1. Normal esophagus 2. Gastritis (biopsy) 3. Duodenitis (biopsy) 4. Normal colon and terminal ileum mucosa 5. 1 polyp removed 6. Internal hemorrhoids Recommendations:?? * Follow-up path results * Avoid NSAIDs * Continue PPI * H Pylori treatment if biopsies + * Repeat colonoscopy for CRC screening in 7-10 years depending on results of the polyp. PATHOLOGY: Diagnosis A. Duodenum, biopsy: Duodenal mucosa within normal limits. B. Stomach, random, biopsy: Antral-type and oxyntic mucosa with mild chronic inactive inflammation; no Helicobacter organisms seen. C. Colon, descending, polypectomy: Tubular adenoma; negative for high-grade dysplasia or carcinoma TODAY'S VISIT Patient is here today for follow-up and to discuss upper endoscopy and colonoscopy results. Patient reports to be feeling fairly well. Able to move her bowels better. Patient reports that she takes Motegrity in the evening and Dulcolax in the morning. Moves her bowels almost every day. Acid reflux suppressed with pantoprazole. Occasional epigastric burning depending on what she eats and bloating. Patient still is trying to adjust to what food can cause it. Patient states that she started eating couple prunes in the morning and able to move her bowels better. Patient does admit that she does eat beans and realizes that she is bloated because of that. Patient reports that she is trying to drink water, however unsure if she drinks enough water. Patient reports that she takes sucralfate at bedtime and feels like this helps her. Avoids eating late at night. Results from upper endoscopy and colonoscopy discussed with patient. One tubular adenoma found without high-grade dysplasia or carcinoma. Duodenal mucosa within normal limits and mild chronic inactive inflammation without H pylori seen. [facility] Medical History (Updated 12/07/24 @ 19:52 by Mer Vincent, [facility]) Tubular adenoma of colon Chronic pelvic pain in female Fibroid Need for HPV vaccination LGSIL on Pap smear of cervix Chronic pelvic peritonitis, female Uterine fibroid (Unknown) Abnormal uterine bleeding (AUB) Rheumatoid arthritis Mild recurrent major depression Sacroiliac joint dysfunction of right side Spondylosis of lumbosacral spine with radiculopathy Disc degeneration, lumbar Spondylosis of lumbar spine Gastroesophageal reflux disease Mild persistent asthma Constipation by delayed colonic transit Arthralgia Insertion of implantable subdermal contraceptive Sacroiliitis Hip osteomyelitis, right Surgical History History of sacroiliac joint dysfunction History of hip surgery History of (~2005) Family History Mother HTN (hypertension) Diabetes Arthritis Constipation Father No problems noted. Brother Crohn's disease Social History Household Members: Children Household Members Other:: lives with teenage son Housing: Apartment Are you a primary director of critical care to a significant other at home: No Do you presently have visiting nurse or other home services: No Alcohol intake: never Patient Tobacco Use Status: Never used Tobacco e-Cigarette/Vaping Use: Never Used Second Hand Smoke Exposure: No service: No Current occupational status: disabled Sexual orientation: Straight/Heterosexual Cognitive needs: No Hearing needs: No Vision needs: Yes Female Reproductive History Menstrual Age of Menarche: 12 Review of Systems Const Denies weight gain and Denies weight loss ENT Reports no additional complaints, Denies dysphagia and Denies odynophagia Card Reports no additional complaints Resp Reports no additional complaints GI Reports abdominal pain, Denies belching, Denies melena, Reports bloating, Denies change in bowel habits, Reports constipation, Denies dysphagia, Denies excessive flatus, Denies dyspepsia, Reports heartburn (occasional), Denies diarrhea, Denies loose stools, Denies nausea, Denies odynophagia and Denies vomiting Reports no additional complaints Musc Reports no additional complaints Neuro Reports no additional complaints Psych Reports no additional complaints Endo Reports no additional complaints Physical Exam Vital Signs: Last Vital Signs Pulse 84 12/07/24 16:38 BP 138/80 12/07/24 16:38 Pulse Ox 100 12/07/24 16:38 Oxygen Delivery Method Room Air 12/07/24 16:38 Const General: cooperative, healthy appearing and no acute distress Nutritional Appearance: obese Orientation/consciousness: patient oriented x3 Resp Effort & Inspection: normal respiratory effort, able to speak in complete sentences, no tracheal deviation and symmetric chest movement Auscultation: clear to auscultation bilaterally Cardio Rate: regular rate GI Inspection: Yes normal to inspection and Yes obesity Palpation (GI): Soft to palpation and Other GI palpation findings present (Nontender) Auscultation: normal bowel sounds Rectal Exam - Female: visual inspection normal General: Yes bladder normal to palpation and Yes no CVA tenderness External Female Exam: normal appearance of the urethra Speculum Exam - Vagina: normal appearance of the vagina, normal palpation and normal vaginal discharge Speculum Exam - Cervix: normal appearance of the cervix and normal palpation Bimanual exam- vagina & uterus: normal bimanual exam, normal palpation, uterine size normal, bladder normal to palpation, normal palpation, uterine shape normal and non-tender Bimanual Exam- Adnexa, other: normal adnexae Back/Spine/Pelvis Back: no CVA tenderness Skin General skin exam: elasticity normal, turgor normal and dry skin Neuro General: patient oriented x3 Psych Appearance: grossly normal Mental Status: mental status grossly normal Assessment & Plan Assessment & Plan (1) Constipation by delayed colonic transit: Code(s): K59.01 - Slow transit constipation Category: Medical (2) Gastroesophageal reflux disease: Code(s): K21.9 - Gastro-esophageal reflux disease without esophagitis Category: Medical Qualifiers: Esophagitis presence: esophagitis presence not specified Qualified Code(s): K21.9 - Gastro-esophageal reflux disease without esophagitis (3) Tubular adenoma of colon: Code(s): D12.6 - Benign neoplasm of colon, unspecified Category: Medical (4) Postprandial abdominal bloating: Code(s): R14.0 - Abdominal distension (gaseous) (5) Anemia: Code(s): D64.9 - Anemia, unspecified Qualifiers: Anemia type: iron deficiency Iron deficiency anemia type: inadequate dietary iron intake Qualified Code(s): D50.8 - Other iron deficiency anemias (6) Rectal bleed: Code(s): K62.5 - Hemorrhage of anus and rectum Plan Patient will continue taking pantoprazole in the morning and sucralfate at bedtime. Avoid dietary triggers and late night snacking. Staying upright for minimum 3 hours after meals discussed with patient. Continue Motegrity and Dulcolax. Increase fluid intake and activity to promote better bowel motility. Follow-up in 6 months, sooner on as needed basis. Patient is agreeable to this plan and verbalizes understanding of instructions. She was given the opportunity to ask questions and all questions answered. Thank you for allowing me to participate in her care Medications: Refilled prucalopride (Motegrity) 2 mg PO DAILY 90 tabs 2RF K59.04 - Chronic idiopathic constipation ondansetron 4 mg PO Q8H PRN 30 tabs 0RF for nausea/vomiting sucralfate 10 mL PO BEDTIME 400 mL 3RF K21.9 - Gastro-esophageal reflux disease without esophagitis pantoprazole take one tablet half an hour before breakfast 40 mg PO DAILY 90 tabs 2RF K21.9 - Gastro-esophageal reflux disease without esophagitis loratadine 10 mg PO DAILY PRN 30 tabs 1RF allergy symptoms Coding Level of Care Code Est Pt Level 4 (79308) Complex EM visit Add On G2211 Diagnoses Constipation by delayed colonic transit K59.01 Gastroesophageal reflux disease, unspecified whether esophagitis present K21.9 Esophagitis presence: esophagitis presence not specified Tubular adenoma of colon D12.6 Postprandial abdominal bloating R14.0 Iron deficiency anemia secondary to inadequate dietary iron intake D50.8 Anemia type: iron deficiency Iron deficiency anemia type: inadequate dietary iron intake Rectal bleed K62.5 Time Spent (min) 35 Comment 25 minutes spent with patient and additional 10 minutes spent reviewing her records
[2024-12-07 16:38] VITALS: BP 138/80; PULSE 84; O2SAT 100
--- OUTSIDE RECORDS SUMMARY | 2024-12-07 17:37 | XMS_ITS | Encounter Summary ---
Author Organization [employer] Address [address] [place] [address] Care Team Providers Care Senior C Software Developer Name Role Phone Ceci Bowen MD Primary Care Provider [phone] Reason for Visit * Reason Comments Follow-up Right foot pain Encounter Details Date Type Department Care Team (Late st Contact Info) Description 12/04/2024 1:30 PM EDT Office Visit Orthopedic Surgery - [place] [address] [phone] José Manuel Castillo DPM [address] [address] Dermatophytosis of nail (Primary Dx); Tinea pedis of right foot Social History Tobacco Use Types Packs/Day Years Used Date Smoking Tobacco: Never Assessed Comments Unknown Sex and Gender Information Value Date Recorded Sex Assigned at Not on file Legal Sex Female 1:35 AM EST Gender Identity Not on file Sexual Orientation Not on file documented as of this encounter Last Filed Vital Signs Vital Sign Reading Time Taken Comments Blood Pressure - - Pulse - - Temperature - - Respiratory Rate - - Oxygen Saturation - - Inhaled Oxygen Concentration - - Weight 94.8 kg (209 lb) 12/04/2024 1:34 PM EDT Height 167.6 cm (5' 5.98 ) 12/04/2024 1:34 PM ED T Body Mass Index 33.75 12/04/2024 1:34 PM EDT documented in this encounter Ordered Prescriptions Prescription Sig Dispense Quantity Refills Last Filled Start Date End Date clotrimazole (LOTRIMIN) 1 % external solution Apply topically once every eight weeks. 30 mL 2 12/04/2024 documented in this encounter Progress Notes * José Manuel Castillo DPM - 12/04/2024 1:30 PM EDT S Presents today complaint nail discoloration right second toe she states she tried different topicalmedications no improvement very frustrated at this time states she is trying ketoconazole cream shestates she did see an outside machine splitter who retired subsequently was referred to our office for evaluation patient states she has been taking all medication as prescribed with some improvement of her nails ROS: GENERAL: Pt denies nausea, fever, vomiting, chills, or shortness of breath. Pt in NAD. CARDIOLOGY: pt denies chest pain, palpitations LUNGS: pt denies shortness of breath MUSCULOSKELETAL: See HPI, otherwise no joint pain or swelling, back pain, or muscle pain. SKIN: see HPI, otherwise no lesions, rash or itching NEURO: No persistent headache, weakness or numbness The remainder of the review of systems is noncontributory PAST MEDICAL HISTORY: Patient Active Problem List Diagnosis Rheumatoid arthritis (CMS/HCC) Mild recurrent major depression (CMS/[facility]) GERD (gastroesophageal reflux disease) Arthralgia SOCIAL HISTORY: Social History Tobacco Use Smoking status: Not on file Smokeless tobacco: Not on file Substance Use Topics Alcohol use: Not on file ACTIVE MEDICATIONS: No outpatient medications have been marked as taking for the 12/04/24 encounter (Office Visit) with José Manuel Castillo DPM. ALLERGIES: Allergies Allergen Reactions Gabapentin PHYSICAL EXAM: Visit Vitals Ht 1.676 m (65.98 ) Wt 94.8 kg (209 lb) BMI 33.75 kg/m?? BSA 2.04 m?? PODIATRIC EXAMINATION: GENERAL: Patient appears well nourished, with NAD. VASCULAR: Dorsalis pedis pulses are 2/4 bilaterally and Posterior tibial pulses are 2/4 bilaterally. Capillary filling time within normal limits the digits. No pallor on elevation or rubor on dependency. Positive hair growth. No varicosities. Denies rest pain or claudication pain. NEUROLOGICAL: Sharp/dull sensation intact, protective sensation intact 10/10 with 5.07 semmes noe bilaterally, vibratory sensation with tuning fork intact to the tibial tuberosity. ORTHOPEDIC: Good muscle strength 5/5 of all flexors and extensors. Dorsi flexion of ankle ,10 degrees, plantar flexion WNL. No muscle atrophy. DERMATOLOGICAL:. Right Toenail(s) 2: Crumbling upon debridement, subungual debris, discoloration, dystrophy, elongation, mycotic appearance, onychomycosis, pain and thickening. Annular scaling bilateral feet moccasin distribution Skin thinning texture shiny appearance diffuse hyperpigmentation bilaterally pedal hair decreased BIOMECHANICS: Ankle ROM WNL, STJ ROM wnl, MTJ ROM wnl, 1st MPJ ROM wnl. IMAGING: IMPRESSION: 1. Dermatophytosis of nail 2. Tinea pedis of right foot PLAN: Pt was seen and examined, history reviewed. Terbinafine prescribed 90-day course patient has 1 week left Clotrimazole solution prescribed to use as adjuvant therapy topically Follow-up in 2 months José Manuel Castillo DPM documented in this encounter Plan of Treatment Upcoming Encounters Date Type Department Care Team (Late st Contact Info) Description 03/06/2025 8:45 AM EDT Office Visit Orthopedic Surgery - [place] [address] [phone] José Manuel Castillo DPM [address] [address] documented as of this encounter Visit Diagnoses Diagnosis Dermatophytosis of nail- Primary Tinea pedis of right foot documented in this encounter Care Teams Senior C Software Developer Relationship Specialty Start Date End Date Ceci Bowen MD [address] [place] [address] , [facility] [address] [facility] D/B/A: [facility] [place], [place] PCP - General 06/20/24 documented as of this encounter
--- OUTSIDE RECORDS SUMMARY | 2024-12-07 17:37 | XMS_ITS | Clinical Summary ---
Author Organization [address] [facility] Address [address] [place] [address] Phone Care Team Providers Care Marketing Operations Intern Name Role Phone Ceci Bowen MD Primary Care Provider [phone] Allergies Active Allergy Reactions Criticality Noted Date [...] day. 90 each 5 12/20/19 25 Active clotrimazole (LOTRIMIN) 1 % external solution Apply topically once every eight weeks. 30 mL 2 5 01/30/20 25 Active Active Problems Problem Noted Date Diagnosed Date Rheumatoid arthritis 09/20/2024 Mild recurrent major depression 09/20/2024 GERD (gastroesophageal reflux disease) 5 Arthralgia 09/20/2024 Encounters Date Type Department Care Team Description 12/04/2024 1:30 PM EDT Office Visit Orthopedic Surgery - [place] [address] [phone] José Manuel Castillo DPM Dermatophytosis of nail (Primary Dx); Tinea pedis of right foot 09/20/2024 8:45 AM EST Consult Orthopedic Surgery [facility] [address] [phone] José Manuel Castillo DPM Dermatophytosis of nail (Primary Dx); Tinea [...] Mass Index 33.75 12/04/2024 1:34 PM EDT Plan of Treatment Upcoming Encounters Date Type Department Care Team (Late st Contact Info) Description 03/06/2025 8:45 AM EDT Office Visit Orthopedic [facility] [address] [phone] José Manuel Castillo DPM [address] [address] Health Maintenance Due Date Last Done Comments Hepatitis B Vaccines (1 of 3 - 19+ 3-dose series) 01/21/2007 Cervical Cancer Screening: P ap Smear 01/21/2009 COVID-19 Vaccine ( - 2023-2 5 season) 2024 Influenza Vaccine (#1) 2024 Cholesterol Screening (Lipid Panel) 07/06/2024 Depression Screening 07/06/2024 HIV Screening 07/06/2024 Hepatitis C Screening 07/06/2024 Social Influencers of Health Screening 07/06/2024 HPV Vaccines (3 - 3-dose SCD M series) 02/27/2025 10/30/2024, 08/29/2024 DTaP,Tdap,and Td Vaccines (2 - Td [...] age to complete this topic Pneumococcal Vaccine: Pediatrics (0 to 5 Years) and At-Risk Patients (6 to 64 Years) Aged Out No longer eligible b ased on patient's age to complete this topic RSV Immunization Patients Under 20 months Aged Out No longer eligible b ased on patient's age to complete this topic Varicella Vaccines Aged Out No longer eligible based on patient's age to complete this topic Insurance Care Teams Marketing Operations Intern Relationship Specialty Start Date End Date Ceci Bowen MD [address] [place] [address] , [address] [facility] D/B/A: [facility] [place] PCP - General 06/20/24
== END 2024-12-07 16:55 | disposition home or self-care (01) ==
LOC: HO.HGI 16:32
PROVIDERS: PCP Internal Medicine; Visit Provider Nurse Practitioner Family
DX: K59.01 Slow transit constipation (principal); K21.9 Gastro-esophageal reflux disease without esophagitis; D12.6 Benign neoplasm of colon, unspecified; R14.0 Abdominal distension (gaseous); D50.8 Other iron deficiency anemias; K62.5 Hemorrhage of anus and rectum
CPT/HCPCS: 99214; G2211

== ENCOUNTER → 2024-12-07 16:31 | Outpatient (BNVA) | payer OTHER, SELFPAY | PROVIDERS: PCP Internal Medicine; Visit Provider Nurse Practitioner Family | DX: K59.01 Slow transit constipation (principal); K21.9 Gastro-esophageal reflux disease without esophagitis; K62.5 Hemorrhage of anus and rectum; D12.6 Benign neoplasm of colon, unspecified; D50.8 Other iron deficiency anemias; R14.0 Abdominal distension (gaseous) | CPT/HCPCS: 99212 ==

== ENCOUNTER 2024-12-28 12:38 | Outpatient (REF) | payer OTHER, SELFPAY ==
--- OUTSIDE RECORDS SUMMARY | 2024-12-28 13:14 | XMS_ITS | Clinical Summary ---
Author Organization 175 [facility] Address [address] [place] [address] Phone Care Team Providers Care Property Claim Rep Name Role Phone Ceci Bowen MD Primary Care Provider Allergies Active Allergy Reactions Criticality Noted Date [...] mL (0.3 mg total) if needed. Active clotrimazole (LOTRIMIN) 1 % external solution Apply topically once every eight weeks. 30 mL 2 5 01/30/20 25 Active terbinafine (LamISIL) 250 mg tablet Take 1 tablet (250 mg total) by mouth 1 (one) time each day. 90 each 5 12/20/19 25 Active Problems Problem Noted Date Diagnosed Date Rheumatoid arthritis (CMS/[facility] V24, CMS/[facility] V28) 09/20/2024 Mild recurrent major depression ([facility] V24) GERD (gastroesophageal reflux disease) 5 Arthralgia 09/20/2024 Encounters Date Type Department Care Team Description 12/04/2024 1:30 PM EDT Office Visit Orthopedic [facility] [address] [phone] José Manuel Castillo, DPJaydon Dermatophytosis of nail (Primary Dx); Tinea pedis [...] 8:45 AM EDT Office Visit Orthopedic [facility] [address] [phone] José Manuel Castillo, KELLE [address] [address] Health Maintenance Due Date Last Done Comments Hepatitis B Vaccines (1 of 3 - 19+ 3-dose series) 01/21/2007 Cervical Cancer Screening: P ap Smear 01/21/2009 COVID-19 Vaccine ( - 2023-2 5 season) 2024 Cholesterol Screening (Lipid Panel) 07/06/2024 Depression Screening 07/06/2024 HIV Screening 07/06/2024 Hepatitis C Screening 07/06/2024 Social Influencers of Health Screening 07/06/2024 HPV Vaccines (3 - 3-dose SCD M series) 02/27/2025 10/30/2024, 08/29/2024 Influenza Vaccine (Season Ended) 2025 DTaP,Tdap,and Td Vaccines (2 - Td or [...] age to complete this topic Meningococcal B Vaccine Aged Out No l onger eligible based on patient's age to complete [...] patient's age to complete this topic Insurance [employer] Care Teams Property Claim Rep Relationship Specialty Start Date End Date Ceci Bowen MD [address] [place] [address] , [address] [facility] D/B/A: [facility] CYRUS Rosa PCP - General 06/20/24
[2024-12-28 13:33] LABS: Influenza A PCR NEGATIVE (Negative); Influenza B PCR NEGATIVE (Negative); Resp Syncy Virus RNA Qual PCR NEGATIVE (Negative); SARS COV2 PCR INHOUSE NEGATIVE (Negative)
[2024-12-28 13:36] LABS: Appearance Urine Clear; Color Urine Yellow; Glucose Urine UA Negative (Negative); Leukocyte Esterase Urine Small (1+) (Negative); Nitrite Urine Negative (Negative); PH 5.5 (5.0-9.0); Specific Gravity - Urine 1.025 (1.005-1.025); UMIC TRIGGER UACC YES; Urine Blood Small (1+) (Negative); Urine Ketones Trace mg/dL (Negative); Urine Protein Negative (Neg-Trace)
[2024-12-28 13:57] LABS: Bacteria Urine 1+ (None Seen); Hyaline Casts Urine 0-2 /LPF (0-2); UACC Culture Trigger YES; WBC Urine 0-5 /HPF (0-5)
== END 2024-12-28 12:39 | disposition home or self-care (01) ==
LOC: HO.LAB 12:38
PROVIDERS: PCP Internal Medicine; Visit Provider Internal Medicine
DX: R09.89 Other specified symptoms and signs involving the circulatory and respiratory systems (principal); R30.0 Dysuria
CPT/HCPCS: 0241U; 81001; 87086

== ENCOUNTER 2024-12-31 13:20 | Outpatient (AMB) | payer OTHER, SELFPAY ==
--- NOTE | 2024-12-31 13:24 | A.OFFPC_ITS ---
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: No Accompanied by: Self / Same As Patient Allergies gabapentin Adverse Reaction (Intermediate, Verified 12/31/24 13:38) constipation Medication List - Last Reconciled 12/31/24 by Ceci Bowen MD albuterol sulfate 90 mcg/actuation 2 puffs inhalation Q6H PRN 30 days bisacodyl (Dulcolax (bisacodyl)) 10 mg (2 x 5 mg) PO BEDTIME cholecalciferol (vitamin D3) (Vitamin D3) 25 mcg PO DAILY docusate sodium 200 mg (2 x 100 mg) PO BEDTIME duloxetine 60 mg PO DAILY 30 days epinephrine 0.3 mg (0.3 mL) IM ONCE PRN 30 days guaifenesin ER (Mucinex) 600 mg PO BID 5 days hydrocortisone 2.5% (Proctosol HC) 1 appl DC BID-QID PRN [incontinence liners As directed] ketoconazole 2% 1 appl topical 2XW loratadine 10 mg PO DAILY PRN 90 days magnesium citrate (Citrate of Magnesia oral) 150 mL PO DAILY PRN magnesium hydroxide (Milk Of Magnesia Concentrated) 10 mL PO BEDTIME PRN magnesium oxide 400 mg PO DAILY methocarbamol 750 mg PO Q8H 7 days ondansetron 4 mg PO Q8H PRN pantoprazole 40 mg PO DAILY [personal wipes As directed] prucalopride (Motegrity) 2 mg PO DAILY Shower Chair As directed solifenacin (Vesicare) 10 mg PO DAILY sucralfate 10 mL PO BEDTIME triamcinolone acetonide 0.1% 1 appl topical BID underpads (Bed Underpads) As directed Tobacco use date assessed: 12/31/24 Dental Screening Dental Screen Date: 12/31/24 Did you have a dental visit in the last 12 months?: Yes Did you have a dental problem in the last 6 months where you did not have access to dental care?: No Was dental information given to patient?: Patient has dentist HPI HPI Comments History of Present Illness Details The patient is a 34-year-old female presenting with pharyngitis characterized by prolonged dry cough and hoarseness. Her throat feels pressured, and mucous production is yellow; her throat is visually reddened, lasting over one week without fever. She reports fibromyalgia causing significant chronic body pain. She has undergone a colonoscopy in October, showing an adenomatous polyp and chronic constipation partially managed with stool softeners. The patient struggles with gastroesophageal reflux, affecting dietary habits, influencing symptoms like bloating, and has been adjusting her lifestyle accordingly. Though eager to manage obesity, medication options are reliant on insurance approval. Her recently adapted diet and avoidance of specific analgesics due to documented gastric inflammation were also shared. On duloxetine for fibromyalgia. Has moderate major depression stable. [facility] Medical History (Updated 12/31/24 @ 15:13 by Ceci Bowen MD) Tubular adenoma of colon Chronic pelvic pain in female Fibroid Need for HPV vaccination LGSIL on Pap smear of cervix Chronic pelvic peritonitis, female Uterine fibroid (Unknown) Abnormal uterine bleeding (AUB) Rheumatoid arthritis Mild recurrent major depression Sacroiliac joint dysfunction of right side Spondylosis of lumbosacral spine with radiculopathy Disc degeneration, lumbar Spondylosis of lumbar spine Gastroesophageal reflux disease Mild persistent asthma Constipation by delayed colonic transit Arthralgia Insertion of implantable subdermal contraceptive Sacroiliitis Hip osteomyelitis, right Surgical History History of sacroiliac joint dysfunction History of hip surgery History of (~2005) Family History Mother HTN (hypertension) Diabetes Arthritis Constipation Father No problems noted. Brother Crohn's disease Social History Household Members: Children Household Members Other:: lives with teenage son Housing: Apartment Are you a primary clinical manager home care to a significant other at home: No Do you presently have visiting nurse or other home services: No Alcohol intake: never Patient Tobacco Use Status: Never used Tobacco e-Cigarette/Vaping Use: Never Used Second Hand Smoke Exposure: No service: No Current occupational status: disabled Sexual orientation: Straight/Heterosexual Cognitive needs: No Hearing needs: No Vision needs: Yes Female Reproductive History Menstrual Age of Menarche: 12 Questionnaire PHQ-9 Over the last 2 weeks, how often have you been bothered by any of the following problems? 1. Little interest or pleasure in doing things: several days 2. Feeling down, depressed, or hopeless: more than half the days 3. Trouble falling or staying asleep, or sleeping too much: several days 4. Feeling tired or having little energy: several days 5. Poor appetite or overeating: not at all 6. Feeling bad about yourself - or that you are a failure or have let yourself or your family down: not at all 7. Trouble concentrating on things, such as reading the newspaper or watching television: several days 8. Moving or speaking so slowly that other people could have noticed. Or the opposite - being so fidgety or restless that you have been moving around a lot more than usual: several days 9. Thoughts that you would be better off or of hurting yourself in some way: not at all Total score: 7 Depression Screening Interpretation: Positive Depression Screening Follow-up: Existing condition and Follow-up Visit Requested Depression Screening Done: Yes 14116 - PHQ-9 Billing: Yes Source: Developed by Drs. Lencho Veliz, Lizbeth Ennis, Mike Lowe and colleagues, with an educational andrés from [employer]. Thrive Questionnaire Date Thrive assessed: 12/31/24 I am a: Patient What is your living situation today?: I have a steady place to live Within the past 12 months, did the food you bought not last and you didn't have the money to get more?: Never true Within the past 12 months, did you worry whether your food would run out before you got money to buy more?: Never true Do you have trouble paying for medicines?: No Do you have trouble getting transportation to medical appointments?: No Do you have trouble paying your heating and electricity bill?: I choose not to answer this question Do you have trouble taking care of your child, family member or friend?: No Do you have trouble with day-to-day activities such as bathing, preparing meals, shopping, managing finances, etc.?: No Are you currently unemployed and looking for a job?: Yes Are you interested in more education?: No Please select the resources that you would like help with: Transportation and Daily support Currently or been in a relationship where the following occur: No concerns reported THRIVE Score: 0 AUDIT C Alcohol Use Questionnaire (AUDIT-C) 1. How often do you have a drink containing alcohol?: Never Total Score: 0 Score Reviewed/Action Taken: No MARY-7 AMB Questionnaire MARY-7 Date MARY - 7 assessed: 12/31/24 Feeling nervous, anxious, or on edge: 2 = More than half the days Not being able to stop or control worryin = Not at all Worrying too much about different things: 1 = Several days Trouble relaxin = Several days Being so restless that it is hard to sit still: 0 = Not at all Becoming easily annoyed or irritable: 1 = Several days Feeling afraid as if something awful might happen: 0 = Not at all Total MARY-7 score (0-4 normal; 5-9 mild; 10-14 moderate; 15-21 severe): 5 Source: Developed by Drs. Lencho Veliz, Lizbeth Ennis, Mike Lowe and colleagues, with an educational andrés from [employer]. MARY-7 Assessment Billing MARY-7 Assessment Tool: MARY-7 Assessment 31983 Review of Systems Const All systems reviewed & are unremarkable except as noted in HPI and below Card Denies chest pain at rest, Denies chest pain with activity, Denies edema, Denies irregular heart rhythm, Denies claudication, Denies dyspnea, Denies dyspnea on exertion, Denies orthopnea, Denies paroxysmal nocturnal dyspnea and Denies slow heart rate Resp Denies cough, Denies dyspnea and Denies dyspnea on exertion GI Denies abdominal pain, Denies change in bowel habits, Denies excessive flatus, Denies nausea and Denies vomiting Physical exam (Primary Care) Vital Signs: Last Vital Signs BP 130/82 12/31/24 13:25 BMI result Body Mass Index 32.8 Tobacco/Smoking Status: Tobacco use Status Tobacco use date assessed 12/31/24 12/31/24 13:31 Patient Tobacco Use Status Never used Tobacco 12/31/24 13:31 e-Cigarette/Vaping Use Never Used 12/31/24 13:31 PHQ-9: PHQ-9 Score PHQ-9: Total score 7 12/31/24 13:39 Depression Screening Interpretation: Positive Depression Screening Follow-up: Existing condition and Follow-up Visit Requested Thrive Assessment: Date of Thrive Assessment Date Thrive assessed 12/31/24 12/31/24 13:31 Currently or been in a relationship where the following occur: No concerns reported Resp Effort & Inspection: normal respiratory effort Auscultation: clear to auscultation bilaterally Cardio Jugular venous distension: no JVD Rate: regular rate Rhythm: regular rhythm Heart sounds: S1 normal heart sound present and S2 normal heart sound present Coding Level of Care Code Est Pt Level 4 (32393) Complex EM visit Add On G2211 Diagnoses URI (upper respiratory infection) J06.9 Moderate recurrent major depression F33.1 Chronic GERD K21.9 Fibromyalgia M79.7 Chronic idiopathic constipation K59.04 Additional Codes MARY-7 Assessment Billing - MARY-7 Assessment Tool: MARY-7 Assessment 29130 ([id number]) PHQ-9 - 82108 - PHQ-9 Billing: Yes ([id number]) Time Spent (min) 22 Assessment & Plan Assessment & Plan (1) URI (upper respiratory infection): Code(s): J06.9 - Acute upper respiratory infection, unspecified Category: Medical (2) Moderate recurrent major depression: Code(s): F33.1 - Major depressive disorder, recurrent, moderate Category: Medical (3) Chronic GERD: Code(s): K21.9 - Gastro-esophageal reflux disease without esophagitis Category: Medical (4) Fibromyalgia: Code(s): M79.7 - Fibromyalgia Category: Medical (5) Chronic idiopathic constipation: Code(s): K59.04 - Chronic idiopathic constipation Category: Medical Plan The patient will manage pharyngitis with prescribed penicillin, understanding gastrointestinal side effects. Chronic pain from fibromyalgia continues under duloxetine therapy. Stool softeners remain part of her chronic constipation management alongside dietary reforms. She is advised to consider alternate weight loss medication options due to insurance restrictions. Follow-up on dietary habits affecting gastroesophageal reflux is ongoing with further evaluations to adjust her care plan if required. Patient was informed and verbally consented to the use of an ambient scribe for clinic note documentation during this visit. We discussed the likelihood of bacterial pharyngitis given symptom persistence, so penicillin is prescribed despite stomach concerns, due to its necessity. Fibromyalgia continues under duloxetine with affirmed current regimen benefits, but regular pain evaluation is advised. Gastrointestinal health encompassing reflux and constipation necessitates continued adherence to lifestyle and dietary changes; patient comprehends her medication modifications, particularly in view of previous colonoscopy results. The possibility of pursuing alternative weight management drugs is viable should insurance coverage prove prohibitive. Legal consent was given for all discussed treatment adjustments, with return precautions and lifestyle guidance reaffirmed for patient clarity. Medications: New amoxicillin 500 mg PO Q12H 14 tabs 0RF 7 days Patient Instructions: - Begin penicillin as prescribed for throat infection; be alert for any stomach discomfort. - Continue duloxetine for fibromyalgia management. - Maintain current dietary regimen and constipation medications, considering adjustments as discomfort dictates. - Explore alternate methods to access weight-management drugs if through insurance is not feasible. - Schedule regular follow-ups to evaluate gastrointestinal symptoms and continue dietary modifications. - Engage in regular light exercise and ensure adequate hydration. - Avoid NSAIDs for pain management due to gastric inflammation history.
[2024-12-31 13:25] VITALS: BP 130/82; BMI 32.8
--- OUTSIDE RECORDS SUMMARY | 2024-12-31 15:21 | XMS_ITS | Clinical Summary ---
Author Organization 175 [facility] Address [address] [place] [address] Phone Care Team Providers Care Locker Plant Attendant Name Role Phone Ceci Bowen MD Primary Care Provider [phone] Allergies Active Allergy Reactions Criticality Noted Date [...] Problem Noted Date Diagnosed Date Rheumatoid arthritis ([facility], [facility] V28) 09/20/2024 Mild recurrent major depression ([facility]) GERD (gastroesophageal reflux disease) 5 Arthralgia 09/20/2024 Encounters Date Type Department Care Team Description 12/04/2024 1:30 PM EDT Office Visit Orthopedic Surgery [facility] [address] [phone] José Manuel Castillo, DPJaydon Dermatophytosis of nail [...] 8:45 AM EDT Office Visit Orthopedic Surgery [facility] [address] [phone] José Manuel Castillo, KELLE [address] [address] Health Maintenance Due Date Last Done Comments [...] this topic Insurance HEALTH PLAN Care Teams Locker Plant Attendant Relationship Specialty Start Date End Date Ceci Bowen MD [address] [place] [address] , [address] [facility]ician Associ D/B/A: [facility] Internal Medicine CYRUS Rosa PCP - General 06/20/24
== END 2024-12-31 13:52 | disposition home or self-care (01) ==
LOC: HO.HMCH 13:20
PROVIDERS: PCP Internal Medicine; Visit Provider Internal Medicine
DX: J06.9 Acute upper respiratory infection, unspecified (principal); F33.1 Major depressive disorder, recurrent, moderate; K21.9 Gastro-esophageal reflux disease without esophagitis; M79.7 Fibromyalgia; K59.04 Chronic idiopathic constipation

== ENCOUNTER → 2024-12-31 13:20 | Outpatient (BNVA) | payer OTHER, SELFPAY | PROVIDERS: PCP Internal Medicine; Visit Provider Internal Medicine | DX: F33.1 Major depressive disorder, recurrent, moderate (principal); E66.9 Obesity, unspecified; M79.7 Fibromyalgia; K21.9 Gastro-esophageal reflux disease without esophagitis; K59.09 Other constipation; J06.9 Acute upper respiratory infection, unspecified; K59.04 Chronic idiopathic constipation; Z79.899 Other long term (current) drug therapy | CPT/HCPCS: 96127; 99212 ==

== ENCOUNTER 2025-04-25 08:55 | Outpatient (AMB) | payer OTHER, SELFPAY ==
--- OUTSIDE RECORDS SUMMARY | 2025-04-25 09:17 | XMS_ITS | Clinical Summary ---
Author Organization [address] [place] [address] Address [address] [place] [address] Phone Care Team Providers Care Associate Professor Of Anthropology Name Role Phone Ceci Bowen MD Primary Care Provider [phone] Allergies Active Allergy Reactions Criticality Noted Date [...] mL (0.3 mg total) if needed. Active Active Problems Problem Noted Date Diagnosed Date Rheumatoid arthritis ([facility] V24, CMS/[facility] V28) 09/20/2024 Mild recurrent major depression ([facility] V24) GERD (gastroesophageal reflux disease) Arthralgia 09/20/2024 Social History Tobacco Use Types Packs/Day Years [...] 12/04/2024 1:34 PM EDT Plan of Treatment Health Maintenance Due Date Last Done Comments Hepatitis B Vaccines (1 of 3 - 19+ 3-dose series) 01/21/2007 Cervical Cancer Screening: P ap Smear 01/21/2009 COVID-19 Vaccine (1 - 2023-2 5 season) 2024 Cholesterol Screening (Lipid Panel) 07/06/2024 HIV Screening 07/06/2024 Hepatitis C Screening 07/06/2024 Social Influencers of Health Screening 07/06/2024 Depression Screening 09/19/2024 HPV Vaccines (3 - 3-dose SCD M series) 02/27/2025 10/30/2024, 08/29/2024 Influenza Vaccine (#1) 2025 DTaP,Tdap,and Td Vaccines (2 - Td [...] 5 Years) and At-Risk Patients (6 to 49 Years) Aged Out No longer eligible b ased on patient's age to complete this topic RSV Immunization Patients Under 20 months Aged Out No longer eligible b ased on patient's age to complete this topic Varicella Vaccines Aged Out No longer eligible based on patient's age to complete this topic Insurance [facility] PLAN Care Teams Associate Professor Of Anthropology Relationship Specialty Start Date End Date Ceci Bowen MD [address] [place] [address] , [address] [facility] Physician Associ D/B/A: [facility] CYRUS Rosa PCP - General 06/20/24
--- NOTE | 2025-04-25 09:51 | AM.OFFVISNUR ---
Vital Signs 04/25/25 10:01 Height 5 ft 6 in Weight 203 lb BMI 32.8 Intake Visit Reasons: Gardasil Allergies gabapentin Adverse Reaction (Intermediate, Verified 12/31/24 13:38) constipation Nursing Note Patient here for 3rd Gardasil. Had no complaints today. Immunizations Gardasil 9 (PF) 0.5 mL intramuscular suspension Performing Provider: Amaya Garay CNM Performing Location: [facility] Administered by: Tati De La Torre LPN on 04/25/25 09:52 Dose Route Admin Location Dispensed Lot Number Expiration Date [facility] Administrative Assistant 0.5 mL IM Left Deltoid 0.5 mL [id number] 11/15/25 7034-2213-14 [employer] Total Dispensed Waste 0.5 mL 0 % VIS Given Date VIS Provided VIS Publication Date 04/25/25 Single Vaccine 21 Eligibility Eligibility Date Funding Source Not [facility] Eligible 04/25/25 Private Assessment & Plan Assessment & Plan Orders: Orders Human Papillomavirus Immunization Today Z23 - Encounter for immunization Coding Level of Care Code Established Pt Est Pt Level 1 (89992) Patient Type Established History Problem Focused Exam Problem Focused Medical Decision Making Straight Forward Time Spent (min) 20
[2025-04-25 10:01] VITALS: BMI 32.8
== END 2025-04-25 10:23 | disposition home or self-care (01) ==
LOC: HO.HWS 08:56
PROVIDERS: PCP Internal Medicine; Visit Provider Advanced Practice Midwife
DX: Z23 Encounter for immunization (principal)

== ENCOUNTER → 2025-04-25 08:55 | Outpatient (BNVA) | payer OTHER, SELFPAY | PROVIDERS: PCP Internal Medicine; Visit Provider Advanced Practice Midwife | DX: Z23 Encounter for immunization (principal) | CPT/HCPCS: 90471; 90651; 99211 ==

== ENCOUNTER 2025-06-10 16:01 | Outpatient (AMB) | payer OTHER, SELFPAY ==
--- NOTE | 2025-06-10 16:03 | A.OFFVIS_ITS ---
Vital Signs 06/10/25 16:04 Height 5 ft 6 in Weight 209 lb BMI 33.7 BP 128/84 Blood Pressure Location Rt brachial Position Sitting Pulse 82 Pulse Source Pulse Oximeter Pulse Oximetry (%) 100 Oxygen Delivery Method Room Air Intake Visit Reasons: 6 months f/u Intake Note: ESTABLISHED PATIENT for mgmt of slow transit constipation + abd pain. CC: Pt denies any new GI changes or concerns. She confirms that she is taking Rx as instructed without any complications. 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 Avoid dietary triggers and late night snacking. Staying upright for min imum 3 hours after meals discussed with patient. Continue Motegrity and Dulcolax. Increase fluid intake and activity to promote better bowel motility. Follow-up in 6 months, sooner on as needed basis. Patient is agreeable to this plan and verbalizes understanding of instructions. She was given the opportunity to ask questions and all questions answered. ? Thank you for allowing me to participate in her care Refilled prucalopride (Motegrity) 2 mg PO DAILY 90 tabs 2RF K59.04 ondansetron 4 mg PO Q8H PRN 30 tabs 0RF for nausea/vomiting sucralfate 10 mL PO BEDTIME 400 mL 3RF K21.9 pantoprazole take one tablet half an hour before breakfast 40 mg PO DAILY 90 tabs 2RF K21.9 loratadine 10 mg PO DAILY PRN 30 tabs 1RF allergy symptoms TODAY'S VISIT Patient is here today for follow-up. Patient reports that she has been doing better. Her bowels move every 2-3 days. Continues Motegrity and Dulcolax. She is taking to stool softeners at bedtime. Denies melena, hematochezia, unintentional weight loss or ribbon like stools. Patient denies any dyspepsia, dysphagia or odynophagia. Acid reflux has been control with pantoprazole. She is taking as needed sucralfate at bedtime. Still low water intake. Patient is doing more shakes that include different vegetables and fruits. Fiber increased in her diet since last visit. Patient denies any other GI concerning symptoms. REPLACED BY [facility] Medical History Tubular adenoma of colon Chronic pelvic pain in female Fibroid Need for HPV vaccination LGSIL on Pap smear of cervix Chronic pelvic peritonitis, female Uterine fibroid (Unknown) Abnormal uterine bleeding (AUB) Rheumatoid arthritis Mild recurrent major depression Sacroiliac joint dysfunction of right side Spondylosis of lumbosacral spine with radiculopathy Disc degeneration, lumbar Spondylosis of lumbar spine Gastroesophageal reflux disease Mild persistent asthma Constipation by delayed colonic transit Arthralgia Insertion of implantable subdermal contraceptive Sacroiliitis Hip osteomyelitis, right Surgical History History of sacroiliac joint dysfunction History of hip surgery History of (~2005) Family History (Updated 07/11/25 @ 09:54 by Ceci Bowen MD) Mother No problems noted. Father No problems noted. Brother Crohn's disease Social History Household Members: Children Household Members Other:: lives with teenage son Housing: Apartment Are you a primary health care coordinator to a significant other at home: No Do you presently have visiting nurse or other home services: No Alcohol intake: never Patient Tobacco Use Status: Never used Tobacco e-Cigarette/Vaping Use: Never Used Second Hand Smoke Exposure: No service: No Current occupational status: disabled Sexual orientation: Straight/Heterosexual Cognitive needs: No Hearing needs: No Vision needs: Yes Female Reproductive History Menstrual Age of Menarche: 12 Review of Systems Const Denies weight gain and Denies weight loss ENT Reports no additional complaints, Denies dysphagia and Denies odynophagia Card Reports no additional complaints Resp Reports no additional complaints GI Reports abdominal pain, Denies belching, Denies melena, Reports bloating, Denies change in bowel habits, Reports constipation, Denies dysphagia, Denies excessive flatus, Denies dyspepsia, Reports heartburn (occasional), Denies diarrhea, Denies loose stools, Denies nausea, Denies odynophagia and Denies vomiting Reports no additional complaints Musc Reports no additional complaints Neuro Reports no additional complaints Psych Reports no additional complaints Endo Reports no additional complaints Physical Exam Vital Signs: Last Vital Signs Pulse 82 06/10/25 16:04 BP 128/84 06/10/25 16:04 Pulse Ox 100 06/10/25 16:04 Oxygen Delivery Method Room Air 06/10/25 16:04 BMI result Body Mass Index 33.7 Const General: cooperative, healthy appearing and no acute distress Nutritional Appearance: obese Orientation/consciousness: patient oriented x3 Resp Effort & Inspection: normal respiratory effort, able to speak in complete sentences, no tracheal deviation and symmetric chest movement Auscultation: clear to auscultation bilaterally Cardio Rate: regular rate GI Inspection: Yes normal to inspection and Yes obesity Palpation (GI): Soft to palpation and Other GI palpation findings present (Nontender) Auscultation: normal bowel sounds Rectal Exam - Female: visual inspection normal General: Yes bladder normal to palpation and Yes no CVA tenderness External Female Exam: normal appearance of the urethra Speculum Exam - Vagina: normal appearance of the vagina, normal palpation and normal vaginal discharge Speculum Exam - Cervix: normal appearance of the cervix and normal palpation Bimanual exam- vagina & uterus: normal bimanual exam, normal palpation, uterine size normal, bladder normal to palpation, normal palpation, uterine shape normal and non-tender Bimanual Exam- Adnexa, other: normal adnexae Back/Spine/Pelvis Back: no CVA tenderness Skin General skin exam: elasticity normal, turgor normal and dry skin Neuro General: patient oriented x3 Psych Appearance: grossly normal Mental Status: mental status grossly normal Assessment & Plan Assessment & Plan (1) Gastroesophageal reflux disease: Code(s): K21.9 - Gastro-esophageal reflux disease without esophagitis Category: Medical Qualifiers: Esophagitis presence: esophagitis presence not specified Qualified Code(s): K21.9 - Gastro-esophageal reflux disease without esophagitis (2) Constipation by delayed colonic transit: Code(s): K59.01 - Slow transit constipation Category: Medical (3) Chronic GERD: Code(s): K21.9 - Gastro-esophageal reflux disease without esophagitis Category: Medical (4) Chronic idiopathic constipation: Code(s): K59.04 - Chronic idiopathic constipation Category: Medical Plan Patient will continue taking pantoprazole and sucralfate. May hold sucralfate if she does not have any symptoms at bedtime. Sucralfate might be constipating her more. She will continue taking Motegrity, take Dulcolax with stool softener as needed. Patient will follow-up in our office in 6 months. Patient will call us if she will have any GI concerning symptoms. She is agreeable to this plan and verbalizes understanding of instructions. She was given the opportunities to ask questions and all questions answered. Thank you for allowing me to participate in her care Medications: Changed From docusate sodium 200 mg (2 x 100 mg) PO BEDTIME 180 caps 3RF K59.00 - Constipation, unspecified To docusate sodium 300 mg (3 x 100 mg) PO BEDTIME 240 caps 3RF K59.00 - Constipation, unspecified Refilled bisacodyl (Dulcolax (bisacodyl)) 10 mg (2 x 5 mg) PO BEDTIME 180 tabs 1RF Coding Level of Care Code Est Pt Level 4 (78337) Complex EM visit Add On G2211 Diagnoses Gastroesophageal reflux disease, unspecified whether esophagitis present K21.9 Esophagitis presence: esophagitis presence not specified Constipation by delayed colonic transit K59.01 Chronic GERD K21.9 Chronic idiopathic constipation K59.04 Time Spent (min) 35 Comment 25 minutes spent with patient and additional 10 minutes spent reviewing her records
[2025-06-10 16:04] VITALS: BP 128/84; PULSE 82; O2SAT 100; BMI 33.7
== END 2025-06-10 16:23 | disposition home or self-care (01) ==
LOC: HO.HGI 16:02
PROVIDERS: PCP Internal Medicine; Visit Provider Nurse Practitioner Family
DX: K21.9 Gastro-esophageal reflux disease without esophagitis (principal); K59.01 Slow transit constipation; K59.04 Chronic idiopathic constipation
CPT/HCPCS: 99214

== ENCOUNTER → 2025-06-10 16:01 | Outpatient (BNVA) | payer OTHER, SELFPAY | PROVIDERS: PCP Internal Medicine; Visit Provider Nurse Practitioner Family | DX: K59.01 Slow transit constipation (principal); K21.9 Gastro-esophageal reflux disease without esophagitis; K59.04 Chronic idiopathic constipation | CPT/HCPCS: 99212 ==

== ENCOUNTER 2025-07-11 09:06 | Outpatient (REF) | payer OTHER, SELFPAY ==
[2025-07-11 11:21] LABS: Alanine Aminotransferase 10 U/L (0-31); Albumin Level 4.3 g/dL (3.5-5.0); Alkaline Phosphatase 48 U/L (39-117); Anion Gap 9 (12-20); Aspartate Amino Transferase 19 U/L (5-31); Blood Urea Nitrogen 10 mg/dL (9-16); Calcium 9.0 mg/dL (8.4-10.2); Carbon Dioxide 25 mmol/L (22-29); Chloride 109 mmol/L (96-108); Cholesterol 201 mg/dL (<200); Estimated Glomerular Filt Rate > 60; HDL Cholesterol 44 mg/dL (>40); Potassium 4.1 mmol/L (3.3-5.1); Sodium 139 mmol/L (135-145); Total Protein 7.5 g/dL (6.5-8.0); Triglycerides 122 mg/dL (<150)
[2025-07-11 11:38] LABS: Folate 9.8 ng/mL (> or = 4.0); Vitamin B12 551 pg/mL (200-900)
== END 2025-07-11 09:07 | disposition home or self-care (01) ==
LOC: HO.LAB 09:06
PROVIDERS: PCP Internal Medicine; Visit Provider Internal Medicine
DX: Z00.00 Encounter for general adult medical examination without abnormal findings (principal); E53.8 Deficiency of other specified B group vitamins; E55.9 Vitamin D deficiency, unspecified; Z79.899 Other long term (current) drug therapy; F33.1 Major depressive disorder, recurrent, moderate
CPT/HCPCS: 36415; 80053; 80061; 82306; 82607; 82746; 96127; 99395

== ENCOUNTER 2025-07-11 09:06 | Outpatient (AMB) | payer OTHER, SELFPAY ==
[2025-07-11 09:27] VITALS: BP 122/64; PULSE 93; O2SAT 99; BMI 33.5
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
--- OUTSIDE RECORDS SUMMARY | 2025-07-11 09:57 | XMS_ITS | Clinical Summary ---
Author Organization [address] [place] [address] Address [address] [place] [address] Phone Care Team Providers Care Assistant Store Leader Name Role Phone Ceci Bowen MD Primary Care Provider [phone] Allergies Active Allergy Reactions Criticality Noted Date [...] Problem Noted Date Diagnosed Date Rheumatoid arthritis ([facility] V24, CMS/[facility] V28) 09/20/2024 Mild recurrent major depression ([facility] V24) GERD (gastroesophageal reflux disease) Arthralgia 09/20/2024 [...] Care Team (Late st Contact Info) Description 09/10/2025 2:00 PM EST Office Visit Orthopedic Surgery - [place] [address] [phone] José Manuel Castillo, DPM [address] [phone] Health Maintenance Due Date Last Done Comments Hepatitis B Vaccines (1 of 3 - 19+ 3-dose series) 01/21/2007 Cervical Cancer Screening: P ap Smear 01/21/2009 Cholesterol Screening (Lipid Panel) 07/06/2024 HIV Screening 07/06/2024 Hepatitis C Screening 07/06/2024 Social Influencers of Health Screening 07/06/2024 Depression Screening 09/19/2024 HPV Vaccines (3 - 3-dose SCD M series) 02/27/2025 10/30/2024, 08/29/2024 COVID-19 Vaccine (1 - 2023-2 5 season) 2025 Influenza Vaccine (#1) 2025 DTaP,Tdap,and Td Vaccines (2 - Td or Tdap) 12/22/2025 12/23/2015 RSV Immunization Adult Patients (1 - 1-dose 75+ series) 01/21/2063 HIB Vaccines Aged Out No longer eligi [...] patient's age to complete this topic Insurance [place] [address] PLAN Care Teams Assistant Store Leader Relationship Specialty Start Date End Date Ceci Bowen MD [address] [place] [address] , [address] [facility] D/B/A: [facility] CYRUS Rosa PCP - General 06/20/24
== END 2025-07-11 10:02 | disposition home or self-care (01) ==
LOC: HO.HMCH 09:07
PROVIDERS: PCP Internal Medicine; Visit Provider Internal Medicine
DX: Z00.00 Encounter for general adult medical examination without abnormal findings (principal); F33.1 Major depressive disorder, recurrent, moderate

== ENCOUNTER 2025-07-22 07:23 | Outpatient (REF) | payer OTHER, SELFPAY ==
--- OUTSIDE RECORDS SUMMARY | 2025-07-22 07:26 | XMS_ITS | Clinical Summary ---
Author Organization [address] [place] [address] Address [address] [place] [address] Phone Care Team Providers Care Radiation Protection Technician Name Role Phone Ceci Bowen MD Primary Care Provider [phone] Allergies Active Allergy Reactions Criticality Noted Date [...] Problem Noted Date Diagnosed Date Rheumatoid arthritis ([facility] V24, CMS/[facility] V28) 09/20/2024 Mild recurrent major depression ([facility] V24) GERD (gastroesophageal reflux disease) Arthralgia 09/20/2024 [...] PM EST Office Visit Orthopedic Surgery - [place] [address] [place] [phone] José Manuel Castillo, DPM [address] [place] [address] Health Maintenance Due Date Last Done Comments Hepatitis B Vaccines (1 of 3 - 19+ 3-dose series) 01/21/2007 Cervical Cancer Screening: P ap Smear 01/21/2009 Cholesterol Screening (Lipid Panel) 07/06/2024 HIV Screening 07/06/2024 Hepatitis C Screening 07/06/2024 Social Influencers of Health Screening 07/06/2024 Depression Screening 09/19/2024 HPV Vaccines (3 - 3-dose SCD M series) 02/27/2025 10/30/2024, 08/29/2024 COVID-19 Vaccine ( - 2023-2 5 season) 2025 Influenza Vaccine [...] patient's age to complete this topic [place] [address] [place] [address] PLAN Care Teams Radiation Protection Technician Relationship Specialty Start Date End Date Ceci Bowen MD [address] [place] [address] , [address] [facility] D/B/A: [facility] CYRUS Rosa PCP - General 06/20/24
[2025-07-22 08:39] LABS: Free T4 (Free Thyroxine) 0.92 ng/dL (0.71-1.85); Thyroid Stimulating Hormone 1.45 uIU/mL (0.32-4.0)
[2025-07-23 17:53] LABS: Thyroglobulin Antibodies <1 IU/mL (< or = 1)
== END 2025-07-22 07:24 | disposition home or self-care (01) ==
LOC: HO.LAB 07:23
PROVIDERS: Visit Provider Internal Medicine
DX: Z01.84 Encounter for antibody response examination (principal); E66.9 Obesity, unspecified
CPT/HCPCS: 36415; 84439; 84443; 86376; 86800

== ENCOUNTER 2025-07-23 15:43 | Emergency (ER) | payer OTHER, SELFPAY ==
--- NOTE | ~2025-07-23 | XR_ITS ---
EXAMINATION: XR LUMBOSACRAL SPINE CLINICAL INFORMATION: lower back pain COMPARISON: 10/27/2018. TECHNIQUE: Three views of the lumbosacral spine. FINDINGS: There is no scoliosis. There is a normal lumbar lordosis. There is no subluxation. There is no fracture, compression deformity, or suspicious bone lesion. There is mild to moderate disc degeneration at L5-S1. Disc spaces are otherwise preserved. The facets are normally aligned without significant facet arthrosis. Sacrum is intact. The SI joints appear normal. There are tubal occlusion devices within the superior pelvis bilaterally. Soft tissues otherwise normal. XR/XR lumbar spine 2-3V IMPRESSION: 1. No acute bony or soft tissue abnormality of the lumbar spine. 2. Mild to moderate disc degeneration L5-S1. Electronically signed by: Skyler Hightower MD 07/23/2025 04:57 PM SYBIL
--- NOTE | 2025-07-23 15:50 | ED.GENADULT ---
HPI - General Adult General Chief complaint: Back Pain/Injury Stated complaint: chronic back pain, unable to leave bed x4d, lumbar Time Seen by Provider: 07/23/25 15:49 Source: patient Mode of arrival: ambulatory Limitations: no limitations History of Present Illness ED Provider: Dr. Nicolas HPI narrative: This is a 35-year-old female presented hospital today for body aches. Sitting worsening for the past 4 days. She normally gets cortisone shots for her back. Denies any urinary retention, no bowel incontinence denies any saddle paresthesia, no red flag symptoms for her back. Patient stated this pain is throughout her whole back. Also in the muscular paraspinal area. Related Data Home Medications ?Medication ?Instructions ?Recorded ?Confirmed cholecalciferol (vitamin D3) 25 25 mcg PO DAILY 09/28/23 07/11/25 mcg (1,000 unit) capsule (Vitamin D3) ketoconazole 2 % shampoo 1 appl topical 2XW 09/28/23 07/11/25 Previous Rx's ?Medication ?Instructions ?Recorded epinephrine 0.3 mg/0.3 mL 0.3 mg (0.3 mL) IM ONCE PRN 11/23/21 injection, auto-injector anaphylaxis 30 days #2 ea hydrocortisone 2.5 % topical cream 1 appl [place] BID-QID PRN hemorrhoids 01/11/22 with perineal applicator #30 grams (Proctosol HC) albuterol sulfate 90 mcg/actuation 2 puff inhalation Q6H PRN 04/14/22 aerosol inhaler shortness of breath or wheezing 30 days #8.5 grams Shower Chair #1 ea 12/25/22 incontinence liners #240 ea 12/27/22 personal wipes #200 ea 12/27/22 underpads (Bed Underpads) #100 ea 12/27/22 magnesium oxide 400 mg (241.3 mg 400 mg PO DAILY #30 tabs 04/27/23 magnesium) tablet duloxetine 60 mg capsule,delayed 60 mg PO DAILY 30 days #30 caps 05/24/23 release triamcinolone acetonide 0.1 % 1 appl topical BID #30 grams 09/29/23 topical cream solifenacin 10 mg tablet (Vesicare) 10 mg PO DAILY #90 tabs 08/13/24 methocarbamol 750 mg tablet 750 mg PO Q8H 7 days #21 tabs 09/09/24 magnesium citrate (Citrate of 150 ml PO DAILY PRN constipation 10/29/24 Magnesia oral) #296 mL pantoprazole 40 mg tablet,delayed 40 mg PO DAILY #90 tabs 12/07/24 release prucalopride 2 mg tablet 2 mg PO DAILY #90 tabs 12/07/24 (Motegrity) sucralfate 100 mg/mL oral 10 ml PO BEDTIME #400 mL 12/07/24 suspension loratadine 10 mg tablet 10 mg PO DAILY PRN allergy 12/31/24 symptoms 90 days #90 tabs ondansetron 4 mg disintegrating 4 mg PO Q8H PRN for 01/02/25 tablet nausea/vomiting #30 tabs bisacodyl 5 mg tablet,delayed 10 mg (2 x 5 mg) PO BEDTIME #180 06/10/25 release (Dulcolax (bisacodyl)) tabs docusate sodium 100 mg capsule 300 mg (3 x 100 mg) PO BEDTIME 06/10/25 #240 caps fluocinolone acetonide oil 0.01 % 5 drp otic (ear) left BID 7 days 06/24/25 ear drops (DermOtic Oil) #20 mL cyclobenzaprine 5 mg tablet 5 mg PO TID PRN muscle spasm 4 07/23/25 days #14 tabs prednisone 20 mg tablet 20 mg PO DAILY 7 days #7 tabs 07/23/25 Allergies Allergy/AdvReac Type Severity Reaction Status Date / Time gabapentin AdvReac Intermediate constipatio Verified 07/23/25 16:04 n Review of Systems Review of Systems: Pertinent review of systems as mentioned in HPI. All other system otherwise negative. [facility] Past Medical History [facility] Narrative: Medical history as mentioned in HPI Medical History Tubular adenoma of colon Chronic pelvic pain in female Fibroid Need for HPV vaccination LGSIL on Pap smear of cervix Chronic pelvic peritonitis, female Uterine fibroid (Unknown) Abnormal uterine bleeding (AUB) Rheumatoid arthritis Mild recurrent major depression Sacroiliac joint dysfunction of right side Spondylosis of lumbosacral spine with radiculopathy Disc degeneration, lumbar Spondylosis of lumbar spine Gastroesophageal reflux disease Mild persistent asthma Constipation by delayed colonic transit Arthralgia Insertion of implantable subdermal contraceptive Sacroiliitis Hip osteomyelitis, right Surgical History History of sacroiliac joint dysfunction History of hip surgery History of (~2005) Family History Family History (Updated 07/11/25 @ 09:54 by Ceci Bowen MD) Mother No problems noted. Father No problems noted. Brother Crohn's disease Social History Social History Household Members: Children Household Members Other:: lives with teenage son Housing: Apartment Are you a primary childcare teacher to a significant other at home: No Do you presently have visiting nurse or other home services: No Alcohol intake: never Patient Tobacco Use Status: Never used Tobacco e-Cigarette/Vaping Use: Never Used Second Hand Smoke Exposure: No service: No Current occupational status: disabled Sexual orientation: Straight/Heterosexual Cognitive needs: No Hearing needs: No Vision needs: Yes Physical Exam ED Exam Exam: General: Pleasant, no distress, interacting appropriately Head: Normacephalic, atraumatic ENT: oral mucosa moist, neck supple, no tracheal deviation MSK: Diffuse posterior thorax pain on palpation. Nonspecific in nature. No obvious deformity or ecchymosis Neurological: Awake and alert, no facial droop noted Skin: Warm and dry Psychiatric: Appropriate mood and thoughts Vital Signs: Vital Signs - 24 hr 07/23/25 16:03 07/23/25 18:11 07/23/25 19:20 Temperature 98.8 F 97.6 F Pulse Rate 68 67 Respiratory Rate 16 16 14 Blood Pressure 122/85 109/66 Pulse Oximetry 100 99 Oxygen Delivery Method Room Air Room Air BMI result Body Mass Index 33.1 Medications Administered Discontinued Medications Generic Name Dose Route Start Last Admin Trade Name Freq PRN Reason Stop Dose Admin Acetaminophen 975 mg 07/23/25 16:19 07/23/25 17:06 Acetaminophen 325 Mg Tablet PO 07/23/25 16:20 975 mg ONCE ONE Administration Diazepam 5 mg 07/23/25 16:19 07/23/25 17:06 Diazepam 5 Mg Tablet PO 07/23/25 16:20 5 mg ONCE ONE Administration Naproxen 500 mg 07/23/25 16:19 07/23/25 17:06 Naproxen 500 Mg Tablet PO 07/23/25 16:20 500 mg ONCE ONE Administration Prednisone 20 mg 07/23/25 16:20 07/23/25 17:07 Prednisone 20 Mg Tablet PO 07/23/25 16:21 20 mg ONCE ONE Administration Medical Decision Making Medical Decision Making [facility] Narrative: This is a 35-year-old female presented hospital today for evaluation of back pain. I have low suspicion for a spinal cord compression or cauda equina. She has no red flag symptoms on exam. Plan to give patient a dose of p.o. Valium, naproxen. We will plan to reassess patient afterward. I suspect this is musculoskeletal in nature. A lumbar x-ray did not show any signs of fractures. On reassessment patient states she is feeling better at this time. We will plan to discharge patient with a course of Flexeril to take and some prednisone. Patient agreeable with the plan discharge. Differential Diagnosis Differential Diagnoses: The differential diagnosis associated with the presentation includes Lumbago, lumbar radiculopathy, back spasm Independent Interpretation I performed an independent interpretation of an: Plain X-Ray Radiology Impression Discussion of test interpretation with radiology: I have reviewed the radiologist's reading. Discharge Plan Discharge Clinical Impression: Body aches Patient Disposition: Home, Self-Care Additional Instructions: Take 1000mg tylenol every 8 hours or ibuprofen 400mg every 8 hours. Follow up with your primary care doctor. Prescriptions: New cyclobenzaprine 5 mg tablet 5 mg PO TID PRN (Reason: muscle spasm) 4 Days Qty: 14 0RF prednisone 20 mg tablet 20 mg PO DAILY 7 Days Qty: 7 0RF No Action albuterol sulfate 90 mcg/actuation HFA aerosol inhaler 2 puff inhalation Q6H PRN (Reason: shortness of breath or wheezing) 30 Days Qty: 8.5 0RF (DME) Shower Chair Misc See Rx Instructions .Route Qty: 1 0RF Rx Instructions: As directed (DME) underpads [Bed Underpads] Pad See Rx Instructions .Route Qty: 100 6RF Rx Instructions: As directed (DME) personal wipes See Rx Instructions .Route .MEDSUPPLY Qty: 200 6RF Rx Instructions: As directed (DME) incontinence liners See Rx Instructions .Route .MEDSUPPLY Qty: 240 6RF Rx Instructions: As directed duloxetine 60 mg capsule,delayed release(DR/EC) 60 mg PO DAILY 30 Days Qty: 30 1RF triamcinolone acetonide 0.1 % cream 1 appl topical BID Qty: 30 0RF Rx Instructions: apply on affected skin areas, do not use on face or intertriginous areas methocarbamol 750 mg tablet 750 mg PO Q8H 7 Days Qty: 21 2RF magnesium citrate [Citrate of Magnesia] Solution 150 ml PO DAILY PRN (Reason: constipation) Qty: 296 5RF loratadine 10 mg tablet 10 mg PO DAILY PRN (Reason: allergy symptoms) 90 Days Qty: 90 1RF ondansetron 4 mg tablet,disintegrating 4 mg PO Q8H PRN (Reason: for nausea/vomiting) Qty: 30 0RF fluocinolone acetonide oil [DermOtic Oil] 0.01 % drops 5 drp otic (ear) left BID 7 Days Qty: 20 0RF epinephrine 0.3 mg/0.3 mL auto-injector 0.3 mg IM ONCE PRN (Reason: anaphylaxis) 30 Days Qty: 2 0RF Rx Instructions: do not exceed 12 doses per 24 hrs hydrocortisone [Proctosol HC] 2.5 % cream with perineal applicator 1 appl [place] BID-QID PRN (Reason: hemorrhoids) Qty: 30 2RF magnesium oxide 400 mg (241.3 mg magnesium) tablet 400 mg PO DAILY Qty: 30 5RF ketoconazole 2 % shampoo 1 appl topical 2XW cholecalciferol (vitamin D3) [Vitamin D3] 25 mcg (1,000 unit) capsule 25 mcg PO DAILY solifenacin [Vesicare] 10 mg tablet 10 mg PO DAILY Qty: 90 3RF Motegrity 2 mg tablet 2 mg PO DAILY Qty: 90 2RF pantoprazole 40 mg tablet,delayed release (DR/EC) 40 mg PO DAILY Qty: 90 2RF Rx Instructions: take one tablet half an hour before breakfast sucralfate 100 mg/mL suspension 10 ml PO BEDTIME Qty: 400 3RF docusate sodium 100 mg capsule 300 mg PO BEDTIME Qty: 240 3RF bisacodyl [Dulcolax (bisacodyl)] 5 mg tablet,delayed release (DR/EC) 10 mg PO BEDTIME Qty: 180 1RF Interventions: ED Discharge Assessment Last Done: 07/23/25 19:20 Discharge Date/Time: 07/23/25 19:35 Print Language: Portuguese
[2025-07-23 15:54] VITALS: BP 145/60; PULSE 65; O2SAT 100
[2025-07-23 16:03] VITALS: BP 122/85; PULSE 68; RESP 16; TEMP 37.1; O2SAT 100; BMI 33.1
[2025-07-23 18:11] VITALS: RESP 16
--- OUTSIDE RECORDS SUMMARY | 2025-07-23 18:31 | XMS_ITS | Clinical Summary ---
Author Organization [address] [place] [address] Address [address] [place] [address] Phone Care Team Providers Care State Director Name Role Phone Ceci Bowen MD Primary Care Provider [phone] Allergies Active Allergy Reactions Criticality Noted Date [...] Problem Noted Date Diagnosed Date Rheumatoid arthritis ([facility] V24, [facility] V28) 09/20/2024 Mild recurrent major depression ([facility] V24) GERD (gastroesophageal reflux disease) Arthralgia 09/20/2024 [...] PM EST Office Visit Orthopedic Surgery - [place] [address] [place] [phone] José Manuel Castillo, DPM [address] [place] [address] Health Maintenance Due Date Last [...] patient's age to complete this topic Insurance [place] [address] PLAN Care Teams State Director Relationship Specialty Start Date End Date Ceci Bowen MD [address] [place] [address] , [address] [facility] D/B/A: [facility] CYRUS Rosa PCP - General 06/20/24
[2025-07-23 19:20] VITALS: BP 109/66; PULSE 67; RESP 14; TEMP 36.4; O2SAT 99
== END 2025-07-23 19:35 | disposition home or self-care (01) ==
PROVIDERS: Emergency Provider Student in an Organized Health Care Education/Training Program
DX: M54.9 Dorsalgia, unspecified (principal)
CPT/HCPCS: 72100; 99283

== ENCOUNTER → 2025-07-23 16:40 | Outpatient (BNV) | payer OTHER, SELFPAY | PROVIDERS: Emergency Provider Student in an Organized Health Care Education/Training Program; Visit Provider Radiology Diagnostic Radiology | DX: M51.370 Other intervertebral disc degeneration, lumbosacral region with discogenic back pain only (principal) | CPT/HCPCS: 72100 ==

== ENCOUNTER 2025-08-12 08:00 | Outpatient (AMB) | payer OTHER, SELFPAY ==
--- OUTSIDE RECORDS SUMMARY | 2025-08-12 08:03 | XMS_ITS | Clinical Summary ---
Author Organization [address] [place] [address] Address [address] [place] [address] Phone Care Team Providers Care Director Of Construction Name Role Phone Ceci Bowen MD Primary Care Provider [phone] Allergies Active Allergy Reactions Criticality Noted Date [...] Problem Noted Date Diagnosed Date Rheumatoid arthritis ([facility], [facility] V28) 09/20/2024 Mild recurrent major depression ([facility] V24) GERD (gastroesophageal reflux [...] PM EST Office Visit Orthopedic Surgery - [place] [address] [phone] José Manuel Castillo, DPM [address] [phone] Health Maintenance Due Date Last Done Comments Hepatitis B Vaccines (1 of 3 - 19+ 3-dose series) 01/21/2007 Cervical Cancer Screening: P ap Smear 01/21/2009 Cholesterol Screening (Lipid Panel) 07/06/2024 HIV Screening 07/06/2024 Hepatitis C Screening 07/06/2024 Social Influencers of Health Screening 07/06/2024 Depression Screening 09/19/2024 HPV Vaccines (3 - 3-dose SCD M series) 02/27/2025 10/30/2024, 08/29/2024 COVID-19 Vaccine (1 - 2024-2 6 season) 2025 Influenza Vaccine (#1) 2025 DTaP,Tdap,and [...] patient's age to complete this topic [place] [address] PLAN Care Teams Director Of Construction Relationship Specialty Start Date End Date Ceci Bowen MD [address] [place] [address] , [address] [facility] D/B/A: [facility] CYRUS Rosa PCP - General 06/20/24
--- NOTE | 2025-08-12 09:42 | A.OFFVIS_ITS ---
Intake Visit Reasons: 1y/med review Intake Note: Patient is present for a 1yr/med review Urology Medication:SOLIFENACIN Antibiotic Allergy:GABAPENTIN Blood Thinner:NONE Call Centre Supervisor Required: No Allergies gabapentin Adverse Reaction (Intermediate, Verified 08/12/25 09:42) constipation Medication List - Last Reconciled 08/12/25 by Niurka Torres MD albuterol sulfate 90 mcg/actuation 2 puffs inhalation Q6H PRN 30 days bisacodyl (Dulcolax (bisacodyl)) 10 mg (2 x 5 mg) PO BEDTIME cholecalciferol (vitamin D3) (Vitamin D3) 25 mcg PO DAILY cyclobenzaprine 5 mg PO TID PRN 4 days docusate sodium 300 mg (3 x 100 mg) PO BEDTIME duloxetine 60 mg PO DAILY 30 days epinephrine 0.3 mg (0.3 mL) IM ONCE PRN 30 days fluocinolone acetonide oil 0.01% (DermOtic Oil) 5 drps otic (ear) left BID 7 days hydrocortisone 2.5% (Proctosol HC) 1 appl [place] BID-QID PRN [incontinence liners As directed] ketoconazole 2% 1 appl topical 2XW loratadine 10 mg PO DAILY PRN 90 days magnesium citrate (Citrate of Magnesia oral) 150 mL PO DAILY PRN magnesium oxide 400 mg PO DAILY methocarbamol 750 mg PO Q8H 7 days ondansetron 4 mg PO Q8H PRN pantoprazole 40 mg PO DAILY [personal wipes As directed] prednisone 20 mg PO DAILY 7 days prucalopride (Motegrity) 2 mg PO DAILY Shower Chair As directed solifenacin (Vesicare) 10 mg PO DAILY sucralfate 10 mL PO BEDTIME triamcinolone acetonide 0.1% 1 appl topical BID underpads (Bed Underpads) As directed HPI Comments Details: 08/13/25-- History of Present Illness The patient is a 35-year-old individual presenting with chronic interstitial cystitis and stress urinary incontinence. The patient has been managing chronic interstitial cystitis with Vesicare, which has shown improvement in symptoms. There are no signs of infection in the urine, and the patient reports that some days are better than others. The patient experiences mild stress urinary incontinence, particularly with increased pressure activities such as coughing and sneezing. The condition is not severe, and the patient has had similar experiences in the past. The current management plan includes continuing Vesicare 10 mg daily, with a follow-up scheduled in a year. Urethral bulking was discussed as a future option if symptoms worsen. Results Plan 1. Chronic Interstitial Cystitis - Continue Vesicare 10 mg daily. - Schedule follow-up in one year. 2. Stress Urinary Incontinence - Consider urethral bulking if symptoms worsen. 08/13/24--FU --pain much better, drinking a lot of water urinary frequency improved on the VESIcare. Does have small leakage with sneezing and coughing wears a pad daily. Will continue VESIcare 10 mg daily follow-up in 1 year 03/01/2024--the patient is followed for chronic interstitial cystitis with he maturia and lower urinary tract symptoms of urgency and urinary incontinence. History of fibromyalgia, with chronic pain,She was last seen on 11/28/2023 and is prescribed VESIcare 10 mg daily. She states the medication is working well she does not need to use as many pads as she has better bladder control and minimal leakage accidents. She denies irritative voiding symptoms. Plan to continue VE SIcare 10 mg daily follow-up in 9 months 11/28/2023--Olga is followed for diagnosis of interstitial cystitis. Past medical history--fibromyalgia, arthritis constipation and mild depression. She is also followed by matting press tender for abnormal uterine bleeding. She states that recently she had severe right lower quadrant pain. She states she was told there was an ovarian cyst. I have reviewed chart--she had a pelvic ultrasound April 2023 noting bilateral ovarian simple cysts R>L. CT imaging -11/16/22--KIDNEYS AND URETERS: The kidneys are normal in size, shape, and attenuation. No hydronephrosis, hydroureter, or calculi seen. The patient states that she goes frequently to the bathroom. She states she does drink a lot of water. She will occasionally have urine leakage with coughing or sneezing. Evaluation: Urinalysis--2+ blood, leukocytes negative, bladder scan PVR 0 mL. I have discussed a trial of an anticholinergic, VESIcare 10 mg daily. Will have her follow-up in 3 months to review symptoms. She is to call regarding any issues she has with either obtaining the medication or side effects. 02/28/23--Olga is a 33-year-old female who presents to the office for 3 month follow-up of interstitial cystitis. The patient was last seen in the office on 11/25/22. She was initially evaluated for microscopic hematuria and pelvic pain The patient mentions improvement in pain due to IC. The patient states having urinary leakage with sneezing. The patient is following-up with her LAW OFFICE RECEPTIONIST for fibroids. Evaluation today-- Blood: 200, leukocytes: negative. Bladder scan PVR: 0 mL. Discussed that bladder inflammation may cause blood in the urine. Follow-up in 9 months. 11/25/22--FU-Cystoscpy hydrodistention on 11/02/2022-- findings positive glomerulations, moderate, bladder capacity post distention 650 mL. I have discussed IC dxn-pamphlet given, treatment options to include IC diet, pamphlet given, antihistamines and bladder installations. Imaging--CT KUB--05/08/2022-kidneys no stones, no hydronephrosis, Pelvic ultrasound ? 10/11/22. The patient states that urinary symptoms and pelvic pain has improved during her last visit. The plan was behavioral modifications and focus on IC diet. She has complained LUTS symptoms including stress urinary incontinence and states wearing pads daily. She is being followed by LAW OFFICE RECEPTIONIST for fibroids. [facility] Medical History Tubular adenoma of colon Chronic pelvic pain in female Fibroid Need for HPV vaccination LGSIL on Pap smear of cervix Chronic pelvic peritonitis, female Uterine fibroid (Unknown) Abnormal uterine bleeding (AUB) Rheumatoid arthritis Mild recurrent major depression Sacroiliac joint dysfunction of right side Spondylosis of lumbosacral spine with radiculopathy Disc degeneration, lumbar Spondylosis of lumbar spine Gastroesophageal reflux disease Mild persistent asthma Constipation by delayed colonic transit Arthralgia Insertion of implantable subdermal contraceptive Sacroiliitis Hip osteomyelitis, right Surgical History History of sacroiliac joint dysfunction History of hip surgery History of (~2005) Family History Mother No problems noted. Father No problems noted. Brother Crohn's disease Social History Household Members: Children Household Members Other:: lives with teenage son Housing: Apartment Are you a primary skin care consultant to a significant other at home: No Do you presently have visiting nurse or other home services: No Alcohol intake: never Patient Tobacco Use Status: Never used Tobacco e-Cigarette/Vaping Use: Never Used Second Hand Smoke Exposure: No service: No Current occupational status: disabled Sexual orientation: Straight/Heterosexual Cognitive needs: No Hearing needs: No Vision needs: Yes Female Reproductive History Menstrual Age of Menarche: 12 Review of Systems Const All systems reviewed & are unremarkable except as noted in HPI and below Reports no additional complaints Eyes Reports no additional complaints ENT Reports no additional complaints Card Reports no additional complaints Resp Reports no additional complaints GI Reports no additional complaints Reports as per HPI Musc Reports no additional complaints Skin/Breast Reports system reviewed and no additional complaints, except as documented Neuro Reports no additional complaints Psych Reports no additional complaints Endo Reports no additional complaints Markos/Lymph Reports no additional complaints Aller/Immun Reports no additional complaints Results AMB Urinalysis, Automated UA Leukoctes 0 [place]/uL Last Edit by Raina Krueger on 08/12/25 14:16 UA Nitrite Negative Last Edit by Raina Krueger on 08/12/25 14:16 UA Urobilinogen 0.2 mg/dL Last Edit by Raina Krueger on 08/12/25 14:16 UA Protein 30 mg/dL Last Edit by Raina Krueger on 08/12/25 14:16 UA pH 5.5 Last Edit by Raina Krueger on 08/12/25 14:16 UA Blood 200 [place]/uL Last Edit by Raina Krueger on 08/12/25 14:16 UA Specific [place] 1.025 Last Edit by Raina Krueger on 08/12/25 14:16 UA Ketone Negative Last Edit by Raina Krueger on 08/12/25 14:16 UA Bilirubin 0 mg/dL Last Edit by Raina Krueger on 08/12/25 14:16 UA Glucose 0 mg/dL Last Edit by Raina Krueger on 08/12/25 14:16 Assessment & Plan Assessment & Plan Orders: Orders AMB Urinalysis Automated Today Z13.9 - Encounter for screening, unspecified Medications: Refilled solifenacin (Vesicare) 10 mg PO DAILY 90 tabs 3RF Coding
== END 2025-08-12 10:11 | disposition home or self-care (01) ==
LOC: HO.HUSH 08:01
PROVIDERS: PCP Internal Medicine; Visit Provider Urology
DX: Z13.9 Encounter for screening, unspecified (principal)

== ENCOUNTER → 2025-08-12 08:00 | Outpatient (BNVA) | payer OTHER, SELFPAY | PROVIDERS: PCP Internal Medicine; Visit Provider Urology | DX: Z13.9 Encounter for screening, unspecified (principal) | CPT/HCPCS: 81003 ==

== ENCOUNTER 2025-08-22 07:54 | Outpatient (AMB) | payer OTHER, SELFPAY ==
--- OUTSIDE RECORDS SUMMARY | 2025-08-22 07:57 | XMS_ITS | Clinical Summary ---
Author Organization [address] [place] [address] Address [address] [place] [address] Phone Care Team Providers Care Power Cutting Machine Operator Name Role Phone Ceci Bowen MD Primary Care Provider [phone] Allergies Active Allergy Reactions Criticality Noted Date [...] Problem Noted Date Diagnosed Date Rheumatoid arthritis ([facility] V24, [facility] V28) 09/20/2024 Mild recurrent major depression ([facility] V24) GERD (gastroesophageal reflux disease) Arthralgia [...] PM EST Office Visit Orthopedic Surgery - [place] [address] [phone] José Manuel Castillo, DPM [address] [phone] Health Maintenance Due Date Last [...] patient's age to complete this topic [place] [address] PLAN Care Teams Power Cutting Machine Operator Relationship Specialty Start Date End Date Ceci Bowen MD [address] [place] [address] , [address] [facility] Physician Associ D/B/A: [facility] CYRUS Rosa PCP - General 06/20/24
--- NOTE | 2025-08-22 08:16 | MHC.OFFVIS ---
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 No concern Hvac Maintenance Technician Required: No Information Interpreted: non-clinical & clinical Barista: Barista Present (Gen[place]) Accompanied by: Self / Same As Patient Allergies gabapentin Adverse Reaction (Intermediate, Verified 08/22/25 08:18) constipation Medication List - Last Reconciled 08/22/25 by Tati De La Torre LPN albuterol sulfate 90 mcg/actuation 2 puffs inhalation Q6H PRN 30 days bisacodyl (Dulcolax (bisacodyl)) 10 mg (2 x 5 mg) PO BEDTIME cholecalciferol (vitamin D3) (Vitamin D3) 25 mcg PO DAILY cyclobenzaprine 5 mg PO TID PRN 4 days docusate sodium 300 mg (3 x 100 mg) PO BEDTIME duloxetine 60 mg PO DAILY 30 days epinephrine 0.3 mg (0.3 mL) IM ONCE PRN 30 days hydrocortisone 2.5% (Proctosol HC) 1 appl PA BID-QID PRN [incontinence liners As directed] ketoconazole 2% 1 appl topical 2XW loratadine 10 mg PO DAILY PRN 90 days magnesium citrate (Citrate of Magnesia oral) 150 mL PO DAILY PRN magnesium oxide 400 mg PO DAILY methocarbamol 750 mg PO Q8H 7 days ondansetron 4 mg PO Q8H PRN pantoprazole 40 mg PO DAILY [personal wipes As directed] prucalopride (Motegrity) 2 mg PO DAILY Shower Chair As directed solifenacin (Vesicare) 10 mg PO DAILY sucralfate 10 mL PO BEDTIME triamcinolone acetonide 0.1% 1 appl topical BID underpads (Bed Underpads) As directed Is last menstrual period known: Yes Last menstrual period: 08/11/25 Do you need a note to return to daycare/school/sports/work: No HPI Comments Details: Patient is a premenopausal woman presenting for annual examination. 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 Was referred to [facility] 11/2024, [place] [facility] [place] told to set up a patient portal and send a message to expedite her appointment as they are so busy. She has not heard back. Regular monthly menses. Currently not is sexually active. She denies vaginal itching or irritation. STI screening offered; she accepts. She tries to eat healthy, has stomach issues and stays active with exercise. Last pap smear 2023, negative. [facility] [place] Medical History Tubular adenoma of colon Chronic pelvic pain in female Fibroid Need for HPV vaccination LGSIL on Pap smear of cervix Chronic pelvic peritonitis, female Uterine fibroid (Unknown) Abnormal uterine bleeding (AUB) Rheumatoid arthritis Mild recurrent major depression Sacroiliac joint dysfunction of right side Spondylosis of lumbosacral spine with radiculopathy Disc degeneration, lumbar Spondylosis of lumbar spine Gastroesophageal reflux disease Mild persistent asthma Constipation by delayed colonic transit Arthralgia Insertion of implantable subdermal contraceptive Sacroiliitis Hip osteomyelitis, right Surgical History History of sacroiliac joint dysfunction History of hip surgery History of (~2005) Family History Mother No problems noted. Father No problems noted. Brother Crohn's disease Social History Household Members: Children Household Members Other:: lives with teenage son Housing: Apartment Are you a primary direct care professional to a significant other at home: No Do you presently have visiting nurse or other home services: No Alcohol intake: never Patient Tobacco Use Status: Never used Tobacco e-Cigarette/Vaping Use: Never Used Second Hand Smoke Exposure: No service: No Current occupational status: disabled Sexual orientation: Straight/Heterosexual Cognitive needs: No Hearing needs: No Vision needs: Yes Female Reproductive History Menstrual Age of Menarche: 12 Date of last menstrual period: 08/11/25 Date of last pap smear: 08/15/24 History of abnormal pap smear: No Review of Systems Const All systems reviewed & are unremarkable except as noted in HPI and below Reports as per HPI Eyes Reports no additional complaints ENT Reports no additional complaints Card Reports no additional complaints Resp Reports no additional complaints GI Reports as per HPI and Reports no additional complaints Reports as per HPI Musc Reports no additional complaints Skin/Breast Reports as per HPI Neuro Reports no additional complaints Psych Reports no additional complaints Endo Reports no additional complaints Markos/Lymph Reports no additional complaints Aller/Immun Reports no additional complaints Physical Exam Vital Signs: Last Vital Signs BP 110/72 08/22/25 08:22 BMI result Body Mass Index 36.5 Const General: cooperative, healthy appearing, no acute distress, well developed and alert Orientation/consciousness: patient oriented x3 HEENT Head: Yes normal to inspection Eyes General: appearance normal, both eyes and all related structures Neck Neck: Yes normal visual inspection Thyroid: Thyroid normal Chest Chest palpation & inspection: normal inspection of the chest and other (no puckering, dimpling, peau de orange, retraction, discharge, masses) Breast/axilla inspection: normal inspection of the breasts Breast/axilla palpation: normal palpation of the breasts Resp Effort & Inspection: normal respiratory effort GI Inspection: Yes normal to inspection Palpation (GI): Soft to palpation Rectal Exam - Female: deferred General: Yes bladder normal to palpation External Female Exam: normal external appearance and normal appearance of the urethra Speculum Exam - Vagina: normal appearance of the vagina, normal palpation and normal vaginal discharge Speculum Exam - Cervix: normal appearance of the cervix and normal palpation Bimanual exam- vagina & uterus: normal bimanual exam, normal palpation, uterine size normal, bladder normal to palpation, normal palpation and non-tender Bimanual Exam- Adnexa, other: no masses Skin General skin exam: no rashes or lesions noted Rashes: no rashes Neuro General: patient oriented x3 Cognition (Neuro): normal cognition Extrem General: Yes normal to inspection Psych Attitude: cooperative Thought process: Normal thought process present Assessment & Plan Assessment & Plan (1) Encounter for well woman exam with routine gynecological exam: Code(s): Z01.419 - Encounter for gynecological examination (general) (routine) without abnormal findings Category: Medical Plan: Discussed: Current recommendations for pap smears per ASCCP guidelines. Breast awareness and periodic breast exams. Maintain a healthy lifestyle including a well balanced diet and routine exercise. Patient verbalizes understanding and agrees to the plan of care. She was given opportunity to ask questions and all questions were answered to the best of my ability. RTO in one year for annual operator supply examination. This note is constructed using voice recognition software. While every effort has been made to ensure accuracy, community program assistant errors may have been included. (2) Uterine fibroid: Onset Date: Unknown Code(s): D25.9 - Leiomyoma of uterus, unspecified Category: Medical Qualifiers: Uterine leiomyoma location: unspecified location Qualified Code(s): D25.9 - Leiomyoma of uterus, unspecified Plan: Counseled regarding fibroids. Follow up pending ultrasound results. The patient expressed understanding and agreement with the plan of care. All of her questions and concerns were addressed to the best of my ability. (3) Chronic pelvic pain in female: Code(s): R10.2 - Pelvic and perineal pain; G89.29 - Other chronic pain Category: Medical Plan: Call if there is any increased pain or other changes in concerns. The patient expressed understanding and agreement with the plan of care. All of her questions and concerns were addressed to the best of my ability. (4) Abnormal uterine bleeding (AUB): Code(s): N93.9 - Abnormal uterine and vaginal bleeding, unspecified Category: Medical Plan Plan, CBC, US, EMB procedure. Counseled regarding preprocedure anticipatory guidance, to take 3 Advil or 2 Tylenol, an hour before the procedure with food and fluid. The patient expressed understanding and agreement with the plan of care. All of her questions and concerns were addressed to the best of my ability. Total time I personally spent on visit and management today: ?20 minutes. Time spent included review of pertinent office notes in the electronic health record; review of laboratory and imaging results; review of personal family medical history; performing physical exam; discussing diagnosis and plan of care with the patient; documenting the encounter in the EMR. Plan referral to [facility] for chronic pelvic pain-Essure coil consult for considering removal. This note is constructed using voice recognition software. While every effort has been made to ensure accuracy, community program assistant errors may have been included. Orders: Orders US pelvic and transvaginal Today D25.9 - Leiomyoma of uterus, unspecified, G89.29 - Other chronic pain, R10.2 - Pelvic and perineal pain CT NG by PCR Vag/Cerv Today Z11.3 - Encounter for screening for infections with a predominantly sexual mode of transmission Complete Blood Count no Diff Today N93.9 - Abnormal uterine and vaginal bleeding, unspecified Bacterial Vaginosis Panel Today Z11.3 - Encounter for screening for infections with a predominantly sexual mode of transmission Coding Level of Care Code Est Pt Level 2 (63888) Est Pt Prev Care 18-39y(81031) Diagnoses Encounter for well woman exam with routine gynecological exam Z01.419 Uterine leiomyoma, unspecified location D25.9 Uterine leiomyoma location: unspecified location Chronic pelvic pain in female R10.2; G89.29 Abnormal uterine bleeding (AUB) N93.9
[2025-08-22 08:22] VITALS: BP 110/72; BMI 36.5
== END 2025-08-22 09:19 | disposition home or self-care (01) ==
LOC: HO.HWS 07:54
PROVIDERS: PCP Internal Medicine; Visit Provider Advanced Practice Midwife
DX: Z01.419 Encounter for gynecological examination (general) (routine) without abnormal findings (principal); D25.9 Leiomyoma of uterus, unspecified; R10.20 Pelvic and perineal pain unspecified side; G89.29 Other chronic pain; N93.9 Abnormal uterine and vaginal bleeding, unspecified
CPT/HCPCS: 99212; 99395; 99459

== ENCOUNTER 2025-08-22 07:54 | Outpatient (REF) | payer OTHER, SELFPAY ==
[2025-08-23 00:18] LABS: Bacterial Vaginosis PCR NEGATIVE (Negative); Candida Group PCR NOT DETECTED (Not Detect); Candida glab krusei PCR NOT DETECTED (Not Detect); Trichomonas vaginalis PCR NOT DETECTED (Not Detect)
[2025-08-23 00:49] LABS: CT PCR NOT DETECTED (Not Detect.); NG PCR NOT DETECTED (Not Detect.)
== END 2025-08-22 07:55 | disposition home or self-care (01) ==
LOC: HO.LNP 07:54
PROVIDERS: PCP Internal Medicine; Visit Provider Advanced Practice Midwife
DX: Z01.419 Encounter for gynecological examination (general) (routine) without abnormal findings (principal); Z20.2 Contact with and (suspected) exposure to infections with a predominantly sexual mode of transmission; D25.9 Leiomyoma of uterus, unspecified; R10.20 Pelvic and perineal pain unspecified side; G89.29 Other chronic pain; N93.9 Abnormal uterine and vaginal bleeding, unspecified
CPT/HCPCS: 81515; 87491; 87591